=== PATIENT | male | born 1935 | race Caucasian/White ===

== ENCOUNTER 2016-07-19 05:47 | Inpatient (IN) | payer MEDICARE, OTHER ==
[~2016-07-19] VITALS: Ht 167.6 cm; Wt 95.8 kg
[2016-07-19] VITALS (18 sets, daily range): BP systolic 78–126; BP diastolic 50–85; PULSE 59–133; RESP 17–22; O2SAT 93–98
[~2016-07-19 05:47] MED LIST: ALBU8.5H2 INHALATION; ALBUTEROL; AMLO10TA3 PO; ASPI-973 PO; ATOR20TA PO; CITA20TA11 PO; FLAX100010 PO; FURO40TA4 PO; GLIM4TAB2 PO; HYDR-4003 PO; INSU100V7 SUBQ; MULT1CAP33 PO; NITR4.9S5 SL; OMEP20CA11 PO; SPIR25TA3 PO
--- NOTE | 2016-07-19 06:07 | ED.REPORT ---
HPI-Chest Pain 40 and Over Date of Service Jul 19, 2016 ED Provider: Kam Escobar MD An 81 year old male with h/o KY, HTN, COPD, asthma, and CABG presents to the ED via EMS c/o continuous non-radiating chest pain onset 0130 which woke him from sleep, but he did not get out of bed until 0400. Pain is described as pressure on patient's chest, and is not exacerbated or relieved by anything. Pain was rated 8/10 at onset, is now 6/10 with pressure sensation decreased, but he still feels like there is something sitting on his chest. He took 1 Nitro and 3 puffs from his inhaler at home with some relief, was given additional Nitro by medics in route along with Aspirin but took no other meds today. Associated SOB described as patient not being able to get enough air, cough, wheezing, and chills . His O2 sat was 88. He reports that chest pain is distinct from asthma attacks. He felt fine yesterday, and has not had any cough, chest pressure, or cold in the last few days , only baseline asthma exacerbation and pollen reaction. He has baseline edema in legs that have been slightly worse in the past few days.He denies and diaphoresis, nausea, vomiting, or extremity swelling. He had a past episode of similar symptoms during CABG. Last episode of chest discomfort was a few months ago difference being that he experienced heat and diaphoresis. He denies any recent bleeding problems. Nursing Notes Stated Complaint: CHEST PAIN, SHORT OF BREATH Chief Complaint: Chest Pain Nursing Notes Reviewed: Yes ([employer], meds not reconciled) Allergies: Coded Allergies: No Known Allergies (Unverified , 07/19/16) Scheduled Albiglutide (Tanzeum) 50 Mg/0.5 Ml Pen.injctr 50 MG SQ WEEKLY Amlodipine (Amlodipine) 10 Mg Tablet 10 MG PO DAILY Aspirin (Aspirin) 81 Mg Tablet 81 MG PO DAILY Atorvastatin (Lipitor) 20 Mg Tablet 40 MG PO DAILY Citalopram (Citalopram) 20 Mg Tablet 20 MG PO DAILY Furosemide (Furosemide) 40 Mg Tablet 80 MG PO MORNING Furosemide (Furosemide) 40 Mg Tablet 40 MG PO HS Glimepiride (Glimepiride) 4 Mg Tablet 4 MG PO DAILYAC Multivitamin (Multivitamins) 1 Each Capsule 1 EACH PO DAILY Omeprazole (Omeprazole) 20 Mg Capsule.dr 20 MG PO DAILY Spironolactone (Spironolactone) 25 Mg Tablet 25 MG PO DAILY Ubidecarenone (Co Q-10) 300 Mg Capsule 300 MG PO DAILY Scheduled PRN Albuterol HFA (Proair HFA) 8.5 Gm Hfa.aer.ad 2 PUFFS INHALATION q4-6h PRN PRN For Wheezing Hydrocodone-Acetaminophen 5-325 mg (Hydrocodone-Acetaminophen 5-325 mg) 1 Each Tablet 1 TABLET PO Q6H PRN PRN For Pain Insulin Glargine (Lantus U100 Insulin Vial) 100 Unit/Ml Vial 20 UNIT SUBQ DIRECTED PRN PRN Hyperglycemia Nitroglycerin SL (Nitroglycerin SL) 0.4 Mg Tab.subl 0.4 MG SL PRN chest pain General Time Seen by MD: 06:02 Chief Complaint Chest pain Hx Obtained From: Patient, Spouse, EMS Arrived By: Ambulance Sudden in Onset?: Yes Onset Occurred: 5 - 8 hours ago (0130) Symptom Duration: Since onset Radiation: : Does not radiate Severity: Current: Pain level 6 out of 10 Severity: Maximum: Pain level 8 out of 10 Recent Healthcare: Recent doctor visit Similar Sx Previous: No Past Medical History Past Medical History Notes: Echocardiogram 06/20/2016, mild LVH, EF 55-60%, mild right ventricular dilation, mild mitral regurgitation, bioprosthetic aortic valve, mild to moderate tricuspid regurg Visited Dr. Fishman 07/06 for similar symptoms Past Medical History History of pulmonary hypertension COPD Asthma Stage III chronic kidney disease Diabetes Primary osteoarthritis the right hip History of congestive heart failure Hyperlipidemia GERD History of major depression History of chronic low back pain History of aortic valve replacement with a porcine valve (on ASA) Reports: Coronary artery disease Past Surgical History CABG Bioprosthetic aortic valve Cardiac catheterization February 2015 Hip surgery Smoking History Former Smoker Social History Drug Use: Denies drug use Review of Systems Constitutional: Reports: Chills Respiratory: Reports: Non-productive cough, Shortness of breath, Wheezing Cardiovascular: Reports: Chest pain GI: Denies: Nausea, Vomiting Musculoskeletal: Denies: Extremity swelling Skin: Denies Diaphoresis Complete sys rev & neg: except as marked. Physical Exam Initial Vital Signs Vital Signs (First) Date Time Temp Pulse Resp B/P Pulse Ox O2 Delivery O2 Flow Rate FiO2 07/19/16 05:59 36.6 133 20 126/67 98 Nasal Cannula 2 Initial VS: Reviewed, Vital signs abnormal General/Constitutional: Awake, Alert Appearance / Presentation: Positive: Obese Respiratory / Chest: Atraumatic bronchospastic Heart Sounds / Murmur: Positive: Heart sounds diminished (Can't hear enough heart tones to identify murmur that I am sure is there. ) 1-2+ edema in both legs. Abdomen: Atraumatic, No guarding, No rebound Skin: Warm, Dry Neurologic: Oriented X3, Speech NL Head / Eyes: Atraumatic, Normocephalic, PERRL, EOMI ENT: Atraumatic, Mucous membranes moist Interpretation & Diagnostics Lab Results Interpretation Result Diagram: 07/19/16 0558 07/19/16 0558 Test 07/19/16 05:58 White Blood Count 11.6th/mm3 (3.8-10.1) Red Blood Count 4.73mil/mm3 (4.40-5.80) Hemoglobin 14.4g/dL (13.8-17.2) Hematocrit 43.0% (41.0-50.0) Mean Corpuscular Volume 90.9fL (81-100) Mean Corpuscular Hemoglobin 30.4pg (27.0-35.0) Mean Corpuscular Hemoglobin Concent 33.5% (32.0-37.0) Red Cell Distribution Width 14.6% (12.3-15.4) Platelet Count 231bil/L (150-400) Neutrophils (%) (Auto) 75.6% (40-74) Lymphocytes (%) (Auto) 12.3% (14-46) Monocytes (%) (Auto) 11.0% (4-12) Eosinophils (%) (Auto) 0.5% (0-5) Basophils (%) (Auto) 0.3% (0-3) Sodium Level 138mEq/L (134-144) Potassium Level 3.8mEq/L (3.5-5.2) Chloride Level 97mEq/L (97-108) Carbon Dioxide Level 25mmol/L (18-29) Blood Urea Nitrogen 27mg/dL (8-27) Creatinine 1.61mg/dL (0.76-1.27) Estimat Glomerular Filtration Rate 44mL/min (>59) Glucose Level 223mg/dL (60-99) Calcium Level 9.1mg/dL (8.5-10.1) Magnesium Level 2.1mg/dL (1.6-2.6) Total Bilirubin 0.7mg/dL (0.0-1.2) Aspartate Amino Transf (AST/SGOT) 21U/L (0-50) Alanine Aminotransferase (ALT/SGPT) 13U/L (0-44) Alkaline Phosphatase 79U/L (25-160) Troponin T 0.089ug/L (0.0-0.011) Total Protein 7.3g/dL (6.4-8.4) Albumin 3.8g/dL (3.4-5.0) Lab Results Interpretation: CBC mild leukocytosis CMP mild chronic renal insufficiency unchanged, mild hyperglycemia Troponin #1 elevated-previous troponin 0.013 with similar renal insufficiency are agreeing that this represents a clinically meaningful troponin elevation ECG Interpretation ECG Interpretation: Initial EKG was read by the computer as demonstrating an acute KY-however I do not appreciate clear ischemic changes, I contacted the on-call carton repairer Dr. Baker is a reviewed the EKG and agrees that he does not appreciate findings on acute ischemia on the initial EKG. The computer over read reads his rhythm is atrial flutter, but this is not definitively apparent on my interpretation. It is possible, as is tachycardic in the 120s, up across represent sinus tachycardia. There is a chronic right bundle branch block that is unchanged. T waves inferiorly which are suggestive and old inferior KY, but again unchanged compared with previous. Time: 07:00 Interpreted by: ED physician, [employer] Normal ECG Interpretation: No acute ischemic changes ECG Interpretation: Heart rate is improved and is down to 103, again the computer over read indicates atrial flutter but this is not definitive on my interpretation, the right bundle branch block, old inferior unchanged-but again I do not appreciate acute ischemic changes on the second EKG Time: 06:16 Interpreted by: ED physician ECG Interpretation: This third EKG again the computer or read claims atrial flutter, again this remains debatable, however the rate has now improved to 92, and no ischemic changes are evident, no interval changes are present, and the patient is now pain free is 0 out of 10 discomfort Time: 07:46 Interpreted by: ED physician X-Ray Chest Interpretation Chest Xray Interpretation: IMPRESSION: Mild cardiomegaly and interstitial prominence. Mild early developing pulmonary edema cannot be excluded. Correlate clinically. Dictated by: Pawan Peña RRA Interpreted: Martha Yousif MD on 07/19/2016 at 8:39 Transcribed by: ROSEANN on 07/19/2016 at 8:40 Approved by: Martha Yousif MD, PhD on 07/19/2016 at 8:47 Interpretation / Wet Read by: Interpret - Radiologist Re-Eval/Medical Decision Med Decision/Clinical Course Is is an 81-year-old male complex history including coronary disease, status post CABG, status post bioprosthetic aortic valve and history of pulmonary hypertension presents with onset of chest pressure and discomfort that is reminiscent of the discomfort that he had prior to his CABG, but less severe- but it kept him awake and persisted. He has had some shortness of breath and wheezing as well. The symptoms started around 1 AM, but he did not notify his told around for him, as he arrives complaining of 8 out of 10 discomfort. He has had aspirin and nitroglycerin prior to arrival, but is still having 6-7 out of 10 chest discomfort. She does not appear toxic, he is mildly bronchospastic, he has no JVD but does have some lower extremity edema which he says is baseline. A EKG was read by the computer as demonstrating an acute KY, but I do not appreciate this-but given that interpretation and his presentation, the EKG was reviewed with the carton repairer on-call who agrees it does not appear to represent interval change or clear ischemia. Patient continued to have discomfort in the department, and received additional nitrates, a Dilaudid and lorazepam, for the CT does have COPD does have a component of some audible bronchospasm he received a dose of albuterol, and he last received a dose metoprolol. With these medicines his symptoms resolved. On reevaluation he is symptom-free. He has had a multitude of serial EKGs with no interval change. Hours labs do demonstrate a troponin elevation which seems real given that he had similar renal function when his last troponin was obtained and was 0.013. The patient started on a heparin drip. The case is discussed with the on-call carton repairer Dr. Ritter these being consulted, and the patient is being admitted to the hospitalist service. Source of Hx: Old records, EMS Time of Eval: 07:03 Patient Status: Condition improved Re-Evaluation/Progress Note: Rechecked patient. Pain is now at 5/10. Explained plan for admission. Patient understands and agrees with the plan. All questions addressed. Time of Eval: 07:34 Patient Status: Condition improved Re-Evaluation/Progress Note: Rechecked patient who is pain free. Consultation #1: Referral / Consult Name: Conrado Baker MD Consulted With: Cardiology Call Returned at: 06:21 Stream Control Officer: Agrees with eval Note: Discussed patient EKG results with Dr. Baker. Consultation #2: Referral / Consult Name: Angel Ritter MD Stream Control Officer: Agrees with plan Note: Discussed patient case with Dr. Ritter who agrees to consult. Consultation #3: Referral / Consult Name: Reynaldo Aguilar MD Consulted With: Hospitalist Call Returned at: 08:19 Stream Control Officer: Accepts admit Differential Diagnosis: Positive: Acute coronary syndrome, Acute myocardial infarct, Asthma exacerbation (COPD), Chest pain, acute, Myocardial infarction, Unstable angina, Negative: Esophageal rupture, Esophagitis, Gun shot wound chest, Peptic ulcer disease, Pneumomediastinum, Pneumonia, Pneumothorax, Pulmonary edema, Pulmonary embolism Counseled Regarding: Diagnosis, Lab results, Need for follow-up, Need for admission Discharge & Departure Primary Impression: NSTEMI (non-ST elevated myocardial infarction) Disposition: ADMITTED TO HOSPITAL Discharge Condition All VS Reviewed: Yes Condition: Improved Referrals: Milan Fishman MD (PCP) Crit Care Except Billable Proc Time Spent: 30-74 minutes Services Performed: Patient management by me, Time spent at bedside, Reviewing test results, Reviewing imaging, Discussing patient care, Documentation in record, Time with fam/surrogate, Other Scribe Attestation Portions of this note were transcribed by Quang Bedoya. I, Dr. Escobar personally performed the history, physical exam and medical decision-making; I reviewed and confirmed the accuracy of the information in the transcribed note. Signed by: Kang Schafer, 07/19/2016, 0823. copies to: Milan Fishman MD, Matthew F MD Jul 19, 2016 06:07 Quang Bedoya Jul 19, 2016 06:17
[2016-07-19 06:08] LABS: BASOPHILS % (AUTO) 0.3 % (0-3); EOSINOPHILS % (AUTO) 0.5 % (0-5); Mean Corpuscular Hemoglobin 30.4 pg (27.0-35.0); Mean Corpuscular Volume 90.9 fL (81-100); NEUTROPHILS % (AUTO) 75.6 % (40-74); Platelet Count 231 bil/L (150-400)
[2016-07-19] MEDS ORDERED: Albuterol-Ipratropium 3 mL Inhalation Solution NEB ONE (06:15)
[2016-07-19] MEDS ORDERED: Nitroglycerin 2% 1 Gm Ointment TOPICAL SCH (06:15)
[2016-07-19] MEDS ORDERED: HYDROmorphone 0.5 mg/0.5 mL iSecure Syringe IVPUSH ONE (06:15)
[2016-07-19] MEDS ORDERED: MethylprednisoLONE Sodium Succinate 62.5 mg/mL 2 mL Inj IVPUSH ONE (06:15)
[2016-07-19 06:51] LABS: Magnesium 2.1 mg/dL (1.6-2.6)
[2016-07-19 06:54] LABS: TROPONIN T 0.089 ug/L (0.0-0.011)
[2016-07-19] MEDS ORDERED: Heparin 25K Unit/500mL 0.45 NS 25,000 UNIT in IV Premix 1 EACH IV ONE (07:05)
[2016-07-19] MEDS ORDERED: Heparin 5,000 Unit/mL Inj IVPUSH ONE (07:05)
[2016-07-19] MEDS ORDERED: MeTOProlol 1 mg/mL 5 mL Inj IVPUSH ONE (07:05)
--- NOTE | 2016-07-19 08:40 | DRSVH ---
PROCEDURE: X-RAY CHEST ONE VIEW, PORTABLE ([id number]) INDICATIONS: CHEST PAIN, sob, chf TECHNIQUE: One view of the chest was acquired. COMPARISON: [facility], CR, XR CHEST 2VW, 05/30/2016, 12:14. [facility], CR , CHEST 1VW (PORTABLE), 04/07/2013, 22:08. FINDINGS: Surgical changes and devices: Post median sternotomy. Lungs and pleura: No pleural effusions or pneumothorax. Lungs are clear and interstitium is promine nt. Mediastinum: Mediastinal contours appear normal. Heart size is enlarged. Bones and chest wall: No suspicious bony lesions. Overlying soft tissues appear unremarkable. IMPRESSION: Mild cardiomegaly and interstitial prominence. Mild early developing pulmonary edema can not be excluded. Correlate clinically. Dictated by: Pawan Peña RRA Interpreted: Martha Yousif MD on 07/19/2016 at 8:39 Transcribed by: ROSEANN on 07/19/2016 at 8:40 Approved by: Martha Yousif MD, PhD on 07/19/2016 at 8:47
[2016-07-19] MEDS ORDERED: FURO40TA4 PO (08:41)
[2016-07-19] MEDS ORDERED: NITR0.4T6 SL (08:41)
[2016-07-19] MEDS ORDERED: UBID300C PO (08:41)
[2016-07-19] MEDS ORDERED: ALBI50PE SQ (08:42)
[2016-07-19] MEDS ORDERED: Ondansetron 2 mg/mL 2 mL Inj IVPUSH PRN ×2 (09:15)
[2016-07-19] MEDS ORDERED: Polyethylene Glycol (PEG) 17 Gm Powder PO PRN (09:15)
[2016-07-19] MEDS ORDERED: Alum-Mag Hydrox-Simeth 30 mL Suspension PO PRN ×2 (09:15)
[2016-07-19] MEDS: Sodium Chloride LOK Flush 10 mL Syringe IVFLUSH SCH ×3 (09:15→23:35)
--- NOTE | 2016-07-19 10:44 | NUR ---
Admission Pt arrived to [facility] approx 1000, accompanied by . A&Ox3, pale, mildly diaphoretic, and dyspneic. Heparin gtt infusing, on 2L O2 NC (baseline at home). Reports no CP/pressure/discomfort at this time.
--- NOTE | 2016-07-19 11:40 | NUR ---
Evaluation completed. Please go to "Notes" then click on "Assessments and Notes" (bottom left corner of screen). Then select appropriate discipline tab on top of screen.
--- NOTE | 2016-07-19 14:25 | CONS ---
[address] [id number] CONSULTATION REPORT PATIENT: KEVIN BOONE : 1935 MR#: [id number] ADMIT: 07/19/2016 JOB ID: [id number] DATE OF SERVICE: 07/19/2016 CARDIOLOGY CONSULTATION: I was asked by the hospitalist to see the patient in consultation after he presented early this morning with symptoms of precordial chest discomfort that awoke him from sleep and persisted. He called 911 and presented to the emergency department for evaluation with abnormal initial troponin. He has a known history of ischemic heart disease. Consultation was requested for assistance with his evaluation and management. The patient states that he awoke at around 1 or 1:30 this morning with a sense of moderately severe precordial chest discomfort associated with diaphoresis and dyspnea and moist hacking cough. He was feeling poor enough that he contacted 911 who found that he was hypoxic with an O2 sat of 88% and tachycardic with heart rates in the 130 range. Initial EKG showed a regular tachycardia at a rate of 130 or so with a pre-existing somewhat atypical right bundle and left axis deviation, but without acute ST-segment abnormalities. He was treated in the emergency department with aspirin, intravenous heparin, nitrates and morphine and gradually his discomfort resolved and he was admitted to the hospitalist team on the third floor. As I am seeing him this morning, he is comfortable with no significant residual discomfort or dyspnea. He does not give a history of recent exertional anginal symptoms. He is limited by exertional fatigue and dyspnea but also by fairly severe arthralgias in his right hip so his activity level is markedly restricted, pretty much room to room in his home or perhaps to go out and get the mail periodically. He has chronic lower extremity edema on diuretic therapy and denies any symptoms of nocturnal pulmonary congestion. This gentleman's past cardiac history dates back to his presentation with unstable angina back in December 2009. He was hospitalized and his evaluation showed evidence of critical aortic stenosis in addition to moderate disease involving his LAD and dominant left circumflex. He was transferred to [place] and underwent bioprosthetic aortic valve replacement along with bypass grafting with an internal mammary bypass graft to the LAD distally and a vein bypass graft to the distal left circumflex and the PDA vessel. Surgery was complicated because of significant severe pulmonary hypertension and he did poorly when his sternum was closed. Therefore, his sternum was left open for several days as he improved hemodynamically and ultimately closed and plastic surgery was involved in that so it was a prolonged complex procedure. What is notable to me is the fact that he had moderately severe pulmonary hypertension at that time in addition to his severe aortic stenosis and also on my review of his echocardiogram from that year showed evidence of severe left ventricular hypertrophy. This gentleman underwent repeat evaluation in 2014 with repeat coronary angiography and right heart catheterization demonstrating moderate pulmonary hypertension and a large patent vein bypass graft to the distal circumflex PDA and a relatively small internal mammary graft which was patent and anastomosed to the distal LAD. The proximal coronary disease of the LAD and circumflex was moderate as well and probably not significantly changed compared with the previous angiogram in 2009. A repeat echocardiogram was performed just recently as part of an evaluation prior to considering right hip replacement surgery and this demonstrated normal left ventricular systolic function. Again I had an opportunity to review the echocardiogram and what is notable is the fact that the left ventricular myocardium is markedly thickened throughout so there is severe left ventricular hypertrophy. The patient was in normal sinus rhythm when this was done three weeks ago. It demonstrates mild right ventricular enlargement and mild-to- moderate right ventricular dysfunction and elevated central venous pressures. DATE OF SERVICE: PAST MEDICAL HISTORY: Is notable for: 1. Diabetes. 2. Chronic moderate renal insufficiency. 3. Chronic obstructive pulmonary disease. 4. Previous right bundle branch block. 5. Previous gastroesophageal reflux with esophagitis previously. 6. History of depression. 7. History of hypertension. 8. He also has a history of obstructive sleep apnea in the past. A sleep study in April 2011 demonstrated severe obstructive sleep apnea with nocturnal hypoxemia. The patient was not able to tolerate CPAP therapy. 9. He also has significant chronic obstructive pulmonary disease with pulmonary function studies most recently in March of last year demonstrating moderately severe obstructive disease with a significant reduction in diffusion capacity of around 33%-34%. REVIEW OF SYSTEMS: Again predominantly notable for limiting right hip arthralgias. He has a history of easy bruising but does not have any prior bleeding issues. He has no history of stroke or stroke-like symptoms. He denies exertional angina. He has chronic lower extremity edema. MEDICATIONS: According to our office records, his cardiac medications include: 1. Amlodipine 5 mg a day. 2. Baby aspirin daily. 3. Atorvastatin 40 mg daily. 4. Furosemide 80 mg in the morning, 40 mg in the evening. 5. Spironolactone 25 mg daily. ALLERGIES: No known drug allergies noted. PHYSICAL EXAMINATION: Shows a pleasant, moderately obese gentleman who is in no obvious distress. He is 5 feet 6 inches tall and weighs 207 pounds with a body mass index of 33.3. Heart rates are improved this morning into the 80-100 range and blood pressures have generally been in the 100-120 range. HEENT examination is unremarkable. Neck shows somewhat prominent jugular venous distention with the internal jugular venous pulse visible at the angle of the jaw with the patient at 60 degrees. Lung turpin demonstrate diminished breath sounds bilaterally without obvious wheezing. There may be some faint rales at the right lung base. Heart tones are distant. The rhythm is moderately rapid and regularly irregular. I do not hear an obvious cardiac murmur. Abdomen is obese without tenderness and normal bowel tones. Distal extremities are warm and well perfused. There is 2+ bilateral lower extremity edema below the knees. Pedal pulses are not readily palpable. The patient has no clear-cut musculoskeletal or neurologic abnormalities. LABORATORY DATA: Again notable for renal insufficiency with a creatinine of 1.6, blood sugar 223, troponin level elevated at 0.089 and BNP elevated at 5165. His white count is mildly elevated at 11.6 thousand. Chest x-ray shows normal heart size, previous sternotomy incision. There is mild pulmonary congestion seen. IMPRESSION: 1. Symptomatic atrial flutter: This patient's presenting symptoms likely represent the onset of atrial flutter early this morning with associated subendocardial ischemia related to the patient's severe ventricular hypertrophy. It is unlikely that this represents an acute coronary syndrome such as graft occlusion or worsening coronary stenosis. Given this patient's renal insufficiency, I think it is prudent to control his flutter rate with beta-delma therapy and proceed with elective cardioversion tomorrow. This patient had eaten breakfast this morning and, therefore, given the fact that he was asymptomatic, cardioversion can be postponed until tomorrow unless he develops recurrent symptoms. 2. Severe left ventricular hypertrophy: Likely related to his history of hypertension and severe aortic stenosis. 3. Moderately severe pulmonary hypertension: This patient has documented severe obstructive sleep apnea and nocturnal hypoxemia. He uses oxygen periodically at night but that will do him no good if he has persistent significant obstructive sleep apnea. The states that he has lost a lot a weight and he no longer snores as bad as he used to and a repeat sleep study evaluation should be done and the patient, if the sleep study is abnormal, should be strongly counseled to consider CPAP therapy. 4. History of two-vessel coronary bypass graft surgery and bioprosthetic aortic valve replacement: It would be reasonable to do a repeat nuclear cardiac stress study once the patient is back into a normal rhythm, particularly given the fact that he anticipates hip replacement surgery. 5. Moderately severe chronic obstructive pulmonary disease with significant abnormal diffusion capacity. 6. Insulin-dependent diabetes. 7. Obstructive sleep apnea: See discussion above. RECOMMENDATIONS: I have put in orders for this gentleman to get started up on metoprolol tartrate 25 mg q.8. Will want to make sure that we do not slow his rate too much and that it does not aggravate any significant bronchospasm. We will also initiate anticoagulant therapy with Xarelto and will get that started today so that he is anticoagulated for the cardioversion tomorrow and he should remain on anticoagulant therapy for at least the next month but perhaps longer depending upon his clinical course. I have gone ahead and put these orders in and stopped his aspirin and heparin therapy and will make arrangements for his cardioversion tomorrow. TAMEKA
[2016-07-19] MEDS ORDERED: Insulin GLARgine 100 Unit/mL Syringe SUBQ PRN (16:45)
[2016-07-19] MEDS ORDERED: HYDROcodone-APAP 5-325 mg Tablet PO PRN (16:55)
--- NOTE | 2016-07-19 18:36 | NUR ---
BP Up to BR, reported to SERVICES PROGRAM MANAGER feeling dizzy and sweaty. SBP 82. Pt assisted back to bed, feet elevated, O2 titrated. paged. SBP 119, per Dr Aguilar, pt is to be BR until cardioversion tomorrow. Hold PM lasix until BP increases. Will continue POC
[2016-07-19] MEDS: Insulin Human REGular 300 Unit/3 mL Inj SUBQ SCH ×2 (18:47→21:56)
[2016-07-19] MEDS: Albuterol 2.5 mg/3 mL Inhalation Solution NEB PRN (20:02)
--- NOTE | 2016-07-19 20:07 | NUR ---
BP Patient insisted on going to restroom to have bowel movement at about 1930. Assisted by JOHN. Patient reported that he was feeling okay, denied dizziness, dyspnea while in restroom. Upon returning to bed, patient reported being dizzy. BP 78/56 once back in bed, vitals stable otherwise. Reminded patient of bedrest status, and that we will use bed fox or urinal overnight-agreeable. Bed alarm on, call light within reach. Addendum: 07/19/16 at 2045 by LIVAN ROMERO RN Nitro-paste on left chest removed at 2039- was placed early this morning in ED.
--- NOTE | 2016-07-19 21:06 | PCM.HPMED ---
Subjective Date of Service Jul 19, 2016 Primary Provider: Admitting Physician: Reynaldo Aguilar MD Primary Care Physician: Milan Fishman MD Attending Physician: Reynaldo Aguilar MD Chief Complaint: "Chest pain and cough with pain all over" History of Present Illness: Patient is a very pleasant 81-year-old white male with history of myocardial infarction, hypertension, COPD, asthma and coronary artery bypass graft surgery and aortic valve replacement who presented to [facility] emergency department via EMS services complaining of continuous nonradiating chest pain that woke him up from sleep at 1:30 AM. Patient did not get out of bed until 4 AM. The pain was described as a pressure on his chest and was not exacerbated or relieved by anything in particular. The pain was rated as an 8 out of 10 at onset, prior to evaluation by the ED provider it was 6/10. But he still felt like there was something sitting on his chest. He took one nitroglycerin and 3 pus from his inhaler at home with some relief. He was given additional nitroglycerin by medics and Route along with aspirin but to no other medications today. Patient had associated shortness of breath described as patient was not "able to get enough air" she complained of cough wheezing and chills. His O2 sat in the emergency room was only 88%. He reported that his chest pain was distinct from his asthma attacks. He felt fine yesterday had not had any cough, or chest pressure or cold the last few days. Patient only had baseline asthma exacerbation and pollen reaction. He has baseline edema in legs that have been slightly worse in the past few week days. He denied any diaphoresis, nausea or vomiting. Patient stated that he had a past episode of similar symptoms during a time or he had a coronary artery bypass graft surgery. He states his last episode of chest discomfort was a few months ago with the onset was different being that then he experience heat and diaphoresis. Patient was evaluated in the emergency room by Dr. Kam Escobar and Dr. Kam Escobar first contacted oil expeller Dr. Baker about the patient's EKG. And then Dr. Kam Escobar consulted Dr. Ritter who is a oil expeller fashion photographer for today. Dr. Ritter stated that he would see the patient in consultation. The patient was then admitted to the hospitalist service for further evaluation and treatment. Review of Systems: General: The patient is in no apparent distress at the time of my visit. However after receiving metoprolol he developed diaphoresis and hypotension with a blood pressure of 80/50 which improved after laying him back in bed with his legs elevated. HEENT: Patient has a headache in the left temporal area. The patient wears reading glasses and has no diplopia, patient has no changes in vision. Patient has no problems with his nose or throat. He has deafness in the left ear. Patient has no known dental problems. Patient has no pharyngitis or history of thrush. Neck: Patient has no stiffness in the neck. Patient has no lymphadenopathy. Patient has no other problems with his neck. Pulmonary: Patient has some shortness of breath, with a cough however, he has no expectoration of sputum. Patient has no pleurisy. Patient has no chest pain at present time. However, he complained of chest pain prior to admission which felt like "someone was sitting on my chest". Patient has no history of asthma or COPD. Cardiovascular: Patient had chest pain described as if someone was sitting on his chest. He no longer has any chest pain. Patient has no history of heart murmur. Patient has no palpitations. Patient has a history of myocardial infarction. Patient has history of coronary artery disease with coronary artery bypass graft surgery 3 vessel approximately 8 years ago at the time of his aortic valve replacement. Patient states that he had a bovine aortic valve replacement approximately 8 years ago. Gastrointestinal: Patient has no history of hepatitis A, B or C. Patient has no history of peptic ulcer disease. Patient has no history of gastroesophageal reflux disease. Patient has no history of nausea, vomiting, or diarrhea. Patient has no history of hematemesis, hematochezia, or melena. Patient has no history of colitis. Renal: Patient has a history of chronic kidney disease stage III Genitourinary: Patient has no history of dysuria, frequency, or incontinence. Patient has no previous history of genitourinary problems. Musculoskeletal: Patient has a history of osteoarthritis and underwent left total hip arthroplasty in the past. Neurologic: Patient has a history of a CVA with left hand weakness which has resolved so he thinks it may have been a TIA. Psychiatric: Patient has no history of psychiatric problems. The remainder of the entire review of systems was reviewed with patient and is as mentioned above otherwise negative. Allergies Coded Allergies: No Known Allergies (Unverified , 07/19/16) Home Medications Scheduled Albiglutide (Tanzeum) 50 Mg/0.5 Ml Pen.injctr 50 MG SQ WEEKLY Amlodipine (Amlodipine) 10 Mg Tablet 10 MG PO DAILY Aspirin (Aspirin) 81 Mg Tablet 81 MG PO DAILY Atorvastatin (Lipitor) 20 Mg Tablet 40 MG PO DAILY Citalopram (Citalopram) 20 Mg Tablet 20 MG PO DAILY Furosemide (Furosemide) 40 Mg Tablet 80 MG PO MORNING Furosemide (Furosemide) 40 Mg Tablet 40 MG PO HS Glimepiride (Glimepiride) 4 Mg Tablet 4 MG PO DAILYAC Multivitamin (Multivitamins) 1 Each Capsule 1 EACH PO DAILY Omeprazole (Omeprazole) 20 Mg Capsule.dr 20 MG PO DAILY Spironolactone (Spironolactone) 25 Mg Tablet 25 MG PO DAILY Ubidecarenone (Co Q-10) 300 Mg Capsule 300 MG PO DAILY Scheduled PRN Albuterol HFA (Proair HFA) 8.5 Gm Hfa.aer.ad 2 PUFFS INHALATION q4-6h PRN PRN For Wheezing Hydrocodone-Acetaminophen 5-325 mg (Hydrocodone-Acetaminophen 5-325 mg) 1 Each Tablet 1 TABLET PO Q6H PRN PRN For Pain Insulin Glargine (Lantus U100 Insulin Vial) 100 Unit/Ml Vial 20 UNIT SUBQ DIRECTED PRN PRN Hyperglycemia Nitroglycerin SL (Nitroglycerin SL) 0.4 Mg Tab.subl 0.4 MG SL PRN chest pain PMH History of pulmonary hypertension COPD patient quit smoking 20 years ago Asthma Stage III chronic kidney disease Diabetes was diagnosed [address] Urena Primary osteoarthritis the right hip History of congestive heart failure Hyperlipidemia GERD improved on a proton pump inhibitor History of major depression History of chronic low back pain History of aortic valve replacement with a porcine valve (on ASA) patient told me he believes this is a bovine valve: Coronary artery disease status post coronary bypass graft surgery 3 vessel at the time of his aortic valve replacement. Surgical History Tonsillectomy which was then redone as he did not get everything. Patient had all 4 wisdom teeth removed CABG 3 vessels 8 years ago Bioprosthetic aortic valve (patient claims this is a bovine valve that was replaced 8 years ago closing) Cardiac catheterization February 2015 Hip surgery, status post left total hip arthroplasty Family History Patient's son of enlarged heart gout and alcoholism The patient's family history is otherwise unremarkable. Social History Hx Alcohol Use: Yes (rarely) Hx Substance Use: No Hx Tobacco Use: Yes (The patient quit 20 years ago.) Smoking Status: Former Smoker Living Arrangement: with Family (patient lives with his on a [place] Additional Information Patient was born in [place]. 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 He went and [employer] which many of the kids from the orphanage went to. He played high school football, basketball. Patient then went to [employer]. He never obtained a degree. 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 States the job very stressful. Patient is to his first for 17 years and they have 3 children. Patient was to his second and current patient used to drink beer maybe 4-5 beers a day but does not drink much at all anymore. He lives in [place]. Patient has been to his current for 20 years. Patient had 3 children 2 boys and one girl. Exam Vital Signs Vital Sign - Last Date Time Temp Pulse Resp B/P Pulse Ox O2 Delivery O2 Flow Rate FiO2 07/19/16 20:45 76 20 98/66 97 Nasal Cannula 2.00 07/19/16 19:54 36.0 Exam General: Patient is in no apparent distress laying supine in bed with his head elevated approximately 30. HEENT: Head is atraumatic and normocephalic with normal male pattern baldness. Eyes: Pupils are equally round and reactive to light and accommodation. Extraocular muscles are intact. Sclera are white, anicteric. Subconjunctival mucosa is pink. Ears and nose are unremarkable. Oropharynx: There are no mucosal lesions, there is no thrush, there is no pharyngitis. Neck: Is supple, there are no nodes, or masses or tenderness. Chest: Is insignificant for a few basilar rales and decreased breath sounds. Heart: Rate, rhythm is regular. There is no murmur, rub or gallop. Abdomen: Good bowel sounds are present. Abdomen is slightly obese, soft, nontender, no organomegaly or masses were appreciated. Extremities: Are symmetrical and well perfused. There is minimal edema, there is no cellulitis, no rash. Neurologic: There are no focal neurological deficits. Cranial nerves II through XII are intact. There are no sensory or motor deficits. Psychiatric: Patients mood is calm and shows no sign of agitation. Genital: Deferred Rectal: Deferred Lab and Diagnostics Result Diagram: 07/19/16 0558 07/19/16 0558 X-Rays, CTs and MRIs PROCEDURE: X-RAY CHEST ONE VIEW, PORTABLE ([id number]) INDICATIONS: CHEST PAIN, sob, chf TECHNIQUE: One view of the chest was acquired. COMPARISON: [facility], CR, XR CHEST 2VW, 05/30/2016, 12:14. [facility], CR, CHEST 1VW (PORTABLE), 04/07/2013, 22:08. FINDINGS: Surgical changes and devices: Post median sternotomy. Lungs and pleura: No pleural effusions or pneumothorax. Lungs are clear and interstitium is prominent. Mediastinum: Mediastinal contours appear normal. Heart size is enlarged. Bones and chest wall: No suspicious bony lesions. Overlying soft tissues appear unremarkable. IMPRESSION: Mild cardiomegaly and interstitial prominence. Mild early developing pulmonary edema cannot be excluded. Correlate clinically. Dictated by: Pawan Peña RRA Interpreted: Martha Yousif MD on 07/19/2016 at 8:39 Transcribed by: ROSEANN on 07/19/2016 at 8:40 Approved by: Martha Yousif MD, PhD on 07/19/2016 at 8:47 Cardiac Echo Impressions Echocardiogram Report Name: KEVIN BOONE Study Date: 06/20/2016 Height: 66 in Hospital Exam Location: [facility] Weight: 206 lb Gender: Male BSA: 2.0 m2 : 1935 Age: 81 yrs BP: 98/70 mmHg Reason For Study: CAD Performed By: Justine Lopez Referring Physician: CHANDA DESAI Interpretation Summary Left ventricular wall thickness is moderately increased. The ejection fraction is estimated to be 55-60%. The right ventricle is mildly dilated. There is mild mitral regurgitation. There is a bioprosthetic aortic valve. The prosthetic aortic valve function is normal. There is mild to moderate tricuspid regurgitation. Right ventricular systolic pressure is estimated to be 47 mmHg plus the clinically estimated CVP which cannot be estimated on this exam. Compared to the prior echo exam, there has been a decrease in the severity of pulmonary hypertension. Assessment & Plan Patient is a very pleasant 81-year-old white male with history of myocardial infarction, hypertension, COPD, asthma and coronary artery bypass graft surgery and aortic valve replacement who presented to [facility] emergency department via EMS services complaining of continuous nonradiating chest pain that woke him up from sleep at 1:30 AM. Patient did not get out of bed until 4 AM. The pain was described as a pressure on his chest and was not exacerbated or relieved by anything in particular. The pain was rated as an 8 out of 10 at onset, prior to evaluation by the ED provider it was 6/10. But he still felt like there was something sitting on his chest. He took one nitroglycerin and 3 pus from his inhaler at home with some relief. He was given additional nitroglycerin by medics and Route along with aspirin but to no other medications today. Patient had associated shortness of breath described as patient was not "able to get enough air" she complained of cough wheezing and chills. His O2 sat in the emergency room was only 88%. He reported that his chest pain was distinct from his asthma attacks. He felt fine yesterday had not had any cough, or chest pressure or cold the last few days. Patient only had baseline asthma exacerbation and pollen reaction. He has baseline edema in legs that have been slightly worse in the past few week days. He denied any diaphoresis, nausea or vomiting. Patient stated that he had a past episode of similar symptoms during a time or he had a coronary artery bypass graft surgery. He states his last episode of chest discomfort was a few months ago with the onset was different being that then he experience heat and diaphoresis. Patient was evaluated in the emergency room by Dr. Kam Escobar and Dr. Kam Escobar first contacted oil expeller Dr. Baker about the patient's EKG. And then Dr. Kam Escobar consulted Dr. Ritter who is a oil expeller fashion photographer for today. Dr. Ritter stated that he would see the patient in consultation. The patient was then admitted to the hospitalist service for further evaluation and treatment. # Atrial flutter with acute diastolic congestive heart failure present at the time of admission and ongoing - Patient does have left ventricular hypertrophy and echocardiogram but has no elevated obstruction - Patient likely does have some endomyocardial ischemia with troponin leak secondary to above - Dr. Angel Ritter was kind enough to consult on the patient and appreciate his input and will follow his recommendations. - Plan is for patient to be cardioverted out of atrial flutter to normal sinus rhythm in a.m. - Patient placed on Xarelto per Dr. Ritter - Metoprolol so ordered for rate control. # Pulmonary hypertension, present as attend the admission and ongoing - Treatment plan as per Dr. Ritter # COPD, present at the time of admission and ongoing - Patient quit smoking 20 years ago - SVN treatments will be ordered # Chronic kidney disease stage III, present at the time of admission and ongoing. - Patient not an ideal candidate for coronary artery catheterization due to risk of acute renal failure on chronic kidney disease -Avoid nephrotoxic agents # Type II diabetes mellitus diagnosed 10 years ago, present at the time of admission and ongoing - Patient's glucose is uncontrolled - Check hemoglobin A1c- order sliding scale insulin coverage - Diabetic diet - Continue meds as at home. # Hyperlipidemia - Continue statin from home # Gastro-esophageal reflux disease, present at the time of admission and ongoing - Continue proton pump inhibitor as at home # History of major depression - Continue meds from home. Disposition: Patient is likely to be here more than 2 midnights for evaluation and treatment of the above problems. Patient was therefore admitted to inpatient status. Pain Evaluation: Adequate Pain Control GI Prophylaxis: Proton Pump Inhibitor VTE Prophylaxis: Other (Xarelto started by Dr. Ritter) Resuscitation Status: CPR: Attempt Resuscitation Reynaldo Aguilar MD Jul 19, 2016 21:06
--- NOTE | 2016-07-19 23:49 | NUR ---
Glucose levels Patient's glucose level at 1800 was 432- day RN administered 12 units regular insulin. At 2145, glucose level was 457, 12 units regular insulin given. Rechecked at 2330, it was 453. Patient did not eat dinner, had tea with Splenda. paged, new order for non-DKA insulin infusion to be started. Will update patient on intervention. Addendum: 07/20/16 at 0123 by LIVAN ROMERO RN Insulin infusion started at 0115. Beginning glucose level 336, started infusion at 4.5 units/hr per algorithm 1.
[2016-07-19] MEDS ORDERED: Dextrose 5% 0.45% NaCl 1,000 ML IV PRN (23:52)
[2016-07-19] MEDS ORDERED: Insulin Human REGular Inj 100 UNIT in 0.9% Sodium Chloride-Pha MIX 100 ML IV SCH (23:52)
[2016-07-20] VITALS (19 sets, daily range): BP systolic 108–144; BP diastolic 64–90; PULSE 58–101; RESP 15–28; O2SAT 94–100
--- NOTE | 2016-07-20 04:17 | NUR ---
Insulin infusion Patient's insulin infusion started at 0115 with glucose level of 336. Following algorithms and protocol, glucose level has been decreasing- currently 156 at 0400. Close monitoring in place, see paper charting. Patient is NPO.
--- NOTE | 2016-07-20 04:19 | NUR ---
Scheduled Metoprolol held Patient's 2029 dose and 0430 dose of 25mg PO Metoprolol were held. Heart rate has been steadily high 50's to low 60's, A-fib. Blood pressure has been slowly climbing, from 98/66 at HS to 120/78 at 0400. HS Lasix was given, 40mg PO dose. Patient is now NPO for planned cardioversion.
--- NOTE | 2016-07-20 05:17 | NUR ---
Wire Galvanizer tech reported that when reviewing alarms, patient had a 5.45 second pause at 1804, last evening. Patient has not had any pauses overnight, tech reports A-fib 60's with IVCD. MD jefferson-paged with information.
[2016-07-20] MEDS ORDERED: 0.9% Sodium Chloride 1,000 ML IV SCH (06:00)
[2016-07-20 06:06] LABS: BASOPHILS % (AUTO) 0.1 % (0-3); EOSINOPHILS % (AUTO) 0 % (0-5); MONOCYTES % (AUTO) 13.6 % (4-12); Mean Corpuscular Hemoglobin 30.6 pg (27.0-35.0); Mean Corpuscular Volume 90.3 fL (81-100); NEUTROPHILS % (AUTO) 80.9 % (40-74); Platelet Count 201 bil/L (150-400)
[2016-07-20] MEDS: Pantoprazole 40 mg ER24 Tablet PO SCH (06:16)
[2016-07-20 06:38] LABS: Magnesium 2.1 mg/dL (1.6-2.6); Phosphorus 3.8 mg/dL (2.5-4.9)
[2016-07-20] MEDS: Sodium Chloride LOK Flush 10 mL Syringe IVFLUSH SCH ×2 (09:21→17:49)
[2016-07-20] MEDS: Albuterol 2.5 mg/3 mL Inhalation Solution NEB PRN (09:32)
[2016-07-20] MEDS ORDERED: Furosemide 10 mg/mL 4 mL Inj IVPUSH ONE (09:45)
[2016-07-20] MEDS ORDERED: 0.9% Sodium Chloride 100 ML ONE (10:02)
--- NOTE | 2016-07-20 10:08 | PROG NOTE ---
[address] [address] PROGRESS NOTE PATIENT: KEVIN BOOEN : 1935 MR#: [id number] ADMIT: 07/19/2016 JOB ID: [id number] DATE: 07/20/2016 SUBJECTIVE: The patient had several episodes of orthostatic hypotension last night and, therefore, has been at bed rest. He is also noted to be quite wheezy throughout the night though he is not complaining of shortness of breath and has had no recurrent angina-like chest discomfort. He last received metoprolol yesterday evening and his heart rates have been in the 60 range and he appears to have a regular rate of 60 with an underlying slow somewhat atypical atrial flutter at a rate of 240 with low-amplitude flutter waves on his 12 lead ECG. His examination is otherwise unchanged other than a bit more prominent wheezing today. His laboratory is notable for an increase in creatinine to 1.98. Blood sugars have been high throughout the night and his BNP has increased significantly up to 10,000 with a continued slow taper of his troponin levels. This gentleman's condition is a bit disconcerting. The etiology for his increased creatinine is not entirely clear. It is hard to say that he would be dehydrated particularly with a BNP substantially increasing and I think his increased wheezing today his sales representative cash registers of increased pulmonary congestion due to his severe diastolic dysfunction. His cardiac output may be well dependent upon preload and in the absence of atrial contractility with atrial flutter his cardiac output might be significantly reduced accounting in some part for his low blood pressure and perhaps also to his rise in creatinine, though that seems a little bit odd to me. In any event, we will see if re-establishing normal sinus rhythm is going to be helpful. Given his BNP and wheezing, I am going to give him his Lasix this morning intravenously. Will also make sure he gets a breathing treatment. Anesthesiology will assist with his sedation given his history of significant sleep apnea. I will followup on his clinical course following his cardioversion this afternoon.
--- NOTE | 2016-07-20 12:15 | NUR ---
Morning BP medications/Lasix help morning BP medications per Dr Ritter. Pt had been having hypotensive episodes yesterday and during oracle distribution consultant per report. Administered 80mg IVP lasix one time instead of PO lasix per Dr Ritter's order prior to cardioversion.
--- NOTE | 2016-07-20 13:08 | PCM.HPANE ---
Patient Data Surgeon Admitting Provider:Reynaldo Aguilar MD Attending Provider:Reynaldo Aguilar MD Primary Care Physician:Milan Fishman MD Other Provider: Reason for Visit Nstemi Ht/WT & BMI Height (Feet): 5 Height (Inches): 6.00 Weight (Kilograms): 94.000 Body Mass Index 33.30 Allergies Coded Allergies: No Known Allergies (Unverified , 07/19/16) Past Anesthesia History Anesthesia History: Denies:: Anesthesia Reactions Diabetes History Hx Diabetes?: Yes Current Bedside Blood Glucose: 109 MRSA MRSA: No Medications Reported Medications Albiglutide (Tanzeum)50 Mg/0.5 Ml Pen.whrwua83 Mg SQ WEEKLY 07/19/16 Nitroglycerin SL 0.4 Mg Tab.subl0.4 Mg SL PRN chest pain 07/19/16 Furosemide 40 Mg Bavopm37 Mg PO HS 07/19/16 Ubidecarenone (Co Q-10)300 Mg [id number] Mg PO DAILY 07/19/16 Spironolactone 25 Mg Afikpk81 Mg PO DAILY #30 TABLET Ref 0 02/24/15 Omeprazole 20 Mg Capsule.dr20 Mg PO DAILY Ref 0 02/24/15 Multivitamin (Multivitamins)1 Each Capsule1 Each PO DAILY 02/24/15 Insulin Glargine (Lantus U100 Insulin Vial)100 Unit/Ml Vial20 Unit SUBQ DIRECTED PRN Hyperglycemia #1 VIAL Ref 0 02/24/15 Hydrocodone-Acetaminophen 5-325 mg 1 Each Tablet1 Tablet PO Q6H PRN For Pain Ref 0 02/24/15 Glimepiride 4 Mg Tablet4 Mg PO DAILYAC #30 TABLET Ref 0 02/24/15 Furosemide 40 Mg Htmswg05 Mg PO MORNING 02/24/15 Citalopram 20 Mg Dgebxo74 Mg PO DAILY Ref 0 02/24/15 Atorvastatin (Lipitor)20 Mg Zamjpe27 Mg PO DAILY Ref 0 02/24/15 Aspirin 81 Mg Xtftux22 Mg PO DAILY Ref 0 02/24/15 Amlodipine 10 Mg Uhaway04 Mg PO DAILY Ref 0 02/24/15 Albuterol HFA (Proair HFA)8.5 Gm Hfa.aer.ad2 Puffs INHALATION q4-6h PRN For Wheezing #1 INHALER 02/24/15 Discontinued Reported Medications Nitroglycerin [place] 4.9 Gm Spray1 [place] SL Q5MIN #1 BOTTLE 02/24/15 Flaxseed (Flaxseed Oil)1,000 Mg Capsule1,000 Mg PO DAILY 02/24/15 [albuterol nebu] 0.63mg/3ml No Conflict Check0.63 Mg SOLUTION FOR NEBULIZATION. USE DIRECTED. 04/07/13 History History of ENT Problems?: Yes HEENT History: Positive for:: Cataracts (WATCHING) Denies:: Dysphagia Sinus Problem Denture Type: None Teeth Condition: Within Normal Limits Hx of Heart Problems?: Yes Cardiovascular History: Positive for:: Cardiac Surgery (12/2009 3 CABG) Chest Pain (angina with prior cardiac catheterization) Congestive Heart Failure (Elevated BNP 02/2010 CHF book given) Edema Heart Murmur Hypertension Denies:: Irregular Heartbeat Pacemaker Thrombophlebitis Other Cardiac History: AVR replacement in 2009 Hx of Respiratory Problem?: Yes Respiratory History: Positive for:: Asthma COPD Dyspnea Pneumonia Denies:: Chest Surgery Emphysema Hemoptysis Tuberculosis Hx Neurologic Problems?: Yes Neurological History: Positive for:: Dizziness Headaches Denies:: Alzheimer's Disease CVA Dementia Parkinson's Disease Seizures Hx of GI Problems?: Yes Hx of Problems?: Yes Genitourinary History: Denies:: HX of Hemodialysis Kidney Stones Urinary Tract Infection HX of Peritoneal Dialysis: No Male Hx: Denies:: Prostate Problems Scrotal Mass Testicular Surgery Hx Musculoskeletal Problems?: Yes Musculoskeletal History: Positive for:: Joint Replacement (L hip replacement) Denies:: Back Injury Musculoskeletal Trauma Hx of Psycho/Social Problems?: Yes Psycho Social History: Positive for:: Anxiety (mild after hospitalization in 12/31) Hx Depression Suicide Attempt (seven years ago) Denies:: Bipolar Disorder Hx Surgeries?: Yes (tonsillectom; L hip replacement, 3 CABG) Hx Any Other Health Problems?: Yes Other History: Positive for:: Hospitalization (12/2009) Denies:: Cancer Endocrine Disease Thyroid Disease History Blood Transfusions: Positive for:: Accept Blood Products? Denies:: Blood Transfuse Reaction Blood Transfusions Hx Diabetes: YesBedside Blood Glucose: 109 Hx Alcohol Use: Yes (rarely)Hx Substance Use: No Smoking Status: Former Smoker Have You Smoked inLast 12 mo: No Stop/Bang Treated for Sleep Apnea?: No S-Snoring: Do You Snore Loudly: No T-Tired: feel tired, fatigued: No O-Obsered: Observed not breath: No P-Blood Pressure: treated: No B- Body Mass Index > 35 kg/m2: Yes A- Age over 50: Yes N- Neck Large Circumference: No G- Gender Male: Yes VANDANA Total Score: 3 VANDANA Category 2: Yes Risk Assessment Category Category 1A: Patient has history of documented sleep apnea, and HAS NOT received any narcotic, sedative or anesthesia administration during this stay. Category 1B: Patient has history of documented sleep apnea, and HAS received any narcotic , sedative or anesthesia administration during this stay Category 2: Patient has SUSPECTED Obstructive Sleep Apnea, and HAS received any narcotic , sedative or anesthesia administration during this stay. Category 3: Patient has SUSPECTED Obstructive Sleep Apnea and HAS NOT received narcotic, sedative or anesthesia administration during this stay. Category 4: Outpatient in Procedural Areas with known sleep apnea or who screen positive for High Risk via the STOP/BANG questionnaire. Exam Exam Vital Signs Vital Signs Date Time Temp Pulse Resp B/P Pulse Ox O2 Delivery O2 Flow Rate FiO2 07/20/16 09:57 36.4 62 18 124/81 98 Nasal Cannula 2.00 07/20/16 09:32 101 20 98 Nasal Cannula 2.00 07/20/16 08:09 62 07/20/16 05:49 58 07/20/16 04:07 35.8 60 18 120/78 98 Nasal Cannula 2.00 07/20/16 02:39 60 General Appearance: Alert, Oriented X3, Cooperative, No Acute Distress HEENT/AIRWAY: MP 3 Lungs: Diminished, Coarse Heart: Other (irreg irreg) Meds/Labs/Diagnostics Admission Meds Current Medications Metoprolol Tartrate (Lopressor) 25 mg Q8H PO Last administered on 07/19/16 15: 38; Start 07/19/16 at 12:35; Stop 07/20/16 at 09:36; Status DC Rivaroxaban (Xarelto) 20 mg DAILY@17 PO Last administered on 07/19/16 17:34; Start 07/19/16 at 12:35 Aspirin (Ecotrin) 81 mg DAILY PO Last administered on 07/20/16 09:20; Start at 08:30 Citalopram Hydrobromide (CeleXA) 20 mg DAILY PO Last administered on 07/20/16 09:21; Start 07/20/16 at 08:30 Furosemide (Lasix) 40 mg HS PO Last administered on 07/19/16 21:55; Start at 21:00 Spironolactone (Aldactone) 25 mg DAILY PO Last administered on 07/20/16 09:21 ; Start 07/20/16 at 08:30 Glimepiride (Amaryl) 4 mg DAILYAC PO Last administered on 07/20/16 09:20; Start 07/20/16 at 07:30 Multivitamins/ Minerals Therapeutic (Thera Vitamins w/Mineral) 1 tablet DAILY PO Last administered on 07/20/16 09:20; Start 07/20/16 at 08:30 Insulin Human Regular * High Dose Insu... ACHS SUBQ Last administered on 21:56; Start 07/19/16 at 18:00; Stop 07/19/16 at 23:54; Status DC Insulin Human Regular/Sodium Chloride (HUMulin-R Insulin Inj/ Normal Saline PHARMACY TO MIX) 101 ml @ 0 mls/hr Q0M IV Last administered on 07/20/16 01:11 ; Start 07/19/16 at 23:52 Furosemide 80 mg 80 mg OT ONCE IVPUSH Last administered on 07/20/16 10:12; Start 07/20/16 at 09:45; Stop 07/20/16 at 09:46; Status DC Sodium Chloride (Normal Saline) 100 ml @ STK-MED ONCE .ROUTE Last administered on 07/20/16 10:11; Start 07/20/16 at 10:02; Stop 07/20/16 at 10:05 ; Status DC Bedside Blood Glucose: 109 Labs Test 07/19/16 05:58 07/20/16 02:40 07/20/16 05:39 Hemoglobin A1c 7.5% (4.8-5.6) Troponin T 0.059ug/L (0.0-0.011) White Blood Count 12.9th/mm3 (3.8-10.1) Red Blood Count 4.44mil/mm3 (4.40-5.80) Hemoglobin 13.6g/dL (13.8-17.2) Hematocrit 40.1% (41.0-50.0) Mean Corpuscular Volume 90.3fL (81-100) Mean Corpuscular Hemoglobin 30.6pg (27.0-35.0) Mean Corpuscular Hemoglobin Concent 33.9% (32.0-37.0) Red Cell Distribution Width 14.6% (12.3-15.4) Platelet Count 201bil/L (150-400) Neutrophils (%) (Auto) 80.9% (40-74) Lymphocytes (%) (Auto) 5.1% (14-46) Monocytes (%) (Auto) 13.6% (4-12) Eosinophils (%) (Auto) 0% (0-5) Basophils (%) (Auto) 0.1% (0-3) Sodium Level 135mEq/L (134-144) Potassium Level 4.7mEq/L (3.5-5.2) Chloride Level 96mEq/L (97-108) Carbon Dioxide Level 22mmol/L (18-29) Blood Urea Nitrogen 50mg/dL (8-27) Creatinine 1.98mg/dL (0.76-1.27) Estimat Glomerular Filtration Rate 35mL/min (>59) Glucose Level 115mg/dL (60-99) Calcium Level 9.0mg/dL (8.5-10.1) Phosphorus Level 3.8mg/dL (2.5-4.9) Magnesium Level 2.1mg/dL (1.6-2.6) Total Bilirubin 0.6mg/dL (0.0-1.2) Aspartate Amino Transf (AST/SGOT) 24U/L (0-50) Alanine Aminotransferase (ALT/SGPT) 19U/L (0-44) Alkaline Phosphatase 74U/L (25-160) Pro-B-Type Natriuretic Peptide 89171mm/mL (0-486) Total Protein 6.4g/dL (6.4-8.4) Albumin 3.7g/dL (3.4-5.0) Triglycerides Level 78mg/dL (0-149) Cholesterol Level 93mg/dL (100-199) LDL Cholesterol, Calculated 28.400mg/dL (0-99) VLDL Cholesterol 15.600mg/dL HDL Cholesterol 49mg/dL (>39) Cholesterol/HDL Ratio 1.90 (0.0-4.4) Plan Impression Patient chart reviewed, patient interviewed and anesthestic plan with risks, benefits, and alternatives discussed, and informed consent obtained. NPO per Anesth. Guidelines: Yes ASA Physical Status: ASA3 Severe Disease Anesthetic Plan: GA, MAC Bene/Risks/Altern/Consents: Yes HP Complete Prior to Induction: Yes Jasbir Degroot MD Jul 20, 2016 10:15
--- NOTE | 2016-07-20 13:08 | PCM.ANEP1 ---
Post Anesthesia Phase 1 PACU Phase 1 Assessment Vital Signs Vital Signs Date Time Temp Pulse Resp B/P Pulse Ox O2 Delivery O2 Flow Rate FiO2 07/20/16 11:43 74 17 129/76 99 Nasal Cannula 2.50 07/20/16 11:34 83 25 125/74 100 Non-Rebreather 15.00 07/20/16 11:30 73 16 141/90 100 Non-Rebreather 15.00 07/20/16 11:26 76 16 144/80 99 Non-Rebreather 15.00 07/20/16 11:21 82 18 138/79 100 Non-Rebreather 15.00 07/20/16 11:15 86 20 07/20/16 11:14 68 15 127/65 100 Non-Rebreather 15.00 07/20/16 10:58 65 28 112/64 97 Nasal Cannula 2.50 07/20/16 09:57 36.4 62 18 124/81 98 Nasal Cannula 2.00 07/20/16 09:32 101 20 98 Nasal Cannula 2.00 07/20/16 08:09 62 07/20/16 08:00 Supplement Oxygen 07/20/16 05:49 58 Anesthetic Administered: GA Level of Alertness: Awake, talking KABA's with Equal Strength: Yes Pain: No Pain Scale Score: 7 Nausea or Vomiting: No Cardiovascular Function and Hy: No Oxygen Delivery: Simple Mask Lungs: Diminished, Coarse Dermatome Level: Full Sensation Complications: No Follow up Care: No Jasbir Degroot MD Jul 20, 2016 13:08
[2016-07-20] MEDS ORDERED: Insulin Human REGular 300 Unit/3 mL Inj SUBQ SCH (14:30)
--- NOTE | 2016-07-20 15:21 | PROCED ---
[address] [address] PROCEDURE NOTE PATIENT: KEVIN BOONE : 1935 MR#: [id number] ADMIT: 07/19/2016 JOB ID: [id number] DATE OF SERVICE: 07/20/2016 POSTOPERATIVE DIAGNOSIS(ES): PREOPERATIVE DIAGNOSIS(ES): SURGEON: Angel Ritter M.D. PROCEDURE: Elective cardioversion. DESCRIPTION OF PROCEDURE: This patient was n.p.o. this morning and signed a consent for cardioversion. Anesthesiology provided deep sedation for the procedure. When adequate sedation was achieved, the patient was cardioverted back to sinus rhythm through anterior and posterior patches using a synchronized 200 joule biphasic shock. Post cardioversion, his rhythm was sinus rhythm with occasional to frequent PACs but without recurrent flutter.
--- NOTE | 2016-07-20 15:56 | NUR ---
oxygenation Decreased patient from 2L NC w/Sp02 98% to 1L NC. Pt maintained Sp02 of 95-96%. Placed pt on RA Sp02 stayed within 90-94%. Continue to monitor. Pt continues to have inspiratory and expiratory wheezing bilaterally. Neb tx mildly decreases of wheezing.
--- NOTE | 2016-07-20 16:59 | NUR ---
Discontinued insulin drip Per hospitalist Dc'd insulin drip. Pts BG was 93 on algo 3 at 1.5un/hr. Restarting lantus and high sliding scale.
[2016-07-20] MEDS: Insulin Human REGular 300 Unit/3 mL Inj SUBQ SCH ×2 (17:00→22:00)
--- NOTE | 2016-07-20 18:18 | PCM.PNMED ---
Subjective Date of Service Jul 20, 2016 Subjective The patient was seen after cardioversion this morning and is feeling much better. He has no chest pain, no diaphoresis, no fever and is feeling much better. He has no new complaints. Exam Vital Signs Vital Sign - Last Date Time Temp Pulse Resp B/P Pulse Ox O2 Delivery O2 Flow Rate FiO2 07/20/16 13:08 Simple Mask 07/20/16 13:00 76 07/20/16 11:43 17 129/76 99 2.50 07/20/16 09:57 36.4 Intake and Output 07/19/16 07/19/16 07/20/16 Cumulative From/Thru 15:00 23:00 07:00 07/19/16 05:59 - 07/20/16 05:59 Intake Total 436 ml 191 ml 627 ml Output Total 325 ml 126 ml 451 ml Balance 111 ml 65 ml 176 ml Intake Oral 436 ml 0 ml 436 ml IV Total 191 ml 191 ml Output Urine Total 225 ml 125 ml 350 ml Urine/Stool Mix 1 ml 1 ml Emesis 100 ml 100 ml # Voids 2 2 # Bowel Movements 1 1 Exam General: Patient is in no apparent distress laying supine in bed with his head only slightly elevated. He appears quite comfortable.. HEENT: Head is atraumatic and normocephalic with normal male pattern baldness. Eyes: Pupils are equally round and reactive to light and accommodation. Extraocular muscles are intact. Sclera are white, anicteric. Subconjunctival mucosa is pink. Ears and nose are unremarkable. Oropharynx: There are no mucosal lesions, there is no thrush, there is no pharyngitis. Neck: Is supple, there are no nodes, or masses or tenderness. Chest: Is insignificant for basilar rales and decreased breath sounds. Heart: Rate, rhythm is regular. There is no new murmur, rub or gallop. Abdomen: Good bowel sounds are present. Abdomen is slightly obese, soft, nontender, no organomegaly or masses were appreciated. Extremities: Are symmetrical and well perfused. There is minimal edema, there is no cellulitis, no rash. Neurologic: There are no focal neurological deficits. Cranial nerves II through XII are intact. There are no sensory or motor deficits. Psychiatric: Patients mood is calm and he shows no sign of agitation. Genital: Deferred Rectal: Deferred Lab and Diagnostics Result Diagram: 07/20/16 0539 07/20/16 0539 X-Rays, CTs and MRIs PROCEDURE: X-RAY CHEST ONE VIEW, PORTABLE ([id number]) INDICATIONS: CHEST PAIN, sob, chf TECHNIQUE: One view of the chest was acquired. COMPARISON: [facility], CR, XR CHEST 2VW, 05/30/2016, 12:14. [facility], CR, CHEST 1VW (PORTABLE), 04/07/2013, 22:08. FINDINGS: Surgical changes and devices: Post median sternotomy. Lungs and pleura: No pleural effusions or pneumothorax. Lungs are clear and interstitium is prominent. Mediastinum: Mediastinal contours appear normal. Heart size is enlarged. Bones and chest wall: No suspicious bony lesions. Overlying soft tissues appear unremarkable. IMPRESSION: Mild cardiomegaly and interstitial prominence. Mild early developing pulmonary edema cannot be excluded. Correlate clinically. Dictated by: Pawan Peña RRA Interpreted: Martha Yousif MD on 07/19/2016 at 8:39 Transcribed by: ROSEANN on 07/19/2016 at 8:40 Approved by: Martha Yousif MD, PhD on 07/19/2016 at 8:47 Cardiac Echo Impressions Echocardiogram Report Name: KEVIN BOONE Study Date: 06/20/2016 Height: 66 in Hospital Exam Location: [facility] Weight: 206 lb Gender: Male BSA: 2.0 m2 : 1935 Age: 81 yrs BP: 98/70 mmHg Reason For Study: CAD Performed By: Justine Lopez Referring Physician: CHANDA DESAI Interpretation Summary Left ventricular wall thickness is moderately increased. The ejection fraction is estimated to be 55-60%. The right ventricle is mildly dilated. There is mild mitral regurgitation. There is a bioprosthetic aortic valve. The prosthetic aortic valve function is normal. There is mild to moderate tricuspid regurgitation. Right ventricular systolic pressure is estimated to be 47 mmHg plus the clinically estimated CVP which cannot be estimated on this exam. Compared to the prior echo exam, there has been a decrease in the severity of pulmonary hypertension. Assessment & Plan Patient is a very pleasant 81-year-old white male with history of myocardial infarction, hypertension, COPD, asthma and coronary artery bypass graft surgery and aortic valve replacement who presented to [facility] emergency department via EMS services complaining of continuous nonradiating chest pain that woke him up from sleep at 1:30 AM. Patient did not get out of bed until 4 AM. The pain was described as a pressure on his chest and was not exacerbated or relieved by anything in particular. The pain was rated as an 8 out of 10 at onset, prior to evaluation by the ED provider it was 6/10. But he still felt like there was something sitting on his chest. He took one nitroglycerin and 3 pus from his inhaler at home with some relief. He was given additional nitroglycerin by medics and Route along with aspirin but to no other medications today. Patient had associated shortness of breath described as patient was not "able to get enough air" she complained of cough wheezing and chills. His O2 sat in the emergency room was only 88%. He reported that his chest pain was distinct from his asthma attacks. He felt fine yesterday had not had any cough, or chest pressure or cold the last few days. Patient only had baseline asthma exacerbation and pollen reaction. He has baseline edema in legs that have been slightly worse in the past few week days. He denied any diaphoresis, nausea or vomiting. Patient stated that he had a past episode of similar symptoms during a time or he had a coronary artery bypass graft surgery. He states his last episode of chest discomfort was a few months ago with the onset was different being that then he experience heat and diaphoresis. Patient was evaluated in the emergency room by Dr. Kam Escobar and Dr. Kam Escobar first contacted package liner Dr. Baker about the patient's EKG. And then Dr. Kam Escobar consulted Dr. Ritter who is a package liner geriatric personal care aide for today. Dr. Ritter stated that he would see the patient in consultation. The patient was then admitted to the hospitalist service for further evaluation and treatment. # Atrial flutter with acute diastolic congestive heart failure present at the time of admission and ongoing - Patient does have left ventricular hypertrophy and echocardiogram but has no outlet obstruction - Patient likely does have some endomyocardial ischemia with troponin leak secondary to above - Dr. Angel Ritter was kind enough to consult on the patient and appreciate his input and will follow his recommendations. - Patient had cardioversion from atrial flutter to normal sinus rhythm this morning. Cardioversion was successful. - Patient placed on Xarelto per Dr. Ritter - Metoprolol also ordered for rate control. - Consider stress testing before discharge. # Pulmonary hypertension, present as attend the admission and ongoing - Treatment plan as per Dr. Ritter # COPD, present at the time of admission and ongoing - Patient quit smoking 20 years ago - SVN treatments will be ordered # Chronic kidney disease stage III, present at the time of admission and ongoing. - Patient not an ideal candidate for coronary artery catheterization due to risk of acute renal failure on chronic kidney disease - We will consider stress testing before discharge. - Avoid nephrotoxic agents # Type II diabetes mellitus diagnosed 10 years ago, present at the time of admission and ongoing - Patient's glucose is uncontrolled - Patient placed on an insulin drip while nothing by mouth for procedure. Will discontinue the insulin drip at 1700 hrs. today prior to dinner. Check blood sugars before meals and at bedtime after that and will give Lantus 20 units subcutaneous every at bedtime. We will also order sliding scale insulin coverage for correction purposes as needed - The patient's hemoglobin A1c was 7.5 - Diabetic diet - Continue meds as at home. # Hyperlipidemia - Continue statin from home # Gastro-esophageal reflux disease, present at the time of admission and ongoing - Continue proton pump inhibitor as at home # History of major depression - Continue meds from home. Disposition: Patient is likely to be here for another 4872 hours for treatment of his congestive heart failure which worsened while waiting for his cardioversion. He likely did not tolerate the atrial flutter well due to the presence of left ventricular hypertrophy and poor end-diastolic filling of the left ventricle. Pain Evaluation: Adequate Pain Control GI Prophylaxis: Proton Pump Inhibitor VTE Prophylaxis: Other (Xarelto started by Dr. Ritter) Resuscitation Status: CPR: Attempt Resuscitation Reynaldo Aguilar MD Jul 20, 2016 18:18
[2016-07-20] MEDS: Insulin GLARgine 100 Unit/mL Syringe SUBQ SCH (21:21)
[2016-07-21] VITALS (11 sets, daily range): BP systolic 103–132; BP diastolic 66–83; PULSE 76–103; RESP 18–22; O2SAT 91–99
[2016-07-21] MEDS: Sodium Chloride LOK Flush 10 mL Syringe IVFLUSH SCH ×4 (00:30→22:27)
[2016-07-21] MEDS: Pantoprazole 40 mg ER24 Tablet PO SCH (06:30)
[2016-07-21 07:10] LABS: BASOPHILS % (AUTO) 0.2 % (0-3); EOSINOPHILS % (AUTO) 0.6 % (0-5); MONOCYTES % (AUTO) 8.7 % (4-12); Mean Corpuscular Hemoglobin 30.9 pg (27.0-35.0); Mean Corpuscular Volume 88.7 fL (81-100); NEUTROPHILS % (AUTO) 81.6 % (40-74); Platelet Count 209 bil/L (150-400)
[2016-07-21] MEDS: Insulin Human REGular 300 Unit/3 mL Inj SUBQ SCH ×4 (07:30→22:00)
[2016-07-21 07:40] LABS: Magnesium 2.2 mg/dL (1.6-2.6)
--- NOTE | 2016-07-21 15:05 | NUR ---
Social Work: initial Assessment Late Entry Data & Assessment: See Initial assessment. EMR reviewed. SW met with patient at bedside to complete initial assessment, SW role reviewed, and discharge planning discussed. Patient's was alert and oriented. Patient reported that he does have a ADV/DPOA. SW requested a copy. Patient confirmed that his NOK is his , Analia Wilson [phone]. Patient's Primary care physician is Dr. Milan Fishman and his insurance is Medicare and [employer] for life. Patient does not have any LTC benefits and patient is not sure of his VA benefits. Patient has a re-admit score of four high risk. Patient reports that he lives in a mobile home with four steps and ramp access with his . Patient reports that he is independent at baseline. Patient has been to [facility] in the past and has never had HH. Patient has a walker and a can. SW will continue to follow patient to determine discharge needs. Plan: SW will continue to follow and assist patient throughout stay to assist with discharge planning needs. Redd Sharp. VIJAY PARK Addendum: 07/22/16 at 1517 by REDD LARIOS Amended: Links added.
[2016-07-21] MEDS: Albuterol 2.5 mg/3 mL Inhalation Solution NEB PRN (16:54)
[2016-07-21] MEDS: Insulin GLARgine 100 Unit/mL Syringe SUBQ SCH (22:23)
[2016-07-22] VITALS (11 sets, daily range): BP systolic 104–127; BP diastolic 68–77; PULSE 78–108; RESP 20–24; O2SAT 94–98
[2016-07-22] MEDS: Albuterol 2.5 mg/3 mL Inhalation Solution NEB PRN ×2 (00:38→16:37)
--- NOTE | 2016-07-22 02:12 | PCM.PNMED ---
Subjective Date of Service July 21, 2016 Subjective Patient has no new complaints. He is beginning to breathe a little bit better. Overall he is feeling better after the cardioversion. Exam Vital Signs Vital Sign - Last Date Time Temp Pulse Resp B/P Pulse Ox O2 Delivery O2 Flow Rate FiO2 07/22/16 01:14 36.6 86 22 110/69 98 Nasal Cannula 2.00 Intake and Output 07/21/16 07/21/16 07/22/16 Cumulative From/Thru 15:00 23:00 07:00 07/19/16 05:59 - 07/22/16 00:43 Intake Total 236 ml 1468 ml Output Total 350 ml 34325 ml Balance -114 ml -8608 ml Intake Oral 236 ml 872 ml IV Total 596 ml Output Urine Total 350 ml 9975 ml Urine/Stool Mix 1 ml Emesis 100 ml # Voids 2 # Bowel Movements 1 3 Exam General: Patient is in no apparent distress laying supine in bed with his head only slightly elevated. He appears quite comfortable.. HEENT: Head is atraumatic and normocephalic with normal male pattern baldness. Eyes: Pupils are equally round and reactive to light and accommodation. Extraocular muscles are intact. Sclera are white, anicteric. Subconjunctival mucosa is pink. Ears and nose are unremarkable. Oropharynx: There are no mucosal lesions, there is no thrush, there is no pharyngitis. Neck: Is supple, there are no nodes, or masses or tenderness. Chest: Is significant for basilar rales and decreased breath sounds. However, breath sounds are slightly improved today Heart: Rate, rhythm is regular. There is no new murmur, rub or gallop. Abdomen: Good bowel sounds are present. Abdomen is slightly obese, soft, nontender, no organomegaly or masses were appreciated. Extremities: Are symmetrical and well perfused. There is minimal edema, there is no cellulitis, no rash. Neurologic: There are no focal neurological deficits. Cranial nerves II through XII are intact. There are no sensory or motor deficits. Psychiatric: Patients mood is calm and he shows no sign of agitation. Genital: Deferred Rectal: Deferred Lab and Diagnostics Result Diagram: 07/21/16 0645 07/21/16 0645 X-Rays, CTs and MRIs PROCEDURE: X-RAY CHEST ONE VIEW, PORTABLE ([id number]) INDICATIONS: CHEST PAIN, sob, chf TECHNIQUE: One view of the chest was acquired. COMPARISON: [facility], CR, XR CHEST 2VW, 05/30/2016, 12:14. [facility], CR, CHEST 1VW (PORTABLE), 04/07/2013, 22:08. FINDINGS: Surgical changes and devices: Post median sternotomy. Lungs and pleura: No pleural effusions or pneumothorax. Lungs are clear and interstitium is prominent. Mediastinum: Mediastinal contours appear normal. Heart size is enlarged. Bones and chest wall: No suspicious bony lesions. Overlying soft tissues appear unremarkable. IMPRESSION: Mild cardiomegaly and interstitial prominence. Mild early developing pulmonary edema cannot be excluded. Correlate clinically. Dictated by: Pawan BAPTISTEA Interpreted: Martha Yousif MD on 07/19/2016 at 8:39 Transcribed by: ROSEANN on 07/19/2016 at 8:40 Approved by: Martha Yousif MD, PhD on 07/19/2016 at 8:47 Cardiac Echo Impressions Echocardiogram Report Name: KEVIN BOONE Study Date: 06/20/2016 Height: 66 in Hospital Exam Location: [facility] Weight: 206 lb Gender: Male BSA: 2.0 m2 : 1935 Age: 81 yrs BP: 98/70 mmHg Reason For Study: CAD Performed By: Justine Lopez Referring Physician: CHANDA DESAI Interpretation Summary Left ventricular wall thickness is moderately increased. The ejection fraction is estimated to be 55-60%. The right ventricle is mildly dilated. There is mild mitral regurgitation. There is a bioprosthetic aortic valve. The prosthetic aortic valve function is normal. There is mild to moderate tricuspid regurgitation. Right ventricular systolic pressure is estimated to be 47 mmHg plus the clinically estimated CVP which cannot be estimated on this exam. Compared to the prior echo exam, there has been a decrease in the severity of pulmonary hypertension. Assessment & Plan Patient is a very pleasant 81-year-old white male with history of myocardial infarction, hypertension, COPD, asthma and coronary artery bypass graft surgery and aortic valve replacement who presented to [facility] emergency department via EMS services complaining of continuous nonradiating chest pain that woke him up from sleep at 1:30 AM. Patient did not get out of bed until 4 AM. The pain was described as a pressure on his chest and was not exacerbated or relieved by anything in particular. The pain was rated as an 8 out of 10 at onset, prior to evaluation by the ED provider it was 6/10. But he still felt like there was something sitting on his chest. He took one nitroglycerin and 3 pus from his inhaler at home with some relief. He was given additional nitroglycerin by medics and Route along with aspirin but to no other medications today. Patient had associated shortness of breath described as patient was not "able to get enough air" she complained of cough wheezing and chills. His O2 sat in the emergency room was only 88%. He reported that his chest pain was distinct from his asthma attacks. He felt fine yesterday had not had any cough, or chest pressure or cold the last few days. Patient only had baseline asthma exacerbation and pollen reaction. He has baseline edema in legs that have been slightly worse in the past few week days. He denied any diaphoresis, nausea or vomiting. Patient stated that he had a past episode of similar symptoms during a time or he had a coronary artery bypass graft surgery. He states his last episode of chest discomfort was a few months ago with the onset was different being that then he experience heat and diaphoresis. Patient was evaluated in the emergency room by Dr. Kam Escobar and Dr. Kam Escobar first contacted glycerin operator Dr. Baker about the patient's EKG. And then Dr. Kam Escobar consulted Dr. Ritter who is a glycerin operator gas station cashier for today. Dr. Ritter stated that he would see the patient in consultation. The patient was then admitted to the hospitalist service for further evaluation and treatment. # Atrial flutter with acute diastolic congestive heart failure present at the time of admission and ongoing - Patient does have left ventricular hypertrophy and echocardiogram but has no outlet obstruction - Patient likely does have some endomyocardial ischemia with troponin leak secondary to above - Dr. Angel Ritter was kind enough to consult on the patient and appreciate his input and will follow his recommendations. - Patient had cardioversion from atrial flutter to normal sinus rhythm this morning. Cardioversion was successful. - Patient placed on Xarelto per Dr. Ritter - Metoprolol also ordered for rate control. - We will check nuclear medicine stress test prior to discharge as suggested by Dr. Ritter # Pulmonary hypertension, present as attend the admission and ongoing - Treatment plan as per Dr. Ritter # COPD, present at the time of admission and ongoing - Patient quit smoking 20 years ago - SVN treatments will be ordered # Chronic kidney disease stage III, present at the time of admission and ongoing. - Patient not an ideal candidate for coronary artery catheterization due to risk of acute renal failure on chronic kidney disease - We will consider stress testing before discharge. - Avoid nephrotoxic agents # Type II diabetes mellitus diagnosed 10 years ago, present at the time of admission and ongoing - Patient's glucose is uncontrolled - Patient placed on an insulin drip while nothing by mouth for procedure. Will discontinue the insulin drip at 1700 hrs. today prior to dinner. Check blood sugars before meals and at bedtime after that and will give Lantus 20 units subcutaneous every at bedtime. We will also order sliding scale insulin coverage for correction purposes as needed - The patient's hemoglobin A1c was 7.5 - Diabetic diet - Continue meds as at home. # Hyperlipidemia - Continue statin from home # Gastro-esophageal reflux disease, present at the time of admission and ongoing - Continue proton pump inhibitor as at home # History of major depression - Continue meds from home. Disposition: Patient is likely to be here for another 24-48 hours for treatment of his congestive heart failure which worsened while waiting for his cardioversion. He likely did not tolerate the atrial flutter well due to the presence of left ventricular hypertrophy and poor end-diastolic filling of the left ventricle. Pain Evaluation: Adequate Pain Control GI Prophylaxis: Proton Pump Inhibitor VTE Prophylaxis: Other (Xarelto started by Dr. Ritter) Resuscitation Status: CPR: Attempt Resuscitation JeffReynaldo MD July 22, 2016 02:12
--- NOTE | 2016-07-22 04:07 | NUR ---
Respiratory: Pt on 2L NC at night with CPOX in place. Pt states using 2L at night at home. Very short of breath after sitting up and using urinal, audible wheezes. RT called and pt received PRN neb. Pt stated starting to feel better after back to bed and having RN in room. The next time pt needed the urinal, he was assisted in bed. Pt aware he is NPO for stress test ordered for today.
--- NOTE | 2016-07-22 04:18 | NUR ---
A fib: Per shift report, pt was a fib yesterday and he continues to be a fib through the night, rate in the 80s.
[2016-07-22] MEDS: Pantoprazole 40 mg ER24 Tablet PO SCH (05:23)
[2016-07-22 05:39] LABS: BASOPHILS % (AUTO) 0.1 % (0-3); EOSINOPHILS % (AUTO) 0.1 % (0-5); MONOCYTES % (AUTO) 12.6 % (4-12); Mean Corpuscular Hemoglobin 30.3 pg (27.0-35.0); Mean Corpuscular Volume 90.3 fL (81-100); NEUTROPHILS % (AUTO) 80.9 % (40-74); Platelet Count 179 bil/L (150-400)
[2016-07-22 06:28] LABS: Magnesium 2.2 mg/dL (1.6-2.6)
--- NOTE | 2016-07-22 06:56 | NUR ---
Stress test: Per nuc med, pt may eat breakfast this morning with no caffeine. NPO after 0900. Pt aware. Anticipated test time 1315.
[2016-07-22] MEDS: Sodium Chloride LOK Flush 10 mL Syringe IVFLUSH SCH ×3 (09:09→22:07)
[2016-07-22] MEDS: Insulin Human REGular 300 Unit/3 mL Inj SUBQ SCH ×4 (09:10→22:07)
--- NOTE | 2016-07-22 10:38 | NUR ---
GWEN Signed at 1027AM
[2016-07-22] MEDS ORDERED: Albuterol 2.5 mg/3 mL Inhalation Solution NEB ONE (10:45)
--- NOTE | 2016-07-22 11:48 | PROG NOTE ---
[address] [address] PROGRESS NOTE PATIENT: KEVIN BOONE : 1935 MR#: [id number] ADMIT: 07/19/2016 JOB ID: [id number] DATE: 07/22/2016 SUBJECTIVE: The patient, unfortunately, converted back into atrial fibrillation with a reasonably controlled rate between 80-100 beats per minute. The timing of his recurrence is not clear on review of the telemetry. He continues to have significant problems with wheezing, but responded to diuretics well and, according to the records, was able to diurese over 8 L yesterday. His BNP has been markedly elevated, consistent with severe diastolic dysfunction. The patient is scheduled for a nuclear cardiac stress study today. After reviewing this gentleman's records, he should remain on Xarelto because of his atrial fibrillation. I am going to add low-dose, long-acting verapamil at 120 mg a day to see if we can improve his rate control. He should tolerate this well with his ventricular hypertrophy and somewhat hyperdynamic contractility. To avoid problems with drug interactions, I am reducing his atorvastatin to 10 mg daily. The interaction between Xarelto and verapamil is likely minor. I do not think we need to worry about that. There is no reason for him to remain on topical nitrates, and I have discontinued his aspirin since he is now on Xarelto. I think it is reasonable for this gentleman to continue to be treated for his symptomatic pulmonary congestion and fairly significant bronchospastic pulmonary disease, with aggressive bronchodilator therapy and continued diuresis. When he is stable from the standpoint of his respiratory status and his rate is well controlled, I think he could be discharged home on anticoagulation and rate control with his atrial fibrillation, and followup with Dr. Hamilton in the clinic, who can consider the possibility of antiarrhythmic drug therapy. Given this gentleman's severe ventricular hypertrophy, I think the only option is amiodarone, and I am a bit reluctant to recommend starting that right away given the fact that this gentleman's diffusion capacity is in the mid 30s, so he would be at fairly high risk for potential pulmonary toxicity with amiodarone. If he does not tolerate atrial fibrillation, then he could be a candidate to consider for atrial fibrillation ablation procedure. I will let Dr. Rg know that this gentleman will likely be in the hospital for another day or two, and ask him to follow up on the results of his stress test this afternoon and the initiation of verapamil today.
[2016-07-22] MEDS: Verapamil SR 120 mg ER12 Tablet PO SCH (12:17)
--- NOTE | 2016-07-22 12:17 | PCM.PNMED ---
Subjective Date of Service July 22, 2016 Subjective Patient denied any complaints overnight Reported that rhythms converted to A. fib from sinus again. Pt denied chest pain, palpitation, SOB tentatively planned for stress test 1:15pm today Exam Vital Signs Vital Sign - Last Date Time Temp Pulse Resp B/P Pulse Ox O2 Delivery O2 Flow Rate FiO2 07/22/16 11:53 82 20 97 Nasal Cannula 2.00 07/22/16 08:24 36.5 124/74 Intake and Output 07/21/16 07/21/16 07/22/16 Cumulative From/Thru 15:00 23:00 07:00 07/19/16 05:59 - 07/22/16 00:43 Intake Total 236 ml 1468 ml Output Total 350 ml 71029 ml Balance -114 ml -8608 ml Intake Oral 236 ml 872 ml IV Total 596 ml Output Urine Total 350 ml 9975 ml Urine/Stool Mix 1 ml Emesis 100 ml # Voids 2 # Bowel Movements 1 3 Exam NAD, comfortably laying down on the bed, barely finished short sentences. no JVD, MMM, no LAD regular tachy nl s1, s2 no mrg mild exp wheezing, no crackles, no accessory muscle use S,ND,NT,normoactive BS+ warm, 1+pitting edema, pulses 2/2 IVs and Medications Medications Reviewed: Medications were reviewed in detail Lab and Diagnostics Result Diagram: 07/22/1652907/22/16 0530 X-Rays, CTs and MRIs PROCEDURE: X-RAY CHEST ONE VIEW, PORTABLE ([id number]) INDICATIONS: CHEST PAIN, sob, chf TECHNIQUE: One view of the chest was acquired. COMPARISON: [facility], CR, XR CHEST 2VW, 05/30/2016, 12:14. [facility], CR, CHEST 1VW (PORTABLE), 04/07/2013, 22:08. FINDINGS: Surgical changes and devices: Post median sternotomy. Lungs and pleura: No pleural effusions or pneumothorax. Lungs are clear and interstitium is prominent. Mediastinum: Mediastinal contours appear normal. Heart size is enlarged. Bones and chest wall: No suspicious bony lesions. Overlying soft tissues appear unremarkable. IMPRESSION: Mild cardiomegaly and interstitial prominence. Mild early developing pulmonary edema cannot be excluded. Correlate clinically. Dictated by: Pawan Choffel RRA Interpreted: Martha Yousif MD on 07/19/2016 at 8:39 Transcribed by: ROSEANN on 07/19/2016 at 8:40 Approved by: Martha Yousif MD, PhD on 07/19/2016 at 8:47 Cardiac Echo Impressions Echocardiogram Report Name: KEVIN BOONE Study Date: 06/20/2016 Height: 66 in Hospital Exam Location: [facility] Weight: 206 lb Gender: Male BSA: 2.0 m2 : 1935 Age: 81 yrs BP: 98/70 mmHg Reason For Study: CAD Performed By: Justine Lopez Referring Physician: CHANDA DESAI Interpretation Summary Left ventricular wall thickness is moderately increased. The ejection fraction is estimated to be 55-60%. The right ventricle is mildly dilated. There is mild mitral regurgitation. There is a bioprosthetic aortic valve. The prosthetic aortic valve function is normal. There is mild to moderate tricuspid regurgitation. Right ventricular systolic pressure is estimated to be 47 mmHg plus the clinically estimated CVP which cannot be estimated on this exam. Compared to the prior echo exam, there has been a decrease in the severity of pulmonary hypertension. Assessment & Plan Patient is a very pleasant 81-year-old white male with history of myocardial infarction, hypertension, COPD, asthma and coronary artery bypass graft surgery and aortic valve replacement who presented to [facility] emergency department via EMS services complaining of continuous nonradiating chest pain that woke him up from sleep at 1:30 AM. Patient did not get out of bed until 4 AM. The pain was described as a pressure on his chest and was not exacerbated or relieved by anything in particular. The pain was rated as an 8 out of 10 at onset, prior to evaluation by the ED provider it was 6/10. But he still felt like there was something sitting on his chest. He took one nitroglycerin and 3 pus from his inhaler at home with some relief. He was given additional nitroglycerin by medics and Route along with aspirin but to no other medications today. Patient had associated shortness of breath described as patient was not "able to get enough air" she complained of cough wheezing and chills. His O2 sat in the emergency room was only 88%. He reported that his chest pain was distinct from his asthma attacks. He felt fine yesterday had not had any cough, or chest pressure or cold the last few days. Patient only had baseline asthma exacerbation and pollen reaction. He has baseline edema in legs that have been slightly worse in the past few week days. He denied any diaphoresis, nausea or vomiting. Patient stated that he had a past episode of similar symptoms during a time or he had a coronary artery bypass graft surgery. He states his last episode of chest discomfort was a few months ago with the onset was different being that then he experience heat and diaphoresis. Patient was evaluated in the emergency room by Dr. Kam Escobar and Dr. Kam Escobar first contacted fountain clerk Dr. Baker about the patient's EKG. And then Dr. Kam Escobar consulted Dr. Ritter who is a fountain clerk controller mechanic for today. Dr. Ritter stated that he would see the patient in consultation. The patient was then admitted to the hospitalist service for further evaluation and treatment. # Atrial flutter with acute diastolic congestive heart failure present at the time of admission and ongoing. Patient does have left ventricular hypertrophy and echocardiogram but has no outlet obstruction.Patient likely does have some endomyocardial ischemia with troponin leak secondary to above. Dr. Angel Ritter was consulted, s/p DCCV 07/20, converted sinus then back to flutter 07/22. -clinically stable, but rate uncontrolled with flutter today, appreciate cardiology input - continue Xarelto per Dr. Ritter - Verapamil SR 120mg per Cardiology, - stress test today, will follow up the result, -conitnue lasix 80po qam, 40po q evening. # Pulmonary hypertension, present as attend the admission and ongoing - Treatment plan as per Dr. Ritter # COPD, present at the time of admission and ongoing - Patient quit smoking 20 years ago - SVN treatments will be ordered # Chronic kidney disease stage III, present at the time of admission and ongoing. - Patient not an ideal candidate for coronary artery catheterization due to risk of acute renal failure on chronic kidney disease - We will consider stress testing before discharge. - Avoid nephrotoxic agents # Type II diabetes mellitus diagnosed 10 years ago, present at the time of admission and ongoing - Patient's glucose is uncontrolled - Patient placed on an insulin drip while nothing by mouth for procedure. Will discontinue the insulin drip at 1700 hrs. today prior to dinner. Check blood sugars before meals and at bedtime after that and will give Lantus 20 units subcutaneous every at bedtime. We will also order sliding scale insulin coverage for correction purposes as needed - The patient's hemoglobin A1c was 7.5 - Diabetic diet - Continue meds as at home. # Hyperlipidemia - Continue statin from home # Gastro-esophageal reflux disease, present at the time of admission and ongoing - Continue proton pump inhibitor as at home # History of major depression - Continue meds from home. Disposition: likely 1-2more days based on cardiac w/u, home GI Prophylaxis: Proton Pump Inhibitor VTE Prophylaxis: Other (Xarelto started by Dr. Ritter) Resuscitation Status: CPR: Attempt Resuscitation Time spent 35min Karla Perez MD July 22, 2016 12:17
[2016-07-22] MEDS ORDERED: MethylprednisoLONE Sodium Succinate 62.5 mg/mL 2 mL Inj IVPUSH ONE (14:50)
--- NOTE | 2016-07-22 19:24 | NUR ---
Activity Pt. becomes very SOB with any activity. tolerates RA-2L NC while resting in bed. On continuous pulse ox to monitor. Was able to ambulate to the bathroom today once, with assistance. Pt. states breathing feels better than last night. Neb treatments are also effective.
[2016-07-22] MEDS: Insulin GLARgine 100 Unit/mL Syringe SUBQ SCH (22:07)
[2016-07-23] VITALS (14 sets, daily range): BP systolic 110–139; BP diastolic 70–86; PULSE 70–103; RESP 16–22; O2SAT 90–99
--- NOTE | 2016-07-23 00:48 | NUR ---
Tele: business technology teacher called and reported pt had a 2.44 second pause with heart rate increased to the low 100s; gradually decreasing to 80s again. A fib continues. Pt was moving around to use the urinal at that time.
[2016-07-23] MEDS: Fluticasone 100 mCg Inhaler INHALATION SCH ×3 (00:58→19:57)
--- NOTE | 2016-07-23 05:27 | NUR ---
Respiratory, Blood sugar: Pt ambulated to the bathroom x1, was able to have a conversation while ambulating; this is improved from the night before. Does continue to appear short of breath with activity, pt stated "breathing is fine for me". Blood sugar at HS 356. Did receive a one time dose of Solu Medrol yesterday afternoon. Full insulin does administered. At ~0330 sugar was still up to 355. Night doctor paged, aware, no new orders. Has been NPO since midnight for stress test today.
[2016-07-23 06:26] LABS: BASOPHILS % (AUTO) 0 % (0-3); EOSINOPHILS % (AUTO) 0 % (0-5); MONOCYTES % (AUTO) 3.2 % (4-12); Mean Corpuscular Hemoglobin 30.5 pg (27.0-35.0); Mean Corpuscular Volume 91.7 fL (81-100); NEUTROPHILS % (AUTO) 92.6 % (40-74); Platelet Count 178 bil/L (150-400)
[2016-07-23 06:47] LABS: Magnesium 2.4 mg/dL (1.6-2.6)
[2016-07-23] MEDS: Albuterol 2.5 mg/3 mL Inhalation Solution NEB PRN ×4 (08:57→20:01)
[2016-07-23] MEDS: Pantoprazole 40 mg ER24 Tablet PO SCH (09:03)
[2016-07-23] MEDS: Sodium Chloride LOK Flush 10 mL Syringe IVFLUSH SCH ×3 (09:05→22:59)
[2016-07-23] MEDS: predniSONE 20 mg Tablet PO SCH (09:06)
[2016-07-23] MEDS: Insulin LISPRO 300 Unit/3 mL Inj SUBQ SCH ×5 (09:24→22:58)
--- NOTE | 2016-07-23 10:55 | PCM.PNMED ---
Subjective Date of Service July 23, 2016 Subjective stress test aborted due to afib RVR, asthma flared up. reported 2.44 pause overnight, asymptomatic pt is breathing much comfortably, denied SOB, chest pain received solu-medrol yesterday, followed by [id number] po today pt denied cough, sputum. verapamil started, rate remained well controlled 70-80s tentative plan for Lexiscan 10am today still -1liter balance from yesterday Exam Vital Signs Vital Sign - Last Date Time Temp Pulse Resp B/P Pulse Ox O2 Delivery O2 Flow Rate FiO2 07/23/16 09:35 120/71 07/23/16 09:31 70 07/23/16 08:57 20 96 Nasal Cannula 07/23/16 08:43 36.0 2.00 Intake and Output 07/22/16 07/22/16 07/23/16 Cumulative From/Thru 15:00 23:00 07:00 07/19/16 05:59 - 07/23/16 04:01 Intake Total 200 ml 550 ml 2218 ml Output Total 800 ml 875 ml 96225 ml Balance -600 ml -325 ml -9533 ml Intake Oral 200 ml 520 ml 1592 ml IV Total 30 ml 626 ml Output Urine Total 800 ml 875 ml 77429 ml Urine/Stool Mix 1 ml Emesis 100 ml # Voids 1 1 4 # Bowel Movements 1 4 Exam NAD, comfortably laying down on the bed, speaks in full sentences no JVD, MMM, no LAD regular tachy nl s1, s2 no mrg no wheezing, no crackles, no accessory muscle use S,ND,NT,normoactive BS+ warm, 1+pitting edema, pulses 2/2 IVs and Medications Medications Reviewed: Medications were reviewed in detail Lab and Diagnostics Result Diagram: 07/23/1654407/23/1645 X-Rays, CTs and MRIs PROCEDURE: X-RAY CHEST ONE VIEW, PORTABLE ([id number]) INDICATIONS: CHEST PAIN, sob, chf TECHNIQUE: One view of the chest was acquired. COMPARISON: [facility], CR, XR CHEST 2VW, 05/30/2016, 12:14. [facility], CR, CHEST 1VW (PORTABLE), 04/07/2013, 22:08. FINDINGS: Surgical changes and devices: Post median sternotomy. Lungs and pleura: No pleural effusions or pneumothorax. Lungs are clear and interstitium is prominent. Mediastinum: Mediastinal contours appear normal. Heart size is enlarged. Bones and chest wall: No suspicious bony lesions. Overlying soft tissues appear unremarkable. IMPRESSION: Mild cardiomegaly and interstitial prominence. Mild early developing pulmonary edema cannot be excluded. Correlate clinically. Dictated by: Pawan Peña RRA Interpreted: Martha Yousif MD on 07/19/2016 at 8:39 Transcribed by: ROSEANN on 07/19/2016 at 8:40 Approved by: Martha Yousif MD, PhD on 07/19/2016 at 8:47 Cardiac Echo Impressions Echocardiogram Report Name: KEVIN BOONE Study Date: 06/20/2016 Height: 66 in Hospital Exam Location: [facility] Weight: 206 lb Gender: Male BSA: 2.0 m2 : 1935 Age: 81 yrs BP: 98/70 mmHg Reason For Study: CAD Performed By: Justine Lopez Referring Physician: CHANDA DESAI Interpretation Summary Left ventricular wall thickness is moderately increased. The ejection fraction is estimated to be 55-60%. The right ventricle is mildly dilated. There is mild mitral regurgitation. There is a bioprosthetic aortic valve. The prosthetic aortic valve function is normal. There is mild to moderate tricuspid regurgitation. Right ventricular systolic pressure is estimated to be 47 mmHg plus the clinically estimated CVP which cannot be estimated on this exam. Compared to the prior echo exam, there has been a decrease in the severity of pulmonary hypertension. Assessment & Plan Patient is a very pleasant 81-year-old white male with history of myocardial infarction, hypertension, COPD, asthma and coronary artery bypass graft surgery and aortic valve replacement who presented to [facility] emergency department via EMS services complaining of continuous nonradiating chest pain that woke him up from sleep at 1:30 AM. Patient did not get out of bed until 4 AM. The pain was described as a pressure on his chest and was not exacerbated or relieved by anything in particular. The pain was rated as an 8 out of 10 at onset, prior to evaluation by the ED provider it was 6/10. But he still felt like there was something sitting on his chest. He took one nitroglycerin and 3 pus from his inhaler at home with some relief. He was given additional nitroglycerin by medics and Route along with aspirin but to no other medications today. Patient had associated shortness of breath described as patient was not "able to get enough air" she complained of cough wheezing and chills. His O2 sat in the emergency room was only 88%. He reported that his chest pain was distinct from his asthma attacks. He felt fine yesterday had not had any cough, or chest pressure or cold the last few days. Patient only had baseline asthma exacerbation and pollen reaction. He has baseline edema in legs that have been slightly worse in the past few week days. He denied any diaphoresis, nausea or vomiting. Patient stated that he had a past episode of similar symptoms during a time or he had a coronary artery bypass graft surgery. He states his last episode of chest discomfort was a few months ago with the onset was different being that then he experience heat and diaphoresis. Patient was evaluated in the emergency room by Dr. Kam Escobar and Dr. Kam Escobar first contacted power plant operator Dr. Baker about the patient's EKG. And then Dr. Kam Escobar consulted Dr. Ritter who is a power plant operator quality control microbiologist for today. Dr. Ritter stated that he would see the patient in consultation. The patient was then admitted to the hospitalist service for further evaluation and treatment. acute, active # Atrial flutter with acute diastolic congestive heart failure present at the time of admission and ongoing. Patient does have left ventricular hypertrophy and echocardiogram but has no outlet obstruction.Patient likely does have some endomyocardial ischemia with troponin leak secondary to above. Dr. Angel Ritter was consulted, s/p DCCV 07/20, converted sinus then back to flutter 07/22. -clinically stable, rate better controlled with CCB. - continue Xarelto per Dr. Ritter - started Verapamil SR 120mg per Cardiology, - finish stress test today, will follow up the result, -conitnue lasix 80po qam, 40po q evening. -continue telemetry, close ob given episode of pause with newly started CCB # Pulmonary hypertension, present as attend the admission and ongoing - Treatment plan as per Dr. Ritter # COPD, present at the time of admission and ongoing, former smoker, - given acute flare of wheezing, unlikely fluid overload with diuretics, started tx for obstructive lung dz 07/22 -continu [id number] to finish 5days -started Qvar 2puff bid -albuterol q4h prn. # Type II diabetes mellitus diagnosed 10 years ago, POA, uncontrolled glc>300s with steroid. A1c was 7.5 -s/p insulin drip on admission, -increase lantus 20 to 25 qhs, lisproSS changed to high correctional - Diabetic diet chronic, stable # Chronic kidney disease stage III, present at the time of admission and ongoing. - Patient not an ideal candidate for coronary artery catheterization due to risk of acute renal failure on chronic kidney disease - Avoid nephrotoxic agents # Hyperlipidemia, Continue statin from home # Gastro-esophageal reflux disease, present at the time of admission and ongoing. Continue proton pump inhibitor as at home # History of major depression, Continue meds from home. Disposition: likely 1-2more days based on cardiac w/u, further diuresis, home GI Prophylaxis: Proton Pump Inhibitor VTE Prophylaxis: Other (Xarelto started by Dr. Ritter) Resuscitation Status: CPR: Attempt Resuscitation Time spent 35min Karla Perez MD July 23, 2016 10:55
--- NOTE | 2016-07-23 11:23 | NUR ---
Off to CVL Pt off unit for chem-stress test at 1000. Off tele, on Oxygen, denies pain. Some AM meds given, others will be administered upon return. Addendum: 07/23/16 at 1229 by MONCHO CELIS RN Pt now back from CVL. Denies pain. Back on tele.
[2016-07-23] MEDS: Verapamil SR 120 mg ER12 Tablet PO SCH (12:40)
--- NOTE | 2016-07-23 17:20 | DRSVH ---
PROCEDURE: PHARMACOLOGIC VASODILATOR STRESS AND REST MYOCARDIAL PERFUSION IMAGING STUDY WITH GATING TO ASSESS EJECTION FRACTION AND REGIONAL WALL MOTION. RADIOPHARMACEUTICAL: Stress: 30.5 mCi technetium-99 tetrofosmin. Rest: 11.19 mCi technetium-99 te trofosmin. INDICATIONS: THE PATIENT IS AN 81-YEAR-OLD MALE WITH A HISTORY OF MYOCARDIAL INFARCTION AND CABG ADM ITTED WITH CHEST DISCOMFORT AND ATRIAL FLUTTER. COMPARISON: [facility], [place] [facility] [facility] [facility], 01/16/2015. VASODILATOR STRESS: Per protocol, 0.4 mg of Lexiscan was infused with a somewhat hypotensive blood p ressure response with a resting blood pressure of 106/60 falling down to 90/70 although he remained a symptomatic. O2 saturations remained greater than 94%. He had no chest discomfort. His resting ECG shows a right bundle branch block with a left anterior fascicular block but without any significant ST segment abnormalities. Baseline rhythm appears to be atrial fibrillation. With stress, there are no appreciable ST segment shifts and no other arrhythmias. The patient was given 100 mg of Aminophy lline with immediate improvement in his blood pressure. FINDINGS: Raw data: There is fair myocardial tracer uptake. Quantitative gated SPECT: Post stress ejection fraction is calculated at 67% without any obvious fo nelida wall motion abnormalities although there may be slight hypokinesis at the very base of the inferi or wall. In addition, right ventricular free wall uptake appears to be more prominent than usual, co ncerning for a possible right ventricular stress condition. While the rest ejection fraction is calc ulated at 46%, this appears to be artifactual as visually the ejection fraction appears to be identic al to the post stress images with an identical contraction pattern. The end-diastolic volume is norm al at 80 mL. Myocardial perfusion imaging: Post stress supine images show a fairly normal myocardial perfusion st udy although with a mild defect in the proximal and mid inferior wall in a pattern that would be cons istent with diaphragmatic attenuation. On the prone images, this defect improves, particularly in th e mid portion of the inferior wall although a slight defect remains present in the very base of the i nferior wall. No other perfusion defects are identified. The resting images show an identical perfu janice pattern without any areas of improvement. IMPRESSION: 1. Probable normal myocardial perfusion study. 2. Mild fixed proximal to mid inferior perfusion defect that nearly resolves on prone imaging, most c onsistent with attenuation artifact although a previous nontransmural infarction cannot be entirely e xcluded. There is no compelling evidence for significant myocardial ischemia. 3. Normal left ventricular systolic function with a question of mild hypokinesis at the base of the i nferior wall. In addition, there is increased right ventricular tracer uptake which can be a sign of a right ventricular stress condition but clinical correlation is recommended. 4. No angina or ECG evidence of myocardial ischemia with vasodilator stress. He presents with atrial fibrillation and there are no other arrhythmias identified. 5. Compared to the previous study from 01/16/2015, the previous ejection fraction was 52% without any segmental wall motion abnormalities. A moderate fixed inferolateral perfusion defect was identified but no comment was made in regards to any resolution on prone imaging. The defect appears to be ess entially unchanged on today's study. Increased right ventricular uptake was noted on the previous ex am as well. Dictated by: Conrado Baker M.D. on 07/23/2016 at 14:27 Transcribed by: URSULA on 07/23/2016 at 20:20 Approved by: Conrado Baker M.D. on 07/25/2016 at 6:38
[2016-07-23] MEDS ORDERED: Insulin Human REGular Inj 100 UNIT in 0.9% Sodium Chloride-Pha MIX 100 ML IV SCH ×2 (17:31→17:34)
--- NOTE | 2016-07-23 18:33 | NUR ---
O2/Insulin-Algorithm pt with high AC/BG readings today, note sent to MD. Insulin drip initiated. Lawanda Darnell RN verified drip rate. Pt informed with upcoming medication, was willing and hoped it wouldn't slow d/c plan for tomorrow. BG to be checked Q1hr. Humidified O2 on via NC, pt sating at 92-94% on 1L
--- NOTE | 2016-07-23 19:14 | PROG NOTE ---
[address] [address] CARDIOLOGY INPATIENT PROGRESS NOTE PATIENT: KEVIN BOONE : 1935 MR#: [id number] ADMIT: 07/19/2016 JOB ID: [id number] DATE: 07/23/2016 SUBJECTIVE: The patient states today that he is doing well. He is comfortably lying in the bed. He tells me that he is feeling better. Denies having any chest discomfort, he tells me that he was walking around and did not have pronounced shortness of breath. He has a good appetite and he voids properly. EXAMINATION: Vital signs: Temperature 36.6 Celsius, pulse is 80 beats per minute, respiratory rate 20 per minute, blood pressure 121/75, saturation on 1 L of oxygen is 94%. In general: No acute distress, comfortably lying in the bed, overweight.EENT: Mucous membranes moist, sclerae anicteric. Neck supple, no thyromegaly. Pulmonary: Decreased breathing sounds bilaterally, scattered expiratory Wheezing bilaterally, no crackles. Cardiac: Irregularly irregular rhythm. Heart sounds distant, no murmur appreciated, JVP is very slightly elevated. Abdomen: Nontender with palpation coma. Extremities: Lower extremity edema 1+. Skin: No rash. Neuro: Alert and oriented x3, no gross abnormalities. LABS: White blood cells 5.9, red blood cells 4.23, hemoglobin 12.9, hematocrit 38.8, platelets 178. Sodium 133, potassium 5.4, chloride 94, carbon dioxide 25, BUN 15, creatinine 1.74, glucose 267, calcium 8.8, magnesium 2.4, total bilirubin 0.9, AST 31, ALT 43, alkaline phosphatase 85, total protein 6.2, albumin 3.4. On telemetry, the patient is in atrial fibrillation with heart rate between 80s and 90s and sometimes going up to 120 beats per minute, periodic PVCs. ASSESSMENT AND PLAN: This is a pleasant 81-year-old gentleman with a history of coronary artery disease, CABG x3 and bioprosthetic valve replacement done in 2009, preserved cardiac function with LV EF 55-60%, preexisting RBB and left axis deviation, pulmonary HTN, chronic LE edema, with known chronic obstructive pulmonary disease/asthma who on July 19, 2016 was admitted with chest discomfort associated with diaphoresis, dyspnea, and found to be in atrial fibrillation with rapid ventricular response. He was cardioverted on July 20, 2016, but he went back in atrial fibrillation. Currently, is in atrial fibrillation with a rate somewhat controlled. 1. Atrial fibrillation with rapid ventricular response. The patient currently has his heart rate in 80s, 90s and sometimes going into 120s. He is on verapamil 125 mg daily. It should be noted that on July 19, 2016 at 18:04 he had a long pause of 5.45 seconds per telemetry data. Interestingly, when I looked on his vital signs, around that time, he was hypotensive with blood pressure 82/50 mmHg. He did not have any other documented pauses like this except on June 23, 2016 at midnight he had a pulse of 2.44 seconds. At this point, I would continue his current medication verapamil. I would avoid increasing the dose of it to not provoke new pauses. He is not think that he is a good candidate for amiodarone because he had a PFT done on March 30, 2015 and it showed a DLCO about 33% of predicted. He is not good candidate for other antiarrhythmic because per ECHO from 06/20/2016 he has severe LV hypertrophy, and he also has RBBB with left axis deviation. Currently, he is anticoagulated on Xarelto. He would be a good candidate for atrial fibrillation ablation. 2. Troponin leak. He had slightly elevated troponins likely secondary from demand ischemia from atrial fibrillation with rapid ventricular response. Also, he has a chronic kidney disease. He had Lexiscan stress test today and it was reported that he had Probable normal myocardial perfusion study 3. Chronic kidney disease, basically stable. 4. Hypertension, controlled. Otherwise would recommend to continue current medications without change. I discussed the case and coordinated management with lapel stitcher Dr.Lo Dr. Holt is going to discuss this case with our lapel stitcher- lamination spinner , Dr. Eugene tomorrow for potential consultation for possible atrial fibrillation ablation. TAMEKA
[2016-07-23] MEDS: Insulin GLARgine 100 Unit/mL Syringe SUBQ SCH ×2 (20:00→22:57)
[2016-07-24] VITALS (7 sets, daily range): BP systolic 106–136; BP diastolic 64–79; PULSE 87–104; RESP 20; O2SAT 90–98
--- NOTE | 2016-07-24 05:39 | NUR ---
D/C'd insulin gtt: Blood sugar per report was 470 yesterday on day shift upon initiating the insulin drip. After 2 hours, sugar decreased to 282. MD called about the drop in sugar, order was to d/c the drip. Lantus and sliding scale administered at bedtime. Last blood sugar was 215 at ~ 0300.
[2016-07-24 06:21] LABS: BASOPHILS % (AUTO) 0 % (0-3); EOSINOPHILS % (AUTO) 0.1 % (0-5); MONOCYTES % (AUTO) 5.9 % (4-12); Mean Corpuscular Hemoglobin 30.5 pg (27.0-35.0); Mean Corpuscular Volume 91.3 fL (81-100); NEUTROPHILS % (AUTO) 90.4 % (40-74); Platelet Count 213 bil/L (150-400)
[2016-07-24 06:40] LABS: Magnesium 2.3 mg/dL (1.6-2.6)
[2016-07-24] MEDS: Pantoprazole 40 mg ER24 Tablet PO SCH (07:44)
[2016-07-24] MEDS: predniSONE 20 mg Tablet PO SCH (07:44)
[2016-07-24] MEDS: Sodium Chloride LOK Flush 10 mL Syringe IVFLUSH SCH (07:45)
[2016-07-24] MEDS: Fluticasone 100 mCg Inhaler INHALATION SCH (07:47)
[2016-07-24] MEDS: Albuterol 2.5 mg/3 mL Inhalation Solution NEB PRN ×2 (07:50→11:50)
[2016-07-24] MEDS: Insulin LISPRO 300 Unit/3 mL Inj SUBQ SCH ×2 (07:51→12:00)
[2016-07-24] MEDS: Verapamil SR 120 mg ER12 Tablet PO SCH (08:51)
[2016-07-24] MEDS ORDERED: FLUT100D2 INHALATION (10:53)
[2016-07-24] MEDS ORDERED: ATOR10TA66 PO (10:53)
[2016-07-24] MEDS ORDERED: RIVA10TA PO (10:53)
[2016-07-24] MEDS ORDERED: [UNRECOGNIZED DRUG - CODE] PO (10:53)
[2016-07-24] MEDS ORDERED: PRED-508 PO (10:54)
--- NOTE | 2016-07-24 11:05 | PCM.DIMED ---
Discharge Instructions Date of Service July 24, 2016 Dates of Hospitalization Jul 19, 2016 at 08:52 Discharge Diagnosis Discharge Diagnosis Atrial fibrillation/atrial flutter with rapid ventricular response Acute on chronic congestive heart failure Asthma/COPD exacerbation chest pain, unlikely Acute coronary syndrome Medication Instructions For your asthma Please continue to use Flovent inhaler 2puffs twice a day Please finish taking Prednisone 40mg for 2more days, you can take 5days course if you start having difficulty of breathing in the future. you can use albuterol inhalers as needed every 2-4hours for difficulty of breathing For you heart Xarelto 20mg daily, blood thinner, please monitor your stools closely stop taking if you notice any signs of bleeding, black stools, red stools Verapamil [id number] daily, this is to control your heart rate, Atorvastatin was decreased to 10mg from 40mg based on you cholesterol profile. Diet Low fat, Low Sodium, Heart Healthy Activity No restrictions Call your provider Shortness of breath, Chest pain Patient Instructions You were hospitalized with multiple medical conditions associated with your heart and lungs. You were medically optimized with new regimen. Please follow detailed instruction of your medicine as above. Please follow up with your acquisition professional, registered nurse surgical services, and primary doctor Follow-up Provider: Ana María Wolfe MD Follow-up with PCP in: 2 weeks Karla Perez MD July 24, 2016 10:58
[2016-07-24] MEDS ORDERED: VERA180C2 PO (12:34)
[2016-07-24] MEDS ORDERED: Verapamil SR 120 mg ER12 Tablet PO ONE (12:40)
--- NOTE | 2016-07-24 12:47 | PCM.DC.MED ---
Discharge Summary Date of Service July 24, 2016 Dates of Hospitalization Date of Hospital Admission Jul 19, 2016 at 08:52 Date of Discharge: July 24, 2016 Providers: Admitting Physician: Reynaldo Aguilar MD Primary Care Physician: Milan Fishman MD Attending Physician: Reynaldo Aguilar MD Diagnosis at Time of Discharge Diagnosis at Time of Discharge acute problems Atrial fibrillation/atrial flutter with rapid ventricular response Acute on chronic congestive heart failure Asthma/COPD exacerbation chest pain, unlikely Acute coronary syndrome Type II diabetes mellitus, uncontrolled chronic problems # Chronic kidney disease stage III # Hyperlipidemia, # Gastro-esophageal reflux disease, # History of major depression, Consultations Cardiology Procedures XRay, CTs & MRIs PROCEDURE: X-RAY CHEST ONE VIEW, PORTABLE ([id number]) INDICATIONS: CHEST PAIN, sob, chf TECHNIQUE: One view of the chest was acquired. COMPARISON: [facility], CR, XR CHEST 2VW, 05/30/2016, 12:14. [facility], CR, CHEST 1VW (PORTABLE), 04/07/2013, 22:08. FINDINGS: Surgical changes and devices: Post median sternotomy. Lungs and pleura: No pleural effusions or pneumothorax. Lungs are clear and interstitium is prominent. Mediastinum: Mediastinal contours appear normal. Heart size is enlarged. Bones and chest wall: No suspicious bony lesions. Overlying soft tissues appear unremarkable. IMPRESSION: Mild cardiomegaly and interstitial prominence. Mild early developing pulmonary edema cannot be excluded. Correlate clinically. Dictated by: Pawan Peña RRA Interpreted: Martha Yousif MD on 07/19/2016 at 8:39 Transcribed by: ROSEANN on 07/19/2016 at 8:40 Approved by: Martha Yousif MD, PhD on 07/19/2016 at 8:47 Cardiac Echo Impression Echocardiogram Report Name: KEVIN BOONE Study Date: 06/20/2016 Height: 66 in Hospital Exam Location: [facility] Weight: 206 lb Gender: Male BSA: 2.0 m2 : 1935 Age: 81 yrs BP: 98/70 mmHg Reason For Study: CAD Performed By: Justnie Lopez Referring Physician: CHANDA DESAI Interpretation Summary Left ventricular wall thickness is moderately increased. The ejection fraction is estimated to be 55-60%. The right ventricle is mildly dilated. There is mild mitral regurgitation. There is a bioprosthetic aortic valve. The prosthetic aortic valve function is normal. There is mild to moderate tricuspid regurgitation. Right ventricular systolic pressure is estimated to be 47 mmHg plus the clinically estimated CVP which cannot be estimated on this exam. Compared to the prior echo exam, there has been a decrease in the severity of pulmonary hypertension. Brief History HPI obtained by on 07/19 Patient is a very pleasant 81-year-old white male with history of myocardial infarction, hypertension, COPD, asthma and coronary artery bypass graft surgery and aortic valve replacement who presented to [facility] emergency department via EMS services complaining of continuous nonradiating chest pain that woke him up from sleep at 1:30 AM. Patient did not get out of bed until 4 AM. The pain was described as a pressure on his chest and was not exacerbated or relieved by anything in particular. The pain was rated as an 8 out of 10 at onset, prior to evaluation by the ED provider it was 6/10. But he still felt like there was something sitting on his chest. He took one nitroglycerin and 3 pus from his inhaler at home with some relief. He was given additional nitroglycerin by medics and Route along with aspirin but to no other medications today. Patient had associated shortness of breath described as patient was not "able to get enough air" she complained of cough wheezing and chills. His O2 sat in the emergency room was only 88%. He reported that his chest pain was distinct from his asthma attacks. He felt fine yesterday had not had any cough, or chest pressure or cold the last few days. Patient only had baseline asthma exacerbation and pollen reaction. He has baseline edema in legs that have been slightly worse in the past few week days. He denied any diaphoresis, nausea or vomiting. Patient stated that he had a past episode of similar symptoms during a time or he had a coronary artery bypass graft surgery. He states his last episode of chest discomfort was a few months ago with the onset was different being that then he experience heat and diaphoresis. Patient was evaluated in the emergency room by Dr. Kam Escobar and Dr. Kam Escobar first contacted forms analysis manager Dr. Baker about the patient's EKG. And then Dr. Kam Escobar consulted Dr. Ritter who is a forms analysis manager fuel conversion technician for today. Dr. Ritter stated that he would see the patient in consultation. The patient was then admitted to the hospitalist service for further evaluation and treatment. Hospital Course Patient is a very pleasant 81-year-old white male with history of myocardial infarction, hypertension, COPD, asthma and coronary artery bypass graft surgery and aortic valve replacement who presented to [facility] emergency department via EMS services complaining of continuous nonradiating chest pain that woke him up from sleep at 1:30 AM. Patient did not get out of bed until 4 AM. The pain was described as a pressure on his chest and was not exacerbated or relieved by anything in particular. The pain was rated as an 8 out of 10 at onset, prior to evaluation by the ED provider it was 6/10. But he still felt like there was something sitting on his chest. He took one nitroglycerin and 3 pus from his inhaler at home with some relief. He was given additional nitroglycerin by medics and Route along with aspirin but to no other medications today. Patient had associated shortness of breath described as patient was not "able to get enough air" she complained of cough wheezing and chills. His O2 sat in the emergency room was only 88%. He reported that his chest pain was distinct from his asthma attacks. He felt fine yesterday had not had any cough, or chest pressure or cold the last few days. Patient only had baseline asthma exacerbation and pollen reaction. He has baseline edema in legs that have been slightly worse in the past few week days. He denied any diaphoresis, nausea or vomiting. Patient stated that he had a past episode of similar symptoms during a time or he had a coronary artery bypass graft surgery. He states his last episode of chest discomfort was a few months ago with the onset was different being that then he experience heat and diaphoresis. Patient was evaluated in the emergency room by Dr. Kam Escobar and Dr. Kam Escobar first contacted forms analysis manager Dr. Baker about the patient's EKG. And then Dr. Kam Escobar consulted Dr. Ritter who is a forms analysis manager fuel conversion technician for today. Dr. Ritter stated that he would see the patient in consultation. The patient was then admitted to the hospitalist service for further evaluation and treatment. acute problems # Atrial fib/flutter with Dr. Angel Ritter was consulted, underwent DCCV 07/20, converted sinus then back to flutter 07/22. rhythms were in/out of fib/flutter, rate was better controlled with Verapamil SR 120mg, increased to 180mg SR upon d/c as rate remained low 100s. patient was started on Xarelto 20mg, tolerated well w/o signs of bleeding. Given low DLCO from previous PFT, amidarone was not recommended. There was a discussion about ablation, however, pt was briefly reviewed by , recommended outpt follow up with him. also agreed on plan. Acute diastolic congestive heart failure, TTE 06/20 showed bioprosthetic AV, LV thickening, normal EF, worsened pHTN. TTE was not repeated on this admission. - conitnue lasix 80po qam, 40po q evening. History of two-vessel coronary bypass graft surgery and bioprosthetic aortic valve replacement: Since pt has troponemia,previous CAD, initially suspected NSTEMI, stress test was performed, which didn't show any perfusion defect. asthma/COPD exacerbation, former smoker, pt was noticed acute wheezing even with diuresis, started tx for obstructive lung dz with [id number], followed b prednisone, Qvar, albuterol prn. symptoms were greatly improved upon d/c. plan to continue prednisone 5days course and continue Qvar until pt sees in the clinic. Type II diabetes mellitus diagnosed 10 years ago, POA, uncontrolled glc>300s with steroid. A1c was 7.5. pt required insulin drip intermittently. lantus/ lispro SS were continued. chronic problems # Chronic kidney disease stage III, stable # Hyperlipidemia, Continued statin, LDL noted only 10s, lipitor decreased to 10mg. # Gastro-esophageal reflux disease, present at the time of admission and ongoing. Continued proton pump inhibitor as at home # History of major depression, Continued meds from home. Exam Vital Signs (Last) Date Time Temp Pulse Resp B/P Pulse Ox O2 Delivery O2 Flow Rate FiO2 07/24/16 11:51 94 Nasal Cannula 1.00 07/24/16 10:55 102 07/24/16 10:07 37.0 20 106/67 Exam NAD, comfortably laying down on the bed, speaks in full sentences no JVD, MMM, no LAD regular tachy nl s1, s2 no mrg no wheezing, no crackles, no accessory muscle use S,ND,NT,normoactive BS+ warm, trace pitting edema, pulses 2/2 Test 07/19/16 05:58 07/20/16 02:40 07/20/16 05:39 07/24/16 05:35 Hemoglobin A1c 7.5% (4.8-5.6) Troponin T 0.059ug/L (0.0-0.011) Phosphorus Level 3.8mg/dL (2.5-4.9) Pro-B-Type Natriuretic Peptide 94565ul/mL (0-486) Triglycerides Level 78mg/dL (0-149) Cholesterol Level 93mg/dL (100-199) LDL Cholesterol, Calculated 28.400mg/dL (0-99) VLDL Cholesterol 15.600mg/dL HDL Cholesterol 49mg/dL (>39) Cholesterol/HDL Ratio 1.90 (0.0-4.4) White Blood Count 12.9th/mm3 (3.8-10.1) Red Blood Count 4.03mil/mm3 (4.40-5.80) Hemoglobin 12.3g/dL (13.8-17.2) Hematocrit 36.8% (41.0-50.0) Mean Corpuscular Volume 91.3fL (81-100) Mean Corpuscular Hemoglobin 30.5pg (27.0-35.0) Mean Corpuscular Hemoglobin Concent 33.4% (32.0-37.0) Red Cell Distribution Width 14.4% (12.3-15.4) Platelet Count 213bil/L (150-400) Neutrophils (%) (Auto) 90.4% (40-74) Lymphocytes (%) (Auto) 3.3% (14-46) Monocytes (%) (Auto) 5.9% (4-12) Eosinophils (%) (Auto) 0.1% (0-5) Basophils (%) (Auto) 0% (0-3) Sodium Level 136mEq/L (134-144) Potassium Level 4.3mEq/L (3.5-5.2) Chloride Level 92mEq/L (97-108) Carbon Dioxide Level 24mmol/L (18-29) Blood Urea Nitrogen 57mg/dL (8-27) Creatinine 1.95mg/dL (0.76-1.27) Estimat Glomerular Filtration Rate 35mL/min (>59) Glucose Level 198mg/dL (60-99) Calcium Level 9.0mg/dL (8.5-10.1) Magnesium Level 2.3mg/dL (1.6-2.6) Total Bilirubin 0.7mg/dL (0.0-1.2) Aspartate Amino Transf (AST/SGOT) 24U/L (0-50) Alanine Aminotransferase (ALT/SGPT) 39U/L (0-44) Alkaline Phosphatase 79U/L (25-160) Total Protein 6.3g/dL (6.4-8.4) Albumin 3.5g/dL (3.4-5.0) Discharge Medications Discharge Medications Albiglutide (Tanzeum) 50 Mg/0.5 Ml Pen.injctr 50 MG SQ WEEKLY (Reported) Amlodipine (Amlodipine) 10 Mg Tablet 10 MG PO DAILY (Reported) Aspirin (Aspirin) 81 Mg Tablet 81 MG PO DAILY (Reported) Atorvastatin Calcium (Atorvastatin Calcium) 10 Mg Tablet 10 MG PO HS Prescribed by: KARLA JORDAN MD Citalopram (Citalopram) 20 Mg Tablet 20 MG PO DAILY (Reported) Fluticasone Propionate (Flovent Diskus) 100 Mcg Disk.w.dev 1 PUFF INHALATION BID Prescribed by: KARLA JORDAN MD Furosemide (Furosemide) 40 Mg Tablet 80 MG PO MORNING (Reported) Furosemide (Furosemide) 40 Mg Tablet 40 MG PO HS (Reported) Glimepiride (Glimepiride) 4 Mg Tablet 4 MG PO DAILYAC (Reported) Multivitamin (Multivitamins) 1 Each Capsule 1 EACH PO DAILY (Reported) Omeprazole (Omeprazole) 20 Mg Capsule.dr 20 MG PO DAILY (Reported) Prednisone (Deltasone) 20 Mg Tablet 40 MG PO DAILY Prescribed by: KARLA JORDAN MD Rivaroxaban (Xarelto) 10 Mg Tablet 20 MG PO DAILY@17 Prescribed by: KARLA JORDAN MD Spironolactone (Spironolactone) 25 Mg Tablet 25 MG PO DAILY (Reported) Ubidecarenone (Co Q-10) 300 Mg Capsule 300 MG PO DAILY (Reported) Verapamil ER (Verapamil ER) 180 Mg Cap24h.pel 180 MG PO DAILY Prescribed by: KARLA JORDAN MD As needed Albuterol HFA (Proair HFA) 8.5 Gm Hfa.aer.ad 2 PUFFS INHALATION q4-6h PRN PRN For Wheezing (Reported) Hydrocodone-Acetaminophen 5-325 mg (Hydrocodone-Acetaminophen 5-325 mg) 1 Each Tablet 1 TABLET PO Q6H PRN PRN For Pain (Reported) Insulin Glargine (Lantus U100 Insulin Vial) 100 Unit/Ml Vial 20 UNIT SUBQ DIRECTED PRN PRN Hyperglycemia (Reported) Nitroglycerin SL (Nitroglycerin SL) 0.4 Mg Tab.subl 0.4 MG SL PRN chest pain ( Reported) Additional med instructions For your asthma Please continue to use Flovent inhaler 2puffs twice a day Please finish taking Prednisone 40mg for 2more days, you can take 5days course if you start having difficulty of breathing in the future. you can use albuterol inhalers as needed every 2-4hours for difficulty of breathing For you heart Xarelto 20mg daily, blood thinner, please monitor your stools closely stop taking if you notice any signs of bleeding, black stools, red stools Verapamil [id number] daily, this is to control your heart rate, Atorvastatin was decreased to 10mg from 40mg based on you cholesterol profile. Followup Plan Disposition: home Discharge Diet: Low fat, Low Sodium, Heart Healthy Discharge Activity: No restrictions Patient Instructions You were hospitalized with multiple medical conditions associated with your heart and lungs. You were medically optimized with new regimen. Please follow detailed instruction of your medicine as above. Please follow up with your forms analysis manager, car audio installer, and primary doctor Follow-up Provider: Ana María Wolfe MD Follow-up with PCP in: 2 weeks Time spent 65min Karla Jordan MD July 24, 2016 12:47 65min Karla Jordan MD July 24, 2016 12:47
--- NOTE | 2016-07-24 13:57 | NUR ---
SW - Discharge Data: Pt is on day 5 of hospitalization for NSTEMI per H&P. EMR reviewed. Pt is medically ready to discharge and is up and independent in room. Pt to discharge home via family with no needs assessed. Assessment: Pt who is independent at baseline Plan: Pt to discharge home via POV with no needs. PRABHAKAR Mosley
--- NOTE | 2016-07-24 14:13 | NUR ---
Discharge pt d/c home with at 1405 via wc by aide. Pt denied having pain. IV d/c prior to leaving. Pt denied the need for oxygen at discharge, states to only need it while sleeping. Discharge info discussed with pt and , all questions answered. All personal belongings left with pt, VSS.
--- NOTE | 2016-07-24 15:33 | NUR ---
spiritual care: routine (late entry) pt agreeable for eucharistic mixer lever operator and expressed desire to ask questions about local [facility] churches.
[2016-09-09] MEDS ORDERED: METO25TA6 PO (12:58)
== END 2016-07-24 14:00 | disposition home or self-care (01) | DRG 308 ==
LOC: EDUNIT# 05:47 → SED 05:47 → EDBD 05:47 → MPC 08:52
PROVIDERS: ADMIT Internal Medicine Infectious Disease; ATTEND Internal Medicine Infectious Disease
PROC: 5A2204Z Restoration of Cardiac Rhythm, Single (ICD-10-PCS; principal; 2016-07-20)
DX: I48.91 Unspecified atrial fibrillation (principal); I50.33 Acute on chronic diastolic (congestive) heart failure; J44.1 Chronic obstructive pulmonary disease with (acute) exacerbation; E11.65 Type 2 diabetes mellitus with hyperglycemia; N18.3 Chronic kidney disease, stage 3 (moderate); E78.5 Hyperlipidemia, unspecified; K21.9 Gastro-esophageal reflux disease without esophagitis; I12.9 Hypertensive chronic kidney disease with stage 1 through stage 4 chronic kidney disease, or unspecified chronic kidney disease; Z87.891 Personal history of nicotine dependence; I25.10 Atherosclerotic heart disease of native coronary artery without angina pectoris; F32.9 Major depressive disorder, single episode, unspecified; Z79.4 Long term (current) use of insulin

== ENCOUNTER 2016-08-05 21:29 | Inpatient (IN) | payer MEDICARE, OTHER ==
[~2016-08-05] VITALS: Ht 167.6 cm; Wt 107.1 kg
[~2016-08-05 21:29] MED LIST changes: +ALBI50PE SQ; -ALBUTEROL; +ATOR10TA66 PO; -ATOR20TA PO; -FLAX100010 PO; +FLUT100D2 INHALATION; +NITR0.4T6 SL; -NITR4.9S5 SL; +PRED-508 PO; +RIVA10TA PO; +UBID300C PO; +VERA180C2 PO
[2016-08-05 21:50] VITALS: BP 95/59; PULSE 88; RESP 18; O2SAT 93
--- NOTE | 2016-08-05 22:09 | ED.REPORT ---
HPI-Trauma Multiple Date of Service August 05, 2016 ED Provider: Cesar Barnhart MD Pt is an 81 y/o male anticoagulated on Xarelto w/ a hx of COPD, asthma, CKD III , diabetes, CAD s/p CABG x3, hyperlipidemia, TAVR, A-fib, presenting to the ED with family due to multiple falls which have occurred over the past 3 days. The patient has seemed to be generally weak and somewhat confused over the past 3 days and has experienced multiple ground level falls over the past few days. He ambulates with a walker but still continues to fall. He fell forward off his toilet and hit his head. His believes he likely lost consciousness during that episode. He c/o associated headache over the site of injury. The family believes they are unable to care for him at home. They deny vomiting, change in behavior, fever, chills. Nursing Notes Stated Complaint: FELL, CUT EYE,HIT HEAD Chief Complaint: Multiple Trauma/Fall Nursing Notes Reviewed: Yes Allergies: Coded Allergies: No Known Allergies (Unverified , 08/05/16) Scheduled Albiglutide (Tanzeum) 30 Mg/0.5 Ml Pen.injctr 30 MG SQ every Friday Amlodipine (Amlodipine) 5 Mg Tablet 5 MG PO DAILY Aspirin (Aspirin) 81 Mg Tablet 81 MG PO DAILY Atorvastatin Calcium (Atorvastatin Calcium) 10 Mg Tablet 10 MG PO HS Citalopram (Citalopram) 20 Mg Tablet 20 MG PO DAILY Fluticasone Propionate (Flovent Diskus) 100 Mcg Disk.w.dev 1 PUFF INHALATION BID Furosemide (Furosemide) 40 Mg Tablet 80 MG PO MORNING Furosemide (Furosemide) 40 Mg Tablet 40 MG PO HS Glimepiride (Glimepiride) 4 Mg Tablet 4 MG PO DAILYAC Insulin Glargine (Lantus U100 Insulin Vial) 100 Unit/Ml Vial 20 UNIT SUBQ QPM Metolazone (Metolazone) 10 Mg Tablet 10 MG PO QAM Multivitamin (Multivitamins) 1 Each Capsule 1 EACH PO DAILY Nortriptyline (Nortriptyline) 10 Mg Capsule 10 MG PO HS Omeprazole (Omeprazole) 20 Mg Capsule.dr 20 MG PO DAILY Prednisone (PredniSONE) 20 Mg Tablet 20 MG PO DAILY Rivaroxaban (Xarelto) 10 Mg Tablet 10 MG PO DAILY Spironolactone (Spironolactone) 25 Mg Tablet 25 MG PO DAILY Tamsulosin (Flomax) 0.4 Mg Capsule 0.4 MG PO DAILY Torsemide (Torsemide) 20 Mg Tablet 40 MG PO DAILY Ubidecarenone (Co Q-10) 300 Mg Capsule 300 MG PO QPM Verapamil ER (Verapamil ER) 180 Mg Cap24h.pel 180 MG PO DAILY Scheduled PRN Albuterol HFA (Proair HFA) 8.5 Gm Hfa.aer.ad 2 PUFFS INHALATION q4-6h PRN PRN For Wheezing Cyclobenzaprine (Cyclobenzaprine) 5 Mg Tablet 5 MG PO TID PRN PRN Spasm Hydrocodone-Acetaminophen 5-325 mg (Hydrocodone-Acetaminophen 5-325 mg) 1 Each Tablet 1 TABLET PO Q6H PRN PRN For Pain Lidocaine Cream (Lidocaine Cream) 5 Gm Cream..g. 1 APPLIC TOPICAL DAILY PRN PRN For Pain Nitroglycerin SL (Nitroglycerin SL) 0.4 Mg Tab.subl 0.4 MG SL PRN chest pain General Time Seen by Provider: 21:55 Chief Complaint Head pain/injury Hx Obtained From: Patient Arrived By: Walk-in Onset Occurred: 3 days ago Symptom Duration: Since onset Progression Since Onset: Unchanged Location: : Head Quality: Painful Severity: Current: Mild Severity: Maximum: Mild Similar Sx Previous: No Past Medical History Past Medical History Notes: Echocardiogram 06/20/2016, mild LVH, EF 55-60%, mild right ventricular dilation, mild mitral regurgitation, bioprosthetic aortic valve, mild to moderate tricuspid regurg Visited Dr. Fishman 07/06 for similar symptoms Past Medical History History of pulmonary hypertension COPD Asthma Stage III chronic kidney disease Diabetes Primary osteoarthritis the right hip History of congestive heart failure Hyperlipidemia GERD History of major depression History of chronic low back pain History of aortic valve replacement with a porcine valve (on ASA) Reports: Coronary artery disease Past Surgical History CABG Bioprosthetic aortic valve Cardiac catheterization February 2015 Hip surgery Smoking History Former Smoker Social History Drug Use: Denies drug use Review of Systems Constitutional: Reports: Fatigue, Weakness - generalized, Denies: Chills, Fever Respiratory: Denies: Shortness of breath Cardiovascular: Denies: Chest pain Neurologic: Reports: Change LOC, Confusion, Headache, Syncope Complete sys rev & neg: except as marked. Physical Exam Initial Vital Signs Vital Signs (First) Date Time Temp Pulse Resp B/P Pulse Ox O2 Delivery O2 Flow Rate FiO2 08/05/16 21:50 36.0 88 18 95/59 93 Room Air Initial VS: Reviewed, Vital signs abnormal Skin: Warm, Dry, No cyanosis Psychiatric: Mood/affect normal, Behavior normal, Normal thought content General/Constitutional: Awake, Alert, No acute distress, Cooperative, Not toxic appearing Head / Eyes: Normocephalic, PERRL, EOMI Abrasion to left temporal region with some underlying hematoma and dried blood present. Left periorbital ecchymosis Neck: Atraumatic, Supple, No meningismus, Full range of motion, Non-tender, No midline vertebral tend Respiratory / Chest: Atraumatic, Breath sounds NL, Breath sounds = bilat, No respiratory distress, No rales, No rhonchi, No wheezing, No retractions, No stridor, No chest tenderness, No chest wall deformity, No crepitus Well healed thoracic surgical scar Cardiovascular: Heart rate NL, Regular rhythm, Heart sounds NL, No gallop, No murmurs, No rubs, Cap refill not delayed, Peripheral circulation NL Lower Ext Edema: Positive: Bilateral 2+ (2/3 way up to knee), Pitting Abdomen: Atraumatic, Soft, Non-tender, No guarding, No rebound Back: Atraumatic, Inspection NL, Full range of motion, Painless range of motion , Non-tender, No midline vertebral tend Neurologic: Oriented X3, Speech NL, No motor deficits, No sensory deficits ENT: Atraumatic, Airway patent, Mucous membranes moist, Gums/dentition NL Upper Extremity / MS: No deformity, Neurologic intact, Vascular intact LUE superficial skin tear about left upper forearm with dressing present, Ecchymosis present left forearm. RUE nl Interpretation & Diagnostics Lab Results Interpretation Result Diagram: 08/07/16 0220 08/08/16 0240 Test 08/05/16 22:05 Prothrombin Time 12.9sec (8.1-12.5) Prothromb Time International Ratio 1.20ratio Hemoglobin A1c 8.6% (4.8-5.6) Pro-B-Type Natriuretic Peptide 41008vj/mL (0-486) Hold Tierney Top Tube Received (Received) ECG Interpretation ECG Interpretation: Sinus rhythm rate 94 RBBB Occasional PVCs Compared to prior dated 07/24/16 patient is now tachycardic, otherwise unchanged Time: 22:41 Interpreted by: ED physician Normal ECG Interpretation: No acute ischemic changes X-Ray Chest Interpretation Chest Xray Interpretation: Possible retrocardiac pneumonia View: AP & lat Interpretation / Wet Read by: Wet read ED physician CT Head Interpretation Conclusion: No acute intracranial hemorrhage or calvarial fracture. Soft tissue injury. Senescent changes. Paranasal sinus disease as detailed above. Transmitted to the ED by Teddy Lewis MD. Study: Head CT no contrast Interpretation / Wet Read by: Interpret - Radiologist Re-Eval/Medical Decision Med Decision/Clinical Course Pt is an 81 y/o male anticoagulated on Xarelto w/ a hx of COPD, asthma, CKD III , diabetes, CAD s/p CABG x3, hyperlipidemia, TAVR, A-fib, presenting to the ED with family due to multiple falls which have occurred over the past 3 days. The patient has seemed to be generally weak and somewhat confused over the past 3 days and has experienced multiple ground level falls over the past few days. He ambulates with a walker but still continues to fall. He fell forward off his toilet and hit his head. His believes he likely lost consciousness during that episode. He c/o associated headache over the site of injury. The family believes they are unable to care for him at home. They deny vomiting, change in behavior, fever, chills. Labs notable as below: CBC: Leukocytosis of 25.9, HCT 43 increased from prior, platelets 246 CMP: Na of 127 lowered from baseline, BUN of 71 and creatinine of 2.25 both markedly increased from baseline, glucose of 356 Troponin of 0.13 increased from prior BNP: 10,600 CT head: 1. No acute intracranial abnormality. 2. Sinus disease. 3. Concordant with preliminary interpretation. Chest x-ray demonstrated likely retrocardiac pneumonia per my interpretation. EKG was obtained and interpreted by myself as documented above. At this time, patient is not safe for discharge home. Elevated troponin in the setting of acute kidney injury is difficult to interpret and requires serial troponins. Suspicion for acute coronary syndrome remains however I feel that trending troponins this time is appropriate as opposed to immediate heparinization. No evidence of acute intracranial hemorrhage. Patient will be started on antibiotics for presumed HAP. Patient discussed with admitting hospitalist accepted for further workup and management. Re-Evaluation/Progress : Time of Eval: 23:00 Re-Evaluation/Progress Note: Pt rechecked. Informed pt of need for admission. Pt understands and agrees with plan for admission. All questions addressed. Consultation : Referral / Consult Name: Kelsey Coombs DO Consulted With: Hospitalist Call Returned at: 23:30 Traffic Or System Dispatcher: Will see patient, Agrees with eval, Agrees with plan, Accepts admit Counseled Regarding: Diagnosis, Lab results, Need for admission Discharge & Departure Impression: Primary Impression: Hospital-acquired pneumonia Additional Impressions: NSTEMI (non-ST elevated myocardial infarction) Fall from ground level Hyponatremia Acute kidney injury Disposition: ADMITTED TO HOSPITAL Discharge Condition All VS Reviewed: Yes Condition: Stable Referrals: Milan Fishman MD (PCP) Crit Care Except Billable Proc Time Spent: 105-134 minutes Services Performed: Patient management by me, Time spent at bedside, Reviewing test results, Reviewing imaging, Discussing patient care, Documentation in record, Time with fam/surrogate Scribe Attestation Portions of this note were transcribed by Yovani Álvarez. I, Dr. Barnhart personally performed the history, physical exam and medical decision-making; I reviewed and confirmed the accuracy of the information in the transcribed note. Signed by Kang Lang, 08/05/162229 copies to: Milan Fishman MD, Beck O MD August 05, 2016 22:09 YOVANI ÁLVAREZ August 05, 2016 22:11 Hold Tierney Top Tube Received (Received) ECG Interpretation ECG Interpretation: Sinus rhythm rate 94 RBBB Occasional PVCs Compared to prior dated 07/24/16 patient is now tachycardic, otherwise unchanged Time: 22:41 Interpreted by: ED physician Normal ECG Interpretation: No acute ischemic changes X-Ray Chest Interpretation Chest Xray Interpretation: Possible retrocardiac pneumonia View: AP & lat Interpretation / Wet Read by: Wet read ED physician CT Head Interpretation Conclusion: No acute intracranial hemorrhage or calvarial fracture. Soft tissue injury. Senescent changes. Paranasal sinus disease as detailed above. Transmitted to the ED by Teddy Lewis MD. Study: Head CT no contrast Interpretation / Wet Read by: Interpret - Radiologist Re-Eval/Medical Decision Med Decision/Clinical Course Labs notable as below: CBC: Leukocytosis of 25.9, HCT 43 increased from prior, platelets 246 CMP: Na of 127 lowered from baseline, BUN of 71 and creatinine of 2.25 both markedly increased from baseline, glucose of 356 Troponin of 0.13 increased from prior BNP: 10,600 Re-Evaluation/Progress : Time of Eval: 23:00 Re-Evaluation/Progress Note: Pt rechecked. Informed pt of need for admission. Pt understands and agrees with plan for admission. All questions addressed. Consultation : Referral / Consult Name: Kelsey Coombs DO Consulted With: Hospitalist Call Returned at: 23:30 Traffic Or System Dispatcher: Will see patient, Agrees with eval, Agrees with plan, Accepts admit Counseled Regarding: Diagnosis, Lab results, Need for admission Discharge & Departure Impression: Primary Impression: Hospital-acquired pneumonia Disposition: ADMITTED TO HOSPITAL Discharge Condition All VS Reviewed: Yes Condition: Stable Referrals: Milan Fishman MD (PCP) Scribe Attestation Portions of this note were transcribed by Yovani Álvarez. I, Dr. Barnhart personally performed the history, physical exam and medical decision-making; I reviewed and confirmed the accuracy of the information in the transcribed note. Signed by Kang Lang, 08/05/16 - [id number] copies to: Milan Fishman MD, Beck O MD August 05, 2016 22:09 YOVANI ÁLVAREZ August 05, 2016 22:11
[2016-08-05] MEDS ORDERED: Ondansetron 2 mg/mL 2 mL Inj IVPUSH PRN (22:10)
[2016-08-05] MEDS ORDERED: Alum-Mag Hydrox-Simeth 30 mL Suspension PO PRN (22:10)
[2016-08-05 22:24] LABS: BASOPHILS % (AUTO) 0.1 % (0-3); EOSINOPHILS % (AUTO) 0 % (0-5); MONOCYTES % (AUTO) 4.6 % (4-12); Mean Corpuscular Volume 85.2 fL (81-100); NEUTROPHILS % (AUTO) 93.2 % (40-74); Platelet Count 246 bil/L (150-400)
[2016-08-05 22:45] LABS: INR 1.2 ratio
[2016-08-05 22:59] VITALS: BP 95/63; PULSE 91; RESP 18; O2SAT 92
[2016-08-05] MEDS ORDERED: 0.9% Sodium Chloride 1,000 ML IV ONE (23:05)
[2016-08-05 23:11] LABS: Magnesium 2.2 mg/dL (1.6-2.6)
[2016-08-05 23:12] LABS: TROPONIN T 0.13 ug/L (0.0-0.011)
[2016-08-05] MEDS ORDERED: RIVA10TA PO (23:21)
[2016-08-05] MEDS ORDERED: ALBI30PE SQ (23:21)
[2016-08-05] MEDS ORDERED: LIDO5CRE17 TOPICAL (23:21)
[2016-08-05] MEDS ORDERED: METO10TA7 PO (23:21)
[2016-08-05] MEDS ORDERED: NORT10CA PO (23:21)
[2016-08-05] MEDS ORDERED: CYCL5TAB PO (23:21)
[2016-08-05] MEDS ORDERED: PRE20 PO (23:21)
[2016-08-05] MEDS ORDERED: AMLO5TAB2 PO (23:21)
[2016-08-05] MEDS ORDERED: TAMS0.4C98 PO (23:21)
[2016-08-05] MEDS ORDERED: Vancomycin Dose per Pharmacist XX ONE (23:40)
[2016-08-05] MEDS ORDERED: Piperacillin-Tazo 3.375 Gm Inj 3.375 GM in Dextrose 5% Minibag Plus 50 ML IV ONE (23:40)
[2016-08-06] VITALS (13 sets, daily range): BP systolic 97–112; BP diastolic 56–73; PULSE 71–103; RESP 16–22; O2SAT 91–97
[2016-08-06] MEDS ORDERED: Polyethylene Glycol (PEG) 17 Gm Powder PO PRN (00:35)
[2016-08-06] MEDS ORDERED: Alum-Mag Hydrox-Simeth 30 mL Suspension PO PRN (00:35)
[2016-08-06] MEDS ORDERED: Glucose 40% Oral Gel 15 Gm Tube PO PRN (01:25)
--- NOTE | 2016-08-06 02:14 | PCM.HPMED ---
Subjective Date of Service August 06, 2016 Primary Provider: Admitting Physician: Kelsey Coombs DO Primary Care Physician: Milan Fishman MD Attending Physician: Kelsey Coombs DO Admit Status: From the Emergency Department, Remote Telemetry Chief Complaint: Multiple GLF with weakness/dizziness History of Present Illness: Pt is an 81 y/o male anticoagulated on Xarelto with hx of COPD, asthma, CKD III , diabetes, CAD s/p CABG x3, hyperlipidemia, TAVR, A-fib, presenting to the ED with family due to multiple falls which have occurred over the past 3 days. Patient reports of feeling weak having no energy for the past 4 days, with no appetite. patient states he had been constipated and had strained when he had the syncopal episode after having a large BM 3 days ago on the commode. He lost consciousness and fell forward hitting his head against the shower stall. Per family report in ED, the patient has seemed to be generally weak and somewhat confused over the past 3 days and has experienced multiple ground level falls over the past few days. He ambulates with a walker but still continues to fall. He c/o associated headache over the site of injury. The family believes they are unable to care for him at home. He has had his usual chronic cough, which improves with inhaler. He denies vomiting, change in behavior, fever, chills. Patient states Dr. 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 PCP Dr. iFshman. In the ED, vitals T36.0, P88, R18, BP95/59, 93% on RA. Labs- CBC: WBC of 25.9, HCT 43 increased from prior, platelets 246 CMP: Na of 127 lowered from baseline, BUN of 71 and creatinine of 2.25 both markedly increased from baseline, glucose of 356 Troponin of 0.13 increased from prior BNP: 10,600 CXR showed "Possibe retrocardiac pneumonia", CT head negative for any acute process. Patient admitted to hospital for further workup and management. Review of Systems: Constitutional: Reports: Fatigue, Weakness - generalized, Denies: Chills, Fever Respiratory: Denies: Shortness of breath Cardiovascular: Denies: Chest pain Neurologic: Reports: Change LOC, Confusion, Headache, Syncope Complete sys rev & neg: except as marked. A comprehensive review of systems has been conducted with the patient and found to be negative except what is mentioned in the HPI. Allergies Coded Allergies: No Known Allergies (Unverified , 08/05/16) Home Medications Albiglutide (Tanzeum) 30 Mg/0.5 Ml Pen.injctr 30 MG SQ every Friday Amlodipine (Amlodipine) 5 Mg Tablet 5 MG PO DAILY Aspirin (Aspirin) 81 Mg Tablet 81 MG PO DAILY Atorvastatin Calcium (Atorvastatin Calcium) 10 Mg Tablet 10 MG PO HS Citalopram (Citalopram) 20 Mg Tablet 20 MG PO DAILY Fluticasone Propionate (Flovent Diskus) 100 Mcg Disk.w.dev 1 PUFF INHALATION BID Furosemide (Furosemide) 40 Mg Tablet 80 MG PO MORNING Furosemide (Furosemide) 40 Mg Tablet 40 MG PO HS Glimepiride (Glimepiride) 4 Mg Tablet 4 MG PO DAILYAC Insulin Glargine (Lantus U100 Insulin Vial) 100 Unit/Ml Vial 20 UNIT SUBQ QPM Metolazone (Metolazone) 10 Mg Tablet 10 MG PO QAM Multivitamin (Multivitamins) 1 Each Capsule 1 EACH PO DAILY Nortriptyline (Nortriptyline) 10 Mg Capsule 10 MG PO HS Omeprazole (Omeprazole) 20 Mg Capsule.dr 20 MG PO DAILY Prednisone (PredniSONE) 20 Mg Tablet 20 MG PO DAILY Rivaroxaban (Xarelto) 10 Mg Tablet 10 MG PO DAILY Spironolactone (Spironolactone) 25 Mg Tablet 25 MG PO DAILY Tamsulosin (Flomax) 0.4 Mg Capsule 0.4 MG PO DAILY Ubidecarenone (Co Q-10) 300 Mg Capsule 300 MG PO QPM Verapamil ER (Verapamil ER) 180 Mg Cap24h.pel 180 MG PO DAILY Scheduled PRN Albuterol HFA (Proair HFA) 8.5 Gm Hfa.aer.ad 2 PUFFS INHALATION q4-6h PRN PRN For Wheezing Cyclobenzaprine (Cyclobenzaprine) 5 Mg Tablet 5 MG PO TID PRN PRN Spasm Hydrocodone-Acetaminophen 5-325 mg (Hydrocodone-Acetaminophen 5-325 mg) 1 Each Tablet 1 TABLET PO Q6H PRN PRN For Pain Lidocaine Cream (Lidocaine Cream) 5 Gm Cream..g. 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 (on ASA) Coronary artery disease Echocardiogram 06/20/2016, mild LVH, EF 55-60%, mild right ventricular dilation, mild mitral regurgitation, bioprosthetic aortic valve, mild to moderate tricuspid regurge Surgical History CABG Bioprosthetic aortic valve Cardiac catheterization February 2015 Hip surgery Family History Orphaned at 11yo Social History Hx Alcohol Use: Yes (rarely) Hx Substance Use: No Hx Tobacco Use: Yes (The patient quit 20 years ago.) Smoking Status: Former Smoker Living Arrangement: with Family (local resident, lives with ) Exam Vital Signs Vital Sign - Last Date Time Temp Pulse Resp B/P Pulse Ox O2 Delivery O2 Flow Rate FiO2 08/06/16 00:23 92 18 110/71 92 Room Air 08/05/16 21:50 36.0 Intake and Output 08/05/16 08/05/16 08/06/16 Cumulative From/Thru 15:00 23:00 07:00 08/05/16 21:50 - 08/05/16 23:10 Intake Total 1000 ml 1000 ml Balance 1000 ml 1000 ml Intake IV Total 1000 ml 1000 ml Exam General: Awake and alert, in no acute distress, mildly wheezing as he breathes HEENT: Fluctuant edema on left temporal of 4cm in diameter with abrasion, tender to palpation, ecchymosis on lateral lower eye, PERRL, EOMI, no sclera icterus, moist mucous membranes Neck: Supple, Non-tender, Full range of motion LUNGS: Moderate rhonchi and wheezes throughout CV: Regular with normal S1,S2, Heart sounds normal, Intact radial pulses, difficult to appreciate dorsal pedal pulses ABD: Protuberant, soft, non-tender, no guarding or rebound. normoactive bowel tones Extremities: 2+ pitting edema to mid gloria bilaterally Skin: Ecchymosis on left forearm. Warm, Dry, No cyanosis. Past surgical scar on mediastinum. Neuro: Alert, Oriented, Nonfocal, Decreased hearing Psychiatric: Mood/affect normal, Behavior normal, Normal thought content Lab and Diagnostics Result Diagram: 08/05/16220408/05/162204 X-Rays, CTs and MRIs Possibe retrocardiac pneumonia View: AP & lat Interpretation / Wet Read by: Wet read ED physician CT Head Interpretation Conclusion: No acute intracranial hemorrhage or calvarial fracture. Soft tissue injury. Senescent changes. Paranasal sinus disease as detailed above. Transmitted to the ED by Teddy Lewis MD. Study: Head CT no contrast Interpretation / Wet Read by: Interpret - Radiologist 12-lead ECG Sinus rhythm rate 94 RBBB Occasional PVCs Compared to prior dated 07/24/16 patient is now tachycardic, otherwise unchanged Time: 22:41 Interpreted by: ED physician Normal ECG Interpretation: No acute ischemic changes Assessment & Plan Pt is an 81 yo male anticoagulated on Xarelto with hx of COPD, asthma, CKD III, diabetes, CAD s/p CABG x3, hyperlipidemia, TAVR, A-fib, presenting to the ED with family due to multiple falls which have occurred over the past 3 days. Patient reports of feeling weak having no energy for the past 4 days, with no appetite. Per family report in ED, the patient has seemed to be generally weak and somewhat confused over the past 3 days and has experienced multiple ground level falls over the past few days. Acute on chronic kidney injury, present on admission. - Patient with creatinine baseline of 1.8, currently at 2.25 with BUN 71 - gentle fluids - avoid all nephrotoxic medications - repeat BMP - consider nephrology consult if patient continues to be oliguric Leukocytosis (25.9) neutrophil predominant, present on admission. Acute. - broad coverage with Vancomycin and Zosyn, will narrow down based on further findings - BCx UA pending - trend lactic acid HCAP, present on admission. Acute. Patient with recent hospitalization for NSTEMI, - CXR showed possible retrocardiac pneumonia - abx as above - BCx, MRSA screen, sputum pending - treatment as above Elevated troponin, present on admission. - increased from baseline level of 0.8, ECG with no acute findings, may be caused by worsening kidney function - will continue to trend - consider cardiology consult if troponin continues to trend up Hyponatremia, present on admission. Acute. - most likely due to poor oral intake, possible SIADH secondary to current pneumonia - gentle IV fluids - BMP in am Multiple GLF, present on admission. Acute. - recent syncopal episode most likely due to vasovagal etiology - CT head negative for any acute process - orthostatic BP pending - PT ordered Atrial fibrillation - on telemetry - continue home dose Xarelto Diastolic CHF with last ECHO 06/20/2016 with EF 55-60%, mild right ventricular dilation, mild mitral regurgitation, bioprosthetic aortic valve, mild to moderate tricuspid regurge - not on BB due to asthma, consider ACEi - BNP [id number] - continue home meds: apironolactone, furosemide - strict I/O with standing daily weights Diabetes mellitus type 2, uncontrolled - on medium scale correction dosing - A1c pending CAD - continue aspirin and verapamil Hypertension - continue home dose amlodipine and metolazone COPD - continue home med: Flovent and prednisone Asthma - albuterol inhaler as needed Hyperlipidemia - continue home dose atorvastatin GERD - continue home dose PPI Depression - continue home dose citalopram Insomnia - continue nortriptyline BPH - continue Flomax Patient status: Patient was admitted under inpatient status with expected length of stay greater than to midnights due to severity of presenting symptoms , risk of adverse event, and complexity of treatment plan. Albiglutide (Tanzeum) 30 Mg/0.5 Ml Pen.injctr 30 MG SQ every Friday Pain Evaluation: Adequate Pain Control GI Prophylaxis: Not indicated VTE Prophylaxis: Other (on Xarelto) Resuscitation Status: CPR: Attempt Resuscitation Attending Statement The patient was seen and examined together with house staff on 08/06/2016 and I agree with the history, exam and plan as outlined in the note above. copies to: Milan Fishman MD, Fumiko O DO August 06, 2016 00:39 Kelsey Coombs DO August 06, 2016 05:14
[2016-08-06] MEDS: 0.9% Sodium Chloride 1,000 ML IV SCH ×2 (02:20→18:09)
[2016-08-06 02:35] LABS: BASOPHILS % (AUTO) 0 % (0-3); EOSINOPHILS % (AUTO) 0 % (0-5); MONOCYTES % (AUTO) 5.6 % (4-12); Mean Corpuscular Hemoglobin 30.2 pg (27.0-35.0); Mean Corpuscular Volume 85.5 fL (81-100); NEUTROPHILS % (AUTO) 91.7 % (40-74); Platelet Count 202 bil/L (150-400)
[2016-08-06 04:19] LABS: APPEARANCE,URINE CLEAR (CLEAR,HAZY); COLOR,URINE YELLOW (YELLOW); OCCULT BLOOD,URINE NEGATIVE (NEGATIVE); UROBILINOGEN,URINE NORMAL (NORMAL)
--- NOTE | 2016-08-06 04:19 | PCM.CONPHA ---
Subjective Date of Service: August 06, 2016 Requesting Provider: Eladio Lau DO Multiple GLF with weakness/dizziness Reason for Pharmacy Consult: Vancomycin Dosing Objective Vital Signs Date Time Temp Pulse Resp B/P Pulse Ox O2 Delivery O2 Flow Rate FiO2 08/06/16 03:57 36.4 100 20 108/69 95 Nasal Cannula 1.50 08/06/16 02:11 Supplement Oxygen 08/06/16 01:30 95 08/06/16 01:15 36.7 90 20 112/66 95 Nasal Cannula 1.50 08/06/16 01:02 85 18 111/56 91 Room Air 08/06/16 00:23 92 18 110/71 92 Room Air 08/05/16 22:59 91 18 95/63 92 Room Air 08/05/16 21:50 36.0 88 18 95/59 93 Room Air Intake and Output 08/04/16 08/05/16 08/06/16 00:00 00:00 00:00 Intake Total 1000 ml Balance 1000 ml Weight (Kilograms): 88.100 Height (Feet): 5 Height (Inches): 6.00 Test 08/05/16 22:05 08/06/16 02:30 08/06/16 03:00 08/06/16 03:50 Prothrombin Time 12.9sec (8.1-12.5) Prothromb Time International Ratio 1.20ratio Magnesium Level 2.2mg/dL (1.6-2.6) Total Bilirubin 1.3mg/dL (0.0-1.2) Aspartate Amino Transf (AST/SGOT) 20U/L (0-50) Alanine Aminotransferase (ALT/SGPT) 25U/L (0-44) Alkaline Phosphatase 89U/L (25-160) Pro-B-Type Natriuretic Peptide 48389oi/mL (0-486) Total Protein 7.8g/dL (6.4-8.4) Albumin 3.6g/dL (3.4-5.0) Procalcitonin 0.21ng/mL (0.00-0.08) Hold Tierney Top Tube Received (Received) White Blood Count 22.6th/mm3 (3.8-10.1) Red Blood Count 4.41mil/mm3 (4.40-5.80) Hemoglobin 13.3g/dL (13.8-17.2) Hematocrit 37.7% (41.0-50.0) Mean Corpuscular Volume 85.5fL (81-100) Mean Corpuscular Hemoglobin 30.2pg (27.0-35.0) Mean Corpuscular Hemoglobin Concent 35.3% (32.0-37.0) Red Cell Distribution Width 13.6% (12.3-15.4) Platelet Count 202bil/L (150-400) Neutrophils (%) (Auto) 91.7% (40-74) Lymphocytes (%) (Auto) 2.2% (14-46) Monocytes (%) (Auto) 5.6% (4-12) Eosinophils (%) (Auto) 0% (0-5) Basophils (%) (Auto) 0% (0-3) Sodium Level 127mEq/L (134-144) Potassium Level 3.6mEq/L (3.5-5.2) Chloride Level 82mEq/L (97-108) Carbon Dioxide Level 29mmol/L (18-29) Blood Urea Nitrogen 68mg/dL (8-27) Creatinine 2.07mg/dL (0.76-1.27) Estimat Glomerular Filtration Rate 33mL/min (>59) Glucose Level 355mg/dL (60-99) Lactic Acid Level 2.4mmol/L (0.4-2.0) Calcium Level 8.6mg/dL (8.5-10.1) Troponin T 0.120ug/L (0.0-0.011) Assessment/Plan Assessment/Plan A: * Vancomycin dosing management by pharmacy for 81 y/o man for healthcare associated pneumonia * The patient received a vancomycin loading dose of 2000 mg IV in the ED * He is also being started on Zosyn * This patient has DION on CKD with most recent SCr of 2.07 mg/dL (Baseline ~1.8) * Vancomycin Vd is 62 liters (initial concentration ~32.4 mcg/mL) P: * Drawing a vancomycin level about 24 hours after the loading dose to determine the patient's clearance of vancomycin * Pharmacy to determine further dosing based on the level * Target a vancomycin trough range of 15 - 20 mcg/mL Thank you. Pharmacy will continue to follow this patient. Rachel Ledesma, PharmD Rachel Ledesma August 06, 2016 04:19
--- NOTE | 2016-08-06 05:30 | NUR ---
Admit Pt arrived to PCC room 2003 at approx. 0115 from ED via bed; all belongings transferred with pt; report received from Marcelina Milton RN. Pt placed on 1.5L NC as per home use due to SpO2 of high 80s on RA; with oxygen, SpO2 increased to 94-96%. Admit documentation completed, med rec completed in ED by pharmacist. Note made for family to bring in advance directive. Pt requested 4 siderails up, expressed verbal consent. UA and MRSA swab sent to lab. VSS. Tele SR 80s with IVCD, PVCs, and PACs. Pt denies pain.
--- NOTE | 2016-08-06 08:26 | DRSVH ---
PROCEDURE: CT BRAIN WITHOUT CONTRAST ([id number]) INDICATIONS: trauma TECHNIQUE: Noncontrast 4.5 mm thick angled axial sections acquired from the foramen magnum to the vertex, with c oronal reformats. COMPARISON: [facility], CT, BRAIN W/O CONTRAST, 04/07/2013, 22:02. [facility], CT, BRAIN W/O CONTRAST, 03/04/2010, 12:54. FINDINGS: Image quality: Excellent. CSF spaces: Basal cisterns are patent. No extra-axial fluid collections. The ventricles are symmet rama in size and shape. Brain: No intracranial bleeds or masses. There is cerebral volume loss for age, with resultant vent ricular and sulcal prominence. There are periventricular and deep white matter chronic small vessel ischemic changes. There is intracranial internal carotid artery atherosclerosis. Skull and face: Calvarium and visualized facial bones appear intact, without suspicious lesions. Sinuses: Mastoids are clear. There is a right anterior ethmoid air cell retention cysts. Mild left et hmoid sinus mucosal thickening. Air-fluid levels within the left sphenoid and left maxillary sinuses. Sinuses clear. IMPRESSION: 1. No acute intracranial abnormality. 2. Sinus disease. 3. Concordant with preliminary interpretation. Dictated by: Marshall Alfaro M.D. on 08/06/2016 at 8:23 Approved by: Marshall Alfaro M.D. on 08/06/2016 at 8:24
[2016-08-06] MEDS ORDERED: Heparin 5,000 Unit/mL Inj SUBQ SCH (08:30)
[2016-08-06] MEDS ORDERED: Vancomycin Dose per Pharmacist XX SCH (08:30)
--- NOTE | 2016-08-06 08:46 | DRSVH ---
PROCEDURE: X-RAY CHEST, TWO VIEWS ([id number]) INDICATIONS: SHORT OF BREATH TECHNIQUE: 2 views of the chest were acquired. COMPARISON: [facility], CR, XR CHEST 2VW, 05/30/2016, 12:14. FINDINGS: Surgical changes and devices: Post median sternotomy and valvular replacement. Lungs and pleura: No pleural effusions or pneumothorax. Lungs are clear. Mediastinum: Mediastinal contours are normal. Heart size is normal. Bones and chest wall: No suspicious bony abnormalities. Soft tissues appear unremarkable. IMPRESSION: No acute cardiopulmonary disease. Dictated by: Pawan Peña [facility] Interpreted: Martha Yousif MD on 08/06/2016 at 8:45 Transcribed by: ROSEANN on 08/06/2016 at 8:45 Approved by: Martha Yousif MD, PhD on 08/06/2016 at 9:20
[2016-08-06] MEDS: Fluticasone 100 mCg Inhaler INHALATION SCH ×2 (09:59→21:16)
[2016-08-06] MEDS: Verapamil SR 180 mg ER12 Tablet PO SCH (10:00)
[2016-08-06] MEDS: Pantoprazole 20 mg ER24 Tablet PO SCH (10:01)
[2016-08-06] MEDS: Insulin LISPRO 300 Unit/3 mL Inj SUBQ SCH ×4 (10:03→21:17)
[2016-08-06] MEDS: Piperacillin-Tazo 3.375 Gm Inj 3.375 GM in Dextrose 5% Minibag Plus 50 ML IV SCH ×2 (11:30→23:50)
--- NOTE | 2016-08-06 11:47 | PCM.PNMED ---
Subjective Date of Service August 06, 2016 Subjective Mr. Wilson is an 81-year-old gentleman with a history of coronary artery disease s/p CABG, TAVR, diastolic heart failure, atrial fibrillation anticoagulated on Xarelto, chronic kidney disease stage III, diabetes, pulmonary hypertension and COPD who presented to the emergency department following a recent syncopal episode, multiple ground level falls and increasing confusion and weakness for 3-4 days. Admitted for possible healthcare associated pneumonia, acute on chronic kidney injury, and hyponatremia. Patient was admitted overnight to the [facility] with telemetry. Per nursing, patient' s oxygen sats on arrival remained in the high 80s on room air and increased to 94-96% on home O2 of 1.5L nasal cannula. Today, patient states that he is feeling better and would like to go home. However, he states that he needs additional help at home because his is unable to get him up when he falls. He reports increased weakness and thinks he might benefit from a wheelchair. He denies chest pain, fever, chills, cough, headache, nausea, vomiting or urinary symptoms. Exam Vital Signs Vital Sign - Last Date Time Temp Pulse Resp B/P Pulse Ox O2 Delivery O2 Flow Rate FiO2 08/06/16 03:57 36.4 100 20 108/69 95 Nasal Cannula 1.50 Intake and Output 08/05/16 08/05/16 08/06/16 Cumulative From/Thru 15:00 23:00 07:00 08/05/16 21:50 - 08/06/16 05:46 Intake Total 1565 ml 1565 ml Output Total 750 ml 750 ml Balance 815 ml 815 ml Intake Oral 0 ml 0 ml IV Total 1565 ml 1565 ml Output Urine Total 750 ml 750 ml # Voids 2 2 Exam General: Elderly male, sitting up in bed, in no acute distress. Communicating appropriately HEENT: Normocephalic, atraumatic, pupils equal round and reactive light; ecchymosis and mild edema just below eye on the left.no sclera icterus. Mucous membranes moist/pink. Neck: Supple, non-tender, no lymphadenopathy or thyromegaly appreciated. Cardiovascular: Regular rate, irregular rhythm, no murmurs, rubs or gallops. Chest/lungs: Symmetric chest rise, lung sounds somewhat diminished, diffuse mild expiratory wheezing and faint bibasilar crackles. Abdomen: Soft, obese, nontender, nondistended, bowel tones present. Extremities: Warm, well perfused, +2 pitting edema of lower ext bilaterally to just below the knee. Skin: Ecchymosis on left forearm. Warm, Dry, No cyanosis. Past surgical scar on mediastinum. Neurologic: Cranial nerves grossly intact, no focal deficits, alert and oriented to person, place and time. Psychiatric: Mood/affect normal, Behavior normal, Normal thought content IVs and Medications Medications Reviewed: Medications were reviewed in detail Lab and Diagnostics Laboratory Tests Test 08/05/16 22:05 08/06/16 02:30 08/06/16 03:00 08/06/16 03:50 White Blood Count 25.9th/mm3 (3.8-10.1) 22.6th/mm3 (3.8-10.1) Red Blood Count 5.06mil/mm3 (4.40-5.80) 4.41mil/mm3 (4.40-5.80) Hemoglobin 15.2g/dL (13.8-17.2) 13.3g/dL (13.8-17.2) Hematocrit 43.1% (41.0-50.0) 37.7% (41.0-50.0) Mean Corpuscular Volume 85.2fL (81-100) 85.5fL (81-100) Mean Corpuscular Hemoglobin 30.0pg (27.0-35.0) 30.2pg (27.0-35.0) Mean Corpuscular Hemoglobin Concent 35.3% (32.0-37.0) 35.3% (32.0-37.0) Red Cell Distribution Width 13.9% (12.3-15.4) 13.6% (12.3-15.4) Platelet Count 246bil/L (150-400) 202bil/L (150-400) Neutrophils (%) (Auto) 93.2% (40-74) 91.7% (40-74) Lymphocytes (%) (Auto) 1.6% (14-46) 2.2% (14-46) Monocytes (%) (Auto) 4.6% (4-12) 5.6% (4-12) Eosinophils (%) (Auto) 0% (0-5) 0% (0-5) Basophils (%) (Auto) 0.1% (0-3) 0% (0-3) Prothrombin Time 12.9sec (8.1-12.5) Prothromb Time International Ratio 1.20ratio Sodium Level 127mEq/L (134-144) 127mEq/L (134-144) Potassium Level 4.0mEq/L (3.5-5.2) 3.6mEq/L (3.5-5.2) Chloride Level 80mEq/L (97-108) 82mEq/L (97-108) Carbon Dioxide Level 27mmol/L (18-29) 29mmol/L (18-29) Blood Urea Nitrogen 71mg/dL (8-27) 68mg/dL (8-27) Creatinine 2.25mg/dL (0.76-1.27) 2.07mg/dL (0.76-1.27) Estimat Glomerular Filtration Rate 30mL/min (>59) 33mL/min (>59) Glucose Level 356mg/dL (60-99) 355mg/dL (60-99) Lactic Acid Level 3.3mmol/L (0.4-2.0) 2.4mmol/L (0.4-2.0) Calcium Level 9.5mg/dL (8.5-10.1) 8.6mg/dL (8.5-10.1) Magnesium Level 2.2mg/dL (1.6-2.6) Total Bilirubin 1.3mg/dL (0.0-1.2) Aspartate Amino Transf (AST/SGOT) 20U/L (0-50) Alanine Aminotransferase (ALT/SGPT) 25U/L (0-44) Alkaline Phosphatase 89U/L (25-160) Troponin T 0.130ug/L (0.0-0.011) 0.120ug/L (0.0-0.011) Pro-B-Type Natriuretic Peptide 94339tm/mL (0-486) Total Protein 7.8g/dL (6.4-8.4) Albumin 3.6g/dL (3.4-5.0) Procalcitonin 0.21ng/mL (0.00-0.08) Hold Tierney Top Tube Received (Received) Urine Color Yellow (YELLOW) Urine Appearance Clear (CLEAR,HAZY) Urine pH 6.0 (5.0-8.0) Urine Specific [place] 1.012 (1.003-1.035) Urine Protein Negativemg/dL (NEG,TRACE) Urine Glucose (UA) 100mg/dL (NEGATIVE) Urine Ketones Negativemg/dL (NEGATIVE) Urine Occult Blood Negative (NEGATIVE) Urine Nitrite Negative (NEGATIVE) Urine Bilirubin Negative (NEGATIVE) Urine Urobilinogen Normalmg/dL (NORMAL) Urine Leukocyte Esterase Negative (NEGATIVE) Urine RBC 0-2/hpf (0-2) Urine WBC 0-5/hpf (0-5) Urine Epithelial Cells Occasional/hpf (NONE-MOD) Urine Crystals None seen (NONE SEEN) Urine Bacteria None/hpf (NONE-FEW) Urine Hyaline Casts None/lpf (NONE) Urine Granular Casts None seen (NONE SEEN) Urine Waxy Casts None seen (NONE SEEN) Urine Red Blood Cell Casts None seen (NONE SEEN) Urine White Blood Cell Casts None seen (NONE SEEN) Urine Mucus Present (None Seen) Urine Trichomonas None seen (NONE SEEN) Urine Yeast None (NONE SEEN) Urine Culture Reflexed Not indicated Result Diagram: 08/06/16 0230 08/06/16 0230 Microbiology 08/06/16 Blood Culture- pending 08/06/16 MRSA (PCR)- pending X-Rays, CTs and MRIs (08/05/16) X-RAY CHEST- Possibe retrocardiac pneumonia Interpretation / Wet Read by: Wet read ED physician (08/05/16) X-RAY CHEST, TWO VIEWS IMPRESSION: No acute cardiopulmonary disease. Dictated and approved by: Pawan DEL RIO Interpreted: Martha Yousif MD on 08/06/2016 at 8:45 (08/05/16) CT BRAIN WITHOUT CONTRAST IMPRESSION: 1. No acute intracranial abnormality. 2. Sinus disease. 3. Concordant with preliminary interpretation. Dictated and approved by: Marshall Alfaro M.D. on 08/06/2016 at 8:23 12-lead ECG Sinus rhythm rate 94, RBBB with occasional PVCs. Similar to previous ECG. No acute ischemic changes. . Assessment & Plan Mr. Wilson is an 81-year-old gentleman with a history of coronary artery disease s/p CABG, TAVR, diastolic heart failure, atrial fibrillation anticoagulated on Xarelto, chronic kidney disease stage III, diabetes, pulmonary hypertension and COPD who presented to the emergency department following a recent syncopal episode, multiple ground level falls and increasing confusion and weakness for 3-4 days. Admitted for possible healthcare associated pneumonia, acute on chronic kidney injury, and hyponatremia. Possible healthcare associated pneumonia, acute. Present on admission. Active. -Patient admitted on 07/19 with atrial fibrillation with rapid ventricular response, acute on chronic heart failure and COPD exacerbation. Discharged on 07/24. -Chest xray showed possible retrocardiac pneumonia and patient started on empiric antibiotics: Vancomycin and piperacillin-tazobactam. -Blood and sputum cultures pending. MRSA screen is negative. -Procalcitonin 0.21, lactic acid 3.3 down to 2.4, WBC 25.9 down to 22.6. -Repeat procalcitonin, lactic acid are pending -Will discontinue vancomycin as MRSA screen is negative -Continue piperacillin-tazobactam, add azithromycin Acute on chronic renal insufficiency. Present on admission. Active. - Likely prerenal secondary to hypovolemia due to poor oral intake and diuretics. - Patient with creatinine baseline of 1.8, currently at 2.25 with BUN 71 - Continue IV fluids cautiously due to heart failure, normal saline at 60mls /hr. - Hold diuretics - Follow BMP - Will consider Nephrology consult if patient continues to be oliguric Leukocytosis, acute. Present on admission. Active. -Uncertain etiology. Possibly due to pneumonia, stress response or recent steroids (patient on oral prednisone since discharge 07/24) -WBC 25.9 with left shift, down to 22.6 -Patient was started on empiric antibiotics, vancomycin and zosyn. MRSA is negative. -Blood/sputum cultures, pending -Procalcitonin, lactic acid as above. -Antibiotics as above. -Follow CBC and lactic acid Elevated troponin, unknown chronicity. Present on admission. Improving. -Likely chronic and secondary to chronic renal insufficiency. Patient with known coronary artery disease. Cardiac workup at that time including stress test and Echo with no evidence of acute pathology. -EKG is without acute ischemic changes and similar to prior. -Per chart review baseline troponin is approx. 0.8 -Patient presented on 07/19 with complaint of chest pain. Cardiac workup at that time including stress test and echocardiogram with no evidence of acute coronary syndrome. -Per chart review baseline tropo -Will continue to trend -Consider cardiology consult if troponin trends up. Hyponatremia, present on admission. Acute. -Likely due to poor oral intake, possible SIADH secondary to possible pneumonia. -Sodium on 07/24 was 138. Sodium on admission 127. -Continue IV fluids, as above -Follow BMP Syncope, acute. Present on admission. Active. -Likely multifactorial, etiologies considering include: vasovagal syncope, orthostatic hypotension, hypovolemia secondary to dehydration, arrhythmia, TIA, and general deconditioning. -Patient reported syncopal episode approx 5 days ago that occurred upon standing after a bowel movement. He also reports multiple ground level falls that he attributes to increasing weakness. -Orthostatic BP, sitting and lying. Inconsistent with orthostatic hypotension. -CT head negative for any acute process -Physical therapy following Paroxysmal atrial fibrillation, chronic. Present on admission. Presumed stable. -Patient in sinus rhythm at presentation. Irregular rhythm noted on exam this morning with rate well controlled. -Continue home dose Xarelto Diastolic heart failure, chronic. Present on admission. Presumed stable. -Clinically does not appear in acute exacerbation. -Chest xray negative for pulmonary edema. proBNP 10,6000 -Last ECHO on 06/20/2016 with EF 55-60% and decrease in severity of pulmonary hypertension. -Patient not on beta delma due to asthma, consider ACEi -Monitor daily weights and I/Os -Home spironolactone and furosemide continued on admission. Will hold for now due to hypovolemia and hyponatremia. Diabetes mellitus type 2, chronic. Present on admission. Uncontrolled. -HbA1c 7.5 on 07/19/16. -Continue to hold home glimepiride, lantus -Medium dose correctional insulin lispro -Will add basal insulin Coronary artery disease, chronic. Present on admission. Presumed stable. -Cardiac workup during previous admission (07/19-07/24/16) unremarkable for acute process. -Continue aspirin and statin Hypertension, chronic. Present on admission. Presumed stable. -Continue home dose amlodipine, verapamil -Holding diuretics, as above. COPD, chronic. Present on admission. Presumed stable. -Clinically not in acute exacerbation. -Continue home Flovent -Stop prednisone, patient started on this at discharge (07/24). Asthma, chronic. Present on admission. Presumed stable. -Continue albuterol inhaler as needed Hyperlipidemia, chronic. Present on admission. Presumed stable. -Continue home dose atorvastatin GERD, chronic. Present on admission. Presumed stable. -Continue home dose PPI Depression, chronic. Present on admission. Presumed stable. -Continue home dose citalopram Insomnia, chronic. Present on admission. Presumed stable. -Continue nortriptyline BPH, chronic. Present on admission. Presumed stable. -Continue Flomax Acetaminophen-fever/headache/mild/moderate pain Antiemetics, as needed Bowel regimen, as needed. Disposition: Patient will likely discharge home in 1-2 more days, pending physical therapy evaluation and treatment of hyponatremia. Pain Evaluation: Adequate Pain Control GI Prophylaxis: Not indicated VTE Prophylaxis: Other (on Xarelto) VTE Mechanical Devices: Intermittant Pneumatic CD Resuscitation Status: CPR: Attempt Resuscitation Attending Statement The patient was seen and examined together with Dr. Argueta on 08/06/2016 and I agree with the history, exam and plan as outlined in the note above. . Keya Argueta DO August 06, 2016 07:01 Conrado Brandon MD August 06, 2016 16:09
--- NOTE | 2016-08-06 13:11 | NUR ---
Social Work Note - Initial Assessment: D/A: See Initial Assessment. The Pt is an 81 y/o male that admitted for syncope head trauma. The Pt's PCP is MD Milan Fishman and his primary insurance is Medicare with a for Life supplement, no LTC benefits reported. EMR reviewed. SW met with the Pt to explain role and discuss discharge planning, SW telephone number written on white board. The Pt was recently admitted from 07/19/16-07/24/16 for Nstemi.The Pt reports that he lives independently in a mobile home in [place] with his . The home has four steps leading into it with a ramp. The Pt reports that he has an Advanced Directive at home, paperwork requested. The Pt uses a [facility], has had [facility] in the past, and has had a stay at [facility]. The Pt reports that he would like help at home and is interested in services, HH list provided. Pt would be interested in a referral to [facility] due to his positive past experience. Senior Resource Guide also given and explored with Pt, to include private pay caregiving and home help services. Pt is also interested in obtaining a wheelchair. H&P reflects that the Pt sees Power Systems Engineer MD Luna who would like him on 24hr O2 but that he has only been using 1.5L at night. PT eval pending, Pt is interested in restarting [facility] services. SW to follow after PT eval. Pt also receiving IV Abx. SW will continue to follow. P: The Pt is not medically stable for discharge, will likely be hospitalized for another 2-3 days as per morning rounds. PT eval pending, Pt interesting in restarting [facility] services. Pt also interesting in obtaining a wheelchair. SW to follow regarding O2 and IV Abx needs. SW will continue to follow. PRABHAKAR Peterson Instructional Support Assistant PARBHAKAR Matute Addendum: 08/06/16 at 1331 by MARTHA SPEARS Amended: Links added. Addendum: 08/06/16 at 1411 by MARTHA SPEARS SS Pt is open with O2 services with Matt.
[2016-08-06] MEDS ORDERED: Albuterol-Ipratropium 3 mL Inhalation Solution NEB PRN (18:10)
--- NOTE | 2016-08-06 19:45 | NUR ---
Wheezes Cardiac: Pt denies CP, tele SR 90s Resp: Pt denies dyspnea, SpO2 95% on .5L NC, reports home use of 1.5L NC at baseline. Wheezes audible at bedside. PRN nebs ordered. 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 up to chair for meals, pt is impatient to go home.
[2016-08-07 02:47] LABS: BASOPHILS % (AUTO) 0.1 % (0-3); EOSINOPHILS % (AUTO) 1.4 % (0-5); MONOCYTES % (AUTO) 9.5 % (4-12); Mean Corpuscular Hemoglobin 30.6 pg (27.0-35.0); Mean Corpuscular Volume 85.1 fL (81-100); NEUTROPHILS % (AUTO) 83.7 % (40-74); Platelet Count 229 bil/L (150-400)
[2016-08-07 03:42] LABS: Magnesium 2.1 mg/dL (1.6-2.6)
[2016-08-07 03:46] LABS: TROPONIN T 0.163 ug/L (0.0-0.011)
[2016-08-07 04:58] VITALS: BP 113/66; PULSE 106; RESP 18; O2SAT 96
[2016-08-07] MEDS ORDERED: Vancomycin Serum Level XX ONE (05:00)
--- NOTE | 2016-08-07 05:43 | NUR ---
LUE Skin Tear Nonadherent pad and Tegaderm dressing to LUE soaked with sanguineous drainage at beginning of shift; dressing changed to folded nonadherent pad with circumferential loose gauze and tape. Pt denies any discomfort throughout shift. 1.5L NC, tele SR 80s, VSS. AM potassium 3.3 - paged, K/Mg protocol ordered and initiated. Troponin elevated to 0.163 this AM, aware.
[2016-08-07] MEDS ORDERED: Potassium Chloride Oral 20 mEq SR Tab(K 3 - 3.7 & Creat < 2) PO ONE (05:45)
[2016-08-07] MEDS: Insulin LISPRO 300 Unit/3 mL Inj SUBQ SCH ×4 (08:00→21:03)
[2016-08-07] MEDS ORDERED: Potassium Chloride 20 mEq SR Tablet PO ONE (09:20)
[2016-08-07] MEDS: Fluticasone 100 mCg Inhaler INHALATION SCH ×2 (10:22→21:03)
[2016-08-07] MEDS: Pantoprazole 20 mg ER24 Tablet PO SCH (10:22)
[2016-08-07] MEDS: Verapamil SR 180 mg ER12 Tablet PO SCH (10:22)
[2016-08-07 10:28] VITALS: PULSE 88
[2016-08-07] MEDS ORDERED: Albuterol 2.5 mg/3 mL Inhalation Solution NEB PRN (10:30)
[2016-08-07] MEDS: 0.9% Sodium Chloride 1,000 ML IV SCH (10:43)
[2016-08-07 12:12] VITALS: BP 109/69; PULSE 104; RESP 16; O2SAT 97
--- NOTE | 2016-08-07 13:12 | PCM.PNMED ---
Subjective Date of Service August 07, 2016 Subjective Mr. Wilson is an 81-year-old gentleman with a history of coronary artery disease s/p CABG, TAVR, diastolic heart failure, atrial fibrillation anticoagulated on Xarelto, chronic kidney disease stage III, diabetes, pulmonary hypertension and COPD who presented to the emergency department following a recent syncopal episode, multiple ground level falls and increasing confusion and weakness for 3-4 days. Admitted for possible healthcare associated pneumonia, acute on chronic kidney injury, and hyponatremia. This morning patient asymptomatic without chest pain, shortness of breath, nausea, vomiting, fever or chills. He does state that he had to strain a bit to have a bowel movement but denies dizziness or near syncope. Per nursing, patient with abrasion/skin tear on left upper extremity that was present on admission and required dressing change overnight. Additionally, potassium and magnesium replaced overnight and troponin continues to increase, 0.163 this morning (up from 0.14). Exam Vital Signs Vital Sign - Last Date Time Temp Pulse Resp B/P Pulse Ox O2 Delivery O2 Flow Rate FiO2 08/07/16 04:58 36.3 106 18 113/66 96 Nasal Cannula 1.50 Intake and Output 08/06/16 08/06/16 08/07/16 Cumulative From/Thru 15:00 23:00 07:00 08/05/16 21:50 - 08/07/16 06:18 Intake Total 1639 ml 898 ml 4102 ml Output Total 1350 ml 2000 ml 4100 ml Balance 289 ml -1102 ml 2 ml Intake Oral 800 ml 200 ml 1000 ml IV Total 839 ml 698 ml 3102 ml Output Urine Total 1350 ml 2000 ml 4100 ml # Voids 2 # Bowel Movements 0 0 0 Exam General: Elderly male, sleeping but wakes easily, in no acute distress. Communicating appropriately HEENT: Normocephalic, atraumatic, pupils equal round and reactive light; ecchymosis and mild edema just below eye on the left.no sclera icterus. Mucous membranes moist/pink. Neck: Supple, non-tender, no lymphadenopathy or thyromegaly appreciated. Cardiovascular: Regular rate, irregular rhythm, no murmurs, rubs or gallops. Chest/lungs: Symmetric chest rise, lung sounds somewhat diminished, diffuse mild expiratory wheezing and faint bibasilar crackles. Abdomen: Soft, obese, nontender, nondistended, bowel tones present. Extremities: Warm, well perfused, +2 pitting edema of lower ext bilaterally to just below the knee. Skin: Scattered ecchymosis of bilateral upper extremities. Dressing on left upper extremity clean,dry and intact. Warm, Dry, No cyanosis. Past surgical scar on mediastinum. Neurologic: Cranial nerves grossly intact, no focal deficits, alert and oriented to person, place and time. Psychiatric: Depressed mood, affect normal, minimally interactive. IVs and Medications Medications Reviewed: Medications were reviewed in detail Lab and Diagnostics Laboratory Tests Test 08/06/16 09:35 08/06/16 18:37 08/07/16 02:20 Lactic Acid Level 2.0mmol/L (0.4-2.0) Troponin T 0.140ug/L (0.0-0.011) 0.163ug/L (0.0-0.011) Procalcitonin 0.20ng/mL (0.00-0.08) 0.20ng/mL (0.00-0.08) Sodium Level 126mEq/L (134-144) 131mEq/L (134-144) Potassium Level 4.1mEq/L (3.5-5.2) 3.3mEq/L (3.5-5.2) Chloride Level 82mEq/L (97-108) 85mEq/L (97-108) Carbon Dioxide Level 25mmol/L (18-29) 29mmol/L (18-29) Blood Urea Nitrogen 63mg/dL (8-27) 64mg/dL (8-27) Creatinine 1.87mg/dL (0.76-1.27) 1.77mg/dL (0.76-1.27) Estimat Glomerular Filtration Rate 37mL/min (>59) 39mL/min (>59) Glucose Level 198mg/dL (60-99) 105mg/dL (60-99) Calcium Level 8.9mg/dL (8.5-10.1) 8.8mg/dL (8.5-10.1) White Blood Count 15.4th/mm3 (3.8-10.1) Red Blood Count 4.51mil/mm3 (4.40-5.80) Hemoglobin 13.8g/dL (13.8-17.2) Hematocrit 38.4% (41.0-50.0) Mean Corpuscular Volume 85.1fL (81-100) Mean Corpuscular Hemoglobin 30.6pg (27.0-35.0) Mean Corpuscular Hemoglobin Concent 35.9% (32.0-37.0) Red Cell Distribution Width 13.8% (12.3-15.4) Platelet Count 229bil/L (150-400) Neutrophils (%) (Auto) 83.7% (40-74) Lymphocytes (%) (Auto) 4.6% (14-46) Monocytes (%) (Auto) 9.5% (4-12) Eosinophils (%) (Auto) 1.4% (0-5) Basophils (%) (Auto) 0.1% (0-3) Magnesium Level 2.1mg/dL (1.6-2.6) Total Bilirubin 1.0mg/dL (0.0-1.2) Aspartate Amino Transf (AST/SGOT) 22U/L (0-50) Alanine Aminotransferase (ALT/SGPT) 20U/L (0-44) Alkaline Phosphatase 72U/L (25-160) Total Protein 6.4g/dL (6.4-8.4) Albumin 3.1g/dL (3.4-5.0) Result Diagram: 08/07/16 0220 08/07/16 0220 Microbiology 08/06/16 Blood Culture- No growth to date 08/06/16 MRSA (PCR)- Negative 08/06/16 Sputum gram stain- Few mixed normal zoe, no polys X-Rays, CTs and MRIs (08/05/16) X-RAY CHEST- Possibe retrocardiac pneumonia Interpretation / Wet Read by: Wet read ED physician (08/05/16) X-RAY CHEST, TWO VIEWS IMPRESSION: No acute cardiopulmonary disease. Dictated and approved by: Pawan DEL RIO Interpreted: Martha Yousif MD on 08/06/2016 at 8:45 (08/05/16) CT BRAIN WITHOUT CONTRAST IMPRESSION: 1. No acute intracranial abnormality. 2. Sinus disease. 3. Concordant with preliminary interpretation. Dictated and approved by: Marshall Alfaro M.D. on 08/06/2016 at 8:23 12-lead ECG (08/05/16) Sinus rhythm rate 94, RBBB with occasional PVCs. Similar to previous ECG. No acute ischemic changes. . Assessment & Plan Mr. Wilson is an 81-year-old gentleman with a history of coronary artery disease s/p CABG, TAVR, diastolic heart failure, atrial fibrillation anticoagulated on Xarelto, chronic kidney disease stage III, diabetes, pulmonary hypertension and COPD who presented to the emergency department following a recent syncopal episode, multiple ground level falls and increasing confusion and weakness for 3-4 days. Admitted for possible healthcare associated pneumonia, acute on chronic kidney injury, and hyponatremia. Pneumonia, viral and possible healthcare associated, acute. Present on admission. Active. -Respiratory viral PCR positive for metapneumonovirus and concern for superimposed bacterial process due to recent hospitalization. Patient admitted on 07/19 with atrial fibrillation with rapid ventricular response, acute on chronic heart failure and COPD exacerbation. Discharged on 07/24. -Preliminary read of chest xray significant for a possible retrocardiac pneumonia with final read showing no acute process. showed possible retrocardiac pneumonia and patient started on empiric antibiotics: Vancomycin and piperacillin-tazobactam. -Blood cultures with no grow to date. -Sputum cultures grew normal zoe. -Procalcitonin 0.21, lactic acid normalized, leukocytosis continues to improve with most recent WBC 15.4 -Procalcitonin unchanged at 0.20. -Vancomycin discontinued due to negative MRSA screen. -Will continue piperacillin-tazobactam and azithromycin due to recent admission. Acute on chronic renal insufficiency. Present on admission. Improved. - Likely prerenal secondary to hypovolemia due to poor oral intake and diuretics. - Patient with creatinine baseline of 1.8, currently at 1.77 with BUN 64 - Continue IV fluids cautiously due to heart failure, normal saline at 60mls /hr. - Continue to hold diuretics, clinically patient does not appear fluid overloaded. - Follow BMP Leukocytosis, acute. Present on admission. Improved. -Likely multifactorial and due to pneumonia, stress response and recent steroids. -WBC 25.9 with left shift, down to 15.4 -Blood/sputum cultures negative. -Procalcitonin, lactic acid as above. -Follow CBC -Antibiotics, as above. Elevated troponin, unknown chronicity. Present on admission. Presumed stable. -Likely chronic and secondary to chronic renal insufficiency. Patient with known coronary artery disease and recent admission with cardiac workup at that time including stress test and Echo with no evidence of acute pathology. -EKG showed no acute ischemic changes and similar to prior. Patient without chest pain. -Per chart review baseline troponin is approx. 0.08. Slowly trending up, now 0.164. Will repeat. -Consider cardiology consult if troponin trends up. Hyponatremia, present on admission. Acute. Improving. -Likely due to poor oral intake combined with over diuresis and possible SIADH secondary to pneumonia. -Sodium on 07/24 was 138. Sodium on admission 127. Now 131. -Continue IV fluids, as above -Follow BMP Syncope, acute. Present on admission. Active. -Likely multifactorial, etiologies considering include: vasovagal syncope, orthostatic hypotension, hypovolemia secondary to dehydration, arrhythmia, TIA, and general deconditioning. -Patient reported syncopal episode approx 5 days ago that occurred upon standing after a bowel movement. He also reports multiple ground level falls that he attributes to increasing weakness. -Orthostatic BP, sitting and lying. Inconsistent with orthostatic hypotension. -CT head negative for any acute process -Physical therapy following, currently one person assist and ambulating in room with walker. Paroxysmal atrial fibrillation, chronic. Present on admission. Presumed stable. -Patient in sinus rhythm at presentation. Irregular rhythm noted on exam this morning with rate well controlled. -Continue home dose Xarelto Diastolic heart failure, chronic. Present on admission. Presumed stable. -Clinically does not appear in acute exacerbation. -Chest xray negative for pulmonary edema. proBNP 10,6000 -Last ECHO on 06/20/2016 with EF 55-60% and decrease in severity of pulmonary hypertension. -Patient not on beta delma due to asthma, consider ACEi -Monitor daily weights and I/Os -Hold spironolactone and furosemide due to hypovolemia and hyponatremia. Diabetes mellitus type 2, chronic. Present on admission. Uncontrolled. -HbA1c 7.5 on 07/19/16. -Continue to hold home glimepiride, lantus -Medium dose correctional insulin lispro -Will add basal insulin when patient oral intake improves. Coronary artery disease, chronic. Present on admission. Presumed stable. -Cardiac workup during previous admission (07/19-07/24/16) unremarkable for acute process. -Continue aspirin and statin Hypertension, chronic. Present on admission. Presumed stable. -Continue home dose amlodipine, verapamil -Holding diuretics, as above. COPD, chronic. Present on admission. Presumed stable. -Clinically not in acute exacerbation. -Continue home Flovent -Stop prednisone, patient started on this at discharge (07/24). Asthma, chronic. Present on admission. Presumed stable. -Continue albuterol inhaler as needed Hyperlipidemia, chronic. Present on admission. Presumed stable. -Continue home dose atorvastatin GERD, chronic. Present on admission. Presumed stable. -Continue home dose PPI Depression, chronic. Present on admission. Presumed stable. -Continue home dose citalopram Insomnia, chronic. Present on admission. Presumed stable. -Continue nortriptyline BPH, chronic. Present on admission. Presumed stable. -Continue Flomax Acetaminophen-fever/headache/mild/moderate pain Antiemetics, as needed Bowel regimen, as needed. Disposition: Patient will likely discharge home in 1-2 more days, pending physical therapy evaluation and treatment of hyponatremia. Pain Evaluation: Adequate Pain Control GI Prophylaxis: Not indicated VTE Prophylaxis: Other (on Xarelto) VTE Mechanical Devices: Intermittant Pneumatic CD Resuscitation Status: CPR: Attempt Resuscitation Attending Statement The patient was seen and examined together with Dr. Argueta on 08/07/2016 and I agree with the history, exam and plan as outlined in the note above. . Keya Argueta DO August 07, 2016 08:08 Conrado Brandon MD August 08, 2016 08:39
[2016-08-07] MEDS: Piperacillin-Tazo 3.375 Gm Inj 3.375 GM in Dextrose 5% Minibag Plus 50 ML IV SCH ×2 (13:28→23:55)
--- NOTE | 2016-08-07 15:24 | NUR ---
Evaluation completed. Please go to "Notes" then click on "Assessments and Notes" (bottom left corner of screen). Then select appropriate discipline tab on top of screen.
--- NOTE | 2016-08-07 16:00 | NUR ---
SW - Continued Discharge Planning SW met with pt at bedside to follow up re: HH services. Pt stated he would be interested in HH services for RN and confirmed that the pt is homebound. SW provided choice list and pt stated he prefers [facility] / [facility]. SW followed up re: pt's request for wheelchair and provided list of local DME providers. SW sent referral to [facility] , gave access. Face to face is in folder to be signed. PRABHAKAR Mosley
[2016-08-07 16:09] VITALS: BP 99/66; PULSE 88; RESP 15; O2SAT 98
--- NOTE | 2016-08-07 19:40 | NUR ---
Ambulation Cardiac: Pt denies CP, tele SR 80s-90s. Resp: Pt denies SOB at rest, SpO2 97% on 1.5L NC. Cough somewhat increased through the shift. Crackles in bases, L>R. Discussed continuing resp assessments for fluid overload with NOC nurse. 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 Pt up walking in [place] with PT, tolerated very well, OK to ambulate with Staff. Had an extensive discussion with pt and family regarding HX of falls. The nature of pt's falls seem to have more to do with fainting/lightheadedness than with a mechanical deficit. Proper techniques for avoiding orthostatic hypotension when changing position were discussed with family and pt.
[2016-08-07 20:51] VITALS: BP 105/62; PULSE 88; RESP 18; O2SAT 98
[2016-08-07 23:22] VITALS: BP 113/72; PULSE 94; RESP 14; O2SAT 97
[2016-08-08] VITALS (9 sets, daily range): BP systolic 82–105; BP diastolic 48–66; PULSE 91–110; RESP 14–18; O2SAT 91–99
[2016-08-08] MEDS: 0.9% Sodium Chloride 1,000 ML IV SCH (00:14)
[2016-08-08 03:38] LABS: TROPONIN T 0.01 ug/L (0.0-0.011)
--- NOTE | 2016-08-08 06:11 | NUR ---
Blood Sugar Pt BG at HS was 128; no insulin given per protocol. Pt denies pain, dyspnea, or discomfort. Able to rest throughout shift. VSS. Tele SR 90s with PVCs.
[2016-08-08] MEDS: Pantoprazole 20 mg ER24 Tablet PO SCH (10:50)
[2016-08-08] MEDS: Fluticasone 100 mCg Inhaler INHALATION SCH ×2 (10:50→21:40)
[2016-08-08] MEDS: Insulin LISPRO 300 Unit/3 mL Inj SUBQ SCH ×4 (10:50→21:41)
[2016-08-08] MEDS: Verapamil SR 180 mg ER12 Tablet PO SCH (10:51)
--- NOTE | 2016-08-08 11:41 | NUR ---
Social Work: Discharge D: Pt discussed in am rounds with MD. Pt is medically stable for discharge home with supportive services from Home Health. F2[facility] orders signed. Per EMR review, pt has given preferences for both [facility] and [facility] to different social workers during admission. BLOOD TESTER FOWL met with pt at bedside to confirm discharge plan and preference. Pt states he really doesn't care which company he uses as long as he can leave today. As [facility] has already been referred pt states that he wishes to use this company so that it does not delay his discharge. BLOOD TESTER FOWL assured pt that switching to [facility] would not impede his discharge however pt wishes to remain with [facility]. Pt state his will transport him home. t/c to Enrike Kruger with [facility]; BLOOD TESTER FOWL faxed F2F and place original on pt's chart. A: Pt who will require HH for Med management and Respiratory and Nutrition teaching and assessment P: Pt to discharge home with [facility] for Nursing. PRABHAKAR Chisholm
--- NOTE | 2016-08-08 12:03 | PCM.PNMED ---
Subjective Date of Service August 08, 2016 Subjective Mr. Wilson is an 81-year-old gentleman with a history of coronary artery disease s/p CABG, TAVR, diastolic heart failure, atrial fibrillation anticoagulated on Xarelto, chronic kidney disease stage III, diabetes, pulmonary hypertension and COPD who presented to the emergency department following a recent syncopal episode, multiple ground level falls and increasing confusion and weakness for 3-4 days. Admitted for possible healthcare associated pneumonia, acute on chronic kidney injury, and hyponatremia. Patient is sitting up in a chair and states that he is ready to go home. He reports hoarseness in his voice and nasal irritation from the nasal cannula otherwise he states he is feeling better and without complaint. He denies fever , chills, chest pain, shortness of breath, GI or symptoms. Per nursing, patient stable overnight with continued coughing but no chest pain. Patient tolerated physical therapy well and falls seem to have more to do with fainting/lightheadedness than with a mechanical deficit. Per physical therapy, patient's falls do not appear related to mobility concerns and signed off. Exam Vital Signs Vital Sign - Last Date Time Temp Pulse Resp B/P Pulse Ox O2 Delivery O2 Flow Rate FiO2 08/08/16 05:19 93 08/08/16 03:56 36.5 16 97/62 91 Room Air 08/07/16 23:22 1.50 Intake and Output 08/07/16 08/07/16 08/08/16 Cumulative From/Thru 15:00 23:00 07:00 08/05/16 21:50 - 08/08/16 06:24 Intake Total 1290 ml 150 ml 5542 ml Output Total 1150 ml 5250 ml Balance 140 ml 150 ml 292 ml Intake Oral 840 ml 1840 ml IV Total 450 ml 150 ml 3702 ml Output Urine Total 1150 ml 5250 ml # Voids 1 3 # Bowel Movements 0 Exam General: Elderly male, alert and sitting up in a chair, in no acute distress. Communicating appropriately HEENT: Normocephalic, atraumatic, pupils equal round and reactive light; ecchymosis and mild edema just below eye on the left.no sclera icterus. Mucous membranes moist/pink. Neck: Supple, non-tender, no lymphadenopathy or thyromegaly appreciated. Cardiovascular: Regular rate, irregular rhythm, no murmurs, rubs or gallops. Chest/lungs: Symmetric chest rise, lung sounds somewhat diminished but grossly clear to auscultation bilaterally with faint bibasilar crackles. Abdomen: Soft, obese, nontender, nondistended, bowel tones present. Extremities: Warm, well perfused, +1 pitting edema of lower ext bilaterally to mid tibia, ecchymosis of right groin/thigh noted. Skin: Scattered ecchymosis of bilateral upper extremities. Dressing on left upper extremity clean,dry and intact. Warm, Dry, No cyanosis. Past surgical scar on mediastinum. Neurologic: Cranial nerves grossly intact, no focal deficits. Psychiatric: Normal mood, affect. Alert and oriented to person, place and time. IVs and Medications Medications Reviewed: Medications were reviewed in detail Lab and Diagnostics Laboratory Tests Test 08/08/16 02:40 Sodium Level 135mEq/L (134-144) Potassium Level 4.0mEq/L (3.5-5.2) Chloride Level 100mEq/L (97-108) Carbon Dioxide Level 21mmol/L (18-29) Blood Urea Nitrogen 14mg/dL (8-27) Creatinine 0.80mg/dL (0.76-1.27) Estimat Glomerular Filtration Rate 99mL/min (>59) Glucose Level 198mg/dL (60-99) Calcium Level 7.3mg/dL (8.5-10.1) Total Bilirubin 0.6mg/dL (0.0-1.2) Aspartate Amino Transf (AST/SGOT) 57U/L (0-50) Alanine Aminotransferase (ALT/SGPT) 55U/L (0-44) Alkaline Phosphatase 34U/L (25-160) Troponin T 0.010ug/L (0.0-0.011) Total Protein 6.0g/dL (6.4-8.4) Albumin 3.3g/dL (3.4-5.0) Result Diagram: 08/07/16 0220 08/08/16 0240 Microbiology 08/06/16 Blood Culture- No growth to date 08/06/16 MRSA (PCR)- Negative 08/06/16 Sputum gram stain- Few mixed normal zoe, no polys X-Rays, CTs and MRIs (08/05/16) X-RAY CHEST- Possibe retrocardiac pneumonia Interpretation / Wet Read by: Wet read ED physician (08/05/16) X-RAY CHEST, TWO VIEWS IMPRESSION: No acute cardiopulmonary disease. Dictated and approved by: Pawan DEL RIO Interpreted: Martha Yousif MD on 08/06/2016 at 8:45 (08/05/16) CT BRAIN WITHOUT CONTRAST IMPRESSION: 1. No acute intracranial abnormality. 2. Sinus disease. 3. Concordant with preliminary interpretation. Dictated and approved by: Marshall Alfaro M.D. on 08/06/2016 at 8:23 12-lead ECG (08/05/16) Sinus rhythm rate 94, RBBB with occasional PVCs. Similar to previous ECG. No acute ischemic changes. . Assessment & Plan Mr. Wilson is an 81-year-old gentleman with a history of coronary artery disease s/p CABG, TAVR, diastolic heart failure, atrial fibrillation anticoagulated on Xarelto, chronic kidney disease stage III, diabetes, pulmonary hypertension and COPD who presented to the emergency department following a recent syncopal episode, multiple ground level falls and increasing confusion and weakness for 3-4 days. Admitted for possible healthcare associated pneumonia, acute on chronic kidney injury, and hyponatremia. Pneumonia, viral and possible healthcare associated, acute. Present on admission. Improving -Respiratory viral PCR positive for metapneumonovirus and concern for superimposed bacterial process due to recent hospitalization. Patient admitted on 07/19 with atrial fibrillation with rapid ventricular response, acute on chronic heart failure and COPD exacerbation. Discharged on 07/24. -Preliminary read of chest xray significant for a possible retrocardiac pneumonia with final read showing no acute process. showed possible retrocardiac pneumonia and patient started on empiric antibiotics: Vancomycin and piperacillin-tazobactam. -Blood cultures with no grow to date. -Sputum cultures grew normal zoe. -lactic acid normalized, leukocytosis continues to improve with most recent WBC 15.4 -Procalcitonin unchanged at 0.20. -Vancomycin discontinued (08/06) due to negative MRSA screen. -Continue piperacillin-tazobactam and azithromycin due to recent admission. Transition to oral antibiotics at prior to discharge. Acute on chronic renal insufficiency. Present on admission. Resolved. - Likely prerenal secondary to hypovolemia due to poor oral intake and diuretics. - Patient with creatinine baseline of 1.8, currently at 0.80 with BUN 14 - Stop IV fluids - Start torsemide 40mg by mouth once daily and start home spironolactone 25mg daily. - Continue to hold furosemide and metolazone. - Follow BMP Leukocytosis, acute. Present on admission. Improved. -Likely multifactorial and due to pneumonia, stress response and recent steroids. -WBC 25.9 with left shift, down to 15.4 -Blood/sputum cultures negative. -Procalcitonin, lactic acid as above. -Follow CBC -Antibiotics, as above. Syncope, acute. Present on admission. Active. -Likely multifactorial, etiologies considering include: vasovagal syncope, hypovolemia secondary to dehydration, arrhythmia, and general deconditioning. -Patient reported syncopal episode approx 5 days ago that occurred upon standing after a bowel movement. He also reports multiple ground level falls that he attributes to increasing weakness. -Orthostatic BP, sitting and lying. Inconsistent with orthostatic hypotension. -CT head negative for any acute process -Physical therapy has signed off, no mobility concerns at this time. Elevated troponin, unknown chronicity. Present on admission. Presumed stable. -Likely chronic and secondary to chronic renal insufficiency. Patient with known coronary artery disease and recent admission with cardiac workup at that time including stress test and Echo with no evidence of acute pathology. -EKG showed no acute ischemic changes and similar to prior. Patient without chest pain. -Per chart review baseline troponin is approx. 0.08. Slowly trending up, now 0.164. Will repeat. -Consider cardiology consult if troponin trends up. Paroxysmal atrial fibrillation, chronic. Present on admission. Presumed stable. -Patient in sinus rhythm at presentation. Irregular rhythm noted on exam this morning with rate well controlled. -Continue home dose Xarelto Diastolic heart failure, chronic. Present on admission. Presumed stable. -Clinically does not appear in acute exacerbation. -Chest xray negative for pulmonary edema. proBNP 10,6000 -Last ECHO on 06/20/2016 with EF 55-60% and decrease in severity of pulmonary hypertension. -Patient not on beta delma due to asthma, consider ACEi -Monitor daily weights and I/Os -Diuretics as above Diabetes mellitus type 2, chronic. Present on admission. Uncontrolled. -HbA1c 7.5 on 07/19/16. -Continue to hold home glimepiride, lantus -Medium dose correctional insulin lispro Coronary artery disease, chronic. Present on admission. Presumed stable. -Cardiac workup during previous admission (07/19-07/24/16) unremarkable for acute process. -Continue aspirin and statin Hypertension, chronic. Present on admission. Presumed stable. -Continue home dose amlodipine, verapamil - Diuretics, as above. COPD, chronic. Present on admission. Presumed stable. -Clinically not in acute exacerbation. -Continue home Flovent -Stop prednisone, patient started on this at discharge (07/24). Asthma, chronic. Present on admission. Presumed stable. -Continue albuterol inhaler as needed Hyperlipidemia, chronic. Present on admission. Presumed stable. -Continue home dose atorvastatin GERD, chronic. Present on admission. Presumed stable. -Continue home dose PPI Depression, chronic. Present on admission. Presumed stable. -Continue home dose citalopram Insomnia, chronic. Present on admission. Presumed stable. -Continue nortriptyline BPH, chronic. Present on admission. Presumed stable. -Continue Flomax Hyponatremia, present on admission. Acute. Resolved. -Likely due to poor oral intake combined with over diuresis and possible SIADH secondary to pneumonia. -Sodium on 07/24 was 138. Sodium on admission 127. Now 135. -Follow BMP Acetaminophen-fever/headache/mild/moderate pain Antiemetics, as needed Bowel regimen, as needed. Disposition: Patient will likely discharge home in 1-2 more days, pending improvement in respiratory status. Physical therapy without mobility concerns at this time. Pain Evaluation: Adequate Pain Control GI Prophylaxis: Not indicated VTE Prophylaxis: Other (on Xarelto) VTE Mechanical Devices: Intermittant Pneumatic CD Resuscitation Status: CPR: Attempt Resuscitation Attending Statement The patient was seen and examined together with Dr. Argueta on 08/08/2016 and I agree with the history, exam and plan as outlined in the note above. . Keya Argueta DO August 08, 2016 07:56 Conrado Brandon MD August 09, 2016 07:41
[2016-08-08] MEDS: Piperacillin-Tazo 3.375 Gm Inj 3.375 GM in Dextrose 5% Minibag Plus 50 ML IV SCH ×2 (12:35→23:52)
[2016-08-08] MEDS ORDERED: TORS20TA3 PO (15:39)
--- NOTE | 2016-08-08 15:51 | PCM.DIMED ---
Discharge Instructions Date of Service August 08, 2016 Dates of Hospitalization August 05, 2016 at 23:18 Discharge Diagnosis Discharge Diagnosis -Viral pneumonia -Chronic kidney disease with acute injury and electrolyte abnormalities -Atrial fibrillation -Diabetes mellitus type 2 -Coronary artery disease -Hypertension -COPD and asthma Medication Instructions Some changes were made to your medications during this hospital stay and are listed below. Please review these changes with Dr. Fishman at your appointment. STOP taking the following medications: -Furosemide -Metolazone START taking the following medication (this will take place of the Furosemide and Metolazone). -Torsemide 40mg. Take one tablet in the morning. Diet Heart Healthy, Diabetic Activity No restrictions Call your provider Fever or Chills, Shortness of breath, Bleeding, Chest pain, Vomitting, Excessive diarrhea, Weakness (unilateral), Other (If you develop any other new or concerning symptoms contact your primary care provider. ) Patient Instructions Followup with your primary care provider, Dr. Nguyễn as planned to review this hospital stay and medication changes. Dr. Nguyễn may want to check some blood work and make adjustments to your diuretics. . Follow-up plan Milan Fishman MD [address] [id number] . Follow-up Provider: Milan Fishman MD Follow-up with PCP in: Other (Tuesday August 09, 2016 as previously arranged. ) Keya Argueta DO August 08, 2016 15:11
--- NOTE | 2016-08-08 16:21 | PCM.DC.MED ---
Discharge Summary Date of Service August 08, 2016 Dates of Hospitalization Date of Hospital Admission August 05, 2016 at 23:18 Date of Discharge: August 09, 2016 Providers: Admitting Physician: Kelsey Coombs DO Primary Care Physician: Milan Fishman MD Attending Physician: Kelsey Coombs DO Diagnosis at Time of Discharge Diagnosis at Time of Discharge Pneumonia, viral and possible healthcare associated Acute on chronic renal insufficiency. Hyponatremia Leukocytosis Syncopal episode Elevated troponin Paroxysmal atrial fibrillation Diastolic heart failure Diabetes mellitus type 2 Coronary artery disease Hypertension COPD Asthma Hyperlipidemia GERD Depression Insomnia BPH Consultations Physical therapy Procedures XRay, CTs & MRIs (08/05/16) X-RAY CHEST- Possibe retrocardiac pneumonia Interpretation / Wet Read by: Wet read ED physician (08/05/16) X-RAY CHEST, TWO VIEWS IMPRESSION: No acute cardiopulmonary disease. Dictated and approved by: Pawan DEL RIO Interpreted: Martha Yousif MD on 08/06/2016 at 8:45 (08/05/16) CT BRAIN WITHOUT CONTRAST IMPRESSION: 1. No acute intracranial abnormality. 2. Sinus disease. 3. Concordant with preliminary interpretation. Dictated and approved by: Marshall Alfaro M.D. on 08/06/2016 at 8:23 ECG 12 Lead (08/05/16) Sinus rhythm rate 94, RBBB with occasional PVCs. Similar to previous ECG. No acute ischemic changes. . Brief History Per admission history and physical on August 06, 2016. JudiEladio DO Los Wilson is an 81 y/o male anticoagulated on Xarelto with hx of COPD, asthma, CKD III, diabetes, CAD s/p CABG x3, hyperlipidemia, TAVR, A-fib, presenting to the ED with family due to multiple falls which have occurred over the past 3 days. Patient reports of feeling weak having no energy for the past 4 days, with no appetite. patient states he had been constipated and had strained when he had the syncopal episode after having a large BM 3 days ago on the commode. He lost consciousness and fell forward hitting his head against the shower stall. Per family report in ED, the patient has seemed to be generally weak and somewhat confused over the past 3 days and has experienced multiple ground level falls over the past few days. He ambulates with a walker but still continues to fall. He c/o associated headache over the site of injury. The family believes they are unable to care for him at home. He has had his usual chronic cough, which improves with inhaler. He denies vomiting, change in behavior, fever, chills. Patient states Dr. Luna his overcoiler wanted him on 24hr oxygen, but patient has been using it only at night at 1.5L. PCP Dr. Fishman. In the ED, vitals T36.0, P88, R18, BP95/59, 93% on RA. Labs- CBC: WBC of 25.9, HCT 43 increased from prior, platelets 246 CMP: Na of 127 lowered from baseline, BUN of 71 and creatinine of 2.25 both markedly increased from baseline, glucose of 356 Troponin of 0.13 increased from prior BNP: 10,600 CXR showed "Possibe retrocardiac pneumonia", CT head negative for any acute process. Patient admitted to hospital for further workup and management. Hospital Course Mr. Wilson is an 81-year-old gentleman with a history of coronary artery disease s/p CABG, TAVR, diastolic heart failure, atrial fibrillation anticoagulated on Xarelto, chronic kidney disease stage III, diabetes, pulmonary hypertension and COPD who presented to the emergency department following a recent syncopal episode, multiple ground level falls and increasing confusion and weakness for 3-4 days. Admitted for possible healthcare associated pneumonia, acute on chronic kidney injury, and hyponatremia. Pneumonia, viral and possible healthcare associated, acute. Present on admission. Treated. -Respiratory viral PCR was positive for metapneumonovirus. However, due to recent hospital admission there was concern healthcare associated pneumonia. -Patient presented with a leukocytosis and elevated lactate both of which normalized. -Blood cultures were negative and sputum culture grew normal zoe. -Preliminary read of chest xray was significant for a possible retrocardiac pneumonia and patient was started on empiric antibiotics: Vancomycin and piperacillin-tazobactam. -Procalcitonin was minimally elevated at 0.20 and remained unchanged. -Vancomycin was discontinued on 08/06 following a negative MRSA screen. -Patient received 5 days of piperacillin-tazobactam and azithromycin Acute on chronic renal insufficiency. Present on admission. Resolved. - Likely prerenal secondary to hypovolemia due to poor oral intake and diuretics. - Patient with creatinine apparent baseline of 1.8, currently at 1.97 with BUN 72 - Patient's diuretics were held and he received IV fluids. BMP was followed daily. - Prior to discharge patient received 40mg PO torsemide and a dose of spironolactone 25mg PO on 08/08 after which, sodium and potassium decreased. - Furosemide and metolazone were held. - Diuretics held at discharge and patient is to review his medications with his primary care provider. Hyponatremia, present on admission. Acute. Improved. -Likely due to poor oral intake combined with over diuresis and possible SIADH secondary to pneumonia. -Sodium on 07/24 was 138. Sodium on admission 127 -Followed BMP -Diuretics, as above. -Called patient's primary care provider's office at time of discharge. Leukocytosis, acute. Present on admission. Resolved. -Likely multifactorial and due to pneumonia, stress response and recent steroids. -WBC 25.9 with left shift, down to 15.4 -Blood/sputum cultures negative. -Procalcitonin, lactic acid as above. -Followed CBC -Patient received antibiotics, as above. Syncope episode, acute. Present on admission. Improved. -Likely multifactorial and secondary to hypovolemia secondary to dehydration and over diuresis, vasovagal syncope, and general deconditioning. -Patient reported a syncopal episode approximately five days prior to admission that occurred upon standing after a bowel movement. He also reported multiple ground level falls that he attributed to increasing weakness. -Orthostatic BP, sitting and lying was checked and not consistent with orthostatic hypotension. -CT head was negative for any acute process -Physical therapy evaluated the patient and identified no mobility concerns at this time. Elevated troponin, unknown chronicity. Present on admission. Presumed stable. -Likely chronic and secondary to chronic renal insufficiency. Patient with known coronary artery disease and cardiac workup during previous admission (07/19 -07/24/16) unremarkable for acute process. -EKG showed no acute ischemic changes and was similar to prior. Patient remained asymptomatic without chest pain. -Per chart review patient's baseline troponin appeared to be approximately 0.08. Trended up initially from 0.13 to 0.16 and was negative on 08/08. Paroxysmal atrial fibrillation, chronic. Present on admission. Presumed stable. -Patient presented in sinus rhythm with an irregular rhythm intermittently noted on exam, rate well controlled. -Patient was continued on home dose Xarelto Diastolic heart failure, chronic. Present on admission. Presumed stable. -Clinically patient did not appear in acute exacerbation. -Chest xray was negative for pulmonary edema. proBNP 10,6000 -Last ECHO on 06/20/2016 with EF 55-60% and decrease in severity of pulmonary hypertension. -Patient is not on beta delma due to asthma and consideration was given to ACEi. -Monitored daily weights and I/Os -Diuretics as above Diabetes mellitus type 2, chronic. Present on admission. Uncontrolled. -HbA1c 7.5 on 07/19/16. -Patient's home glimepiride and lantus were held. -Received medium dose correctional insulin lispro Coronary artery disease, chronic. Present on admission. Presumed stable. -Cardiac workup during previous admission (07/19-07/24/16) unremarkable for acute process. -Patient was continued on home aspirin and statin Hypertension, chronic. Present on admission. Presumed stable. -Patient was continued on home dose amlodipine, verapamil -Diuretics, as above. COPD, chronic. Present on admission. Presumed stable. -Clinically not in acute exacerbation. -Patient was continued on home Flovent -Prednisone was stopped. Asthma, chronic. Present on admission. Presumed stable. -Patient was continued on albuterol inhaler as needed Hyperlipidemia, chronic. Present on admission. Presumed stable. -Patient was continued on home dose atorvastatin GERD, chronic. Present on admission. Presumed stable. -Patient was continued on home dose PPI Depression, chronic. Present on admission. Presumed stable. -Patient was continued on citalopram Insomnia, chronic. Present on admission. Presumed stable. -Patient was continued on nortriptyline BPH, chronic. Present on admission. Presumed stable. -Patient was continued on Flomax Exam Vital Signs (Last) Date Time Temp Pulse Resp B/P Pulse Ox O2 Delivery O2 Flow Rate FiO2 08/08/16 15:11 Supplement Oxygen 08/08/16 12:07 102 92/48 92 08/08/16 12:04 36.6 16 08/07/16 23:22 1.50 Exam General: Elderly male, alert and sitting up in a chair, in no acute distress. Communicating appropriately HEENT: Normocephalic, atraumatic, pupils equal round and reactive light; ecchymosis and mild edema just below eye on the left.no sclera icterus. Mucous membranes moist/pink. Neck: Supple, non-tender, no lymphadenopathy or thyromegaly appreciated. Cardiovascular: Regular rate, irregular rhythm, no murmurs, rubs or gallops. Chest/lungs: Symmetric chest rise, lung sounds somewhat diminished but grossly clear to auscultation bilaterally with faint bibasilar crackles. Abdomen: Soft, obese, nontender, nondistended, bowel tones present. Extremities: Warm, well perfused, +1 pitting edema of lower ext bilaterally to mid tibia, ecchymosis of right groin/thigh noted. Skin: Scattered ecchymosis of bilateral upper extremities. Dressing on left upper extremity clean,dry and intact. Warm, Dry, No cyanosis. Past surgical scar on mediastinum. Neurologic: Cranial nerves grossly intact, no focal deficits. Psychiatric: Normal mood, affect. Alert and oriented to person, place and time. . Test 08/05/16 22:05 08/06/16 03:50 08/06/16 09:35 08/07/16 02:20 Prothrombin Time 12.9sec (8.1-12.5) Prothromb Time International Ratio 1.20ratio Hemoglobin A1c 8.6% (4.8-5.6) Pro-B-Type Natriuretic Peptide 65581vl/mL (0-486) Hold Tierney Top Tube Received (Received) Urine Color Yellow (YELLOW) Urine Appearance Clear (CLEAR,HAZY) Urine pH 6.0 (5.0-8.0) Urine Specific [place] 1.012 (1.003-1.035) Urine Protein Negativemg/dL (NEG,TRACE) Urine Glucose (UA) 100mg/dL (NEGATIVE) Urine Ketones Negativemg/dL (NEGATIVE) Urine Occult Blood Negative (NEGATIVE) Urine Nitrite Negative (NEGATIVE) Urine Bilirubin Negative (NEGATIVE) Urine Urobilinogen Normalmg/dL (NORMAL) Urine Leukocyte Esterase Negative (NEGATIVE) Urine RBC 0-2/hpf (0-2) Urine WBC 0-5/hpf (0-5) Urine Epithelial Cells Occasional/hpf (NONE-MOD) Urine Crystals None seen (NONE SEEN) Urine Bacteria None/hpf (NONE-FEW) Urine Hyaline Casts None/lpf (NONE) Urine Granular Casts None seen (NONE SEEN) Urine Waxy Casts None seen (NONE SEEN) Urine Red Blood Cell Casts None seen (NONE SEEN) Urine White Blood Cell Casts None seen (NONE SEEN) Urine Mucus Present (None Seen) Urine Trichomonas None seen (NONE SEEN) Urine Yeast None (NONE SEEN) Urine Culture Reflexed Not indicated Lactic Acid Level 2.0mmol/L (0.4-2.0) White Blood Count 15.4th/mm3 (3.8-10.1) Red Blood Count 4.51mil/mm3 (4.40-5.80) Hemoglobin 13.8g/dL (13.8-17.2) Hematocrit 38.4% (41.0-50.0) Mean Corpuscular Volume 85.1fL (81-100) Mean Corpuscular Hemoglobin 30.6pg (27.0-35.0) Mean Corpuscular Hemoglobin Concent 35.9% (32.0-37.0) Red Cell Distribution Width 13.8% (12.3-15.4) Platelet Count 229bil/L (150-400) Neutrophils (%) (Auto) 83.7% (40-74) Lymphocytes (%) (Auto) 4.6% (14-46) Monocytes (%) (Auto) 9.5% (4-12) Eosinophils (%) (Auto) 1.4% (0-5) Basophils (%) (Auto) 0.1% (0-3) Magnesium Level 2.1mg/dL (1.6-2.6) Procalcitonin 0.20ng/mL (0.00-0.08) Test 08/08/16 02:40 Sodium Level 135mEq/L (134-144) Potassium Level 4.0mEq/L (3.5-5.2) Chloride Level 100mEq/L (97-108) Carbon Dioxide Level 21mmol/L (18-29) Blood Urea Nitrogen 14mg/dL (8-27) Creatinine 0.80mg/dL (0.76-1.27) Estimat Glomerular Filtration Rate 99mL/min (>59) Glucose Level 198mg/dL (60-99) Calcium Level 7.3mg/dL (8.5-10.1) Total Bilirubin 0.6mg/dL (0.0-1.2) Aspartate Amino Transf (AST/SGOT) 57U/L (0-50) Alanine Aminotransferase (ALT/SGPT) 55U/L (0-44) Alkaline Phosphatase 34U/L (25-160) Troponin T 0.010ug/L (0.0-0.011) Total Protein 6.0g/dL (6.4-8.4) Albumin 3.3g/dL (3.4-5.0) Microbiology Results 08/06/16 Blood Culture- No growth to date 08/06/16 MRSA (PCR)- Negative 08/06/16 Sputum gram stain- Few mixed normal zoe, no polys Discharge Medications Discharge Medications Albiglutide (Tanzeum) 30 Mg/0.5 Ml Pen.injctr 30 MG SQ every Friday (Reported ) Amlodipine (Amlodipine) 5 Mg Tablet 5 MG PO DAILY (Reported) Aspirin (Aspirin) 81 Mg Tablet 81 MG PO DAILY (Reported) Atorvastatin Calcium (Atorvastatin Calcium) 10 Mg Tablet 10 MG PO HS Prescribed by: SCOT JORDAN MD Citalopram (Citalopram) 20 Mg Tablet 20 MG PO DAILY (Reported) Fluticasone Propionate (Flovent Diskus) 100 Mcg Disk.w.dev 1 PUFF INHALATION BID Prescribed by: SCOT JORDAN MD Glimepiride (Glimepiride) 4 Mg Tablet 4 MG PO DAILYAC (Reported) Insulin Glargine (Lantus U100 Insulin Vial) 100 Unit/Ml Vial 20 UNIT SUBQ QPM ( Reported) Multivitamin (Multivitamins) 1 Each Capsule 1 EACH PO DAILY (Reported) Nortriptyline (Nortriptyline) 10 Mg Capsule 10 MG PO HS (Reported) Omeprazole (Omeprazole) 20 Mg Capsule.dr 20 MG PO DAILY (Reported) Prednisone (PredniSONE) 20 Mg Tablet 20 MG PO DAILY (Reported) Rivaroxaban (Xarelto) 10 Mg Tablet 10 MG PO DAILY (Reported) Tamsulosin (Flomax) 0.4 Mg Capsule 0.4 MG PO DAILY (Reported) Ubidecarenone (Co Q-10) 300 Mg Capsule 300 MG PO QPM (Reported) Verapamil ER (Verapamil ER) 180 Mg Cap24h.pel 180 MG PO DAILY Prescribed by: SCOT JORDAN MD As needed Albuterol HFA (Proair HFA) 8.5 Gm Hfa.aer.ad 2 PUFFS INHALATION q4-6h PRN PRN For Wheezing (Reported) Cyclobenzaprine (Cyclobenzaprine) 5 Mg Tablet 5 MG PO TID PRN PRN Spasm ( Reported) Hydrocodone-Acetaminophen 5-325 mg (Hydrocodone-Acetaminophen 5-325 mg) 1 Each Tablet 1 TABLET PO Q6H PRN PRN For Pain (Reported) Lidocaine Cream (Lidocaine Cream) 5 Gm Cream..g. 1 APPLIC TOPICAL DAILY PRN PRN For Pain (Reported) Nitroglycerin SL (Nitroglycerin SL) 0.4 Mg Tab.subl 0.4 MG SL PRN chest pain ( Reported) Additional med instructions Some changes were made to your medications during this hospital stay and are listed below. Please review these changes with Dr. Fishman at your appointment. STOP taking the following medications: -Furosemide -Metolazone -Spironolactone . Followup Plan Follow-up plan Milan Fishman MD [address] [id number] . Discharge Diet: Heart Healthy, Diabetic Discharge Activity: No restrictions Patient Instructions Followup with your primary care provider, Dr. Nguyễn as planned to review this hospital stay and medication changes. Dr. Nguyễn may want to check some blood work and make adjustments to your diuretics. . Follow-up Provider: Milan Fishman MD Follow-up with PCP in: Other (Tuesday August 09, 2016 as previously arranged. ) Time spent Greater than 30 minutes was spent in preparation of discharge with greater than 50% of that time dedicated to patient counseling and coordination of care. . Attending Statement The patient was seen and examined together with Dr. Argueta on 08/09/2016 and I agree with the history, exam and plan as outlined in the note above. . copies to: Milan Fishman MD, Courtney M DO August 08, 2016 15:51 Conrado Brandon MD August 10, 2016 15:00
--- NOTE | 2016-08-08 20:02 | NUR ---
Ambulation Cardiac: Pt denies CP, tele SR 90s-100s. one run of PSVT this afternoon, asymptomatic, physician notified. Resp: Pt denies SOB, SPO2 low to mid 90s on RA. 1.5L NC when sleeping. Pt gets frequent nose bleeds even with hydrated NC. 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 walking in hallway with staff, up in chair for meals.
[2016-08-09 00:11] VITALS: BP 96/61; PULSE 113; RESP 16; O2SAT 94
[2016-08-09 02:50] LABS: BASOPHILS % (AUTO) 0.3 % (0-3); EOSINOPHILS % (AUTO) 1.9 % (0-5); MONOCYTES % (AUTO) 12.1 % (4-12); Mean Corpuscular Hemoglobin 30.1 pg (27.0-35.0); Mean Corpuscular Volume 84.8 fL (81-100); NEUTROPHILS % (AUTO) 75.4 % (40-74); Platelet Count 193 bil/L (150-400)
[2016-08-09 03:39] VITALS: BP 100/59; PULSE 97; RESP 16; O2SAT 96
[2016-08-09] MEDS ORDERED: Potassium Chloride Oral 20 mEq SR Tab(K 3 - 3.7 & Creat < 2) PO ONE (04:55)
--- NOTE | 2016-08-09 05:05 | NUR ---
NOC PT has been sleeping most of the shift. Pt declined to walk last dilma as he reported he felt very tired. V/S WNL. HR SR in the 90's. PT has been on RA all night with sats in upper 90's. PT has upper airway wheezes heard while in room, but is able to clear with cough. Pt also has some faint exp wheezes at bases. Voiding per urinal. Lynda colored urine. Labs slightly worse this am. K+ was 3.4 and replaced with 40meq po. Will recheck at 0830. BLE edema present on assessment. Abdomen rounded and impinges breathing a little. PT hoping to d/c today. Still receiving IV abx at this time. WIll CTM.
[2016-08-09 06:04] VITALS: PULSE 96
[2016-08-09 08:00] VITALS: PULSE 92
[2016-08-09 08:45] VITALS: BP_SYST 93; BP_SYST 96; BP_DIAS 55; BP_DIAS 58; PULSE 62; RESP 18; O2SAT 97
[2016-08-09] MEDS: Insulin LISPRO 300 Unit/3 mL Inj SUBQ SCH (09:11)
[2016-08-09] MEDS: Pantoprazole 20 mg ER24 Tablet PO SCH (09:12)
[2016-08-09] MEDS: Fluticasone 100 mCg Inhaler INHALATION SCH (09:17)
--- NOTE | 2016-08-09 09:17 | PCM.DIMED ---
Keya Argueta DO 08/09/16 0917: Discharge Instructions Date of Service August 09, 2016 Dates of Hospitalization August 05, 2016 at 23:18 Discharge Diagnosis Discharge Diagnosis Viral Pneumonia Kidney injury with electrolyte abnormalities Chronic kidney disease Syncope Atrial fibillartion Diabetes Hypertension High cholesterol COPD Asthma Coronary artery disease Gastroesophageal reflux . Medication Instructions Some changes were made to your medications during this hospital stay and are listed below. Please review these changes with Dr. Fishman at your appointment. STOP taking the following medications: -Furosemide -Metolazone -Spironolactone Diet Heart Healthy, Diabetic Activity No restrictions Call your provider Fever or Chills, Shortness of breath, Bleeding, Chest pain, Vomitting, Excessive diarrhea, Weakness (unilateral), Other (If you develop any other new or concerning symptoms contact your primary care provider. ) Patient Instructions Followup with your primary care provider, Dr. Nguyễn as planned to review this hospital stay and medication changes. Dr. Nguyễn may want to check some blood work and make adjustments to your diuretics. . Follow-[place] [address] . Follow-up Provider: Milan Fishman MD Follow-up with PCP in: Other (Tuesday August 09, 2016 as previously arranged. ) Conrado Brandon MD 08/10/16 1458: Discharge Instructions Attending's Statement The patient was seen and examined together with Dr. Argueta on 08/09/2016 and I agree with the history, exam and plan as outlined in the note above. . Keya Argueta DO August 09, 2016 09:17 Conrado Brandon MD August 10, 2016 14:58
--- NOTE | 2016-08-09 12:01 | NUR ---
Social Work: Discharge D: Pt discussed in am rounds. Pt's discharge yesterday was canceled as pt was not medically stable; Pt is not stable for discharge home with . JAVA PROGRAMMER ANALYST met with pt and at bedside to confirm discharge plan. They are agreeable to going home with [facility] and have no concerns about discharge home. EMR reviewed; no sw needs at this time. t/c to Enrike Kruger with [facility] to notify of pt's discharge. A: Pt who is I at baseline. P: Pt to discharge home with [facility] for RN, PT. Sagrario Newman, JAVA PROGRAMMER ANALYST
--- NOTE | 2016-08-09 12:40 | NUR ---
Discharge Pt discharged at approximately 1215 to PCP appointment with . Pt given educational material for Syncope and HH diet. IVs DC'd with catheter intact. Tele DC'd hospital monitor notified. Next dose to be taken clearly written and dated. Pt acknowledged and understood all information. Pt left with all personal belongings. Escorted by NUTRITION AIDES TEACHER in wheelchair to door.
[2016-09-09] MEDS ORDERED: METO25TA6 PO (12:58)
== END 2016-08-09 12:25 | disposition home health service (06) | DRG 194 ==
LOC: SED 21:29 → MPC 23:18 → PCC 08-06 01:09
PROVIDERS: ADMIT Internal Medicine; ATTEND Internal Medicine
DX: J12.3 Human metapneumovirus pneumonia (principal); E87.1 Hypo-osmolality and hyponatremia; I50.32 Chronic diastolic (congestive) heart failure; N17.8 Other acute kidney failure; J18.9 Pneumonia, unspecified organism; N18.3 Chronic kidney disease, stage 3 (moderate); Z95.1 Presence of aortocoronary bypass graft; Z95.2 Presence of prosthetic heart valve; Z79.82 Long term (current) use of aspirin; Z79.4 Long term (current) use of insulin; Z79.52 Long term (current) use of systemic steroids; Z87.891 Personal history of nicotine dependence; R29.6 Repeated falls; I25.10 Atherosclerotic heart disease of native coronary artery without angina pectoris; I12.9 Hypertensive chronic kidney disease with stage 1 through stage 4 chronic kidney disease, or unspecified chronic kidney disease; J44.9 Chronic obstructive pulmonary disease, unspecified; J45.909 Unspecified asthma, uncomplicated; E78.5 Hyperlipidemia, unspecified; K21.9 Gastro-esophageal reflux disease without esophagitis; F32.9 Major depressive disorder, single episode, unspecified; G47.00 Insomnia, unspecified; N40.0 Benign prostatic hyperplasia without lower urinary tract symptoms; D72.829 Elevated white blood cell count, unspecified; I48.0 Paroxysmal atrial fibrillation; E11.65 Type 2 diabetes mellitus with hyperglycemia; E86.1 Hypovolemia; R55 Syncope and collapse

== ENCOUNTER 2016-08-31 23:25 | Inpatient (IN) | payer MEDICARE, OTHER ==
[~2016-08-31] VITALS: Ht 170.2 cm; Wt 89.6 kg
[~2016-08-31 23:25] MED LIST changes: +ALBI30PE SQ; -ALBI50PE SQ; -AMLO10TA3 PO; +AMLO5TAB2 PO; +CYCL5TAB PO; -FURO40TA4 PO; +LIDO5CRE17 TOPICAL; +NORT10CA PO; +PRE20 PO; -PRED-508 PO; -SPIR25TA3 PO; +TAMS0.4C98 PO
[2016-08-31 23:29] VITALS: BP 115/56; PULSE 103; RESP 21; O2SAT 100
[2016-08-31 23:49] LABS: BASOPHILS % (AUTO) 0.1 % (0-3); EOSINOPHILS % (AUTO) 0 % (0-5); MONOCYTES % (AUTO) 5.2 % (4-12); Mean Corpuscular Volume 88.3 fL (81-100); NEUTROPHILS % (AUTO) 90.1 % (40-74); Platelet Count 219 bil/L (150-400)
--- NOTE | 2016-08-31 23:59 | ED.REPORT ---
HPI-General Illness Date of Service Aug 31, 2016 ED Provider: Dr. Travis Pt is a 81 year old male with a history of A-fib, COPD, DM, HTN, aortic valve replacement, and 3 CABG who presents to the ED complaining of syncopal episodes onset 1 week. The pt had 1 syncopal episode prior to arrival. He c/o fever ( Tmax = 102), confusion, feeling "woozy." He denies chest pain, SOB, cough with phlegm, decreased urination, and dysuria. The pt reports that if he moves too fast his blood pressure drops, and that it has been occurring throughout the week. Pt reports that he has been drinking fluids. Nursing Notes Stated Complaint: GENERAL WEAKNESS FEVER Chief Complaint: FLU/Cold Symptoms Nursing Notes Reviewed: Yes Allergies: Coded Allergies: No Known Allergies (Unverified , 08/31/16) Scheduled Albiglutide (Tanzeum) 30 Mg/0.5 Ml Pen.injctr 30 MG SQ every Friday Amlodipine (Amlodipine) 5 Mg Tablet 5 MG PO DAILY Aspirin (Aspirin) 81 Mg Tablet 81 MG PO DAILY Atorvastatin Calcium (Atorvastatin Calcium) 10 Mg Tablet 10 MG PO HS Citalopram (Citalopram) 20 Mg Tablet 40 MG PO DAILY Cyclobenzaprine (Cyclobenzaprine) 5 Mg Tablet 5 MG PO TID Fluticasone Propionate (Flovent Diskus) 100 Mcg Disk.w.dev 1 PUFF INHALATION BID Furosemide (Furosemide) 20 Mg Tab 40 MG PO DAILY Glimepiride (Glimepiride) 4 Mg Tablet 4 MG PO DAILYAC Insulin Glargine (Lantus U100 Insulin Vial) 100 Unit/Ml Vial 20 UNIT SUBQ QPM Multivitamin (Multivitamins) 1 Each Capsule 1 EACH PO DAILY Nortriptyline (Nortriptyline) 10 Mg Capsule 10 MG PO HS Omeprazole (Omeprazole) 20 Mg Capsule.dr 20 MG PO DAILY Potassium Chloride ER (Klor-Con 10) 10 Meq Tablet 10 MEQ PO DAILY Prednisone (PredniSONE) 20 Mg Tablet 20 MG PO DAILY Rivaroxaban (Xarelto) 10 Mg Tablet 10 MG PO DAILY Tamsulosin (Flomax) 0.4 Mg Capsule 0.4 MG PO DAILY Ubidecarenone (Co Q-10) 300 Mg Capsule 300 MG PO QPM Verapamil ER (Verapamil ER) 180 Mg Cap24h.pel 180 MG PO DAILY Scheduled PRN Albuterol HFA (Proair HFA) 8.5 Gm Hfa.aer.ad 2 PUFFS INHALATION q4-6h PRN PRN For Wheezing Hydrocodone-Acetaminophen 5-325 mg (Hydrocodone-Acetaminophen 5-325 mg) 1 Each Tablet 1 TABLET PO Q6H PRN PRN For Pain Lidocaine Cream (Lidocaine Cream) 5 Gm Cream..g. 1 APPLIC TOPICAL DAILY PRN PRN For Pain Nitroglycerin SL (Nitroglycerin SL) 0.4 Mg Tab.subl 0.4 MG SL PRN chest pain General Time Seen by MD: 23:59 Chief Complaint Other (Syncopal episodes) Hx Obtained From: Patient Sudden in Onset?: No Onset Occurred: 1 week ago Symptom Duration: Since onset Severity: Current: No pain currently Severity: Maximum: No pain Recent Healthcare: Recent doctor visit Similar Sx Previous: No Past Medical History Past Medical History Notes: Echocardiogram 06/20/2016, mild LVH, EF 55-60%, mild right ventricular dilation, mild mitral regurgitation, bioprosthetic aortic valve, mild to moderate tricuspid regurg Visited Dr. Fishman 07/06 for similar symptoms Past Medical History History of pulmonary hypertension COPD Asthma Stage III chronic kidney disease Diabetes Primary osteoarthritis the right hip History of congestive heart failure Hyperlipidemia GERD History of major depression History of chronic low back pain History of aortic valve replacement with a porcine valve (on ASA) Reports: Coronary artery disease Past Surgical History CABG Bioprosthetic aortic valve Cardiac catheterization February 2015 Hip surgery Smoking History Former Smoker Social History Alcohol Use: "Social" Drug Use: Denies drug use Ambulatory Status Independent Review of Systems Full Review of Systems Constitutional: Reports: Fever Respiratory: Denies: Prod cough, clear, Shortness of breath Cardiovascular: Denies: Chest pain Male: Denies Urinary frequency, Denies Urination decreased Neurologic: Reports: Confusion, Lightheaded, Syncope Complete sys rev & neg: except as marked. Physical Exam Vital Signs Vital Signs Date Time Temp Pulse Resp B/P Pulse Ox O2 Delivery O2 Flow Rate FiO2 09/01/16 03:18 37.2 09/01/16 02:52 97 15 129/46 97 Room Air 09/01/16 00:54 103 19 99 Nasal Cannula 2 08/31/16 23:29 37.6 103 21 115/56 100 Nasal Cannula 2 Initial VS: Reviewed Head / Eyes: Atraumatic, Normocephalic, PERRL ENT: Mucous membranes moist, Conjunctiva normal, No scleral icterus Neck: Supple, Full range of motion Respiratory: Breath sounds normal, Clear to auscultation, No respiratory distress Abdomen / GI: Soft, Non-tender Extremities: Vascular intact, Neuro intact Skin: Warm, Dry, No cyanosis Neurologic: Alert, Oriented, Nonfocal Psychiatric: Mood/affect normal, Behavior normal General/Constitutional: Awake, Alert, No acute distress, Cooperative, Not toxic appearing Cardiovascular: Heart rate NL, Heart sounds NL Unremarkably irregular heart Abdomen: Atraumatic, Soft, Non-tender Abdomen is distended Upper Extremities Upper Extremity / MS: Neurologic intact, Vascular intact Lower Extremity / Pelvis / MS: Atraumatic, Full range of motion, Neurologic intact, Vascular intact 2+ edema bilaterally Interpretation & Diagnostics Lab Results Interpretation Result Diagram: 08/31/16 2336 08/31/16 2336 Test 08/31/16 23:36 09/01/16 00:45 White Blood Count 22.2th/mm3 (3.8-10.1) Red Blood Count 4.63mil/mm3 (4.40-5.80) Hemoglobin 13.9g/dL (13.8-17.2) Hematocrit 40.9% (41.0-50.0) Mean Corpuscular Volume 88.3fL (81-100) Mean Corpuscular Hemoglobin 30.0pg (27.0-35.0) Mean Corpuscular Hemoglobin Concent 34.0% (32.0-37.0) Red Cell Distribution Width 15.0% (12.3-15.4) Platelet Count 219bil/L (150-400) Neutrophils (%) (Auto) 90.1% (40-74) Lymphocytes (%) (Auto) 3.9% (14-46) Monocytes (%) (Auto) 5.2% (4-12) Eosinophils (%) (Auto) 0% (0-5) Basophils (%) (Auto) 0.1% (0-3) Hold Purple Top Tube Received (Received) Prothrombin Time 11.3sec (8.1-12.5) Prothromb Time International Ratio 1.05ratio Hold Blue Top Tube Received (Received) Sodium Level 127mEq/L (134-144) Potassium Level 4.1mEq/L (3.5-5.2) Chloride Level 78mEq/L (97-108) Carbon Dioxide Level 27mmol/L (18-29) Blood Urea Nitrogen 56mg/dL (8-27) Creatinine 2.21mg/dL (0.76-1.27) Estimat Glomerular Filtration Rate 31mL/min (>59) Glucose Level 259mg/dL (60-99) Calcium Level 9.5mg/dL (8.5-10.1) Phosphorus Level 2.6mg/dL (2.5-4.9) Magnesium Level 1.7mg/dL (1.6-2.6) Total Bilirubin 2.6mg/dL (0.0-1.2) Aspartate Amino Transf (AST/SGOT) 21U/L (0-50) Alanine Aminotransferase (ALT/SGPT) 24U/L (0-44) Alkaline Phosphatase 91U/L (25-160) Troponin T 0.170ug/L (0.0-0.011) Pro-B-Type Natriuretic Peptide 5561pg/mL (0-486) Total Protein 7.2g/dL (6.4-8.4) Albumin 4.1g/dL (3.4-5.0) Lipase 65U/L (13-60) Procalcitonin 0.64ng/mL (0.00-0.08) Hold Sunset Top Tube Received (Received) Urine Color Yellow (YELLOW) Urine Appearance Clear (CLEAR,HAZY) Urine pH 6.5 (5.0-8.0) Urine Specific [place] 1.014 (1.003-1.035) Urine Protein Negativemg/dL (NEG,TRACE) Urine Glucose (UA) 250mg/dL (NEGATIVE) Urine Ketones Negativemg/dL (NEGATIVE) Urine Occult Blood Small (NEGATIVE) Urine Nitrite Negative (NEGATIVE) Urine Bilirubin Negative (NEGATIVE) Urine Urobilinogen Normalmg/dL (NORMAL) Urine Leukocyte Esterase Negative (NEGATIVE) Urine RBC 11-50/hpf (0-2) Urine WBC 0-5/hpf (0-5) Urine Epithelial Cells Occasional/hpf (NONE-MOD) Urine Crystals None seen (NONE SEEN) Urine Bacteria None/hpf (NONE-FEW) Urine Hyaline Casts None/lpf (NONE) Urine Granular Casts None seen (NONE SEEN) Urine Waxy Casts None seen (NONE SEEN) Urine Red Blood Cell Casts None seen (NONE SEEN) Urine White Blood Cell Casts None seen (NONE SEEN) Urine Mucus None seen (None Seen) Urine Trichomonas None seen (NONE SEEN) Urine Yeast None (NONE SEEN) Urine Culture Reflexed Not indicated Lab Results Interpretation: Urine - negative X-Ray Abdominal Interpretation No pneumonia, septic Interpretation / Wet Read by: Wet read ED physician CT Abd / Pelvis Interpretation CONCLUSION: 1. No calcified gallstones or pericholecystic inflammation. Bile ducts are normal caliber. 2. Normal appendix. No free air, bowel obstruction, or mesenteric inflammation. Small hiatal hernia. Transmitted at 02:28 by Teddy Lewis M.D. Study type: Abdominal CT no contrast Interpretation / Wet Read by: Interpret - Radiologist Re-Eval/Medical Decision Med Decision/Clinical Course 81-year-old presents with fever cough tachycardia and relative hypotension. No obvious source of infection found. Chest x-ray is negative CT of the abdomen done because of an elevated bilirubin also includes half of the lung turpin and is again negative. No intra-abdominal source found. Urine is negative. Treating presumptively for intra-abdominal source with the elevated bilirubin. He has chronic kidney disease and would not be a candidate for vancomycin. Begun with Zosyn and metronidazole pending cultures. Lactate is elevated at 3.5 and repeat pending. Elevated troponin noted, and significantly elevated. Question strain ischemia versus an acute myocardial event. No acute findings on EKG. Completely rule out protocol and consider echocardiography to evaluate for wall motion abnormality. Source of Hx: Old records Time of Eval: 04:00 Re-Evaluation/Progress Note: Pt rechecked. Informed pt of plan for admission. Pt understands and agrees with plan for admission. All questions addressed. Consultation : Referral / Consult Name: Kelsey Coombs DO Consulted With: Hospitalist Call Returned at: 03:40 Reading Specialist: Will see patient, Agrees with eval, Agrees with plan, Accepts admit Counseled Regarding: Diagnosis, Lab results, Need for admission Discharge & Departure Primary Impression: Sepsis Sepsis type: sepsis due to unspecified organism Qualified Code: A41.9 - Sepsis, unspecified organism Additional Impressions: Acute kidney injury Elevated troponin Disposition: ADMITTED TO HOSPITAL Discharge Condition All VS Reviewed: Yes Condition: Stable Referrals: Milan Fishman MD (PCP) Crit Care Except Billable Proc Time Spent: 30-74 minutes Services Performed: Patient management by me, Time spent at bedside, Reviewing test results, Reviewing imaging, Discussing patient care, Documentation in record, Time with fam/surrogate Scribe Attestation Portions of this note were transcribed by Marisabel Hernadez. Dr. Thaddeus Victoria personally performed the history, physical exam and medical decision-making; I reviewed and confirmed the accuracy of the information in the transcribed note. Signed by: Kang Yuan, 09/01/16 and 01:50 copies to: Milan Fishman MD, Christopher W MD Aug 31, 2016 23:59 Marisabel Hansen Sep 01, 2016 00:05 Time of Eval: 04:00 Re-Evaluation/Progress Note: Pt rechecked. Informed pt of plan for admission. Pt understands and agrees with plan for admission. All questions addressed. Consultation : Referral / Consult Name: Kelsey Coombs DO Consulted With: Hospitalist Call Returned at: 03:40 Reading Specialist: Will see patient, Agrees with eval, Agrees with plan, Accepts admit Counseled Regarding: Diagnosis, Lab results, Need for admission Discharge & Departure Primary Impression: Sepsis Sepsis type: sepsis due to unspecified organism Qualified Code: A41.9 - Sepsis, unspecified organism Disposition: ADMITTED TO HOSPITAL Discharge Condition All VS Reviewed: Yes Condition: Stable Referrals: Milan Fishman MD (PCP) Scribe Attestation Portions of this note were transcribed by Marisabel Hernadez. Dr. Thaddeus Victoria personally performed the history, physical exam and medical decision-making; I reviewed and confirmed the accuracy of the information in the transcribed note. Signed by: Kang Yuan, 09/01/16 and 01:50 copies to: Milan Fishman MD, Christopher W MD Aug 31, 2016 23:59 Marisabel Hansen Sep 01, 2016 00:05
[2016-09-01] VITALS (16 sets, daily range): BP systolic 59–129; BP diastolic 33–71; PULSE 84–103; RESP 15–20; O2SAT 93–99
[2016-09-01] MEDS ORDERED: 0.9% Sodium Chloride 1,000 ML IV ONE (00:06)
[2016-09-01 00:13] LABS: INR 1.05 ratio
[2016-09-01 00:57] LABS: Magnesium 1.7 mg/dL (1.6-2.6); Phosphorus 2.6 mg/dL (2.5-4.9)
[2016-09-01 01:10] LABS: TROPONIN T 0.17 ug/L (0.0-0.011)
[2016-09-01 01:12] LABS: APPEARANCE,URINE CLEAR (CLEAR,HAZY); COLOR,URINE YELLOW (YELLOW); OCCULT BLOOD,URINE SMALL (NEGATIVE); PH,URINE 6.5 (5.0-8.0); UROBILINOGEN,URINE NORMAL (NORMAL)
[2016-09-01] MEDS ORDERED: metroNIDAZOLE Inj 500 MG in IV Premix 1 EACH IV ONE (02:35)
[2016-09-01] MEDS ORDERED: Piperacillin-Tazo 3.375 Gm Inj 3.375 GM in Dextrose 5% Minibag Plus 50 ML IV ONE (02:35)
[2016-09-01] MEDS ORDERED: Insulin GLARgine 100 Unit/mL Syringe SUBQ ONE (02:40)
[2016-09-01] MEDS ORDERED: Lactated Ringer's 1,000 ML IV SCH (04:20)
[2016-09-01] MEDS ORDERED: Ondansetron 2 mg/mL 2 mL Inj IVPUSH PRN ×2 (04:20→04:25)
[2016-09-01] MEDS ORDERED: Alum-Mag Hydrox-Simeth 30 mL Suspension PO PRN (04:25)
[2016-09-01] MEDS ORDERED: Polyethylene Glycol (PEG) 17 Gm Powder PO PRN (04:25)
[2016-09-01] MEDS ORDERED: Magnesium Sulf 2 Gm/50mL Water 2 GM in IV Premix 1 EACH IV ONE (05:15)
[2016-09-01] MEDS ORDERED: Glucose 40% Oral Gel 15 Gm Tube PO PRN (05:15)
[2016-09-01] MEDS ORDERED: Albuterol 2.5 mg/3 mL Inhalation Solution NEB PRN (05:15)
--- NOTE | 2016-09-01 05:53 | PCM.HPMED ---
Subjective Date of Service Sep 01, 2016 Primary Provider: Admitting Physician: Kelsey Coombs DO Primary Care Physician: Milan Fishman MD Attending Physician: Kelsey Coombs DO Admit Status: From the Emergency Department, [facility] Telemetry Chief Complaint: Ground-level fall secondary to near syncopal episode without head trauma or loss of consciousness History of Present Illness: Mr. Delvalle is an extremely pleasant 81-year-old gentleman with a complicated history including atrial fibrillation on Xarelto, insulin using diabetes mellitus type II, hypertension, bovine aortic valve replacement, myocardial infarction status post 3 vessel CABG, and recurrent syncopal episodes, that presented to [facility] 08/31/2016 with another episode of a ground-level fall with near syncope without evidence of head trauma or loss of consciousness, in association with dizziness, lightheadedness, and weakness, but without any chest pain, palpitations, acute vision changes, shortness of breath, or acute pain. Patient was admitted for evaluation for ongoing near syncopal episodes, in addition to potential underlying infection indicated by evidence of sepsis. - Hospital day one Mr. Delvalle states that this evening he was getting out of bed to use the restroom, and as he stood up he instantly fell to the ground. He denies any loss of consciousness, chest pain, palpitations, shortness of breath, or any acute pain events. Admits to associated chills. He states that he felt lightheaded and dizzy. He notes that he has experienced similar symptoms in the past, notably after experiencing a large, and difficult, bowel movement, and another time when he was walking his legs began to feel weak and he fell to the ground. During all of these episodes, he denies any loss of consciousness, blacking out, or lapses in memory. He states he is able to recall immediately before the event during the event and after the event. He does not see any flashing lights prior to the events, he states he simply feels white headed and dizzy. Last saw primary care provider 08/14/2016, with some changes in medication but he is uncertain what those changes were. He states he has received workup for these events in the past, without any definitive reason. Denies any other associated symptoms, including shortness of breath, sputum production, dysuria, hematuria, abdominal pain, fever, nausea, vomiting, dysphagia. Patient states that he has been able to eat and drink well prior to admission. Recent admission 08/06/2016 for similar presentation and symptoms. At that time , patient was diagnosed with pneumonia secondary to metapneumovirus, acute on chronic renal failure, hyponatremia, elevated troponin, leukocytosis, and syncopal episodes thought to be secondary to hypovolemia, vasovagal syncope, and general deconditioning. Furosemide, metolazone, spironolactone were stopped at that time. Most recent PCP visit dated 08/14/2016, no evidence of reinitiation of diuretic therapies. In the ED, initial temperature 37.6, pulse 103, blood pressure 115/56, 100% on 2 L nasal cannula; sodium 127, potassium 4.1, chloride 78, BUS 56, creatinine 2.21, glucose 259, lactic acid 3.5, phosphorus 2.6, magnesium 1.7. Total bili was elevated at 2.6, remainder of LFTs within range. Troponin T elevated 0.170 , with pro BNP 5561. Lipase noted to be 65, pro calcitonin 0.64. INR 1.05. UA revealed pH 6.5 negative for protein, negative for ketones, WBC 0-5, no bacteria, negative leukocyte esterase. Blood cultures obtained and pending. CT abdomen and pelvis without contrast did not reveal any calcified gallstones or pericholecystic inflammation, bile ducts were noted to be normal in caliber; no free air, bowel obstruction, or mesenteric inflammation were seen. Await final report in morning. Due to presentation of sepsis, patient received Zosyn and Flagyl. Patient was in stable condition at time of transfer to [facility]. Review of Systems: Complete review of systems obtained, pertinent positives and negatives as noted in history of present illness Allergies Coded Allergies: No Known Allergies (Unverified , 08/31/16) Home Medications Obtained from most recent PCP visit, dated 08/14/2016: [place] [id number] 1935 08/14/2016 02:20 PM 03/30 Start Date Medication Directions Stop Date 06/06/2016 amlodipine 5 mg tablet take 1 tablet by oral route every day 201704/25/2011 Aspir-81 81 mg Tab take 1 tablet (81MG) by oral route every day atorvastatin 10 mg tablet take 1 tablet by oral route every day 08/09/2016 citalopram 40 mg tablet take 1 tablet by oral route every day 2017 Co Q-10 300 mg capsule Take 1 capsule by mouth every evening cyclobenzaprine 5 mg tablet take 1 tablet by oral route 3 times every day Flovent Diskus 100 mcg/actuation powder for inhalation inhale 1 puff by inhalation route 2 times every day 06/13/2016 FreeStyle Lancets 28 gauge use bid 06/13/2016 FreeStyle Lite Strips test bid 06/12/2017 glimepiride 4 mg tablet take 1 tablet by oral route every day hydrocodone 5 mg-acetaminophen 325 mg tablet take 1 tablet by oral route every 6 hours as needed for pain Lantus Solostar 100 unit/mL (3 mL) subcutaneous insulin pen inject by subcutaneous route 20 units at bedtime lidocaine 5 % topical cream apply topically daily as needed for pain 04/25/2011 multivitamin Cap take 1 capsule by oral route every day 01/18/2016 nitroglycerin 0.[address] 1 tablet by sublingual route at 1st sign of attack; may repeat every 5 minutes up to 3 tabs; if norelief seek medical help 01/16/2017 nortriptyline 10 mg capsule take 1 capsule by oral route every evening 01/18/2016 omeprazole 20 mg tablet,delayed release 1 tab po qd before a meal 01/18/2016 pen needle, diabetic 31 gauge x 3/16" use qd 01/16/2017 01/18/2016 ProAir HFA 90 mcg/actuation aerosol inhaler inhale 2 puff by inhalation route every 4 - 6 hours as needed 01/16/2017 03/19/2016 tamsulosin 0.4 mg capsule take 1 capsule by oral route every day 1/ 2 hour following dinner 03/18/2017 01/22/2016 Tanzeum 30 mg/0.5 mL subcutaneous pen injector inject 0.5 milliliter by subcutaneous route every week (same week day) in the abdomen, thigh, or upper arm rotating injectionsites 01/20/2017 08/14/2016 verapamil ER (SR) 180 mg tablet,extended release take 1 tablet by oral route every day with food 08/13/2017 08/14/2016 Xarelto 10 mg tablet take 1 tablet by oral route every day 2017 PMH History of pulmonary hypertension COPD Asthma Stage III chronic kidney disease Diabetes Primary osteoarthritis the right hip History of congestive heart failure Hyperlipidemia GERD History of major depression History of chronic low back pain History of syncopal/near syncopal episodes Surgical History CABG Bioprosthetic aortic valve Cardiac catheterization February 2015 Hip surgery Family History Heart disease and hypertension Social History 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 Reported 2 packs a day for 18 years) Smoking Status: Former Smoker Living Arrangement: with Family () Exam Vital Signs Vital Sign - Last Date Time Temp Pulse Resp B/P Pulse Ox O2 Delivery O2 Flow Rate FiO2 09/01/16 03:18 37.2 09/01/16 02:52 97 15 129/46 97 Room Air 09/01/16 00:54 2 Intake and Output 08/31/16 08/31/16 09/01/16 Cumulative From/Thru 15:00 23:00 07:00 08/31/16 23:29 - 09/01/16 00:23 Intake Total 1000 ml 1000 ml Balance 1000 ml 1000 ml Intake IV Total 1000 ml 1000 ml Exam General: Elderly male, alert resting in bed in no acute distress HEENT: Normocephalic, atraumatic, sclera anicteric; mucous membranes moist Neck: Supple, non-tender, no lymphadenopathy or thyromegaly appreciated. Cardiovascular: Tachycardic rate, irregular rhythm, murmur indicative of bioprosthetic valve Chest/lungs: Symmetric chest rise, lung sounds somewhat diminished but grossly clear to auscultation; no wheezes appreciated; linear vertical scar noted over sternum, healed Abdomen: Soft, obese, nontender, nondistended, bowel tones present. Extremities: Warm, well perfused, mild edema noted bilateral lower extremities on dorsum of feet with extension to ankle Skin: Scattered ecchymosis of bilateral upper extremities MSK: 5/5 strength 4/4 extremities at shoulder, elbow, hip, knee, ankle Neurologic: Cranial nerves grossly intact, no focal deficits, facial expressions equal and symmetric, speech without slur Psychiatric: Appropriate mood, affect, and responses to questioning; good insight and judgment Lab and Diagnostics Result Diagram: 08/31/16 2421 08/31/16 3152 Assessment & Plan Mr. Delvalle is an extremely pleasant 81-year-old gentleman with a complicated history including atrial fibrillation on Xarelto, insulin using diabetes mellitus type II, hypertension, bovine aortic valve replacement, myocardial infarction status post 3 vessel CABG, and recurrent syncopal episodes, that presented to [facility] 08/31/2016 with another episode of a ground-level fall with near syncope without evidence of head trauma or loss of consciousness, in association with dizziness, lightheadedness, and weakness, but without any chest pain, palpitations, acute vision changes, shortness of breath, or acute pain. Patient was admitted for evaluation for ongoing near syncopal episodes, in addition to potential underlying infection indicated by evidence of sepsis. - Hospital day one Sepsis, acute, present on admission. Under evaluation - On admit: WBC 22.2, P103, R21, lactic acid 3.5 - Unlikely to be respiratory, as patient does not have any evidence of respiratory symptoms; no evidence of GI symptoms; UA no evidence infxn - PCT 0.65 - In ED: Received Zosyn and Flagyl; blood cultures obtained - CXR: No effusions noted, some bilateral opacities noted - CT A/P did not reveal any GI abnormalities, such as perforated viscus, inflammatory changes, or stones - Repeat PCT - Treat underlying causes - Continue Zosyn at this time Metabolic acidosis, likely acute, present on admission. Under evaluation - On admit: AG 22 - Likely secondary to lactic acidosis - Treat underlying causes Ground-level fall secondary to near syncopal episodes without head trauma, acute , present on admission. Under evaluation - Eval TSH, orthostatic BP, gait stability, recurrence AF, iatrogenic/Rx side effects - Tele - Chart review does not indicate any current use of diuretics; patient is uncertain what his bottles are at home - PT eval for stability Acute on chronic renal failure, present on admission. Under evaluation - On admit: Cr 2.21 with eGFR 31; baseline appears to be approximately 1.8-1.9 - Continue with hydration at this time - Monitor Elevated troponin of undetermined significance, acute, present on admission. Under evaluation - On admit: 0.170; previous discharge troponin 0.010, with increases noted earlier in same admission of 0.163 - Likely exacerbated by chronic kidney disease - Continue to monitor - EKG in a.m. Elevated total bilirubin, acute, present on admission. Under evaluation - On admit: total bili 2.6; 1.2 on previous discharge - Lipase obtained on admission: 65 - CT did not reveal any etiology for finding; patient denies any abdominal pain or other GI symptoms - Repeat labs Hypomagnesemia, acute, present on admission. Under therapy - On admit: Mg 1.7 - 2g Mg given - Repeat labs Hyponatremia, acute, present on admission. Under evaluation - On admit: Na 127 - Record review indicates patient has been hyponatremic with previous admissions - Continuing with IVF at this time secondary to sepsis; consider DC IVF when LA normalizes - H/o citalopram use, which may be contributing to decreased Na levels; not continued at this time Pulmonary hypertension, chronic. Presumed stable - Evidenced on echo 05/2016 - Resume home medications when reconciliation completed and when appropriate based on orthostatic evaluations/BP monitoring HFpEF, chronic. Presumed stable - Echo 05/2016: [id number], with left ventricular wall thickness moderately increased, mild to moderate tricuspid regurgitation and mild mitral regurgitation, right ventricular systolic function mildly reduced - Resume home medications when verified and appropriate Chronic hypoxemic respiratory failure secondary to COPD with asthma. Presumed stable - Has been on home oxygen therapy since 2015; continuous 1.5 L - Outpt pulmonary: Dr. Luna, last office visit July 2015 - Duonebs and accunebs prn - Continue continuous 1.5L Atrial fibrillation on Xarelto, chronic. Presumed stable - Patient reports h/o unsuccessful cardioversion - Tele - Continue NOAC Diabetes mellitus, insulin using type 2, chronic. Presumed stable - A1c July 2016: 8.6 - Low-dose correctional scale in place at this time - Resume home dose glargine when verified Hypertension, chronic. Presumed stable - Resume home medications when reconciliation completed; and when appropriate based on BP readings and orthostatics in the setting of syncope and sepsis GERD, chronic. Presumed stable - PPI continued Hyperlipidemia, chronic. Presumed stable - Resume home medications when reconciliation completed; statin Coronary artery disease, status post myocardial infarction, chronic. Presumed stable - Resume home medications when reconciliation completed History of aortic valve replacement with porcine valve. Presumed stable - Continue cardiac meds as noted Osteoarthritis, chronic. Presumed stable - Pain rx prn - PRN bowel/fever/nausea/pain - GI: PPI - DVT: Xarelto - Diet: Heart/CC - IVF: NS 100; consider DC when sepsis resolves - Code: FULL CODE Due to severity of presenting symptoms, risk of adverse events, and likely course of care, anticipated length of stay exceeds 2 nights; admitted as inpatient status Pain Evaluation: Adequate Pain Control GI Prophylaxis: Proton Pump Inhibitor VTE Prophylaxis: Sub-Q Heparin (Unfractionated) Resuscitation Status: CPR: Attempt Resuscitation Attending Statement The patient was seen and examined together with house staff on 09/01/2016 and I agree with the history, exam and plan as outlined in the note above. Mikala Reyes DO Sep 01, 2016 04:25 Kelsey Coombs DO Sep 01, 2016 06:27
[2016-09-01] MEDS: 0.9% Sodium Chloride 1,000 ML IV SCH ×2 (06:05→16:45)
--- NOTE | 2016-09-01 07:26 | NUR ---
Admit Note Pt admitted to room 2022 around 5. Pt denied any pain on admission, A&Ox3, KABA though weak, able to help turn self well for assessment. Pt oriented to room, IV fluids started per orders. Vitals stable, pt on 2L NC, denied SOB. Tele [id number] w/ IVCD per monitoring analyst.
[2016-09-01] MEDS ORDERED: POTA10TA7 PO (07:31)
[2016-09-01] MEDS ORDERED: FUR20 PO (07:33)
[2016-09-01] MEDS ORDERED: OMEP20CA11 PO (07:43)
[2016-09-01] MEDS ORDERED: Heparin 5,000 Unit/mL Inj SUBQ SCH (08:30)
--- NOTE | 2016-09-01 08:47 | DRSVH ---
PROCEDURE: CT ABDOMEN AND PELVIS WITHOUT CONTRAST ([id number]) INDICATIONS: fever, elevated bili TECHNIQUE: Noncontrast 5 mm thick sections acquired from the diaphragms to the symphysis. 5 mm coronal and sagi ttal reformats were then performed. For radiation dose reduction, the following was used: automated exposure control, adjustment of mA and/or kV according to patient size. COMPARISON: [facility], CT, CT CHEST WO CON, 06/14/2015, 10:55. FINDINGS: Image quality: There is metallic streak artifact from patient's left hip prosthesis.. ABDOMEN: Lung bases: There is a small 3 mm bony nodule in the left lingula on series 3 image 2 which appears unchanged from the prior study. Mild dependent atelectasis is demonstrated bilaterally. Heart size is normal. There is coronary arterial vascular calcification. A prosthetic aortic valve is noted. There is a small hiatal hernia. Solid organs: Liver and spleen are normal in size. Gallbladder demonstrates no calcified gallstones or wall thickening. No intra-or extrahepatic biliary ductal dilatation. Pancreas is normal in conto urs. No adrenal nodules. The kidneys demonstrate no hydronephrosis. There is mild nonspecific stefano nephric stranding noted bilaterally which maybe chronic. Peritoneum and bowel: Unenhanced bowel loops demonstrate normal wall thickness and caliber. The cheyanne endix is normal in appearance. No free fluid or air. Nodes and vessels: No retroperitoneal or mesenteric adenopathy by size criteria. Aorta and inferior vena cava are normal in caliber. Miscellaneous: No ventral hernias. PELVIS: Genitourinary: Bladder wall thickness is normal. Miscellaneous: No inguinal hernias or adenopathy. Bones: No suspicious bony lesions. No vertebral body compression fractures. IMPRESSION: 1. No calcified gallstones or biliary ductal dilatation. No CT evidence of cholecystitis. 2. No evidence of appendicitis. Dictated by: Lavell Burden M.D. on 09/01/2016 at 8:35 Approved by: Lavell Burden M.D. on 09/01/2016 at 8:39
[2016-09-01] MEDS: Insulin LISPRO 300 Unit/3 mL Inj SUBQ SCH ×4 (09:10→21:53)
[2016-09-01] MEDS: Pantoprazole 20 mg ER24 Tablet PO SCH (09:10)
[2016-09-01 09:19] LABS: BASOPHILS % (AUTO) 0.1 % (0-3); EOSINOPHILS % (AUTO) 0.1 % (0-5); MONOCYTES % (AUTO) 9.1 % (4-12); Mean Corpuscular Hemoglobin 29.7 pg (27.0-35.0); Mean Corpuscular Volume 88.7 fL (81-100); NEUTROPHILS % (AUTO) 87.2 % (40-74); Platelet Count 176 bil/L (150-400)
[2016-09-01 10:37] LABS: Magnesium 2.6 mg/dL (1.6-2.6); Phosphorus 4.2 mg/dL (2.5-4.9)
[2016-09-01 10:43] LABS: TROPONIN T 0.201 ug/L (0.0-0.011)
[2016-09-01] MEDS ORDERED: Piperacillin-Tazo 3.375 Gm Inj 3.375 GM in Dextrose 5% Minibag Plus 50 ML IV SCH (11:00)
--- NOTE | 2016-09-01 12:02 | DRSVH ---
PROCEDURE: X-RAY CHEST ONE VIEW, PORTABLE ([id number]) INDICATIONS: SOB TECHNIQUE: One view of the chest was acquired. COMPARISON: [facility], CR, XR CHEST 2VW, 08/05/2016, 22:26. [facility], CR, XR CHEST 1VW (PORTABLE), 07/19/2016, 5:49. FINDINGS: Surgical changes and devices: Post surgical changes are redemonstrated in the mediastinum. Lungs and pleura: No pleural effusions or pneumothorax. Lungs are clear. There is elevation of the right hemidiaphragm redemonstrated. Mediastinum: Mediastinal contours appear normal. Heart size is normal. Bones and chest wall: No suspicious bony lesions. Overlying soft tissues appear unremarkable. IMPRESSION: 1. No acute cardiopulmonary disease. Dictated by: Lavell Burden M.D. on 09/01/2016 at 11:54 Approved by: Lavell Burden M.D. on 09/01/2016 at 11:55
[2016-09-01] MEDS ORDERED: CITA40TA13 PO (14:42)
[2016-09-01] MEDS ORDERED: FURO40TA4 PO ×2 (14:43)
--- NOTE | 2016-09-01 14:44 | PCM.PNMED ---
Subjective Date of Service Sep 01, 2016 Subjective Patient seems to be improving. He denies chest pain, shortness breath, nausea, vomiting, or other signs and symptoms of infection. Patient does have rising troponin level which is being closely monitored but is asymptomatic. Patient was on Xarelto and this was switched to Eliquis due to better renal tolerance Exam Vital Signs Vital Sign - Last Date Time Temp Pulse Resp B/P Pulse Ox O2 Delivery O2 Flow Rate FiO2 09/01/16 12:34 36.6 90 17 105/67 96 Nasal Cannula 2.00 Intake and Output 08/31/16 08/31/16 09/01/16 Cumulative From/Thru 15:00 23:00 07:00 08/31/16 23:29 - 09/01/16 06:29 Intake Total 1000 ml 1000 ml Output Total 175 ml 175 ml Balance 825 ml 825 ml Intake Oral 0 ml 0 ml IV Total 1000 ml 1000 ml Output Urine Total 175 ml 175 ml Exam General: Elderly male, alert resting in bed in no acute distress HEENT: Normocephalic, atraumatic, sclera anicteric; mucous membranes moist Neck: Supple, non-tender, no lymphadenopathy or thyromegaly appreciated. Cardiovascular: Tachycardic rate, irregular rhythm, murmur indicative of bioprosthetic valve Chest/lungs: Symmetric chest rise, lung sounds somewhat diminished but grossly clear to auscultation; no wheezes appreciated; linear vertical scar noted over sternum, healed Abdomen: Soft, obese, nontender, nondistended, bowel tones present. Extremities: Warm, well perfused, mild edema noted bilateral lower extremities on dorsum of feet with extension to ankle Skin: Scattered ecchymosis of bilateral upper extremities MSK: 5/5 strength 4/4 extremities at shoulder, elbow, hip, knee, ankle Neurologic: Cranial nerves grossly intact, no focal deficits, facial expressions equal and symmetric, speech without slur Psychiatric: Appropriate mood, affect, and responses to questioning; good insight and judgment IVs and Medications Medications Reviewed: Medications were reviewed in detail Lab and Diagnostics Result Diagram: 09/01/1690409/01/16904 Assessment & Plan Mr. 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 Patient was admitted for evaluation for ongoing near syncopal episodes, in addition to potential underlying infection indicated by evidence of sepsis. - Hospital day one Severe Sepsis, acute, present on admission. Under evaluation - On admit: WBC 22.2, P103, R21, lactic acid 3.5 - Unlikely to be respiratory, as patient does not have any evidence of respiratory symptoms; no evidence of GI symptoms; UA no evidence infxn - In ED: Received Zosyn and Flagyl; blood cultures obtained - CXR: No effusions noted, some bilateral opacities noted - Continue Zosyn at this time - Check CBC and progesterone tomorrow - MRSA screen Elevated troponin of undetermined significance in setting of CAD and hx of [place], acute, present on admission. Under evaluation - On admit: 0.170; previous discharge troponin 0.010, with increases noted earlier in same admission of 0.163; concern for NSTEMI vs CHF - Continue to trend; awaiting third trop; 2nd trop increased - EKG in a.m. - Tele - NO CP reported Acute on chronic renal failure, present on admission. improving - On admit: Cr 2.21 with eGFR 31; baseline appears to be approximately 1.8-1.9; likely pre-renal - Continue with hydration at this time Atrial fibrillation on Xarelto, chronic. Presumed stable - Patient reports h/o unsuccessful cardioversion - Tele - Changed Xarelto to Eliquis due to poor renal function Metabolic acidosis, likely acute, present on admission. resolving - On admit: AG 22 with elevated lactate - Likely secondary to lactic acidosis and A/CKD - NS bolus and maintenance HFpEF, chronic. Presumed stable - Echo 05/2016: [id number], with left ventricular wall thickness moderately increased, mild to moderate tricuspid regurgitation and mild mitral regurgitation, right ventricular systolic function mildly reduced - Resume home medications when verified and appropriate - Still not verified this afternoon Ground-level fall secondary to near syncopal episodes without head trauma, acute , present on admission. stable - Eval TSH, orthostatic BP, gait stability, recurrence AF, iatrogenic/Rx side effects - Chart review does not indicate any current use of diuretics; patient is uncertain what his bottles are at home - PT eval for stability Elevated total bilirubin, acute, present on admission. resolved - On admit: total bili 2.6; 1.2 on previous discharge - Lipase obtained on admission: 65 - CT did not reveal any etiology for finding; patient denies any abdominal pain or other GI symptoms - Repeat labs Hypomagnesemia, acute, present on admission. resolved - On admit: Mg 1.7 - 2g Mg given - Repeat labs Hyponatremia, acute, present on admission. resolving - On admit: Na 127 - Record review indicates patient has been hyponatremic with previous admissions - Continuing with IVF at this time secondary to sepsis; consider DC IVF when LA normalizes - H/o citalopram use, which may be contributing to decreased Na levels; not continued at this time Pulmonary hypertension, chronic. 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 Presumed stable - Has been on home oxygen therapy since 2015; continuous 1.5 L - Outpt pulmonary: Dr. Luna, last office visit July 2015 - Duonebs and accunebs prn - Continue continuous 1.5L Diabetes mellitus, insulin using type 2, chronic. Presumed stable - A1c July 2016: 8.6 - Low-dose correctional scale in place at this time - Decrease home dose of lantus from 20units to 10units as patient's states that she has to wake the patient up at 0300 in the AM to give him an ensure because he will become hypoglycemic. - Morning BG was within desired limits of 140-180 Hypertension, chronic. Presumed stable - Resume home medications when reconciliation completed; and when appropriate based on BP readings and orthostatics in the setting of syncope and sepsis GERD, chronic. Presumed stable - PPI continued Hyperlipidemia, chronic. Presumed stable - Resume home medications when reconciliation completed; statin History of aortic valve replacement with porcine valve. Presumed stable - Continue cardiac meds as noted Osteoarthritis, chronic. Presumed stable - Pain rx prn Status: Likely two + days before discharge GI Prophylaxis: Proton Pump Inhibitor VTE Prophylaxis: Sub-Q Heparin (Unfractionated) VTE Mechanical Devices: Intermittant Pneumatic CD Resuscitation Status: CPR: Attempt Resuscitation Attending Statement The patient was seen and examined together with Dr. Alonso on 09/01/16 and I have added additional information to the note above. Jasbir Alonso DO Sep 01, 2016 14:44 Mariely Wilson DO Sep 01, 2016 17:14
--- NOTE | 2016-09-01 14:45 | NUR ---
Evaluation completed. Please go to "Notes" then click on "Assessments and Notes" (bottom left corner of screen). Then select appropriate discipline tab on top of screen.
[2016-09-01] MEDS ORDERED: METO10TA7 PO (14:46)
[2016-09-01] MEDS ORDERED: Albuterol HFA 60 Puff 8 Gm Inhaler INHALATION PRN (15:25)
[2016-09-01] MEDS ORDERED: _HYDROcodone/APAP 5-325 mg Tablet PO PRN (15:25)
[2016-09-01] MEDS ORDERED: HYDROcodone-APAP 5-325 mg Tablet PO PRN (15:55)
--- NOTE | 2016-09-01 18:16 | NUR ---
Bacteremia Addendum: 09/01/16 at 1820 by CHERI POTTER RN Positive blood culture 4 bottle of positive blood culture, cocci, resembling strep -- Dr. Wilson was notified. No change in current antibiotic IV. Med Rec was done by pharmacist. Dr. Wilson aware.
[2016-09-01] MEDS: Fluticasone 100 mCg Inhaler INHALATION SCH (21:48)
[2016-09-01] MEDS: Insulin GLARgine 100 Unit/mL Syringe SUBQ SCH (21:59)
[2016-09-01] MEDS: Piperacillin-Tazo 3.375 Gm Inj 3.375 GM in Dextrose 5% Minibag Plus 50 ML IV SCH (21:59)
[2016-09-02] VITALS (8 sets, daily range): BP systolic 102–140; BP diastolic 61–80; PULSE 87–99; RESP 18–22; O2SAT 94–100
[2016-09-02] MEDS: 0.9% Sodium Chloride 1,000 ML IV SCH ×2 (02:25→14:41)
[2016-09-02 03:22] LABS: BASOPHILS % (AUTO) 0.2 % (0-3); EOSINOPHILS % (AUTO) 0.4 % (0-5); MONOCYTES % (AUTO) 14.1 % (4-12); Mean Corpuscular Hemoglobin 29.7 pg (27.0-35.0); Mean Corpuscular Volume 90.9 fL (81-100); NEUTROPHILS % (AUTO) 78.9 % (40-74); Platelet Count 136 bil/L (150-400)
[2016-09-02 03:46] LABS: INR 1.07 ratio
[2016-09-02 05:27] LABS: Magnesium 2.1 mg/dL (1.6-2.6); Phosphorus 3.3 mg/dL (2.5-4.9)
[2016-09-02] MEDS: Pantoprazole 20 mg ER24 Tablet PO SCH (07:30)
[2016-09-02] MEDS: Insulin LISPRO 300 Unit/3 mL Inj SUBQ SCH ×4 (08:00→20:27)
[2016-09-02] MEDS: Piperacillin-Tazo 3.375 Gm Inj 3.375 GM in Dextrose 5% Minibag Plus 50 ML IV SCH (08:21)
[2016-09-02] MEDS: Fluticasone 100 mCg Inhaler INHALATION SCH ×2 (08:25→20:17)
[2016-09-02] MEDS ORDERED: DAPTOmycin Inj 750 MG in 0.9% Sodium Chloride 50 ML IV SCH (09:00)
--- NOTE | 2016-09-02 16:35 | NUR ---
P: Resp, Hemodynamics, Nutrition, Neuro I,E: Pt is a little dyspneic on exertion, but sats are low 90's on room air, and pt does not complain of shortness of breath. Pt's VS have been stable, and BP when sitting today was 97 sys, and on standing only dropped to 90 sys, without any symptoms. Pt then walked with PT down the hallway and back and BP increased to 140 sys. Pt also walked again with stand by assist this afternoon and he did well, without any symptoms. Pt has not eaten much today, and his admits he can be a "picky" eater. Ensure has been ordered with his meals to encourage nutrition. Pt is a little forgetful at times, and he is also hard of hearing which can be mistaken for confusion. He is A and O X 3, coop and pleasant. His has been up to see him today and was able to speak with MD lee plan of care.
--- NOTE | 2016-09-02 16:46 | DRSVH ---
[facility] [address] [place] [address] Echocardiogram Report Name: KEVIN BOONE Study Date: 09/02/2016 Height: 67 in Hospital Exam Location: [facility] Weight: 199 lb Gender: Male BSA: 2.0 m2 : 1935 Age: 81 yrs BP: 105/67 mmHg Reason For Study: CHF Ordering Physician: HOSPITALIST SVHPerformed By: Juan Castillo Referring Physician: GIL LANGSTON Interpretation Summary There is moderate concentric left ventricular hypertrophy. The ejection fraction is estimated to be 55-60%. There is mild to moderate mitral regurgitation. There is moderate mitral annular calcification. There is a bioprosthetic aortic valve. The prosthetic aortic valve is well-seated. The peak aortic velocity is 1.8 m/sec. There is moderate tricuspid regurgitation. The right ventricular systolic pressure is estimated at 41 mmHg assuming a right atrial pressure of 3 mm Hg. Iincreased echogenicity of the myocardium id noted, this may be from LVH, also consider infiltrative diseases. Procedure: A two-dimensional transthoracic echocardiogram with color flow and Doppler was performed. The study quality was technically excellent. Comparison is made with the echocardiogram of 06/20/16. The patient was in 73- 105 during the exam. Left Ventricle: The left ventricle is normal in size. There is moderate concentric left ventricular hypertrophy. Proximal septal thickening is noted. The ejection fraction is estimated to be 55-60%. Left ventricular wall motion is normal. Right Ventricle: The right ventricle is normal size. Right ventricular systolic function is mildly reduced. Atria: The left atrium is moderately dilated. The right atrium is normal in size. There is no Doppler evidence for an interatrial shunt. Mitral Valve: The mitral valve leaflets appear mildly thickened, but open well. There is moderate mitral annular calcification. There is no mitral valve stenosis. There is mild to moderate mitral regurgitation. Aortic Valve: There is a bioprosthetic aortic valve. The prosthetic aortic valve appears to open well. The prosthetic aortic valve is well-seated. The peak aortic velocity is 1.8 m/sec. The peak aortic velocity on the previous exam was 2.0 m/sec. No aortic regurgitation is present. Tricuspid Valve: The tricuspid valve leaflets are thickened and/or calcified, but open well. There is moderate tricuspid regurgitation. The right ventricular systolic pressure is estimated at 41 mmHg assuming a right atrial pressure of 3 mm Hg. Pulmonic Valve: There is borderline thickening of the pulmonic valve. Pulmonic valve opens well. There is mild pulmonic regurgitation. Pericardium/ Pleura There is no pericardial effusion. There is no pleural effusion. MMode/2D Measurements & Calculations LVIDd: 4.2 cm RA long axis LVOT diam LVIDs: 3.0 cm LA A2 area: 21.8 cm : 1.8 cm FS: 28.8 % LA A4 area: 27.4 cm RA area EPSS: 0.53 cm LA length (vol): 5.7 cm IVSd: 1.7 cm LA vol: 89.0 ml : 17.9 cm LVPWd: 1.3 cm RA vol: 55.8 ml LA vol index: 44.1 ml/m RA IVC diam: 1.8 cm : 27.7 mm2 LV hernandez. diameter/BSA LV sys. diameter/BSA RVD1 (basal) RVD2 (mid) (cm/m^2): 2.1 (cm/m^2): 1.5 : 3.0 cm TAPSE: 0.80 cm Doppler Measurements & Calculations Ao V2 max: 182.1 cm/secMV E max aaron MV E/A: 1.6 TR max aaron Ao max P.3 mmHg : 131.9 cm/sec Med Peak E' Aaron : 345.1 cm/sec Ao mean P.1 mmHg MV A max aaron TR max PG LVOT Max Aaron : 83.8 cm/sec E/E' med: 32.0 : 37.7 mmHg : 96.4 cm/sec MVA(VTI): 1.2 cm2 Lat Peak E' Aaron PA V2 max ADAM(I,D): 1.2 cm : 108.8 cm/sec sev ratio: 0.48 E/E' lat: 31.3 PA mean PG E/e' average PA Accel Time MV A dur : 0.09 sec : 0.10 sec MV V2 mean: 83.4 cm/secAo V2 mean LV V1 max PG PA V2 mean MV mean P.2 mmHg : 121.5 cm/sec : 65.9 cm/sec MV V2 VTI: 27.7 cm Ao V2 VTI: 27.4 cmLV V1 VTI MV dec time: 0.19 sec ADAM(V,D): 1.3 cm2 : 13.3 cm ADAM indexed to BSA (cm^2/m^2): 0.61 Electronically signed by: David Hamilton on Reading Physician:09/02/2016 04:45 PM
[2016-09-02] MEDS ORDERED: Furosemide 10 mg/mL 2 mL Inj IVPUSH SCH (16:50)
--- NOTE | 2016-09-02 16:53 | PCM.PNMED ---
Subjective Date of Service Sep 02, 2016 Subjective Patient is doing remarkably well today. 2 cultures indicating GPC and the blood however patient has denied fevers, chills, nausea, vomiting, or other systemic symptoms. He is up walking with a walker in the pelletier. No additional complaints. Exam Vital Signs Vital Sign - Last Date Time Temp Pulse Resp B/P Pulse Ox O2 Delivery O2 Flow Rate FiO2 09/02/16 16:32 Supplement Oxygen 09/02/16 16:11 36.7 87 22 102/61 97 09/02/16 11:53 1.00 Intake and Output 09/01/16 09/01/16 09/02/16 Cumulative From/Thru 15:00 23:00 07:00 08/31/16 23:29 - 09/02/16 06:56 Intake Total 1336 ml 1375 ml 3711 ml Output Total 725 ml 550 ml 1450 ml Balance 611 ml 825 ml 2261 ml Intake Oral 300 ml 100 ml 400 ml IV Total 1036 ml 1275 ml 3311 ml Output Urine Total 725 ml 550 ml 1450 ml # Bowel Movements 0 0 Exam General: Elderly male, alert resting in bed in no acute distress Cardiovascular: Regular rate and rhythm, murmur heard Chest/lungs: CTA bilaterally with mild wheezing Abdomen: Soft, obese, nontender, nondistended, bowel tones present. Extremities: Mild edema IVs and Medications Medications Reviewed: Medications were reviewed in detail Lab and Diagnostics Result Diagram: 09/02/1631409/02/16314 Assessment & Plan Mr. 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 Patient was admitted for evaluation for ongoing near syncopal episodes, in addition to potential underlying infection indicated by evidence of sepsis. - Hospital day one Severe Sepsis secondary to enterococcus bacteremia, acute, present on admission. Under evaluation - On admit: WBC 22.2, P103, R21, lactic acid 3.5 - Unlikely to be respiratory, as patient does not have any evidence of respiratory symptoms; no evidence of GI symptoms; UA no evidence infxn - In ED: Received Zosyn and Flagyl; blood cultures obtained - CXR: No effusions noted, some bilateral opacities noted - ID consulted and changing abx to Daptomycin - MRSA screen negative - Echo pending today; if negative SINDHU will be ordered Elevated troponin of undetermined significance in setting of CAD and hx of [place], acute, present on admission. Under evaluation - On admit: 0.170; previous discharge troponin 0.010, with increases noted earlier in same admission of 0.163; concern for NSTEMI vs CHF - Continue to trend; awaiting third trop; 2nd trop increased - Troponin decreasing - Tele - NO CP reported Acute on chronic renal failure, present on admission. improving - On admit: Cr 2.21 with eGFR 31; baseline appears to be approximately 1.8-1.9; likely pre-renal - Continue with hydration at this time Atrial fibrillation on Xarelto, chronic. Presumed stable - Patient reports h/o unsuccessful cardioversion - Tele - Changed Xarelto to Eliquis due to poor renal function Metabolic acidosis, likely acute, present on admission. resolved - On admit: AG 22 with elevated lactate - Likely secondary to lactic acidosis and A/CKD - Patient received bolus and maintenance fluids; not discontinued HFpEF, chronic. Presumed stable - Echo 05/2016: [id number], with left ventricular wall thickness moderately increased - Resume home medications when verified and appropriate - Restart lasix today Ground-level fall secondary to near syncopal episodes without head trauma, acute , present on admission. stable - Eval TSH, orthostatic BP, gait stability, recurrence AF, iatrogenic/Rx side effects - Chart review does not indicate any current use of diuretics; patient is uncertain what his bottles are at home - Pt walking around the halls with a walker. Doing great Elevated total bilirubin, acute, present on admission. resolved - On admit: total bili 2.6; 1.2 on previous discharge - Lipase obtained on admission: 65 - CT did not reveal any etiology for finding; patient denies any abdominal pain or other GI symptoms - Repeat labs Hypomagnesemia, acute, present on admission. resolved - On admit: Mg 1.7 - 2g Mg given - Repeat labs Hyponatremia, acute, present on admission. resolving - On admit: Na 127 - Record review indicates patient has been hyponatremic with previous admissions - Continuing with IVF at this time secondary to sepsis; consider DC IVF when LA normalizes - H/o citalopram use, which may be contributing to decreased Na levels; not continued at this time Pulmonary hypertension, chronic. 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 Presumed stable - Has been on home oxygen therapy since 2015; continuous 1.5 L - Outpt pulmonary: Dr. Luna, last office visit July 2015 - Duonebs and accunebs prn - Continue continuous 1.5L Diabetes mellitus, insulin using type 2, chronic. Presumed stable - A1c July 2016: 8.6 - Low-dose correctional scale in place at this time - Decrease home dose of lantus from 20units to 10units as patient's states that she has to wake the patient up at 0300 in the AM to give him an ensure because he will become hypoglycemic. - Morning BG was within desired limits of 140-180 Hypertension, chronic. Presumed stable - Resume home medications when reconciliation completed; and when appropriate based on BP readings and orthostatics in the setting of syncope and sepsis GERD, chronic. Presumed stable - PPI continued Hyperlipidemia, chronic. Presumed stable - Resume home medications when reconciliation completed; statin History of aortic valve replacement with porcine valve. Presumed stable - Continue cardiac meds as noted Osteoarthritis, chronic. Presumed stable - Pain rx prn Status: Patient will likely require 2-3 days due to severity and possible complications of his infection. Pain Evaluation: Adequate Pain Control GI Prophylaxis: Proton Pump Inhibitor VTE Prophylaxis: Sub-Q Heparin (Unfractionated) VTE Mechanical Devices: Intermittant Pneumatic CD Resuscitation Status: CPR: Attempt Resuscitation Attending Statement The patient was seen and examined together with Dr. Alonso on 09/02/2016 and I agree with the history, exam and plan as outlined in the note above. . Jasbir Alonso DO Sep 02, 2016 16:53 Conrado Brandon MD Sep 03, 2016 07:46
--- NOTE | 2016-09-02 19:35 | CONS ---
[address] [address] CONSULTATION REPORT PATIENT: KEVIN BOONE : 1935 MR#: [id number] ADMIT: 09/01/2016 JOB ID: [id number] DATE OF SERVICE: 09/02/[address] Stoddard for this consult. 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 He lives in [facility] and reports he was in his usual state of health until about three months ago when he started to have periods of recurrent syncope which led to two prior admissions. Most recently, he was admitted late on August 31 through the emergency department for continued and recurrent syncopal episodes. The patient states these syncopal episodes tend to occur when he has an abrupt change in position from lying to standing and he simply loses consciousness. He tells us that these are not associated with any seizure-like activity nor are they associated with chest pain, palpitations or any other obvious precipitance of change position. At no time does he report any fevers, chills, sweats, or other infectious symptomatology. During the course of this admission, which started in the ED late on August 31 and through his formal admission yesterday, September 01, he has been feeling relatively well and has continued to not have fevers, chills or sweats. He reports that seven years ago, he had an aortic valve replacement and a three-way bypass which was apparently uncomplicated. He has a bovine valve. Recently, he had followup with his overedge machine operator which included an echocardiogram and was said to be basically normal. ID was consulted because of blood cultures which are now positive for Enterococcus and a question of possible prosthetic valve endocarditis. PAST MEDICAL HISTORY: 1. Organic heart disease; a. Atrial fib. b. Coronary artery disease status post three-vessel bypass. c. Aortic stenosis status post bovine valve replacement seven years ago. 2. Diabetes mellitus. 3. Hypertension. 4. COPD. 5. Pulmonary hypertension. 6. Chronic renal insufficiency. 7. Diabetes. 8. Arthritis especially involving the right hip. 9. Hyperlipidemia. 10. History of depression. 11. Chronic back pain. SOCIAL HISTORY: The patient is an ex-smoker, having quit 20 years ago. He was a substantial alcohol drinker in the past as well but has quit. 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 He lives in [place], [place]. FAMILY HISTORY: Negative for tuberculosis and 1st or second-degree relatives. REVIEW OF SYSTEMS: Was done. The patient has no significant headache or visual change. No sore throat. No problems with his teeth in her new or acute. No stiff neck. No significant cough or shortness of breath. No substernal chest pain. He does have periods of syncope which have led to these three admissions in the last three or four months. No nausea, vomiting, diarrhea. No dysuria specifically and no change in his baseline nocturia. No particular swelling in the lower extremities. No new skin rash. Remainder of the review of systems is negative. PHYSICAL EXAMINATION: Reveals an afebrile avuncular gentleman sitting up in a chair, temperature is 37.5, pulse 96, respiratory rate 18, blood pressure 105/67. He is saturating very well on 1 L and looks completely comfortable. No evidence of head trauma. No temporal wasting. Eyes without conjunctivitis. No conjunctival hemorrhages are seen. No palatal petechia in the oral cavity. No evidence of pharyngitis. No stiff neck. No cervical adenopathy. Lungs are relatively clear posteriorly. Cardiac tones surprisingly benign also. He has an irregular rate and rhythm, but without any murmurs or rubs. Well-healed sternotomy scar is present. The abdomen is soft and nontender without organomegaly. No splenomegaly is appreciated. The hands are without any evidence of peripheral stigmata of endocarditis such as Osler's, Janeway lesions or splinter hemorrhages. The patient does not have a Brennan catheter. There is no suprapubic tenderness or fullness. His extremities are without edema though there are some so-called senile purpura or ecchymosis present on the extremities. Peripheral pulses are intact. The patient is neurologically intact and able to ambulate, and is now up sitting in a chair. Remainder of the physical unremarkable. LABORATORIES: Include white blood count was 22,000 on admission barely 36 hours ago. His white count is already down by half to 10,000. Diff did have a major left shift over 90% segs when he came in, still 79% segs. His creatinine is 1.77, down from 2.2 when he came in, so much improved. Liver function tests are normal. Troponins were elevated at about 0.2. Procalcitonin 0.6. Urinalysis had no white cells but 11-50 red cells, interestingly. Blood cultures 2/2 bottles turned positive in about 15 hours for Enterococcus, and we await the final ID on these organisms as well as their susceptibility. A MRSA screen is negative. IMAGING: Includes a chest radiograph which is clean, no infiltrates are seen. An abdominopelvic CT that was done showed no calcified gallstones and no evidence of cholecystitis. No evidence of appendicitis. The base of the lungs are notable for a small nodule in the left lingula which is similar to previous. There is also a little bit of atelectasis and a prosthetic or aortic valve is seen. IMPRESSION: This is a patient with very high-grade enterococcal bacteremia in the setting of a prosthetic valve. Whether or not he has prosthetic valve endocarditis is unclear, but I am concerned that this could be likely as he does not have evidence of urinary tract infection or any other obvious abdominal source for an intra-abdominal process based on that CT scan. RECOMMENDATIONS: 1. I would discontinue the Zosyn he is receiving. 2. I would start him on daptomycin at high dose at this point. Dapto is probably the single agent, along with perhaps linezolid, that will cover all enterococci though it is by no means a preferred agent. 3. Serial blood cultures have been ordered. 4. A regular echo has been ordered and if that is equivocal, he will need a transesophageal echo. 5. Serial EKGs may also be indicated to look for elongation of the NJ interval. Thank you very much for this very interesting consultation.
[2016-09-02] MEDS: Insulin GLARgine 100 Unit/mL Syringe SUBQ SCH (20:26)
[2016-09-03] VITALS (13 sets, daily range): BP systolic 98–149; BP diastolic 60–77; PULSE 84–114; RESP 18–22; O2SAT 91–96
[2016-09-03] MEDS: 0.9% Sodium Chloride 1,000 ML IV SCH (00:01)
[2016-09-03] MEDS: Albuterol-Ipratropium 3 mL Inhalation Solution NEB PRN ×4 (00:10→20:02)
[2016-09-03 03:56] LABS: BASOPHILS % (AUTO) 0.3 % (0-3); EOSINOPHILS % (AUTO) 0.4 % (0-5); MONOCYTES % (AUTO) 16.5 % (4-12); Mean Corpuscular Volume 91.2 fL (81-100); NEUTROPHILS % (AUTO) 72.8 % (40-74); Platelet Count 155 bil/L (150-400)
--- NOTE | 2016-09-03 06:39 | NUR ---
Respiratory / Tele / Afebrile Pt became SOB with audible wheezing around midnight. RT notified and Pt received Neb Treatment and SOB and wheezing resolved. RA sats 94-97% all night. No c/o chest pain, Tele SR-ST with IVCD and PACs, HR 90s to low 100s. VS stable and afebrile.
[2016-09-03] MEDS: Fluticasone 100 mCg Inhaler INHALATION SCH ×2 (09:08→20:22)
[2016-09-03] MEDS: Pantoprazole 20 mg ER24 Tablet PO SCH (09:08)
--- NOTE | 2016-09-03 09:15 | PROG NOTE ---
[address] [address] PROGRESS NOTE PATIENT: KEVIN BOONE : 1935 MR#: [id number] ADMIT: 09/01/2016 JOB ID: [id number] DATE: 09/03/2016 REASON FOR FOLLOWUP: Enterococcal bacteremia in a patient with prosthetic heart valve. INTERVAL HISTORY: Overnight, the patient reports he has felt quite well. He denies any fevers, chills, or sweats. He is having no chest pain though he does note a little bit of wheezing which he says he gets from time to time. No nausea, vomiting, diarrhea, or skin rash. PHYSICAL EXAMINATION: Reveals an afebrile gentleman, temp 37 degrees this morning. He has been afebrile since admission. Pulse 90-110, respiratory rate 20, blood pressure 101/60, saturating well on room air. The patient is awake, alert, conversational, and making jokes. Eyes without conjunctival hemorrhage. Oral cavity without palatal petechia. Lungs with some decreased breath sounds at the right base and a few rales. Cardiac tones without significant new murmur. Note that though he has a bioprosthetic aortic valve there is almost no murmur heard which is as it was yesterday. The abdomen is soft and nontender. There is no peripheral stigmata of endocarditis. LABORATORIES: Include a white count which has now reached normal 9600. His creatinine is 1.56, which is somewhat better. LFTs are normal. Procalcitonin 0.4. Urinalysis without pyuria. Micro studies include enterococcus faecalis in the blood cultures from the and the . Followup blood cultures just done this morning so of course we have no data. Enterococcus faecalis in the blood turns out to be sensitive to penicillin as well as vancomycin, gent, and linezolid. Echocardiogram was done that showed no notable abnormalities of the prosthetic valve. IMPRESSION: This is an elderly gentleman with multiple medical problems, who presents with high-grade enterococcal bacteremia in the setting of a prosthetic valve whether or not he has prosthetic valve endocarditis is still not resolved. His initial echo was negative, but of course this is not a sensitive study in terms of prosthetic valve endocarditis and we are still left with enterococcal bacteremia without obvious abdominal or genitourinary source, raising the stakes that this actually represents an enterococcal prosthetic valve endocarditis. RECOMMENDATIONS: 1. Will go ahead and discontinue the daptomycin. 2. Will start the patient on ampicillin 2 g IV q.6 and ceftriaxone 2 g IV q.12 for synergistic treatment of the Enterococcus faecalis bacteremia. 3. A SINDHU has been scheduled for tomorrow, September 04. 4. Whether or not the patient receives two, four, or six weeks of IV antibiotics will be contingent on the results of that SINDHU and our followup blood cultures.
[2016-09-03] MEDS: Insulin LISPRO 300 Unit/3 mL Inj SUBQ SCH ×4 (09:19→22:16)
[2016-09-03] MEDS: Ampicillin Inj 2,000 MG in 0.9% Sodium Chloride 100 ML IV SCH ×3 (09:31→20:11)
[2016-09-03] MEDS ORDERED: Glucose 40% Oral Gel 15 Gm Tube PO PRN (09:40)
--- NOTE | 2016-09-03 09:40 | PCM.PNMED ---
Subjective Date of Service Sep 03, 2016 Subjective This is a 81 year old male who presented with recurrent syncopal episodes and subsequently found to have high grade enterococcal bacteremia in setting of bovine aortic valve. Patient is doing well today. Afebrile overnight. He denies any fevers, chills , nausea, vomiting, or other systemic symptoms. He is up walking with a walker in the pelletier. No additional complaints. Exam Vital Signs Vital Sign - Last Date Time Temp Pulse Resp B/P Pulse Ox O2 Delivery O2 Flow Rate FiO2 09/03/16 03:34 37.0 102 20 101/60 94 Room Air 09/02/16 11:53 1.00 Intake and Output 09/02/16 09/02/16 09/03/16 Cumulative From/Thru 15:00 23:00 07:00 08/31/16 23:29 - 09/03/16 06:15 Intake Total 1662 ml 1120 ml 6493 ml Output Total 200 ml 450 ml 2100 ml Balance 1462 ml 670 ml 4393 ml Intake Oral 350 ml 636 ml 1386 ml IV Total 1312 ml 484 ml 5107 ml Output Urine Total 200 ml 450 ml 2100 ml # Voids 3 3 # Bowel Movements 2 2 Exam General: Elderly male, alert resting in bed in no acute distress Cardiovascular: Regular rate and rhythm, murmur heard Chest/lungs: CTA bilaterally. No wheezing. Abdomen: Soft, obese, nontender, nondistended, bowel tones present. Extremities: Mild edema IVs and Medications Medications Reviewed: Medications were reviewed in detail Lab and Diagnostics Result Diagram: 09/03/16 0350 09/03/16 0350 X-Rays, CTs and MRIs CT abdomen and pelvis Assessment & Plan Mr. Delvalle is an extremely pleasant 81-year-old gentleman with a complicated history including atrial fibrillation on Xarelto, insulin using diabetes mellitus type II, hypertension, bovine aortic valve replacement, myocardial infarction status post 3 vessel CABG, and recurrent syncopal episodes, that presented to [facility] 08/31/2016 with another episode of a ground-level fall with near syncope and subsequently found to have high grade enterococcal bacteremia. Severe Sepsis secondary to enterococcus bacteremia, acute, present on admission. Under evaluation - Sepsis criteria: WBC 22.2, P103, R21, lactic acid 3.5 which subsequently corrected. - Blood cultures showed high grade enterococcal bacteremia. - MRSA screen negative - SINDHU ordered and pending. Elevated troponin of undetermined significance in setting of CAD and hx of AK, acute, present on admission. Under evaluation - Concern for NSTEMI vs CHF. No chest pain, shortness of breath noted. - Troponin trending down. - Patient on telemetry. Acute on chronic renal failure, present on admission. improving - Creatinine continues to improve. - Continue NS at 50 ml/hr. Atrial fibrillation on Xarelto, chronic. Presumed stable - Patient reports h/o unsuccessful cardioversion - Changed Xarelto to Eliquis due to poor renal function -On telemetry. Metabolic acidosis, likely acute, present on admission. resolved - On admit: AG 22 with elevated lactate. Anion gap has corrected. - Likely secondary to lactic acidosis and A/CKD - Patient received bolus and maintenance fluids. HFpEF, chronic. Presumed stable - Echo 05/2016: [id number], with left ventricular wall thickness moderately increased - Resume home medications when verified and appropriate - Patient is + 4.5 liters. -Hold on Lasix unless worsening symptoms. Ground-level fall secondary to near syncopal episodes without head trauma, acute , present on admission. stable - Pt walking around the halls with a walker. Doing great -Likely secondary to hypovolemia. Elevated total bilirubin, acute, present on admission. resolved - Bilirubin has trended to normal. - CT did not reveal any etiology for finding; patient denies any abdominal pain or other GI symptoms - Repeat labs Hypomagnesemia, acute, present on admission. resolved - On admit: Mg 1.7 - Continue to monitor. Hyponatremia, acute, present on admission. resolving - Improving. - NS at 50ml/hr. - H/o citalopram use, which may be contributing to decreased Na levels; not continued at this time Pulmonary hypertension, chronic. 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 Presumed stable - Has been on home oxygen therapy since 2016; continuous 1.5 L - Outpt pulmonary: Dr. Luna, last office visit July 2015 - Duonebs and accunebs prn - Continue continuous 1.5L Diabetes mellitus, insulin using type 2, chronic. Presumed stable - A1c July 2016: 8.6 - Will low-dose to medium dose correctional scale. - Increase to Lantus 15 units. - Morning BG was within desired limits of 140-180 Hypertension, chronic. Presumed stable - Resume home medications when reconciliation completed; and when appropriate based on BP readings and orthostatics in the setting of syncope and sepsis GERD, chronic. Presumed stable - PPI continued Hyperlipidemia, chronic. Presumed stable - Resume home medications when reconciliation completed; statin History of aortic valve replacement with porcine valve. Presumed stable - Continue cardiac meds as noted Osteoarthritis, chronic. Presumed stable - Pain rx prn Status: Patient will likely require 2-3 days due to severity and possible complications of his infection. GI Prophylaxis: Proton Pump Inhibitor VTE Prophylaxis: Sub-Q Heparin (Unfractionated) VTE Mechanical Devices: Intermittant Pneumatic CD Resuscitation Status: CPR: Attempt Resuscitation Attending Statement The patient was seen and examined together with Dr. Guo on 09/03/2016 and I agree with the history, exam and plan as outlined in the note above. . Reynaldo Guo DO Sep 03, 2016 09:16 Conrado Brandon MD Sep 04, 2016 18:25
[2016-09-03] MEDS: cefTRIAXone Inj 2,000 MG in Dextrose 5% Minibag Plus 50 ML IV SCH ×2 (10:11→21:01)
[2016-09-03] MEDS ORDERED: Albuterol-Ipratropium 3 mL Inhalation Solution NEB PRN (11:25)
--- NOTE | 2016-09-03 13:08 | NUR ---
PT 2x/week As per nsg, pt has been up and walking in hallways independently. PT treatments decreased to 2x/week for progression of AD. Otherwise, all goals have been met.
--- NOTE | 2016-09-03 16:40 | NUR ---
Social Work: Brief Note D: EMR reviewed. Pt is a 81 y/o male admitted for sepsis. Pt's insurance is Medicare and [employer]. Pt's PCP is Milan Fishman MD. Pt's primary contact is his spouse, Kina Deleon ([phone]). Pt [facility]. Pt has hx at [facility]. Pt uses a FWW. As of 09/03, PT is recommending pt return home with FWW and HH PT 2x/week. Pt lives in a mobile home with his spouse in [place]. Per previous SW notes, patient does not have LTC insurance and patient is not sure of his VA benefits. A: Pt for whom HH 2x/week has been deemed medically necessary. P: SW to follow up with pt regarding PT recommendations for HH. PRABHAKAR Sepulveda
--- NOTE | 2016-09-03 17:19 | NUR ---
A/Ox3, makes needs known. Stand by assist OOB with FWW. Denies pain or discomfort this shift. Sinus tach 90-100 bpm. Occasional PVCs. IVCD. Removed from tele per MD order at 1130. Maintains 94-97% on room air. Occ SOB, resolved w PRN neb tx. Wheezes audible bilat. Continent of bowel and bladder using BR and urinal. Normoactive bowel tones, large bowel movement this shift. Continues on heart healthy/consistent carbohydrate diet. Generalized weakness. SL in R forearm patent, flushes with some resistance. No s/s phlebitis or infiltration noted. NPO at 2400 for SINDHU tomorrow.
[2016-09-03] MEDS: Insulin GLARgine 100 Unit/mL Syringe SUBQ SCH (22:17)
[2016-09-04] VITALS (8 sets, daily range): BP systolic 93–120; BP diastolic 57–78; PULSE 92–104; RESP 18–20; O2SAT 90–97
[2016-09-04] MEDS: Ampicillin Inj 2,000 MG in 0.9% Sodium Chloride 100 ML IV SCH ×4 (02:17→20:13)
[2016-09-04 03:12] LABS: BASOPHILS % (AUTO) 0.3 % (0-3); EOSINOPHILS % (AUTO) 0.6 % (0-5); MONOCYTES % (AUTO) 17.3 % (4-12); Mean Corpuscular Hemoglobin 29.7 pg (27.0-35.0); Mean Corpuscular Volume 90.8 fL (81-100); NEUTROPHILS % (AUTO) 69.7 % (40-74); Platelet Count 162 bil/L (150-400)
--- NOTE | 2016-09-04 04:38 | NUR ---
BLOOD CULTURE Another blood culture reported to grow probably strepMD made aware. No new orders. Patient receiving antibiotics. Vitals stable. BG 267 at HS. Patient denies any pain. Reports some anxiety about SINDHU planned for later this morning. Patient educated and reassured. Will continue to monitor.
[2016-09-04] MEDS: Insulin LISPRO 300 Unit/3 mL Inj SUBQ SCH ×4 (08:00→21:57)
[2016-09-04] MEDS: Albuterol-Ipratropium 3 mL Inhalation Solution NEB PRN (08:02)
[2016-09-04] MEDS: Fluticasone 100 mCg Inhaler INHALATION SCH ×2 (08:28→19:40)
[2016-09-04] MEDS: Pantoprazole 20 mg ER24 Tablet PO SCH (08:28)
[2016-09-04] MEDS: cefTRIAXone Inj 2,000 MG in Dextrose 5% Minibag Plus 50 ML IV SCH ×2 (09:16→19:40)
[2016-09-04] MEDS ORDERED: Furosemide 10 mg/mL 4 mL Inj IVPUSH ONE (10:15)
--- NOTE | 2016-09-04 11:25 | PROG NOTE ---
[address] [address] PROGRESS NOTE PATIENT: KEVIN BOONE : 1935 MR#: [id number] ADMIT: 09/01/2016 JOB ID: [id number] DATE: 09/04/2016 INFECTIOUS DISEASE FOLLOW UP NOTE: REASON FOR FOLLOWUP: High-grade and continuing enterococcal faecalis bacteremia in a patient with a prosthetic valve. INTERVAL HISTORY: Overnight, the patient has been relatively free of fevers, chills or sweats. He has no chest pain and no worsening shortness of breath though he has had some wheezing. PHYSICAL EXAMINATION: Reveals an afebrile gentleman, temperature 36.7, pulse 100, respiratory rate 18, blood pressure 109/64. He is saturating 90% on room air. He is in no acute distress. Eyes without conjunctival hemorrhages. Lungs with scattered wheezing bilaterally. Cardiac tones are irregular but without murmur. Abdomen: No change. No peripheral stigmata of endocarditis on the hands. LABORATORY STUDIES: Include white count 7900, which is normalized from 22,000 on admission. Creatinine is currently 1.61. His LFTs are normal. Micro studies include the multiple positive blood cultures on the that grew Enterococcus faecalis. It was ampicillin sensitive. One of the followup blood cultures done on the is now pop positive for enterococcal appearing organism and we await confirmation. IMPRESSION: We continue to be worried that this patient may have enterococcal prosthetic valve endocarditis. He has no symptoms of urinary tract infection or abdominal infection and a CT scan of the abdomen was in fact normal. His unexplained Enterococcus certainly could be coming from his prosthetic valve and we await the transesophageal echo. RECOMMENDATIONS: 1. Will continue with ampicillin and ceftriaxone for synergistic non nephrotoxic therapy of the bacteremia. 2. We await the SINDHU. 3. This patient will either get two weeks of antibiotics if his SINDHU is completely normal or six weeks of antibiotics for prosthetic valve or endocarditis if it is positive.
--- NOTE | 2016-09-04 12:52 | PCM.PNMED ---
Subjective Date of Service Sep 04, 2016 Subjective This is a 81 year old male who presented with recurrent syncopal episodes and subsequently found to have high grade enterococcal bacteremia in setting of bovine aortic valve. Patient is doing well today. Afebrile overnight. He states he did have a cough that was relieved with inhalers. He denies any fevers, chills, nausea, vomiting, or other systemic symptoms. He is up walking with a walker in the pellet[place]. No additional complaints. Exam Vital Signs Vital Sign - Last Date Time Temp Pulse Resp B/P Pulse Ox O2 Delivery O2 Flow Rate FiO2 09/04/16 12:08 36.4 100 18 109/62 97 Room Air 09/02/16 11:53 1.00 Intake and Output 09/03/16 09/03/16 09/04/16 Cumulative From/Thru 15:00 23:00 07:00 08/31/16 23:29 - 09/04/16 06:44 Intake Total 840 ml 728 ml 8061 ml Output Total 750 ml 475 ml 3325 ml Balance 90 ml 253 ml 4736 ml Intake Oral 840 ml 500 ml 2726 ml IV Total 228 ml 5335 ml Output Urine Total 750 ml 475 ml 3325 ml # Voids 3 # Bowel Movements 1 3 Exam General: Elderly male, alert resting in bed in no acute distress Cardiovascular: Regular rate and rhythm, murmur heard Chest/lungs: CTA bilaterally. No wheezing. Abdomen: Soft, obese, nontender, nondistended, bowel tones present. Extremities: Mild edema IVs and Medications Medications Reviewed: Medications were reviewed in detail Lab and Diagnostics Result Diagram: 09/04/16 0245 09/04/16 0245 X-Rays, CTs and MRIs CT abdomen and pelvis Assessment & Plan Mr. 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 Severe Sepsis secondary to enterococcus bacteremia, acute, present on admission. Under evaluation - Sepsis criteria: WBC 22.2, P103, R21, lactic acid 3.5 which subsequently corrected. - Blood cultures showed high grade enterococcal bacteremia. - MRSA screen negative - SINDHU ordered and pending. -On amp and ceftriaxone. Elevated troponin of undetermined significance in setting of CAD and hx of [place], acute, present on admission. Under evaluation - Concern for NSTEMI vs CHF. No chest pain, shortness of breath noted. - Troponin trending down. - Patient on telemetry. Acute on chronic renal failure, present on admission. improving - Creatinine continues to improve. - NS stopped on 09/03/2016. Atrial fibrillation on Xarelto, chronic. Presumed stable - Patient reports h/o unsuccessful cardioversion - Changed Xarelto to Eliquis due to poor renal function -On telemetry. Metabolic acidosis, likely acute, present on admission. resolved - On admit: AG 22 with elevated lactate. Anion gap has corrected. - Likely secondary to lactic acidosis and A/CKD - Patient received bolus and maintenance fluids. HFpEF, chronic. Presumed stable - Echo 05/2016: EF55-60, with left ventricular wall thickness moderately increased - Resume home medications when verified and appropriate - Patient is + 4.5 liters. -Lasix 40mg IV given. Ground-level fall secondary to near syncopal episodes without head trauma, acute , present on admission. stable - Pt walking around the halls with a walker. Doing great -Likely secondary to hypovolemia. Elevated total bilirubin, acute, present on admission. resolved - Bilirubin has trended to normal. - CT did not reveal any etiology for finding; patient denies any abdominal pain or other GI symptoms - Repeat labs Hypomagnesemia, acute, present on admission. resolved - On admit: Mg 1.7 - Continue to monitor. Hyponatremia, acute, present on admission. resolved: - H/o citalopram use, which may be contributing to decreased Na levels; not continued at this time -Continue to monitor. Pulmonary hypertension, chronic. 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 Presumed stable - Has been on home oxygen therapy since 2016; continuous 1.5 L - Outpt pulmonary: Dr. Luna, last office visit July 2015 - Duonebs and accunebs prn - Continue continuous 1.5L Diabetes mellitus, insulin using type 2, chronic. Presumed stable - A1c July 2016: 8.6 - Medium dose correctional scale. - Lantus 15 units. - Morning BG was within desired limits of 140-180 Hypertension, chronic. Presumed stable - Resume home medications when reconciliation completed; and when appropriate based on BP readings and orthostatics in the setting of syncope and sepsis GERD, chronic. Presumed stable - PPI continued Hyperlipidemia, chronic. Presumed stable - Resume home medications when reconciliation completed; statin History of aortic valve replacement with porcine valve. Presumed stable - Continue cardiac meds as noted Osteoarthritis, chronic. Presumed stable - Pain rx prn Status: Patient will likely require 2-3 days due to severity and possible complications of his infection. Pain Evaluation: Adequate Pain Control GI Prophylaxis: Proton Pump Inhibitor VTE Prophylaxis: Sub-Q Heparin (Unfractionated) VTE Mechanical Devices: Intermittant Pneumatic CD Resuscitation Status: CPR: Attempt Resuscitation Attending Statement The patient was seen and examined together with Dr. Guo on 09/04/2016 and I agree with the history, exam and plan as outlined in the note above. . Reynaldo Guo DO Sep 04, 2016 12:52 Conrado Brandon MD Sep 04, 2016 18:27
--- NOTE | 2016-09-04 13:39 | NUR ---
NUTRITION ASSESSMENT: ASSESS: Pt is an 81yo M admitted for recurrent syncopal episodes and found to have high grade enterococcal bacteremia in setting of bovine aortic valve. He is currently NPO for SINDHU today. Prior to NPO status he was on a heart healthy/consistent carb diet with fair PO intake of 25-50%. PMHX: HTN, COPD, stg 3 CKD, CHF, HLD, GERD LABS: Reviewed. Na 133, Cl 91, Bun 34, position clerk 1.61, Glu 142, Ca 8.3, Alb 3.0 MEDS: Reviewed. GI: BMx1 09/03 SKIN: Miguel 18, no major issues noted CURRENT WTS: 91.8kg, BMI 31.7kg/m2, admit wt 88.9kg, IBW 67.2kg (136%) DIET: NPO for SINDHU EST. NEEDS: BMI Kcals: 1835-2020kcal/day (20-22kcla/kg) Pro: 80-100g/day (1.2-1.5g/kg IBW) NUTRITION DIAGNOSIS: 1.) Inadequate oral intake related to decreased ability to consume sufficient energy as evidenced by current NPO status NUTRITION INTERVENTION: 1.) Recommend advance diet when medically appropriate 2.) Will monitor for PO intake/tolerance once diet advanced. If PO continues to average less than 50%, consider supplements/snacks MONITOR / EVAL: NPO, diet advance, PO tolerance, GI, labs, POC, nutrition status. Will continue to monitor per moderate nutrition risk guidelines
--- NOTE | 2016-09-04 14:01 | NUR ---
Social Work Note: Initial Assessment Data& Assessment: EMR reviewed. SW met with pt at bedside to discuss discharge planning, SW role explained. Los Castañeda is a 81 year old male admitted on 09/01/2016 for sepsis. Pt has Medicare and for Life Supplement. Pt sees Milan Fishman MD for primary care. Pt lives in [place] with his spouse and is independent at baseline with a FWW. Pt does not have LT insurance or VA benefits. Pt has been to Located within [facility] in the past and is currently open with [facility] RN and PT. Pt does not have LTC insurance or VA benefits. Pt has DPOA/AD paperwork completed. PT is currently recommending Home Health. SW received order for home health. Pt would like to resume his [facility] services SW spoke and confirmed plan with Mariely from [facility]. Access provided. Pt having a SINDHU completed today. Pt to transport pt home when medically ready. No other discharge needs identified at this time. Plan: Anticipated discharge home via POV when medically ready with resume [facility] and PT. No other discharge needs identified at this time. SW to continue to follow for further pt needs or MD orders. PRABHAKAR Matute Addendum: 09/04/16 at 1553 by AMADO LARIOS Amended: Links added.
--- NOTE | 2016-09-04 18:20 | NUR ---
No procedure today, pt eating HH/ADA diet this evening. NPO at midnight for SINDHU tomorrow. IV abx infused per MD order, urine output responsive to IV lasix x1. C/O 08/31 headache this AM r/t fall at home, resolved with PRN norco x1. Pleasant, compliant w care, makes needs known.
[2016-09-04] MEDS: Insulin GLARgine 100 Unit/mL Syringe SUBQ SCH (22:23)
[2016-09-05] MEDS: Ampicillin Inj 2,000 MG in 0.9% Sodium Chloride 100 ML IV SCH ×4 (02:35→22:23)
[2016-09-05 04:08] VITALS: BP 114/66; PULSE 107; RESP 20; O2SAT 96
--- NOTE | 2016-09-05 05:40 | NUR ---
Cardiac/Resp Patient up in chair at the beginning of this shift, pleasant and cooperative. Denied chest pain or discomfort this shift, rested in bed and no complaints or needs at this time, requested lab to draw AM labs later this morning so he could get uninterrupted sleep. Uneventful shift, vital signs stable, will continue to monitor. Addendum: 09/05/16 at 0544 by EVERTON SWENSON RN Amended: Links added.
[2016-09-05 07:39] LABS: BASOPHILS % (AUTO) 0.4 % (0-3); EOSINOPHILS % (AUTO) 1.9 % (0-5); Mean Corpuscular Hemoglobin 29.8 pg (27.0-35.0); Mean Corpuscular Volume 90.9 fL (81-100); NEUTROPHILS % (AUTO) 70.3 % (40-74); Platelet Count 229 bil/L (150-400)
[2016-09-05] MEDS: Insulin LISPRO 300 Unit/3 mL Inj SUBQ SCH ×4 (08:00→20:11)
[2016-09-05] MEDS: cefTRIAXone Inj 2,000 MG in Dextrose 5% Minibag Plus 50 ML IV SCH ×2 (08:50→19:48)
[2016-09-05] MEDS: Pantoprazole 20 mg ER24 Tablet PO SCH (08:50)
[2016-09-05] MEDS: Fluticasone 100 mCg Inhaler INHALATION SCH ×2 (08:50→20:12)
--- NOTE | 2016-09-05 08:54 | NUR ---
Respiratory Pt assessed, found supine in bed breathing RA. Sat 97%, HR 103, RR 18, BS clear, tight, diminished in the bases. Pt has intermittent, non-productive cough but finds relief and sputum production with use of accapella. Pt declined Tx at this time, Pt is aware Tx is available at anytime and will call if needed.
--- NOTE | 2016-09-05 10:00 | PROG NOTE ---
[address] [address] PROGRESS NOTE PATIENT: KEVIN BOONE : 1935 MR#: [id number] ADMIT: 09/01/2016 JOB ID: [id number] DATE: 09/05/2016 INFECTIOUS DISEASE FOLLOW UP NOTE: REASON FOR FOLLOWUP: Sustained enterococcal bacteremia in a patient with a bioprosthetic aortic valve. INTERVAL HISTORY: Overnight, the patient states that he feels fine. He has no fevers, no chills. No sweats. No significant headache. No significant shortness of breath. No nausea, no vomiting and no diarrhea. He wonders if he could be discharged in the near future, as does the team caring for him. PHYSICAL EXAMINATION: Reveals an afebrile gentleman, he has been afebrile since admission. Temperature 37.1, pulse 100, respiratory rate 20, blood pressure 114/66. He is saturating well on room air. His mental status is normal. Eyes without notable abnormalities. Lungs clear. Cardiac tones: Regular rate and rhythm without significant murmur. The abdomen is obese and without change. No peripheral stigmata of endocarditis. LABORATORIES: Include a white count which has dropped from 22,000 down to 8000. The differential is essentially normal with a mild monocytosis. Creatinine stable 1.56. LFTs normal. Albumin 3. Urinalysis had hematuria which is consistent with the diagnosis of endocarditis. His blood cultures grew Enterococcus faecalis from August 31. This was susceptible to standard agents including the penicillins. Follow up blood culture from the has turned positive and the micro lab confirms this is once again Enterococcus. IMPRESSION: This is an elderly gentleman who is admitted with a profound leukocytosis and found to have a high-grade enterococcal bacteremia. This bacteremia has persisted for at least two days and we now have positive follow up blood cultures which is very worrisome in terms of the possibility of prosthetic valve endocarditis. At this point, we need two things before we can safely release the patient. The first is to have some sustained negative blood cultures on the negative and the second would be a negative SINDHU of his prosthetic valve. RECOMMENDATIONS: 1. Continue ampicillin and ceftriaxone as was discussed in yesterday's note. 2. Transesophageal echo as soon as possible. 3. Serial blood cultures and two more have been done today. 4. I would not release this patient until we have negative blood cultures for three days or so which would mean Friday at the earliest.
[2016-09-05 10:02] VITALS: BP 109/66; PULSE 100; RESP 14; O2SAT 92
--- NOTE | 2016-09-05 11:28 | PCM.PNMED ---
Subjective Date of Service Sep 05, 2016 Subjective This is a 81 year old male who presented with recurrent syncopal episodes and subsequently found to have high grade enterococcal bacteremia in setting of bovine aortic valve. Patient is doing well today. Afebrile overnight. He denies any fevers, chills , nausea, vomiting, or other systemic symptoms. No additional complaints. Exam Vital Signs Vital Sign - Last Date Time Temp Pulse Resp B/P Pulse Ox O2 Delivery O2 Flow Rate FiO2 09/05/16 10:02 36.4 100 14 109/66 92 Room Air 09/02/16 11:53 1.00 Intake and Output 09/04/16 09/04/16 09/05/16 Cumulative From/Thru 15:00 23:00 07:00 08/31/16 23:29 - 09/05/16 05:32 Intake Total 760 ml 300 ml 9121 ml Output Total 500 ml 350 ml 4175 ml Balance 260 ml -50 ml 4946 ml Intake Oral 760 ml 300 ml 3786 ml IV Total 5335 ml Output Urine Total 500 ml 350 ml 4175 ml # Voids 3 # Bowel Movements 2 5 Exam General: Elderly male, alert resting in bed in no acute distress Cardiovascular: Regular rate and rhythm, murmur heard Chest/lungs: CTA bilaterally. No wheezing. Abdomen: Soft, obese, nontender, nondistended, bowel tones present. Extremities: Mild edema IVs and Medications Medications Reviewed: Medications were reviewed in detail Lab and Diagnostics Result Diagram: 09/05/16 0700 09/05/16 0700 X-Rays, CTs and MRIs CT abdomen and pelvis Assessment & Plan Mr. 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 Severe Sepsis secondary to enterococcus bacteremia, acute, present on admission. Under evaluation - Sepsis criteria: WBC 22.2, P103, R21, lactic acid 3.5 which subsequently corrected. - Blood cultures showed high grade enterococcal bacteremia. - MRSA screen negative - SINDHU ordered and pending. Will need to have SINDHU completed and negative blood cultures before discharge. -On amp and ceftriaxone per ID. Elevated troponin of undetermined significance in setting of CAD and hx of [place], acute, present on admission. Under evaluation - Concern for NSTEMI vs CHF. No chest pain, shortness of breath noted. - Troponin trending down. - Patient on telemetry. Acute on chronic renal failure, present on admission. improving - Creatinine continues to improve. - NS stopped on 09/03/2016. Atrial fibrillation on Xarelto, chronic. Presumed stable - Patient reports h/o unsuccessful cardioversion - Changed Xarelto to Eliquis due to poor renal function -On telemetry. Metabolic acidosis, likely acute, present on admission. resolved - On admit: AG 22 with elevated lactate. Anion gap has corrected. - Likely secondary to lactic acidosis and A/CKD - Patient received bolus and maintenance fluids. HFpEF, chronic. Presumed stable - Echo 05/2016: EF55-60, with left ventricular wall thickness moderately increased - Resume home medications when verified and appropriate - Patient is + 4.5 liters. Ground-level fall secondary to near syncopal episodes without head trauma, acute , present on admission. stable -Likely secondary to hypovolemia. Elevated total bilirubin, acute, present on admission. resolved - Bilirubin has trended to normal. - CT did not reveal any etiology for finding; patient denies any abdominal pain or other GI symptoms - Repeat labs Hypomagnesemia, acute, present on admission. resolved - On admit: Mg 1.7 - Continue to monitor. Hyponatremia, acute, present on admission. resolved: - H/o citalopram use, which may be contributing to decreased Na levels; not continued at this time -Continue to monitor. Pulmonary hypertension, chronic. 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 Presumed stable - Has been on home oxygen therapy since 2016; continuous 1.5 L - Outpt pulmonary: Dr. Luna, last office visit July 2015 - Duonebs and accunebs prn Diabetes mellitus, insulin using type 2, chronic. Presumed stable - A1c July 2016: 8.6 - Medium dose correctional scale. - Lantus 15 units. - Morning BG was within desired limits of 140-180 Hypertension, chronic. Presumed stable - Resume home medications when reconciliation completed; and when appropriate based on BP readings and orthostatics in the setting of syncope and sepsis GERD, chronic. Presumed stable - PPI continued Hyperlipidemia, chronic. Presumed stable - Resume home medications when reconciliation completed; statin History of aortic valve replacement with porcine valve. Presumed stable - Continue cardiac meds as noted Osteoarthritis, chronic. Presumed stable - Pain rx prn Status: Patient will likely require 2-3 days due to severity and possible complications of his infection. GI Prophylaxis: Proton Pump Inhibitor VTE Prophylaxis: Sub-Q Heparin (Unfractionated) VTE Mechanical Devices: Intermittant Pneumatic CD Resuscitation Status: CPR: Attempt Resuscitation Attending Statement The patient was seen and examined together with Dr. Guo on 09/05/2016 and I agree with the history, exam and plan as outlined in the note above. . Reynaldo Guo DO Sep 05, 2016 11:24 Conrado Brandon MD Sep 06, 2016 07:19
--- NOTE | 2016-09-05 14:47 | NUR ---
[facility] Signed @ [id number]
[2016-09-05 16:37] VITALS: BP 115/71; PULSE 96; RESP 18; O2SAT 95
--- NOTE | 2016-09-05 17:51 | NUR ---
Blood sugars WNL this shift. Poor PO intake. Pt was lethargic this shift and slept off and on. Dressing on R forearm reinforced. Verbalized some frustrations about SINDHU scheduling, offered emotional support. Spouse at bedside today.
[2016-09-05] MEDS ORDERED: Potassium Chloride Inj 20 MEQ in Dextrose 5% 250 ML IV ONE (18:20)
[2016-09-05 19:56] VITALS: BP 111/70; PULSE 91; RESP 16; O2SAT 94
[2016-09-05] MEDS: Insulin GLARgine 100 Unit/mL Syringe SUBQ SCH (20:12)
[2016-09-06] MEDS: Ampicillin Inj 2,000 MG in 0.9% Sodium Chloride 100 ML IV SCH ×4 (02:43→19:51)
[2016-09-06 03:13] VITALS: PULSE 91; RESP 18; O2SAT 94
[2016-09-06] MEDS: Albuterol-Ipratropium 3 mL Inhalation Solution NEB PRN (03:13)
[2016-09-06 03:38] LABS: APPEARANCE,URINE CLEAR (CLEAR,HAZY); COLOR,URINE YELLOW (YELLOW); OCCULT BLOOD,URINE NEGATIVE (NEGATIVE); UROBILINOGEN,URINE NORMAL (NORMAL); YEAST,URINE MODERATE (NONE SEEN)
[2016-09-06 03:59] VITALS: BP 100/67; PULSE 88; RESP 16; O2SAT 92
--- NOTE | 2016-09-06 04:34 | NUR ---
Respiratory Due to pitting edema in BLE at HS, pt requested Lasix as per home use of PRN for edema - paged 3 times, no response received. Elevated legs in bed to help alleviate edema. No respiratory s/s of distress at time. In AM, pt audibly wheezy to assessment, with expiratory wheezes heard throughout anterior and posterior lungs - RT paged, nebulizer treatment administered. Pt reports sleeping poorly throughout shift. VSS, no telemetry. Slightly unsteady on feet, SBA for safety. Pt reports dizziness/lightheadedness when OOB.
[2016-09-06] MEDS: Insulin LISPRO 300 Unit/3 mL Inj SUBQ SCH ×4 (08:00→22:00)
[2016-09-06 09:00] VITALS: BP 108/67; PULSE 87; RESP 16; O2SAT 97
[2016-09-06] MEDS: Pantoprazole 20 mg ER24 Tablet PO SCH (09:54)
[2016-09-06] MEDS: Fluticasone 100 mCg Inhaler INHALATION SCH ×2 (09:55→19:51)
[2016-09-06] MEDS: cefTRIAXone Inj 2,000 MG in Dextrose 5% Minibag Plus 50 ML IV SCH ×2 (09:55→19:52)
--- NOTE | 2016-09-06 11:36 | PROG NOTE ---
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 INTERVAL HISTORY: The patient continues to feel relatively well, although he is tired of being in the hospital. He denies fevers, chills, or sweats. He is not having shortness of breath beyond baseline; not having chest pain. No other acute problems are noted. He does note; however, that he has some increase in his lower extremity edema just overnight. PHYSICAL EXAMINATION: Reveals an afebrile gentleman, temperature 36.8, pulse 88, respiratory rate 16, blood pressure 100/67. He is saturating well on room air. He is in no acute distress. Eyes without conjunctival hemorrhages. Hands without evidence of endocarditis. Mental status is clear. Lungs are clear. Cardiac tones irregularly irregular. He does not have any murmur. His abdomen is obese, soft, nontender. He does have 2+ pitting edema in his legs, which is new. LABORATORY STUDIES: Include white count 8500, 14% monocytes. Otherwise, normal hematocrit. Creatinine 1.4. LFTs normal. Procalcitonin 0.18. Micro studies include the positive blood cultures from admission on September 01, with followup also positive on September 03 for an ampicillin-sensitive Enterococcus faecalis. Followup blood cultures on the and today are pending. We do not need any additional blood cultures as long as the ones we have now stay negative. DIAGNOSTIC DATA: Recall that this patient's standard echo showed an ejection fraction of 55%, and of course, did show the prosthetic valve, but without any obvious vegetations. IMPRESSION: This is either a case of an occult enterococcal bacteremia, perhaps arising from a gastrointestinal source, or potentially a case of bioprosthetic valve endocarditis. We have no way to tell the difference in this case until we have a SINDHU. The treatment will either be two weeks of the ampicillin plus ceftriaxone, or six weeks, depending on whether or not the SINDHU shows evidence of endocarditis. At this point, we need to have negative blood cultures for another day or two before we can safely place a PICC line for discharge, and though the patient wants to be discharged in the near future, I am not sure that will be feasible unless we get more data. RECOMMENDATIONS: 1. Will continue with high-dose ampicillin and ceftriaxone as synergistic treatment for the Enterococcus. 2. The duration of therapy will be either two or six weeks, depending on the SINDHU. I would prefer not to discharge the patient until we have the SINDHU to know what we are doing and how long we are doing it. 3. If blood cultures are negative tomorrow, and the patient is ready for discharge on the basis of whatever we find with the SINDHU, then he could reasonably have a PICC line and be discharged on Friday with home IV antibiotics. 4. More likely, I suspect this will be a Friday discharge, as we can pull this together and perhaps allow his blood cultures to mature another day or two before we place a PICC line, perhaps on Friday, and then prepare him for discharge Friday. 5. I can be reached by telephone this weekend if there is need to discuss this case in terms of PICC line placement and/or discharge.
--- NOTE | 2016-09-06 15:21 | NUR ---
Up in chair most of day. No pain, no nausea or shortness of breath. Vital signs stable, afebrile. Insulin coverage for elevated BGs. "Fatigue" is his chief complaint. A/O and in good spirits. Supportive family at bedside.
[2016-09-06 16:17] VITALS: BP 94/61; PULSE 95; RESP 20; O2SAT 97
--- NOTE | 2016-09-06 18:03 | PCM.PNMED ---
Subjective Date of Service Sep 06, 2016 Subjective Pt is doing well today. No complaints. Hopeful plans for SINDHU with cardiology on friday. This was discussed with Dr. Vargas last night. neg ROS Exam Vital Signs Vital Sign - Last Date Time Temp Pulse Resp B/P Pulse Ox O2 Delivery O2 Flow Rate FiO2 09/06/16 16:17 36.5 95 20 94/61 97 Room Air 09/02/16 11:53 1.00 Intake and Output 09/05/16 09/05/16 09/06/16 Cumulative From/Thru 15:00 23:00 07:00 08/31/16 23:29 - 09/06/16 06:53 Intake Total 400 ml 800 ml 41570 ml Output Total 450 ml 4625 ml Balance -50 ml 800 ml 5696 ml Intake Oral 400 ml 300 ml 4486 ml IV Total 500 ml 5835 ml Output Urine Total 450 ml 4625 ml # Voids 1 2 6 # Bowel Movements 1 6 Exam General: Elderly male, alert resting in bed in no acute distress Cardiovascular: Regular rate and rhythm, murmur heard Chest/lungs: CTA bilaterally. positive wheezing and mild rhonchi in the lower lung bases bilaterally Abdomen: Soft, obese, nontender, nondistended, bowel tones present. Extremities: Mild edema IVs and Medications Medications Reviewed: Medications were reviewed in detail Lab and Diagnostics Result Diagram: 09/05/16 0700 09/06/16 0403 X-Rays, CTs and MRIs CT abdomen and pelvis Assessment & Plan Mr. 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 Severe Sepsis secondary to enterococcus bacteremia, acute, present on admission. Under evaluation - Sepsis criteria: WBC 22.2, P103, R21, lactic acid 3.5 which subsequently corrected. - Blood cultures showed high grade enterococcal bacteremia. - MRSA screen negative - SINDHU ordered and pending. Hopeful tomorrow Elevated troponin of undetermined significance in setting of CAD and hx of [place], acute, present on admission. Under evaluation - Concern for NSTEMI vs CHF. No chest pain, shortness of breath noted. - Troponin trending down. - Patient on telemetry. Acute on chronic renal failure, present on admission. improving - Creatinine continues to improve. - NS stopped on 09/03/2016. Atrial fibrillation on Xarelto, chronic. Presumed stable - Patient reports h/o unsuccessful cardioversion - Changed Xarelto to Eliquis due to poor renal function -On telemetry. Metabolic acidosis, likely acute, present on admission. resolved - On admit: AG 22 with elevated lactate. Anion gap has corrected. - Likely secondary to lactic acidosis and A/CKD - Patient received bolus and maintenance fluids. HFpEF, chronic. Presumed stable - Echo 05/2016: EF55-60, with left ventricular wall thickness moderately increased - Resume home medications when verified and appropriate - Patient is + 4.5 liters. Ground-level fall secondary to near syncopal episodes without head trauma, acute , present on admission. stable -Likely secondary to hypovolemia. Elevated total bilirubin, acute, present on admission. resolved - Bilirubin has trended to normal. - CT did not reveal any etiology for finding; patient denies any abdominal pain or other GI symptoms - Repeat labs Hypomagnesemia, acute, present on admission. resolved - On admit: Mg 1.7 - Continue to monitor. Hyponatremia, acute, present on admission. resolved: - H/o citalopram use, which may be contributing to decreased Na levels; not continued at this time -Continue to monitor. Pulmonary hypertension, chronic. 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 Presumed stable - Has been on home oxygen therapy since 2016; continuous 1.5 L - Outpt pulmonary: Dr. Luna, last office visit July 2015 - Duonebs and accunebs prn Diabetes mellitus, insulin using type 2, chronic. Presumed stable - A1c July 2016: 8.6 - Medium dose correctional scale. - Lantus 15 units. - Morning BG was within desired limits of 140-180 Hypertension, chronic. Presumed stable - Resume home medications when reconciliation completed; and when appropriate based on BP readings and orthostatics in the setting of syncope and sepsis GERD, chronic. Presumed stable - PPI continued Hyperlipidemia, chronic. Presumed stable - Resume home medications when reconciliation completed; statin History of aortic valve replacement with porcine valve. Presumed stable - Continue cardiac meds as noted Osteoarthritis, chronic. Presumed stable - Pain rx prn Status: Likely d/c after SINDHU with plan for outpatient abx should SINDHU be positive GI Prophylaxis: Proton Pump Inhibitor VTE Prophylaxis: Sub-Q Heparin (Unfractionated) VTE Mechanical Devices: Intermittant Pneumatic CD Resuscitation Status: CPR: Attempt Resuscitation Attending Statement The patient was seen and examined together with Dr. Alonso on 09/06/16 and I have added additional information to the note above. Jasbir Alonso DO Sep 06, 2016 18:03 Mariely Wilson DO Sep 07, 2016 12:21
[2016-09-06 19:44] VITALS: BP 106/67; PULSE 98; RESP 16; O2SAT 99
[2016-09-06] MEDS: Insulin GLARgine 100 Unit/mL Syringe SUBQ SCH (22:10)
[2016-09-07] VITALS (7 sets, daily range): BP systolic 100–134; BP diastolic 56–78; PULSE 67–94; RESP 16–20; O2SAT 94–98
[2016-09-07 03:19] LABS: BASOPHILS % (AUTO) 0.3 % (0-3); EOSINOPHILS % (AUTO) 1.5 % (0-5); MONOCYTES % (AUTO) 6.7 % (4-12); Mean Corpuscular Hemoglobin 29.1 pg (27.0-35.0); Mean Corpuscular Volume 89.5 fL (81-100); NEUTROPHILS % (AUTO) 75.1 % (40-74); Platelet Count 238 bil/L (150-400)
[2016-09-07] MEDS: Ampicillin Inj 2,000 MG in 0.9% Sodium Chloride 100 ML IV SCH ×4 (03:27→20:18)
[2016-09-07 03:37] LABS: INR 1.11 ratio
--- NOTE | 2016-09-07 05:50 | NUR ---
NPO/Blood Glucose Patient's bedtime blood glucose 108; no insulin coverage needed. Patient NPO after midnight for possible SINDHU.
[2016-09-07] MEDS ORDERED: Benzoc-Butamben-Tetraca Spray 20 Gm Spray TOPICAL ONE (06:00)
[2016-09-07] MEDS: Insulin LISPRO 300 Unit/3 mL Inj SUBQ SCH ×3 (08:00→17:30)
[2016-09-07] MEDS: Pantoprazole 20 mg ER24 Tablet PO SCH (08:31)
[2016-09-07] MEDS: Fluticasone 100 mCg Inhaler INHALATION SCH ×2 (08:32→22:01)
[2016-09-07] MEDS ORDERED: Glucose 40% Oral Gel 15 Gm Tube PO PRN (11:00)
[2016-09-07] MEDS: cefTRIAXone Inj 2,000 MG in Dextrose 5% Minibag Plus 50 ML IV SCH ×2 (11:11→22:11)
--- NOTE | 2016-09-07 12:20 | PCM.PNMED ---
Subjective Date of Service Sep 07, 2016 Subjective This is an 81 year old male who presented with recurrent syncopal episodes and subsequently found to have high grade enterococcal bacteremia in the setting of bovine aortic valve. Patient has no complaints. Review of systems negative. Exam Vital Signs Vital Sign - Last Date Time Temp Pulse Resp B/P Pulse Ox O2 Delivery O2 Flow Rate FiO2 09/07/16 11:49 36.5 94 18 119/72 94 Room Air 09/02/16 11:53 1.00 Intake and Output 09/06/16 09/06/16 09/07/16 Cumulative From/Thru 15:00 23:00 07:00 08/31/16 23:29 - 09/07/16 06:36 Intake Total 1290 ml 900 ml 66592 ml Output Total 300 ml 4925 ml Balance 1290 ml 600 ml 7586 ml Intake Oral 1100 ml 650 ml 6236 ml IV Total 190 ml 250 ml 6275 ml Output Urine Total 300 ml 4925 ml # Voids 5 3 14 # Bowel Movements 1 7 Exam General: Elderly male, alert resting in bed in no acute distress Cardiovascular: Regular rate and rhythm, murmur heard Chest/lungs: CTA bilaterally. No wheezing. Abdomen: Soft, obese, nontender, nondistended, bowel tones present. Extremities: +2 pitting edema to the knees IVs and Medications Medications Reviewed: Medications were reviewed in detail Lab and Diagnostics Result Diagram: 09/07/16 0304 09/07/16 0304 X-Rays, CTs and MRIs CT abdomen and pelvis Assessment & Plan Mr. 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 Severe Sepsis secondary to enterococcus bacteremia, acute, present on admission. Under evaluation - Sepsis criteria: WBC 22.2, P103, R21, lactic acid 3.5 which subsequently corrected. - Blood cultures showed high grade enterococcal bacteremia. - MRSA screen negative - SINDHU pending for 09/08 at 11:00am with Dr. Brown (case was discussed with Dr. Brown today) Elevated troponin of undetermined significance in setting of CAD and hx of [place], acute, present on admission. Under evaluation - Concern for NSTEMI vs CHF. No chest pain, shortness of breath noted. - Troponin trending down. -Added Metoprolol tartrate -Will consider adding low dose lisinopril at later date. - Patient on telemetry. Acute on chronic renal failure, present on admission. improving - Creatinine continues to improve. - NS stopped on 09/03/2016. Atrial fibrillation on Xarelto, chronic. Presumed stable - Patient reports history of unsuccessful cardioversion - On Eliquis due to poor renal function -On telemetry. Metabolic acidosis, likely acute, present on admission. resolved - On admit: AG 22 with elevated lactate. Anion gap has corrected. - Likely secondary to lactic acidosis and A/CKD - Patient received bolus and maintenance fluids. HFpEF, chronic. Presumed stable - Echo 05/2016: EF55-60, with left ventricular wall thickness moderately increased - Discontinue home medication of Amlodipine (this could also be causing the patient's LE edema) - Start Beta delma 12.5mg BID - Patient is + 4.5 liters. Ground-level fall secondary to near syncopal episodes without head trauma, acute , present on admission. stable -Likely secondary to hypovolemia. Elevated total bilirubin, acute, present on admission. resolved - Bilirubin has trended to normal. - CT did not reveal any etiology for finding; patient denies any abdominal pain or other GI symptoms - Repeat labs Hypomagnesemia, acute, present on admission. resolved - On admit: Mg 1.7 - Continue to monitor. Hyponatremia, acute, present on admission. resolved: -Continue to monitor. Pulmonary hypertension, chronic. 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 Presumed stable - Has been on home oxygen therapy since 2016; continuous 1.5 L - Outpt pulmonary: Dr. Luna, last office visit July 2015 - Duonebs and accunebs prn Diabetes mellitus, insulin using type 2, chronic. Presumed stable - A1c July 2016: 8.6 - Prandial insulin 2 units. Have asked nursing to minimize blood glucose checks. - Lantus 15 units. Hypertension, chronic. Presumed stable - Home medications resumed. GERD, chronic. Presumed stable - PPI continued. Hyperlipidemia, chronic. Presumed stable - Resume home medications when reconciliation completed -Atorvastatin 10mg HS (home dose). Will need to consider increasing to high dose. History of aortic valve replacement with porcine valve. Presumed stable - Continue cardiac meds as noted Osteoarthritis, chronic. Presumed stable - Pain rx prn Status: Likely d/c after SINDHU with plan for outpatient abx should SINDHU be positive for endocarditis GI Prophylaxis: Proton Pump Inhibitor VTE Prophylaxis: Sub-Q Heparin (Unfractionated) VTE Mechanical Devices: Intermittant Pneumatic CD Resuscitation Status: CPR: Attempt Resuscitation Attending Statement The patient was seen and examined together with Dr. Guo on 09/07/16 and I have added additional information to the note above. Reynaldo Guo DO Sep 07, 2016 12:20 Mariely Wilson DO Sep 08, 2016 12:11
[2016-09-07] MEDS: 0.9% Sodium Chloride 1,000 ML IV SCH ×2 (12:46→22:46)
--- NOTE | 2016-09-07 15:05 | NUR ---
[facility] SIgned
--- NOTE | 2016-09-07 15:38 | NUR ---
Social Work: Readiness for Discharge D: Pt discussed in am rounds. Pt is awaiting a SINDHU procedure and is not yet medically stable for discharge. SENIOR GAMEMASTER met with the patient and at bedside to confirm discharge plan and assess for unmet needs. Pt continues to be I during admission. Their plan remains to discharge home with resumed care from [facility] for RN, PT. At this time, pt and decline any other needs. EMR reviewed; no additional sw needs identified at this time. A: Pt who is I at baseline and lives with his in [place] P: Anticipate pt to discharge home via POV with resumed [facility] for RN, PT. SENIOR GAMEMASTER to continue to follow. PRABHAAKR Chisholm
[2016-09-07] MEDS: Sodium Chloride LOK Flush 10 mL Syringe IVFLUSH SCH (17:48)
--- NOTE | 2016-09-07 19:37 | NUR ---
Edema/Activity: Patient voiced concerns about edema to lower extremities appearing to get "worse". Pt states "I don't know why they aren't giving me my water pill". MD notified. Lasix ordered for tomorrow morning. Pt was notified and agrees with order. Pt up in room and to bathroom independently with FWW, strong/steady gait noted. Pleasant and cooperative with care.
[2016-09-07] MEDS ORDERED: Insulin LISPRO 300 Unit/3 mL Inj SUBQ SCH (21:00)
[2016-09-07] MEDS: Insulin GLARgine 100 Unit/mL Syringe SUBQ SCH (22:10)
[2016-09-08] MEDS: Sodium Chloride LOK Flush 10 mL Syringe IVFLUSH SCH ×2 (00:46→10:27)
[2016-09-08] MEDS: Ampicillin Inj 2,000 MG in 0.9% Sodium Chloride 100 ML IV SCH ×3 (02:52→15:11)
[2016-09-08 06:30] VITALS: PULSE 86; RESP 20; O2SAT 94
--- NOTE | 2016-09-08 06:35 | NUR ---
NPO Pt has been NPO since 0000 for SINDHU today at 1100. No c/o of CP or pain noted. Pt continues with antibiotics. VSS and pt is no longer on Tele.
[2016-09-08] MEDS ORDERED: Furosemide 10 mg/mL 2 mL Inj IVPUSH SCH (08:30)
[2016-09-08] MEDS: 0.9% Sodium Chloride 1,000 ML IV SCH (08:46)
[2016-09-08] MEDS: Fluticasone 100 mCg Inhaler INHALATION SCH ×2 (10:16→10:27)
[2016-09-08] MEDS: cefTRIAXone Inj 2,000 MG in Dextrose 5% Minibag Plus 50 ML IV SCH (10:16)
[2016-09-08 10:28] VITALS: BP 107/68; PULSE 84; RESP 18; O2SAT 96
[2016-09-08 12:06] VITALS: BP 111/59; PULSE 86; RESP 21; O2SAT 99
[2016-09-08 12:09] VITALS: BP 107/60; PULSE 82; RESP 16; O2SAT 98
[2016-09-08 12:15] VITALS: BP 102/61; PULSE 83; RESP 20; O2SAT 97
--- NOTE | 2016-09-08 12:46 | PCM.HPANE ---
Patient Data Surgeon Admitting Provider:Kelsey Coombs DO Attending Provider:Kelsey Coombs DO Primary Care Physician:Milan Fishman MD Other Provider: Reason for Visit Sepsis Ht/WT & BMI Height (Feet): 5 Height (Inches): 7.00 Weight (Kilograms): 89.600 Body Mass Index 30.76 Allergies Coded Allergies: No Known Allergies (Unverified , 08/31/16) Past Anesthesia History Anesthesia History: Denies:: Anesthesia Reactions Diabetes History Hx Diabetes?: Yes Current Bedside Blood Glucose: 156 MRSA MRSA: No Medications Active Scripts Verapamil ER 180 Mg Cap24h.att520 Mg PO DAILY 30 Days Ref 0 Prov:Karla Perez MD 07/24/16 Fluticasone Propionate (Flovent Diskus)100 Mcg Disk.w.dev1 Puff INHALATION BID # 3 Prov:Karla Perez MD 07/24/16 Atorvastatin Calcium 10 Mg Rzvshj60 Mg PO HS 30 Days Prov:Karla Perez MD 07/24/16 Reported Medications Metolazone 10 Mg Vhcstz64 Mg PO QAM 09/01/16 Furosemide 40 Mg Udsupc60 Mg PO QPM PRN EDEMA 09/01/16 Furosemide 40 Mg Dgvfmk89 Mg PO QAM 09/01/16 Citalopram 40 Mg Vafsne00 Mg PO QAM 30 Days Ref 0 09/01/16 Omeprazole 20 Mg Capsule.dr20 Mg PO QAM Ref 0 09/01/16 Potassium Chloride ER (Klor-Con 10)10 Meq Xmoleb90 Meq PO QAM Ref 0 09/01/16 Rivaroxaban (Xarelto)10 Mg Izdlev96 Mg PO DAILYWD #60 TABLET 08/05/16 Lidocaine Cream 5 Gm Cream..g.1 Applic TOPICAL DAILY PRN For Pain 08/05/16 Tamsulosin (Flomax)0.4 Mg Capsule0.4 Mg PO DAILYWD Ref 0 08/05/16 Cyclobenzaprine 5 Mg Tablet5 Mg PO TID PRN For Spasm 08/05/16 Albiglutide (Tanzeum)30 Mg/0.5 Ml Pen.xmaurj05 Mg SQ every Friday08/05/16 Amlodipine 5 Mg Tablet5 Mg PO QAM Ref 0 08/05/16 Nitroglycerin SL 0.4 Mg Tab.subl0.4 Mg SL PRN chest pain 07/19/16 Multivitamin (Multivitamins)1 Each Capsule1 Each PO DAILY 02/24/15 Insulin Glargine (Lantus U100 Insulin Vial)100 Unit/Ml Vial20 Unit SUBQ QPM #1 VIAL Ref 0 02/24/15 Hydrocodone-Acetaminophen 5-325 mg 1 Each Tablet1 Tablet PO Q6H PRN For Pain Ref 0 02/24/15 Glimepiride 4 Mg Tablet4 Mg PO DAILYAC #30 TABLET Ref 0 02/24/15 Aspirin 81 Mg Vvgrhi74 Mg PO QAM Ref 0 02/24/15 Albuterol HFA (Proair HFA)8.5 Gm Hfa.aer.ad2 Puffs INHALATION q4-6h PRN For Wheezing #1 INHALER 02/24/15 Discontinued Reported Medications Furosemide 20 Mg Tab40 Mg PO DAILY 30 Days Ref 0 09/01/16 Prednisone (PredniSONE)20 Mg Naqhne00 Mg PO DAILY Ref 0 08/05/16 Nortriptyline 10 Mg Idvukys50 Mg PO HS 08/05/16 Ubidecarenone (Co Q-10)300 Mg Giihxpw201 Mg PO QPM 07/19/16 Omeprazole 20 Mg Capsule.dr20 Mg PO DAILY Ref 0 02/24/15 Citalopram 20 Mg Hpplai00 Mg PO DAILY Ref 0 02/24/15 History History of ENT Problems?: No HEENT History: Denies:: Cataracts Dysphagia Sinus Problem Denture Type: None Teeth Condition: Within Normal Limits Hx of Heart Problems?: Yes Cardiovascular History: Positive for:: Cardiac Surgery (12/2009 3 CABG) Chest Pain (angina with prior cardiac catheterization) Congestive Heart Failure Edema Heart Murmur Hypertension Irregular Heartbeat Denies:: Pacemaker Thrombophlebitis Other History/Comments SINDHU today to rule out endocarditis Hemodynamically stable. No CP or SOB Hx of Respiratory Problem?: Yes Respiratory History: Positive for:: Asthma COPD Dyspnea Pneumonia Denies:: Chest Surgery Emphysema Hemoptysis Tuberculosis Hx Neurologic Problems?: Yes Neurological History: Positive for:: CVA (7 years ago, no deficits) Dizziness Headaches Denies:: Alzheimer's Disease Dementia Parkinson's Disease Seizures Hx of GI Problems?: Yes Hx of Problems?: Yes Genitourinary History: Denies:: HX of Hemodialysis Kidney Stones Urinary Tract Infection HX of Peritoneal Dialysis: No Male Hx: Denies:: Prostate Problems Scrotal Mass Testicular Surgery (vasectomy) Hx Musculoskeletal Problems?: Yes Musculoskeletal History: Positive for:: Joint Replacement (L hip replacement) Denies:: Back Injury Musculoskeletal Trauma Hx of Psycho/Social Problems?: Yes Psycho Social History: Positive for:: Anxiety (mild after hospitalization in 12/31) Hx Depression Suicide Attempt (seven years ago) Denies:: Bipolar Disorder Hx Surgeries?: No (tonsillectomy; L hip replacement, 3 CABG, aortic valve) Hx Any Other Health Problems?: Yes Other History: Positive for:: Hospitalization (Chest pain, arrhythmia) Denies:: Cancer Endocrine Disease Thyroid Disease History Blood Transfusions: Positive for:: Accept Blood Products? 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 Hx Alcohol Use: Yes (rarely)Hx Substance Use: No Smoking Status: Former Smoker Have You Smoked inLast 12 mo: No Stop/Bang Treated for Sleep Apnea?: No Do You Have a CPAP Machine?: No S-Snoring: Do You Snore Loudly: No T-Tired: feel tired, fatigued: Yes O-Obsered: Observed not breath: Yes P-Blood Pressure: treated: Yes B- Body Mass Index > 35 kg/m2: No A- Age over 50: Yes N- Neck Large Circumference: No G- Gender Male: Yes VANDANA Total Score: 4 Risk Assessment Category Category 1A: Patient has history of documented sleep apnea, and HAS NOT received any narcotic, sedative or anesthesia administration during this stay. Category 1B: Patient has history of documented sleep apnea, and HAS received any narcotic , sedative or anesthesia administration during this stay Category 2: Patient has SUSPECTED Obstructive Sleep Apnea, and HAS received any narcotic , sedative or anesthesia administration during this stay. Category 3: Patient has SUSPECTED Obstructive Sleep Apnea and HAS NOT received narcotic, sedative or anesthesia administration during this stay. Category 4: Outpatient in Procedural Areas with known sleep apnea or who screen positive for High Risk via the STOP/BANG questionnaire. Exam Exam Vital Signs Vital Signs Date Time Temp Pulse Resp B/P Pulse Ox O2 Delivery O2 Flow Rate FiO2 09/08/16 12:15 83 20 102/61 97 Room Air 09/08/16 12:09 82 16 107/60 98 Room Air 09/08/16 12:06 86 21 111/59 99 Nasal Cannula 2.00 09/08/16 10:28 36.3 84 18 107/68 96 09/08/16 06:30 86 20 94 Room Air General Appearance: Alert, Oriented X3 HEENT/AIRWAY: MP 2, Neck Movement (FROM) Lungs: Clear to Auscultation, Clear to Percussion Heart: Exam Unremarkable, Regular Rate/Rhythm Meds/Labs/Diagnostics Admission Meds Current Medications Metoprolol Tartrate (Lopressor) 12.5 mg BID PO Last administered on 09/07/16 22:02; Start 09/07/16 at 20:30 Atorvastatin Calcium (Lipitor) 10 mg HS PO Last administered on 09/07/16 22:01 ; Start 09/07/16 at 21:00 Sodium Chloride (Saline Thor Flush) 10 ml THOR IVFLUSH Last administered on 10:27; Start 09/07/16 at 16:30 Furosemide (Lasix Inj) 20 mg DAILY IVPUSH Last administered on 09/08/16 10:27 ; Start 09/08/16 at 08:30 Bedside Blood Glucose: 156 Labs Test 08/31/16 23:36 09/01/16 09:05 09/01/16 14:23 09/02/16 03:15 Hold Purple Top Tube Received (Received) Hold Blue Top Tube Received (Received) Pro-B-Type Natriuretic Peptide 5561pg/mL (0-486) Lipase 65U/L (13-60) Hold White Top Tube Received (Received) Thyroid Stimulating Hormone (TSH) 1.260uIU/mL (0.450-4.500) Free Thyroxine 1.68ng/dL (0.82-1.77) Troponin T 0.196ug/L (0.0-0.011) Lactic Acid Level 1.5mmol/L (0.4-2.0) Phosphorus Level 3.3mg/dL (2.5-4.9) Magnesium Level 2.1mg/dL (1.6-2.6) Test 09/03/16 03:50 09/06/16 02:54 09/06/16 04:03 09/07/16 03:04 Hold Tierney Top Tube Received (Received) Urine Color Yellow (YELLOW) Urine Appearance Clear (CLEAR,HAZY) Urine pH 7.0 (5.0-8.0) Urine Specific [place] 1.019 (1.003-1.035) Urine Protein Tracemg/dL (NEG,TRACE) Urine Glucose (UA) Negativemg/dL (NEGATIVE) Urine Ketones Negativemg/dL (NEGATIVE) Urine Occult Blood Negative (NEGATIVE) Urine Nitrite Negative (NEGATIVE) Urine Bilirubin Negative (NEGATIVE) Urine Urobilinogen Normalmg/dL (NORMAL) Urine Leukocyte Esterase Negative (NEGATIVE) Urine RBC 0-2/hpf (0-2) Urine WBC 0-5/hpf (0-5) Urine Epithelial Cells Few/hpf (NONE-MOD) Urine Crystals None seen (NONE SEEN) Urine Bacteria None/hpf (NONE-FEW) Urine Hyaline Casts None/lpf (NONE) Urine Granular Casts None seen (NONE SEEN) Urine Waxy Casts None seen (NONE SEEN) Urine Red Blood Cell Casts None seen (NONE SEEN) Urine White Blood Cell Casts None seen (NONE SEEN) Urine Mucus None seen (None Seen) Urine Trichomonas None seen (NONE SEEN) Urine Yeast Moderate (NONE SEEN) Urine Culture Reflexed Not indicated Procalcitonin 0.18ng/mL (0.00-0.08) White Blood Count 8.8th/mm3 (3.8-10.1) Red Blood Count 3.61mil/mm3 (4.40-5.80) Hemoglobin 10.5g/dL (13.8-17.2) Hematocrit 32.3% (41.0-50.0) Mean Corpuscular Volume 89.5fL (81-100) Mean Corpuscular Hemoglobin 29.1pg (27.0-35.0) Mean Corpuscular Hemoglobin Concent 32.5% (32.0-37.0) Red Cell Distribution Width 14.8% (12.3-15.4) Platelet Count 238bil/L (150-400) Neutrophils (%) (Auto) 75.1% (40-74) Lymphocytes (%) (Auto) 15.5% (14-46) Monocytes (%) (Auto) 6.7% (4-12) Eosinophils (%) (Auto) 1.5% (0-5) Basophils (%) (Auto) 0.3% (0-3) Prothrombin Time 11.9sec (8.1-12.5) Prothromb Time International Ratio 1.11ratio Sodium Level 134mEq/L (134-144) Potassium Level 3.9mEq/L (3.5-5.2) Chloride Level 95mEq/L (97-108) Carbon Dioxide Level 28mmol/L (18-29) Blood Urea Nitrogen 18mg/dL (8-27) Creatinine 1.35mg/dL (0.76-1.27) Estimat Glomerular Filtration Rate 54mL/min (>59) Glucose Level 73mg/dL (60-99) Calcium Level 8.5mg/dL (8.5-10.1) Total Bilirubin 0.3mg/dL (0.0-1.2) Aspartate Amino Transf (AST/SGOT) 17U/L (0-50) Alanine Aminotransferase (ALT/SGPT) 15U/L (0-44) Alkaline Phosphatase 64U/L (25-160) Total Protein 5.7g/dL (6.4-8.4) Albumin 2.9g/dL (3.4-5.0) Plan Impression Patient chart reviewed, patient interviewed and anesthestic plan with risks, benefits, and alternatives discussed, and informed consent obtained. NPO per Anesth. Guidelines: Yes ASA Physical Status: ASA3 Severe Disease Anesthetic Plan: MAC Bene/Risks/Altern/Consents: Yes HP Complete Prior to Induction: Yes Malcolm Ramirez MD Sep 08, 2016 12:46
--- NOTE | 2016-09-08 12:47 | PCM.ANEP1 ---
Post Anesthesia PACU Phase 1 Assessment Vital Signs Vital Signs Date Time Temp Pulse Resp B/P Pulse Ox O2 Delivery O2 Flow Rate FiO2 09/08/16 12:15 83 20 102/61 97 Room Air 09/08/16 12:09 82 16 107/60 98 Room Air 09/08/16 12:06 86 21 111/59 99 Nasal Cannula 2.00 09/08/16 10:28 36.3 84 18 107/68 96 09/08/16 06:30 86 20 94 Room Air Anesthetic Administered: MAC Level of Alertness: Awake, talking KABA's with Equal Strength: Yes Pain: No Pain Scale Score: 6 Nausea or Vomiting: No CV Function & Hydration Stable: No Airway Device: Oxygen Delivery: Nasal Cannula Lungs: Clear to Auscultation, Clear to Percussion PACU Phase 2 Assessment Complications: No Follow up Care: No Patient Instructions Provided: N/A Comments See anesth record for PACU VS. PACU VSS Malcolm Ramirez MD Sep 08, 2016 12:47
[2016-09-08] MEDS ORDERED: 0.9% Sodium Chloride 1,000 ML IV ONE (12:57)
[2016-09-08] MEDS ORDERED: HYDROcodone-APAP 5-325 mg Tablet PO PRN (13:00)
[2016-09-08] MEDS ORDERED: Ondansetron 2 mg/mL 2 mL Inj IVPUSH PRN (13:00)
[2016-09-08] MEDS: Pantoprazole 20 mg ER24 Tablet PO SCH (13:28)
[2016-09-08] MEDS ORDERED: APIX5TAB PO (13:48)
[2016-09-08] MEDS ORDERED: DAPT500V2 IV (13:48)
--- NOTE | 2016-09-08 13:56 | PCM.DIMED ---
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 This will be done at the Medical Observation Care Unit (MOC) here at the hospital. You will be given directions for this prior to discharge. Diet Discharge Diet: Heart Healthy, Diabetic Activity Discharge Activity: No restrictions Call your provider Call your provider for: Fever or Chills, Shortness of breath, Chest pain Patient Instructions Patient Instructions You were admitted due to severe sepsis. This was due to bacteria in your blood. Due to your history of valve replacement it was recommended to have a special imaging test done to ensure that your valves did not have this infection. Your results were reassuring and your will be discharged. You will need to receive another 7 days of antibiotics through an IV. We are setting this up for you. You will also need to follow-up with your primary doctor within [address] Hamilton within 2 weeks. You will resume home health nursing as before you came to the hospital, as well as physical therapy with weekly visits determined by their assessment Follow-up Provider: Milan Fishman MD Follow-up with PCP in: 1 week Provider: David Hamilton MD Follow-up in: 1 week Mariely Wilson DO 09/08/16 1833: Discharge Instructions Attending's Statement The patient was seen and examined together with Dr. Alonso on 09/08/2016 and I agree with the history, exam and plan as outlined in the note above. Jasbir Alonso DO Sep 08, 2016 13:56 Mariely Wilson DO Sep 08, 2016 18:33
[2016-09-08] MEDS ORDERED: SODIUM CHLORIDE 0.9% IV ONE (15:00)
[2016-09-08] MEDS ORDERED: DAPTOMYCIN IV ONE (15:00)
[2016-09-08 15:15] VITALS: PULSE 85; RESP 18; O2SAT 96
--- NOTE | 2016-09-08 15:24 | NUR ---
Social Work: Discharge D: SEAM PRESSER spoke with MD; Pt has completed SINDHU procedure. Pt is being discharged home. Pt will require 7 days of IV ABX at [facility]; wrote orders. SEAM PRESSER faxed orders, d/c instructions and facesheets to [facility] [phone]. [facility] is not available for scheduling on Friday. Classroom Aide states that [facility] staff will call the patient first thing tomorrow morning to schedule the patient for his dose tomorrow. SEAM PRESSER met with the patient at bedside to confirm discharge plan. SEAM PRESSER provided pt with instructions on how to get to [facility], confirmed contact information on face sheet and informed patient that [facility] will contact him tomorrow to arrange ongoing IV ABX. Pt and state that they understand this. Pt confirms that he would also like to resume home health through [facility] for RN and PT. t/c to Lisa Hernandez with [facility] to notify of pt's discharge home. They have been following and will contact the patient tomorrow to resume care. A: Pt who lives with his at home. P: Pt to discharge home via POV with resumed [facility] for RN, PT and IV ABX for 7 days at [facility]. PRABHAKAR Chisholm
--- NOTE | 2016-09-08 15:24 | DRSVH ---
[facility] [address] [place] [address] Echocardiogram Report Name: KEVIN BOONE Study Date: 09/08/2016 Hospital Exam Location: [facility] Gender: Male : 1935 Age: 81 yrs Reason For Study: SEPSIS Ordering Physician: Amy Brown Performed By: Tootie Martin Interpretation Summary The left ventricular cavity is small. The ejection fraction is estimated to be 60-65%. There is no LV thrombus. Increased echogenicity of the myocardium id noted, this may be from LVH, also consider infiltrative diseases like cardiac Amyloid. Injection of contrast documented no interatrial shunt. The prosthetic aortic valve is well-seated. There is a bioprosthetic aortic valve. The peak aortic velocity is 1.8 m/sec. There is no hemodynamically significant valvular aortic stenosis. No aortic regurgitation is present. There is mild to moderate mitral regurgitation. Compared to the prior echo study, there has been no change in the severity of mitral regurgitation. There is moderate tricuspid regurgitation. Mild atherosclerotic plaque(s) in the aortic arch. Spontaneous contrast in [place]. No thrombus is detected in the left atrial appendage. No obvious valvular vegetation seen. Procedure: Informed consent for Transesophageal Echocardiogram, and use of a contrast agent as needed, was obtained prior to the procedure. Sedation was managed by anesthesiologist; see anesthesiology notes for details. A multifrequency, multiplane transesopheageal echocardiographic endoscope was inserted and manipulated in the standard fashion to achieve multiplane views. A 2D transesophageal echocardiogram with spectral and color flow Doppler was performed. The patient's vital signs, including blood pressure, heart rate, pulse oximetry and cardiac rhythm were monitored throughout the procedure and remained stable. The patient tolerated the procedure well without evidence of orophangeal or esophageal trauma. An intravenous line was placed. A topical anesthetic agent was used for oropharangeal anesthesia. A bite block was inserted. The transesophageal probe was passed without difficulty. The usual views were obtained; basal, mid-esophageal, transgastric and aortic views. Contrast injection with agitated saline was performed. The patient was in atrial fibrillation with controlled ventricular rate during the exam. There were no complications. Left Ventricle: The left ventricular cavity is small. Increased echogenicity of the myocardium id noted, this may be from LVH, also consider infiltrative diseases like cardiac Amyloid. There is no thrombus. The ejection fraction is estimated to be 60-65%. There are no focal wall motion abnormalities. Right Ventricle: The right ventricle is grossly normal size. Right ventricular systolic function is mildly reduced. Atria: Spontaneous contrast in LA. No thrombus is detected in the left atrial appendage. The interatrial septum is intact with no evidence for an atrial septal defect. There is no Doppler evidence for an interatrial shunt. Injection of contrast documented no interatrial shunt. Mitral Valve: There is moderate mitral annular calcification. The mitral valve leaflets appear moderately thickened, but open well. The mitral valve leaflets are mildly calcified. The mitral valve chordae are thickened and/or calcified. There is no vegetation seen on the mitral valve. There is mild to moderate mitral regurgitation. Compared to the prior echo study, there has been no change in the severity of mitral regurgitation. Aortic Valve: The prosthetic aortic valve is well-seated. There is a bioprosthetic aortic valve. There is no aortic valvular vegetation. The peak aortic velocity is 1.8 m/sec. The aortic valve mean gradient is 7.1 mmHg. There is no hemodynamically significant valvular aortic stenosis. No aortic regurgitation is present. Tricuspid Valve: Tricuspid leaflets are thickened. There is no tricuspid valve vegetation. There is moderate tricuspid regurgitation. Compared to the prior echo exam, there has been no change in TR severity. Pulmonic Valve: The pulmonic valve is not well visualized. Great Vessels: Mild atherosclerotic plaque(s) in the aortic arch. Reading Physician:RA
--- NOTE | 2016-09-08 15:58 | NUR ---
Discharge of patient Reviewed discharge instructions with patient and patient's . Patient verbalized understanding. Patient discharged via wheelchair with prescriptions and instructions. IV and Telemetry previously discontinued. Patient left hospital with to home self care.
--- NOTE | 2016-09-09 12:54 | PCM.DC.MED ---
Discharge Summary Date of Service Sep 09, 2016 Dates of Hospitalization Date of Hospital Admission Sep 01, 2016 at 03:22 Date of Discharge: Sep 08, 2016 Providers: Admitting Physician: Kelsey Coombs DO Primary Care Physician: Milan Fishman MD Attending Physician: Kelsey Coombs DO Diagnosis at Time of Discharge Diagnosis at Time of Discharge Severe Sepsis secondary to enterococcus bacteremia, acute Elevated troponin of undetermined significance in setting of CAD and hx of [place], acute Acute on chronic renal failure Atrial fibrillation on Apixaban Metabolic acidosis, likely acute HFpEF, chronic Ground-level fall secondary to near syncopal episodes without head trauma, acute Chronic hypoxemic respiratory 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 The ejection fraction is estimated to be 60-65%. There is no LV thrombus. Increased echogenicity of the myocardium id noted, this may be from LVH, also consider infiltrative diseases like cardiac Amyloid. Injection of contrast documented no interatrial shunt. The prosthetic aortic valve is well-seated. There is a bioprosthetic aortic valve. The peak aortic velocity is 1.8 m/sec. There is no hemodynamically significant valvular aortic stenosis. No aortic regurgitation is present. There is mild to moderate mitral regurgitation. Compared to the prior echo study, there has been no change in the severity of mitral regurgitation. There is moderate tricuspid regurgitation. Mild atherosclerotic plaque(s) in the aortic arch. Spontaneous contrast in LA. No thrombus is detected in the left atrial appendage. No obvious valvular vegetation seen. Brief History Mr. 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 Patient was admitted for evaluation for ongoing near syncopal episodes, in addition to underlying infection indicated by evidence of sepsis. Hospital Course Patient was admitted due to ongoing sepsis with leukocytosis, tachycardia and tachypnea, as well as elevated lactic acid. Patient was initially placed on Zosyn. Blood cultures grew enterococcus and he was switched to Ceftriaxone and Ampicillin by our Infectious Disease team. Due to the previous bovine aortic valve replacement it was extremely highly recommended that the patient undergo SINDHU to rule out endocarditis. Pt underwent this procedure in the SINDHU proved to be negative for endocarditis. He is being discharged home with scheduled follow- up for an additional 7 days of Daptomycin in the [facility]. 2-3 days following completion of his antibiotics (September 17) patient will need a set of blood cultures. 2 weeks after completion the patient should also have a transthoracic echo (TTE). Pt demonstrated atrial fibrillation while in the hospital and his Xarelto was changed to Eliquis while he was here due to acute on chronic kidney injury and recommendations that this medication change be made due to under lying CKD. He was discharged with a new script for Eliquis and Xarelto was discontinued. With the history of CABG and CHF, as well as his hypertension, the patient was started on Metoprolol 12.5 BID and requested to follow-up with his pcp and Dr. Hamilton. Patient was discharged in stable and improved condition with a clear understanding of his disease and when to follow-up, how to receive further antibiotics, and when to return to the ED. Exam Vital Signs (Last) Date Time Temp Pulse Resp B/P Pulse Ox O2 Delivery O2 Flow Rate FiO2 09/08/16 15:15 85 18 96 Room Air 09/08/16 12:15 102/61 09/08/16 12:06 2.00 09/08/16 10:28 36.3 Exam General: Elderly male, alert resting in bed in no acute distress Cardiovascular: distant heart sounds Chest/lungs: CTA bilaterally. No wheezing. Abdomen: Soft, obese, nontender, nondistended, bowel tones present. Extremities: +2 pitting edema to the knees Psych: appropriate mood and affect Neuro: sensation intact throughout Test 08/31/16 23:36 09/01/16 09:05 09/01/16 14:23 09/02/16 03:15 Hold Purple Top Tube Received (Received) Hold Blue Top Tube Received (Received) Pro-B-Type Natriuretic Peptide 5561pg/mL (0-486) Lipase 65U/L (13-60) Hold [place] Top Tube Received (Received) Thyroid Stimulating Hormone (TSH) 1.260uIU/mL (0.450-4.500) Free Thyroxine 1.68ng/dL (0.82-1.77) Troponin T 0.196ug/L (0.0-0.011) Lactic Acid Level 1.5mmol/L (0.4-2.0) Phosphorus Level 3.3mg/dL (2.5-4.9) Magnesium Level 2.1mg/dL (1.6-2.6) Test 09/03/16 03:50 09/06/16 02:54 09/06/16 04:03 09/07/16 03:04 Hold [place] Top Tube Received (Received) Urine Color Yellow (YELLOW) Urine Appearance Clear (CLEAR,HAZY) Urine pH 7.0 (5.0-8.0) Urine Specific [place] 1.019 (1.003-1.035) Urine Protein Tracemg/dL (NEG,TRACE) Urine Glucose (UA) Negativemg/dL (NEGATIVE) Urine Ketones Negativemg/dL (NEGATIVE) Urine Occult Blood Negative (NEGATIVE) Urine Nitrite Negative (NEGATIVE) Urine Bilirubin Negative (NEGATIVE) Urine Urobilinogen Normalmg/dL (NORMAL) Urine Leukocyte Esterase Negative (NEGATIVE) Urine RBC 0-2/hpf (0-2) Urine WBC 0-5/hpf (0-5) Urine Epithelial Cells Few/hpf (NONE-MOD) Urine Crystals None seen (NONE SEEN) Urine Bacteria None/hpf (NONE-FEW) Urine Hyaline Casts None/lpf (NONE) Urine Granular Casts None seen (NONE SEEN) Urine Waxy Casts None seen (NONE SEEN) Urine Red Blood Cell Casts None seen (NONE SEEN) Urine White Blood Cell Casts None seen (NONE SEEN) Urine Mucus None seen (None Seen) Urine Trichomonas None seen (NONE SEEN) Urine Yeast Moderate (NONE SEEN) Urine Culture Reflexed Not indicated Procalcitonin 0.18ng/mL (0.00-0.08) White Blood Count 8.8th/mm3 (3.8-10.1) Red Blood Count 3.61mil/mm3 (4.40-5.80) Hemoglobin 10.5g/dL (13.8-17.2) Hematocrit 32.3% (41.0-50.0) Mean Corpuscular Volume 89.5fL (81-100) Mean Corpuscular Hemoglobin 29.1pg (27.0-35.0) Mean Corpuscular Hemoglobin Concent 32.5% (32.0-37.0) Red Cell Distribution Width 14.8% (12.3-15.4) Platelet Count 238bil/L (150-400) Neutrophils (%) (Auto) 75.1% (40-74) Lymphocytes (%) (Auto) 15.5% (14-46) Monocytes (%) (Auto) 6.7% (4-12) Eosinophils (%) (Auto) 1.5% (0-5) Basophils (%) (Auto) 0.3% (0-3) Prothrombin Time 11.9sec (8.1-12.5) Prothromb Time International Ratio 1.11ratio Sodium Level 134mEq/L (134-144) Potassium Level 3.9mEq/L (3.5-5.2) Chloride Level 95mEq/L (97-108) Carbon Dioxide Level 28mmol/L (18-29) Blood Urea Nitrogen 18mg/dL (8-27) Creatinine 1.35mg/dL (0.76-1.27) Estimat Glomerular Filtration Rate 54mL/min (>59) Glucose Level 73mg/dL (60-99) Calcium Level 8.5mg/dL (8.5-10.1) Total Bilirubin 0.3mg/dL (0.0-1.2) Aspartate Amino Transf (AST/SGOT) 17U/L (0-50) Alanine Aminotransferase (ALT/SGPT) 15U/L (0-44) Alkaline Phosphatase 64U/L (25-160) Total Protein 5.7g/dL (6.4-8.4) Albumin 2.9g/dL (3.4-5.0) Discharge Medications Discharge Medications Albiglutide (Tanzeum) 30 Mg/0.5 Ml Pen.injctr 30 MG SQ every Friday (Reported ) Amlodipine (Amlodipine) 5 Mg Tablet 5 MG PO QAM (Reported) Apixaban (Eliquis) 5 Mg Tablet 2.5 MG PO BID Prescribed by: JASBIR NASH DO Aspirin (Aspirin) 81 Mg Tablet 81 MG PO QAM (Reported) Atorvastatin Calcium (Atorvastatin Calcium) 10 Mg Tablet 10 MG PO HS Prescribed by: SCOT JORDAN MD Citalopram (Citalopram) 40 Mg Tablet 40 MG PO QAM (Reported) Daptomycin (Daptomycin) 500 Mg Vial 650 MG IV DAILY Prescribed by: JASBIR NASH DO Fluticasone Propionate (Flovent Diskus) 100 Mcg Disk.w.dev 1 PUFF INHALATION BID Prescribed by: SCOT JORDAN MD Furosemide (Furosemide) 40 Mg Tablet 80 MG PO QAM (Reported) Glimepiride (Glimepiride) 4 Mg Tablet 4 MG PO DAILYAC (Reported) Insulin Glargine (Lantus U100 Insulin Vial) 100 Unit/Ml Vial 20 UNIT SUBQ QPM ( Reported) Metolazone (Metolazone) 10 Mg Tablet 10 MG PO QAM (Reported) Metoprolol Tartrate (Metoprolol Tartrate) 25 Mg Tablet 12.5 MG PO BID Prescribed by: JASBIR NASH DO Multivitamin (Multivitamins) 1 Each Capsule 1 EACH PO DAILY (Reported) Omeprazole (Omeprazole) 20 Mg Capsule.dr 20 MG PO QAM (Reported) Potassium Chloride ER (Klor-Con 10) 10 Meq Tablet 10 MEQ PO QAM (Reported) Tamsulosin (Flomax) 0.4 Mg Capsule 0.4 MG PO DAILYWD (Reported) Verapamil ER (Verapamil ER) 180 Mg Cap24h.pel 180 MG PO DAILY Prescribed by: SCOT JORDAN MD As needed Albuterol HFA (Proair HFA) 8.5 Gm Hfa.aer.ad 2 PUFFS INHALATION q4-6h PRN PRN For Wheezing (Reported) Cyclobenzaprine (Cyclobenzaprine) 5 Mg Tablet 5 MG PO TID PRN PRN For Spasm ( Reported) Furosemide (Furosemide) 40 Mg Tablet 40 MG PO QPM PRN PRN EDEMA (Reported) Hydrocodone-Acetaminophen 5-325 mg (Hydrocodone-Acetaminophen 5-325 mg) 1 Each Tablet 1 TABLET PO Q6H PRN PRN For Pain (Reported) Lidocaine Cream (Lidocaine Cream) 5 Gm Cream..g. 1 APPLIC TOPICAL DAILY PRN PRN For Pain (Reported) Nitroglycerin SL (Nitroglycerin SL) 0.4 Mg Tab.subl 0.4 MG SL PRN chest pain ( Reported) Additional med instructions You will need to continue to receive Daptomycin for the next 7 days. This will be done at the Medical Observation Care Unit (MOC) here at the hospital. You will be given directions for this prior to discharge. Followup Plan Discharge Diet: Heart Healthy, Diabetic Discharge Activity: No restrictions Patient Instructions You were admitted due to severe sepsis. This was due to bacteria in your blood. Due to your history of valve replacement it was recommended to have a special imaging test done to ensure that your valves did not have this infection. Your results were reassuring and your will be discharged. You will need to receive another 7 days of antibiotics through an IV. We are setting this up for you. You will also need to follow-up with your primary doctor within [address] Hamilton within 2 weeks. You will resume home health nursing as before you came to the hospital, as well as physical therapy with weekly visits determined by their assessment Follow-up Provider: Milan Fishman MD Follow-up with PCP in: 1 week Provider: David Hamilton MD Follow-up in: 1 week Time spent Greater than 35 minutes Attending Statement The patient was seen and examined together with Dr. Nash on 09/08/16 and I have added additional information to the note above. copies to: Milan Fishman MD; David Hamilton MD, Michael R DO Sep 09, 2016 12:54 Mariley Wilson DO Sep 09, 2016 15:17 Cyclobenzaprine (Cyclobenzaprine) 5 Mg Tablet 5 MG PO TID PRN PRN For Spasm ( Reported) Furosemide (Furosemide) 40 Mg Tablet 40 MG PO QPM PRN PRN EDEMA (Reported) Hydrocodone-Acetaminophen 5-325 mg (Hydrocodone-Acetaminophen 5-325 mg) 1 Each Tablet 1 TABLET PO Q6H PRN PRN For Pain (Reported) Lidocaine Cream (Lidocaine Cream) 5 Gm Cream..g. 1 APPLIC TOPICAL DAILY PRN PRN For Pain (Reported) Nitroglycerin SL (Nitroglycerin SL) 0.4 Mg Tab.subl 0.4 MG SL PRN chest pain ( Reported) Additional med instructions You will need to continue to receive Daptomycin for the next 7 days. This will be done at the Medical Observation Care Unit (MOC) here at the hospital. You will be given directions for this prior to discharge. Followup Plan Discharge Diet: Heart Healthy, Diabetic Discharge Activity: No restrictions Patient Instructions You were admitted due to severe sepsis. This was due to bacteria in your blood. Due to your history of valve replacement it was recommended to have a special imaging test done to ensure that your valves did not have this infection. Your results were reassuring and your will be discharged. You will need to receive another 7 days of antibiotics through an IV. We are setting this up for you. You will also need to follow-up with your primary doctor within [address] Hamilton within 2 weeks. You will resume home health nursing as before you came to the hospital, as well as physical therapy with weekly visits determined by their assessment Follow-up Provider: Milan Fishman MD Follow-up with PCP in: 1 week Provider: David Hamilton MD Follow-up in: 1 week Jasbir Nash DO Sep 09, 2016 12:54
[2016-09-09] MEDS ORDERED: METO25TA6 PO (12:58)
== END 2016-09-08 15:58 | disposition home health service (06) | DRG 872 ==
LOC: SED 23:25 → PCC 09-01 03:22
PROVIDERS: ADMIT Internal Medicine; ATTEND Internal Medicine
PROC: B24BZZ4 Ultrasonography of Heart with Aorta, Transesophageal (ICD-10-PCS; principal; 2016-09-08)
DX: A41.81 Sepsis due to Enterococcus (principal); E87.1 Hypo-osmolality and hyponatremia; E87.2 Acidosis; I50.32 Chronic diastolic (congestive) heart failure; J96.11 Chronic respiratory failure with hypoxia; N17.9 Acute kidney failure, unspecified; R65.20 Severe sepsis without septic shock; J44.9 Chronic obstructive pulmonary disease, unspecified; E11.9 Type 2 diabetes mellitus without complications; I12.9 Hypertensive chronic kidney disease with stage 1 through stage 4 chronic kidney disease, or unspecified chronic kidney disease; N18.3 Chronic kidney disease, stage 3 (moderate); Z87.891 Personal history of nicotine dependence; I48.91 Unspecified atrial fibrillation; Z79.4 Long term (current) use of insulin; W18.39XA Other fall on same level, initial encounter; Y92.013 Bedroom of single-family (private) house as the place of occurrence of the external cause; Z95.1 Presence of aortocoronary bypass graft; J45.909 Unspecified asthma, uncomplicated; Z79.01 Long term (current) use of anticoagulants; K21.9 Gastro-esophageal reflux disease without esophagitis; I25.10 Atherosclerotic heart disease of native coronary artery without angina pectoris; M19.90 Unspecified osteoarthritis, unspecified site; Z95.2 Presence of prosthetic heart valve

== ENCOUNTER 2016-11-14 22:56 | Inpatient (IN) | payer MEDICARE, OTHER ==
[~2016-11-14] VITALS: Ht 167.6 cm; Wt 83.9 kg
[~2016-11-14 22:56] MED LIST changes: +APIX5TAB PO; -CITA20TA11 PO; +CITA40TA13 PO; +DAPT500V2 IV; +FURO40TA4 PO; +METO10TA7 PO; +METO25TA6 PO; -NORT10CA PO; +POTA10TA7 PO; -PRE20 PO; -RIVA10TA PO; -UBID300C PO
[2016-11-14 23:01] VITALS: BP 109/62; PULSE 69; RESP 20; O2SAT 91
--- NOTE | 2016-11-14 23:04 | ED.REPORT ---
HPI-Trauma Minor / Fall Date of Service Nov 14, 2016 ED Provider: Dr. Young Pt is an 81 year old male with a hx of COPD, CAD, DM, CHF, hyperlipidemia and stage III CKD on Eliquis presenting to the ED via EMS post mechanical ground level fall just prior to arrival. He complains of elbow, knee, neck and rib pain. He denies hitting his head. Denies abdominal or collar bone pain. Nursing Notes Stated Complaint: GLF Chief Complaint: Multiple Trauma/Fall Nursing Notes Reviewed: Yes Allergies: Coded Allergies: No Known Allergies (Unverified , 08/31/16) Scheduled Albiglutide (Tanzeum) 30 Mg/0.5 Ml Pen.injctr 30 MG SQ every Friday Amlodipine (Amlodipine) 5 Mg Tablet 5 MG PO QAM Apixaban (Eliquis) 5 Mg Tablet 2.5 MG PO BID Aspirin (Aspirin) 81 Mg Tablet 81 MG PO QAM Atorvastatin Calcium (Atorvastatin Calcium) 10 Mg Tablet 10 MG PO HS Citalopram (Citalopram) 40 Mg Tablet 40 MG PO QAM Daptomycin (Daptomycin) 500 Mg Vial 650 MG IV DAILY Fluticasone Propionate (Flovent Diskus) 100 Mcg Disk.w.dev 1 PUFF INHALATION BID Furosemide (Furosemide) 40 Mg Tablet 80 MG PO QAM Glimepiride (Glimepiride) 4 Mg Tablet 4 MG PO DAILYAC Insulin Glargine (Lantus U100 Insulin Vial) 100 Unit/Ml Vial 20 UNIT SUBQ QPM Metolazone (Metolazone) 10 Mg Tablet 10 MG PO QAM Metoprolol Tartrate (Metoprolol Tartrate) 25 Mg Tablet 12.5 MG PO BID Multivitamin (Multivitamins) 1 Each Capsule 1 EACH PO DAILY Omeprazole (Omeprazole) 20 Mg Capsule.dr 20 MG PO QAM Potassium Chloride ER (Klor-Con 10) 10 Meq Tablet 10 MEQ PO QAM Tamsulosin (Flomax) 0.4 Mg Capsule 0.4 MG PO DAILYWD Verapamil ER (Verapamil ER) 180 Mg Cap24h.pel 180 MG PO DAILY Scheduled PRN Albuterol HFA (Proair HFA) 8.5 Gm Hfa.aer.ad 2 PUFFS INHALATION q4-6h PRN PRN For Wheezing Cyclobenzaprine (Cyclobenzaprine) 5 Mg Tablet 5 MG PO TID PRN PRN For Spasm Furosemide (Furosemide) 40 Mg Tablet 40 MG PO QPM PRN PRN EDEMA Hydrocodone-Acetaminophen 5-325 mg (Hydrocodone-Acetaminophen 5-325 mg) 1 Each Tablet 1 TABLET PO Q6H PRN PRN For Pain Lidocaine Cream (Lidocaine Cream) 5 Gm Cream..g. 1 APPLIC TOPICAL DAILY PRN PRN For Pain Nitroglycerin SL (Nitroglycerin SL) 0.4 Mg Tab.subl 0.4 MG SL PRN chest pain General Time Seen by MD: 23:03 Chief Complaint Fall Hx Obtained From: Patient, EMS Arrived By: Ambulance Onset Occurred: Just prior to arrival Symptom Duration: Since onset Caused by: Accidental Location: Abdomen (Ribs) Elbow left Elbow right Knee left Knee right Neck Quality: Painful Severity: Current: Moderate Severity: Maximum: Moderate Recent Healthcare: No recent doctor visit, No recent hospitalization Similar Sx Previous: No Past Medical History Past Medical History Notes: Echocardiogram 06/20/2016, mild LVH, EF 55-60%, mild right ventricular dilation, mild mitral regurgitation, bioprosthetic aortic valve, mild to moderate tricuspid regurg Visited Dr. 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 GI: Denies: Abdominal pain Physical Exam Initial Vital Signs Vital Signs (First) Date Time Temp Pulse Resp B/P Pulse Ox O2 Delivery O2 Flow Rate FiO2 11/14/16 23:01 36.5 69 20 109/62 91 Room Air 11/14/16 23:56 2 Initial VS: Reviewed, Vital signs normal Head / Eyes: Atraumatic, Normocephalic, PERRL ENT: Mucous membranes moist, Conjunctiva normal, No scleral icterus Respiratory: Breath sounds normal, Clear to auscultation, No respiratory distress Cardiovascular: Regular rate & rhythm, Heart sounds normal, Intact distal pulses Abdomen / GI: Soft, Non-tender, No guarding, No rebound, No distention Skin: Warm, Dry, No cyanosis Neurologic: Alert, Oriented, Nonfocal Psychiatric: Mood/affect normal, Behavior normal, Normal thought content Upper Extremity / MS: No deformity, Neurologic intact, Vascular intact Both elbows abrated. No pain with ROM or bony tenderness. Lower Extremity / Pelvis / MS: Neurologic intact, Vascular intact Trace bilateral edema. Abrasion and swelling over both kneecaps. Hips fine. Interpretation & Diagnostics Lab Results Interpretation Result Diagram: 11/15/16 0418 11/14/16 2321 Test 11/14/16 23:21 11/15/16 00:18 Sodium Level 135mEq/L (134-144) Potassium Level 3.2mEq/L (3.5-5.2) Chloride Level 88mEq/L (97-108) Carbon Dioxide Level 29mmol/L (18-29) Blood Urea Nitrogen 52mg/dL (8-27) Creatinine 1.91mg/dL (0.76-1.27) Estimat Glomerular Filtration Rate 36mL/min (>59) Glucose Level 220mg/dL (60-99) Calcium Level 9.0mg/dL (8.5-10.1) Magnesium Level 2.1mg/dL (1.6-2.6) Total Bilirubin 0.7mg/dL (0.0-1.2) Aspartate Amino Transf (AST/SGOT) 24U/L (0-50) Alanine Aminotransferase (ALT/SGPT) 14U/L (0-44) Alkaline Phosphatase 67U/L (25-160) Troponin T 0.294ug/L (0.0-0.011) Total Protein 7.3g/dL (6.4-8.4) Albumin 3.4g/dL (3.4-5.0) Urine Color Yellow (YELLOW) Urine Appearance Clear (CLEAR,HAZY) Urine pH 5.5 (5.0-8.0) Urine Specific [place] 1.012 (1.003-1.035) Urine Protein Negativemg/dL (NEG,TRACE) Urine Glucose (UA) 250mg/dL (NEGATIVE) Urine Ketones Negativemg/dL (NEGATIVE) Urine Occult Blood Negative (NEGATIVE) Urine Nitrite Negative (NEGATIVE) Urine Bilirubin Negative (NEGATIVE) Urine Urobilinogen 1.0mg/dL (NORMAL) Urine Leukocyte Esterase Negative (NEGATIVE) Urine RBC 0-2/hpf (0-2) Urine WBC 0-5/hpf (0-5) Urine Epithelial Cells Occasional/hpf (NONE-MOD) Urine Crystals None seen (NONE SEEN) Urine Bacteria None/hpf (NONE-FEW) Urine Hyaline Casts 5/20/lpf (NONE) Urine Granular Casts None seen (NONE SEEN) Urine Waxy Casts None seen (NONE SEEN) Urine Red Blood Cell Casts None seen (NONE SEEN) Urine White Blood Cell Casts None seen (NONE SEEN) Urine Mucus None seen (None Seen) Urine Trichomonas None seen (NONE SEEN) Urine Yeast None (NONE SEEN) Urinalysis Comment None Urine Culture Reflexed Not indicated Hold Urine Received (Received) Lab Results Interpretation: Mild anemia, mild hypokalemia, elevated nonfasting blood glucose, elevated troponin ECG Interpretation ECG Interpretation: New RBBB and diffuse repolarization abnormalities when compared with 09/13/2016. Time: 23:50 Interpreted by: ED physician Normal ECG Interpretation: Normal rate (69) ECG Interpretation: RBBB. Repolarization abnrm not a STEMI. Confirmed with Dr. Cordero. Time: 12:40 Interpreted by: ED physician Normal ECG Interpretation: Normal rate (69) CT Head Interpretation CONCLUSION: Moderate involutional changes. Moderate patchy low density bilaterally in the deep white matter likely due to chronic ischemic small vessel disease. No acute intracranial abnormality. This report was transmitted to the emergency room at 11/15/2016 - 12:01:28 AM PDT. Study: Head CT no contrast Interpretation / Wet Read by: Interpret - Radiologist CT C-Spine Interpretation CONCLUSION: Degenerative changes. No acute fractures or subluxations. This report was transmitted to the emergency room at 11/15/2016 - 12:02:58 AM PDT. Study type: CT no contrast Interpretation / Wet Read by: Interpret - Radiologist Re-Eval/Medical Decision Med Decision/Clinical Course 81-year-old male Alek presents with a ground-level fall. He had trauma to his nasal bridge and complained of neck soreness. CT scan of head and neck both normal. He also has abrasions of elbows and knees without indication for x -ray. He was found to have changes on his EKG consisting of a new right bundle- branch block and nonspecific ST changes. Per Dr. Cordero these do not meet STEMI criteria. He will be admitted for further evaluation per the hospitalist service with Dr. Cordero consulting. Re-Evaluation/Progress : Time of Eval: 01:14 Patient Status: Condition improved Re-Evaluation/Progress Note: Discussed plan for admission. Pt understands and agrees with plan. Consultation #1: Referral / Consult Name: Gianni Cordero MD Consulted With: Cardiology Call Returned at: 01:04 Note: Discussed EKGs. Admit the pt and maybe take him to the cath lab technologist in the morning. Consultation #2: Referral / Consult Name: Piyush Harmon MD Consulted With: Hospitalist Call Returned at: 01:11 Content Architect: Will see patient, Agrees with plan, Accepts admit Counseled Regarding: Diagnosis, Lab results, Need for admission Discharge & Departure Impression: Primary Impression: Fall Encounter type: initial encounter Qualified Code: W19.XXXA - Unspecified fall, initial encounter Additional Impressions: Anticoagulated Acute coronary syndrome Disposition: ADMITTED TO HOSPITAL Discharge Condition All VS Reviewed: Yes Condition: Improved Referrals: Milan Fishman MD (PCP) Kang Attestation Portions of this note were transcribed by Bernadette Juarez. I, Dr. Young personally performed the history, physical exam and medical decision-making; I reviewed and confirmed the accuracy of the information in the transcribed note. Signed by: Kang Bryant, 11/14/2016. copies to: Milan Fishman MD, Howard L MD Nov 14, 2016 23:04 BERNADETTE JUAREZ Nov 14, 2016 23:11
[2016-11-14 23:26] LABS: BASOPHILS % (AUTO) 0.3 % (0-3); EOSINOPHILS % (AUTO) 1.1 % (0-5); MONOCYTES % (AUTO) 10.6 % (4-12); Mean Corpuscular Hemoglobin 24.4 pg (27.0-35.0); Mean Corpuscular Volume 78.6 fL (81-100); NEUTROPHILS % (AUTO) 76.3 % (40-74); Platelet Count 247 bil/L (150-400)
[2016-11-14 23:47] LABS: Magnesium 2.1 mg/dL (1.6-2.6)
[2016-11-14 23:56] VITALS: BP 117/68; PULSE 70; RESP 18; O2SAT 92
[2016-11-15] VITALS (13 sets, daily range): BP systolic 90–114; BP diastolic 51–69; PULSE 60–89; RESP 16–18; O2SAT 92–100
[2016-11-15] MEDS ORDERED: Alum-Mag Hydrox-Simeth 30 mL Suspension PO PRN (01:20)
[2016-11-15] MEDS ORDERED: Polyethylene Glycol (PEG) 17 Gm Powder PO PRN (01:20)
[2016-11-15] MEDS ORDERED: Ondansetron 2 mg/mL 2 mL Inj IVPUSH PRN (01:20)
[2016-11-15] MEDS ORDERED: Albuterol 2.5 mg/3 mL Inhalation Solution NEB PRN (02:20)
[2016-11-15] MEDS ORDERED: Glucose 40% Oral Gel 15 Gm Tube PO PRN (02:20)
[2016-11-15] MEDS ORDERED: Albuterol-Ipratropium 3 mL Inhalation Solution NEB PRN (02:20)
[2016-11-15] MEDS: 0.9% Sodium Chloride 1,000 ML IV SCH ×4 (02:20→23:57)
[2016-11-15 02:28] LABS: APPEARANCE,URINE CLEAR (CLEAR,HAZY); COLOR,URINE YELLOW (YELLOW)
[2016-11-15 02:29] LABS: OCCULT BLOOD,URINE NEGATIVE (NEGATIVE); PH,URINE 5.5 (5.0-8.0)
[2016-11-15] MEDS ORDERED: Dextrose 10% 250 ML IV PRN (02:30)
--- NOTE | 2016-11-15 02:33 | PCM.HPMED ---
Subjective Date of Service Nov 15, 2016 Primary Provider: Admitting Physician: Primary Care Physician: Milan Fishman MD Attending Physician: Admit Status: From the Emergency Department, Remote Telemetry Chief Complaint: ground level fall without associated syncope, without near syncope History of Present Illness: Mr. Delvalle is an extremely pleasant 81-year-old gentleman with a complicated history including atrial fibrillation on Eliquis, insulin using diabetes mellitus type II, hypertension, bioprosthetic aortic valve replacement, myocardial infarction status post 3 vessel CABG, history of recurrent GLFs, and recurrent syncopal episodes, that presented to [facility] 11/14/2016 with another episode of a ground-level fall secondary to foot misplacement without evidence of head trauma or loss of consciousness, without any association of dizziness, lightheadedness, or weakness, and without any chest pain, palpitations, acute vision changes, shortness of breath, or acute pain. Initial studies revealed troponin elevation at 0.294, and CT brain and cervical without acute intracranial or structural abnormalities. Patient was admitted for evaluation for GLF on anticoagulation, and elevated troponin. - Hospital day one Mr. Delvalle states that he was at his home letting his dog outside. He was at his porch, when his walker seemed to have 'caught' the door baseboard, and he fell forward. He denied any preceding chest pain, SOB, palpitations, vision changes, weakness, dizziness, headache, or unsteady gait above baseline. He endorses some mild discomfort of his left extremities, notably his upper, of which, has multiple small abrasions. After he fell, he states he crawled into his home and called for EMS. He denies any loss of consciousness, head trauma, or extremity trauma. He states he had to crawl into his home, as he did not have maico strength or stability to pick himself off of the ground. He also denies any other symptoms of fever, chills, nausea, vomiting. Denies any dysphagia. States that he has been eating and drinking well at his home. Of note, patient was recently seen 11/08/[address] Hamilton. During that visit, no changes to medications were noted. In the ED: T36.5, P69, R20, BP 109/62, 100% RA; initial labs showed WBC 12.2 with 76.3% neut, Hb 11.5, Hct 37.0, plt 247; Na 135, K 3..2, Cr 1.91, glc 220; troponin T 0.294; per [facility] report in ED documentation, CT brain w/o contrast did not reveal any acute intracranial abnormalities, and CT cervical spine was also unremarkable aside from degenerative changes. Cardiology was consulted, recommendations included admission, cardiac monitoring, and holding of anticoagulation therapies. Patient was transferred to medical floor in stable condition. Review of Systems: Complete review of systems obtained, pertinent positives and negatives as noted in history of present illness Allergies Coded Allergies: No Known Allergies (Unverified , 08/31/16) Home Medications Obtained from ED documentation: Albiglutide (Tanzeum) 30 Mg/0.5 Ml Pen.injctr 30 MG SQ every Friday Amlodipine (Amlodipine) 5 Mg Tablet 5 MG PO QAM Apixaban (Eliquis) 5 Mg Tablet 2.5 MG PO BID Aspirin (Aspirin) 81 Mg Tablet 81 MG PO QAM Atorvastatin Calcium (Atorvastatin Calcium) 10 Mg Tablet 10 MG PO HS Citalopram (Citalopram) 40 Mg Tablet 40 MG PO QAM Daptomycin (Daptomycin) 500 Mg Vial 650 MG IV DAILY Fluticasone Propionate (Flovent Diskus) 100 Mcg Disk.w.dev 1 PUFF INHALATION BID Furosemide (Furosemide) 40 Mg Tablet 80 MG PO QAM Glimepiride (Glimepiride) 4 Mg Tablet 4 MG PO DAILYAC Insulin Glargine (Lantus U100 Insulin Vial) 100 Unit/Ml Vial 20 UNIT SUBQ QPM Metolazone (Metolazone) 10 Mg Tablet 10 MG PO QAM Metoprolol Tartrate (Metoprolol Tartrate) 25 Mg Tablet 12.5 MG PO BID Multivitamin (Multivitamins) 1 Each Capsule 1 EACH PO DAILY Omeprazole (Omeprazole) 20 Mg Capsule.dr 20 MG PO QAM Potassium Chloride ER (Klor-Con 10) 10 Meq Tablet 10 MEQ PO QAM Tamsulosin (Flomax) 0.4 Mg Capsule 0.4 MG PO DAILYWD Verapamil ER (Verapamil ER) 180 Mg Cap24h.pel 180 MG PO DAILY Scheduled PRN Albuterol HFA (Proair HFA) 8.5 Gm Hfa.aer.ad 2 PUFFS INHALATION q4-6h PRN PRN For Wheezing Cyclobenzaprine (Cyclobenzaprine) 5 Mg Tablet 5 MG PO TID PRN PRN For Spasm Furosemide (Furosemide) 40 Mg Tablet 40 MG PO QPM PRN PRN EDEMA Hydrocodone-Acetaminophen 5-325 mg (Hydrocodone-Acetaminophen 5-325 mg) 1 Each Tablet 1 TABLET PO Q6H PRN PRN For Pain Lidocaine Cream (Lidocaine Cream) 5 Gm Cream..g. 1 APPLIC TOPICAL DAILY PRN PRN For Pain Nitroglycerin SL (Nitroglycerin SL) 0.4 Mg Tab.subl 0.4 MG SL PRN chest pain MED REC NOT YET COMPLETED AT TIME OF ADMISSION PMH Enterococcus bacteremia History of pulmonary hypertension COPD Asthma Stage III chronic kidney disease Diabetes Primary osteoarthritis the right hip History of congestive heart failure Hyperlipidemia GERD History of major depression History of chronic low back pain History of syncopal/near syncopal episodes Surgical History CABG Bioprosthetic aortic valve Cardiac catheterization February 2015 Hip surgery Family History Heart disease and hypertension Social History Hx Alcohol Use: Yes (rarely) Hx Substance Use: No Hx Tobacco Use: Yes (The patient quit 20 years ago. Reported 2 packs a day for 18 years) Smoking Status: Former Smoker Exam Vital Signs Vital Sign - Last Date Time Temp Pulse Resp B/P Pulse Ox O2 Delivery O2 Flow Rate FiO2 11/15/16 01:06 70 18 114/65 100 Room Air 11/14/16 23:56 2 11/14/16 23:01 36.5 Intake and Output 11/14/16 11/14/16 11/15/16 Cumulative From/Thru 15:00 23:00 07:00 11/14/16 23:01 - 11/14/16 23:17 Intake Total 300 ml 300 ml Balance 300 ml 300 ml Intake IV Total 300 ml 300 ml Exam General: Elderly male, alert resting in bed in no acute distress HEENT: Normocephalic, atraumatic, sclera anicteric; mucous membranes moist Neck: Supple, non-tender, no lymphadenopathy or thyromegaly appreciated. No pain with movement Cardiovascular: regular rate and rhythm at time of examination, murmur indicative of bioprosthetic valve Chest/lungs: Symmetric chest rise, lung sounds somewhat diminished but grossly clear to auscultation; no wheezes appreciated; linear vertical scar noted over sternum, healed Abdomen: Soft, obese, nontender, nondistended, bowel tones present. Extremities: Warm, well perfused, mild pitting edema noted bilateral lower extremities on dorsum of feet with extension to ankle Skin: Scattered ecchymosis of bilateral upper extremities; superficial abrasions noted right elbow without profuse bleeding MSK: 5/5 strength 4/4 extremities at shoulder, elbow, hip, knee, ankle Neurologic: Cranial nerves grossly intact, no focal deficits, facial expressions equal and symmetric, speech without slur Psychiatric: Appropriate mood, affect, and responses to questioning; good insight and judgment; was alert and oriented x3; appears to have some delay in response time, but appropriately answers all questions Lab and Diagnostics Result Diagram: 11/14/16 2321 11/14/16 2321 Assessment & Plan Mr. Delvalle is an extremely pleasant 81-year-old gentleman with a complicated history including atrial fibrillation on Eliquis, insulin using diabetes mellitus type II, hypertension, bioprosthetic aortic valve replacement, myocardial infarction status post 3 vessel CABG, history of recurrent GLFs, and recurrent syncopal episodes, that presented to [facility] 11/14/2016 with another episode of a ground-level fall secondary to foot misplacement without evidence of head trauma or loss of consciousness, without any association of dizziness, lightheadedness, or weakness, and without any chest pain, palpitations, acute vision changes, shortness of breath, or acute pain. Initial studies revealed troponin elevation at 0.294, and CT brain and cervical without acute intracranial or structural abnormalities. Patient was admitted for evaluation for GLF on anticoagulation, and elevated troponin. - Hospital day one MED REC NOT YET COMPLETED AT TIME OF ADMISSION Ground level fall secondary to body mechanics, acute, present on admission, monitor - Pt denies any assoc LOC, syncope/near syncope - Initial reports CT brain w/o con: no acute intracranial abnl, awaiting final report - Phys therapy eval - Holding Eliquis at this time - Repeat CT brain w/o con in am Elevated troponin, possible acute on chronic elevation, present on admission, monitor - On admit: 0.294; prev values 08/2016: 0.196, 0.2001, 0.170 - Pt denies any recent h/o CP, palpitations, chest pressure, dyspnea, diaphoresis - Likely exacerbated by CKD - ED EKG: RBBB + diffuse changes differing compared to previous 08/2016 studies - Continue to trend/monitor - Tele - EKG in am - ED contacted cardiology, whom graciously agreed to consult - Cards consult order placed: Dr. Cordero Chronic renal insufficiency, presumed stable - On admit: Cr 1.91; prev values 08/2016 2.00, 1.35, 1.61; values seem to fluctuate 1.5-2.0 - Avoid nephrotoxic medications - Gentle hydration overnight, as patient has not been maintaining po intake in ED secondary to nature of environment - NS 60 Hypokalemia, acute, present on admission, under evaluation - On admit: K 3.2 - K/Mg protocol + monitor Microcytic hypochromic anemia, likely chronic, presumed stable - On admit: Hb 11.5, Hct 37.0, MCV 78.6, MCH 24.4 - Defer to outpatient work up; likely iron deficiency Leukocytosis, likely chronic, presumed stable - On admit: WBC 12.2; prev 08/2016: 11.1, 11.6 - Monitor; currently no s/sx of infection - Monitor with WBC trending, obtain UA HFpEF, chronic. 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 Presumed stable - Has been on home oxygen therapy since 2016; continuous 1.5 L - Outpt pulmonary: Dr. Cheryl Oconnor and neo prn - Continue continuous 1.5L; titrate as needed Atrial fibrillation on Eliquis, chronic. Presumed stable - Patient reported h/o unsuccessful cardioversion - Tele - HOLDING NOAC Diabetes mellitus, insulin using type 2, chronic. Presumed stable - A1c July 2016: 8.6 - Low-dose correctional scale in place at this time - Resume home dose glargine when verified Hypertension, chronic. Presumed stable - Resume home medications when reconciliation completed GERD, chronic. Presumed stable - PPI continued Hyperlipidemia, chronic. Presumed stable - Resume home medications when reconciliation completed; statin Coronary artery disease, status post myocardial infarction, chronic. Presumed stable - Resume home medications when reconciliation completed and consideration of appropriate meds - anticoag held at this time History of aortic valve replacement with porcine valve. Presumed stable - Continue cardiac meds as noted Osteoarthritis, chronic. Presumed stable - Pain rx prn - PRN bowel/fever/nausea/pain - GI: PPI - DVT: HELD at this time secondary to GLF - Diet: Heart/CC - IVF: NS 60 - Code: FULL CODE Pt status: Due to severity of presenting symptoms, risk of adverse events, and likely course of care, anticipated length of stay exceeds 2 nights; admitted as inpatient status Pain Evaluation: Adequate Pain Control GI Prophylaxis: Proton Pump Inhibitor VTE Prophylaxis: SCDs Resuscitation Status: CPR: Attempt Resuscitation Attending Statement The patient was seen and examined together with Dr. Reyes on 11/15 and I agree with the history, exam and plan as outlined in the note above. Mikala Reyes DO Nov 15, 2016 01:40 Piyush Harmon MD Nov 15, 2016 06:58
[2016-11-15] MEDS ORDERED: KCl 40 mEq/500 mL D5W(K 3 - 3.7 & Creat < 2) IV ONE (03:30)
[2016-11-15 04:41] LABS: BASOPHILS % (AUTO) 0.2 % (0-3); EOSINOPHILS % (AUTO) 1.4 % (0-5); MONOCYTES % (AUTO) 13.5 % (4-12); NEUTROPHILS % (AUTO) 70.5 % (40-74); Platelet Count 208 bil/L (150-400)
--- NOTE | 2016-11-15 05:15 | NUR ---
Pt rec'd from ED at 0300 in [facility], slide board transfer to bed. A/Ox3, very pleasant. VSS, BG 245. K/mag protocol initiated, K infusing now, repeat draw at 0745. BR this shift, uses urinal independently. SR 60-70's, 1st degree block, IVCD and occ PVCs. Pitting edema in LE's per baseline according to pt. 92% on 1L NC. NPO for possible cath this AM. Plan for EKG and PT eval today.
--- NOTE | 2016-11-15 07:36 | DRSVH ---
PROCEDURE: CT BRAIN WITHOUT CONTRAST ([id number]) INDICATIONS: fall, blood thinner TECHNIQUE: Noncontrast 4.5 mm thick angled axial sections acquired from the foramen magnum to the vertex, with c oronal reformats. COMPARISON: [facility], CT, CT BRAIN WO CON, 08/05/2016, 22:13. [facility], CT, BRAIN W/O CONTRAST, 04/07/2013, 22:02. [facility], CT, BRAIN W/O CONTRAST, 03/04/2010 , 12:54. FINDINGS: Image quality: Excellent. CSF spaces: Basal cisterns are patent. No extra-axial fluid collections. Ventricles are normal in size and shape. Brain: No midline shift. No intracranial masses or hemorrhage. Damon-white matter interface is norm al. Skull and face: Calvarium and visualized facial bones are intact, without suspicious lesions. Sinuses: Minimal mucosal thickening otherwise visualized sinuses and mastoids are clear. IMPRESSION: No CT evidence of acute intracranial pathology. There are no discrepancies with the preliminary report. Dictated by: Leon Padilla M.D. on 11/15/2016 at 7:33 Approved by: Leon Padilla M.D. on 11/15/2016 at 7:35
--- NOTE | 2016-11-15 07:41 | DRSVH ---
PROCEDURE: CT CERVICAL SPINE WITHOUT CONTRAST ([id number]) INDICATIONS: fall, neck pain TECHNIQUE: Noncontrast 3 mm thick sections acquired from the skull base to the T4 level. Sagittal and coronal r eformats were then constructed. For radiation dose reduction, the following was used: automated exp osure control, adjustment of mA and/or kV according to patient size. COMPARISON: None. FINDINGS: Image quality: Excellent. Bones: No fractures or dislocations. Multilevel intravertebral body disc height loss and osteophyte formation consistent with degenerative change most prominent at C5-7. Benign area of gas in the C6 ve rtebral body is related to degenerative change. Visualized superior ribs are intact. Soft tissues: Prevertebral soft tissues are normal in thickness. No paravertebral hematomas. No ap ical pneumothoraces. Small partially visualized right apical pleural effusion or pleural thickening. IMPRESSION: 1. No CT evidence of acute cervical spine pathology. 2. Right apical small pleural effusion or pleural thickening partially visualized. 3. There are no discrepancies with the preliminary report. Dictated by: Leon Padilla M.D. on 11/15/2016 at 7:35 Approved by: Leon Padilla M.D. on 11/15/2016 at 7:39
[2016-11-15] MEDS ORDERED: IPRA30SP8 NS (07:53)
[2016-11-15] MEDS ORDERED: VERA120T84 PO (08:07)
[2016-11-15] MEDS ORDERED: DIGO125T73 PO (08:10)
[2016-11-15] MEDS ORDERED: SPIR25TA3 PO (08:15)
--- NOTE | 2016-11-15 09:15 | NUR ---
Awake/alert/blood sugar/walker Pt awake and alert this am, pt states he has not checked his blood sugar in a week, states his walker did not navigate thru the front door very well. Encouraged and educated pt regarding consistency with BG and working with PT and walker. Pt acknowledged and understood education. PT in room working with pt. Care continues.
[2016-11-15] MEDS: Pantoprazole 20 mg ER24 Tablet PO SCH (09:43)
[2016-11-15] MEDS: Insulin LISPRO 300 Unit/3 mL Inj SUBQ SCH ×4 (09:44→21:12)
--- NOTE | 2016-11-15 13:04 | DRSVH ---
PROCEDURE: CT BRAIN WITHOUT CONTRAST ([id number]) INDICATIONS: GLF on anticoag TECHNIQUE: Noncontrast 4.5 mm thick angled axial sections acquired from the foramen magnum to the vertex, with c oronal reformats. COMPARISON: CT brain 11/14/2016 FINDINGS: Image quality: Motion artifact, sequence partially repeated. CSF spaces: Basal cisterns are patent. No extra-axial fluid collections. The ventricles are symmet rama in size and shape. Brain: No intracranial bleeds or masses. There is cerebral volume loss for age, with resultant vent ricular and sulcal prominence. There are periventricular and deep white matter chronic small vessel ischemic changes. There is intracranial internal carotid artery atherosclerosis. Skull and face: Calvarium and visualized facial bones appear intact, without suspicious lesions. Sinuses: Visualized sinuses and mastoids are clear. IMPRESSION: 1. No acute intracranial abnormality or interval change 2. Age-related atrophy and chronic deep white matter ischemic changes. Note: Dr. Teri tinoco with results at 1300 hours on 11/15/2016 Dictated by: Jason Chaudhry M.D. on 11/15/2016 at 12:57 Approved by: Jason Chaudhry M.D. on 11/15/2016 at 13:02
--- NOTE | 2016-11-15 16:09 | NUR ---
Social Work Note: Initial Assessment Data: EMR reviewed. Pt is a 81 year old male admitted for NSTEMI, fall, anticoagulation. Pt discussed in multidisciplinary rounds, Cardiology is consulted. PT worked with pt and he was ortho static. PT will continue to work with pt to assess his functional mobility. Pt has Medicare and for Life Supplement. Pt sees Milan Fishman MD for primary care. SW met with pt at bedside regarding d/c planning, SW role explained. Pt alert and oriented x3. Pt's capacity for self-care assessed. Pt lives in [facility] with his spouse and is independent at baseline with a FWW. Pt does not have LT insurance or VA benefits. Pt has been to [facility] in the past and is currently open with Kimberly MILLER RN and PT. Pt has DPOA/AD paperwork completed and on file. Pt would like to resume his [facility] services if this is medically indicated at d/c. Pt is not sure that he would want to return to [facility] if indicated. Pt's walker was likely ruined during his fall, SW will follow up with pt's family regarding this. Pt's is in [facility] at this time but pt's daughter is available. SW asked pt to follow up regarding his walker with his daughter as well. D/C needs are unknown at this time, but likely return home with resumption of Kimberly MILLER services and family to transport via POV. SW provided d/c planning checklist and wrote phone number on whiteboard. SW will follow. Assessment: Pt who is independent with ADLs and self-care. Plan: Likely d/c home with resumption of Kimberly MILLER RN PT, pending PT evaluation. Pt's family will likely transport home at d/c. SW will continue to follow. PRABHAKAR Millan Addendum: 11/15/16 at 1612 by BARBRA HESS Amended: Links added.
--- NOTE | 2016-11-15 16:12 | PCM.PNMED ---
Subjective Date of Service Nov 15, 2016 Subjective Patient did have some orthostatic hypotension and hence we will go ahead and initiate IV normal saline 1 L. Exam Vital Signs Vital Sign - Last Date Time Temp Pulse Resp B/P Pulse Ox O2 Delivery O2 Flow Rate FiO2 11/15/16 12:00 36.9 65 16 103/64 97 Room Air 11/15/16 02:30 1.00 Intake and Output 11/14/16 11/14/16 11/15/16 Cumulative From/Thru 15:00 23:00 07:00 11/14/16 23:01 - 11/15/16 06:55 Intake Total 497 ml 497 ml Output Total 200 ml 200 ml Balance 297 ml 297 ml Intake Oral 0 ml 0 ml IV Total 497 ml 497 ml Output Urine Total 200 ml 200 ml Exam Constitutional: Elderly male who is currently resting in bed Chest: Decreased breath sounds at his bases Cor: Regular rate and rhythm S1-S2 Abdomen: Soft nontender bowel sounds present Extremities: No pedal edema Neuro: Alert and oriented 3, motor strength is intact bilaterally IVs and Medications Medications Reviewed: Medications were reviewed in detail Lab and Diagnostics Laboratory Tests 72 Hours Test 11/14/16 23:21 11/15/16 00:18 11/15/16 04:18 11/15/16 08:33 White Blood Count 12.2th/mm3 (3.8-10.1) 10.2th/mm3 (3.8-10.1) Red Blood Count 4.71mil/mm3 (4.40-5.80) 4.50mil/mm3 (4.40-5.80) Hemoglobin 11.5g/dL (13.8-17.2) 10.8g/dL (13.8-17.2) Hematocrit 37.0% (41.0-50.0) 35.1% (41.0-50.0) Mean Corpuscular Volume 78.6fL (81-100) 78.0fL (81-100) Mean Corpuscular Hemoglobin 24.4pg (27.0-35.0) 24.0pg (27.0-35.0) Mean Corpuscular Hemoglobin Concent 31.1% (32.0-37.0) 30.8% (32.0-37.0) Red Cell Distribution Width 17.4% (12.3-15.4) 17.3% (12.3-15.4) Platelet Count 247bil/L (150-400) 208bil/L (150-400) Neutrophils (%) (Auto) 76.3% (40-74) 70.5% (40-74) Lymphocytes (%) (Auto) 11.5% (14-46) 14.2% (14-46) Monocytes (%) (Auto) 10.6% (4-12) 13.5% (4-12) Eosinophils (%) (Auto) 1.1% (0-5) 1.4% (0-5) Basophils (%) (Auto) 0.3% (0-3) 0.2% (0-3) Sodium Level 135mEq/L (134-144) Potassium Level 3.2mEq/L (3.5-5.2) 3.8mEq/L (3.5-5.2) Chloride Level 88mEq/L (97-108) Carbon Dioxide Level 29mmol/L (18-29) Blood Urea Nitrogen 52mg/dL (8-27) Creatinine 1.91mg/dL (0.76-1.27) Estimat Glomerular Filtration Rate 36mL/min (>59) Glucose Level 220mg/dL (60-99) Calcium Level 9.0mg/dL (8.5-10.1) Magnesium Level 2.1mg/dL (1.6-2.6) Total Bilirubin 0.7mg/dL (0.0-1.2) Aspartate Amino Transf (AST/SGOT) 24U/L (0-50) Alanine Aminotransferase (ALT/SGPT) 14U/L (0-44) Alkaline Phosphatase 67U/L (25-160) Troponin T 0.294ug/L (0.0-0.011) 0.241ug/L (0.0-0.011) Total Protein 7.3g/dL (6.4-8.4) Albumin 3.4g/dL (3.4-5.0) Urine Color Yellow (YELLOW) Urine Appearance Clear (CLEAR,HAZY) Urine pH 5.5 (5.0-8.0) Urine Specific [place] 1.012 (1.003-1.035) Urine Protein Negativemg/dL (NEG,TRACE) Urine Glucose (UA) 250mg/dL (NEGATIVE) Urine Ketones Negativemg/dL (NEGATIVE) Urine Occult Blood Negative (NEGATIVE) Urine Nitrite Negative (NEGATIVE) Urine Bilirubin Negative (NEGATIVE) Urine Urobilinogen 1.0mg/dL (NORMAL) Urine Leukocyte Esterase Negative (NEGATIVE) Urine RBC 0-2/hpf (0-2) Urine WBC 0-5/hpf (0-5) Urine Epithelial Cells Occasional/hpf (NONE-MOD) Urine Crystals None seen (NONE SEEN) Urine Bacteria None/hpf (NONE-FEW) Urine Hyaline Casts 5/20/lpf (NONE) Urine Granular Casts None seen (NONE SEEN) Urine Waxy Casts None seen (NONE SEEN) Urine Red Blood Cell Casts None seen (NONE SEEN) Urine White Blood Cell Casts None seen (NONE SEEN) Urine Mucus None seen (None Seen) Urine Trichomonas None seen (NONE SEEN) Urine Yeast None (NONE SEEN) Urinalysis Comment None Urine Culture Reflexed Not indicated Hold Urine Received (Received) Test 11/15/16 14:46 Troponin T 0.252ug/L (0.0-0.011) Result Diagram: 11/15/16 0418 11/15/16 0833 X-Rays, CTs and MRIs PROCEDURE: CT BRAIN WITHOUT CONTRAST ([id number]) INDICATIONS: GLF on anticoag TECHNIQUE: Noncontrast 4.5 mm thick angled axial sections acquired from the foramen magnum to the vertex, with coronal reformats. COMPARISON: CT brain 11/14/2016 FINDINGS: Image quality: Motion artifact, sequence partially repeated. CSF spaces: Basal cisterns are patent. No extra-axial fluid collections. The ventricles are symmetric in size and shape. Brain: No intracranial bleeds or masses. There is cerebral volume loss for age , with resultant ventricular and sulcal prominence. There are periventricular and deep white matter chronic small vessel ischemic changes. There is intracranial internal carotid artery atherosclerosis. Skull and face: Calvarium and visualized facial bones appear intact, without suspicious lesions. Sinuses: Visualized sinuses and mastoids are clear. IMPRESSION: 1. No acute intracranial abnormality or interval change 2. Age-related atrophy and chronic deep white matter ischemic changes. Note: Dr. Teri tinoco with results at 1300 hours on 11/15/2016 Dictated by: Jason Chaudhry M.D. on 11/15/2016 at 12:57 Approved by: Jason Chaudhry M.D. on 11/15/2016 at 13:02 PROCEDURE: CT BRAIN WITHOUT CONTRAST ([id number]) INDICATIONS: fall, blood thinner TECHNIQUE: Noncontrast 4.5 mm thick angled axial sections acquired from the foramen magnum to the vertex, with coronal reformats. COMPARISON: [facility], CT, CT BRAIN WO CON, 08/05/2016, 22:13. [facility], CT, BRAIN W/O CONTRAST, 04/07/2013, 22:02. [facility], CT, BRAIN W/O CONTRAST, 03/04/2010, 12:54. FINDINGS: Image quality: Excellent. CSF spaces: Basal cisterns are patent. No extra-axial fluid collections. Ventricles are normal in size and shape. Brain: No midline shift. No intracranial masses or hemorrhage. Damon-white matter interface is normal. Skull and face: Calvarium and visualized facial bones are intact, without suspicious lesions. Sinuses: Minimal mucosal thickening otherwise visualized sinuses and mastoids are clear. IMPRESSION: No CT evidence of acute intracranial pathology. There are no discrepancies with the preliminary report. Dictated by: Leon Padilla M.D. on 11/15/2016 at 7:33 Approved by: Leon Padilla M.D. on 11/15/2016 at 7:35 PROCEDURE: CT CERVICAL SPINE WITHOUT CONTRAST ([id number]) INDICATIONS: fall, neck pain TECHNIQUE: Noncontrast 3 mm thick sections acquired from the skull base to the T4 level. Sagittal and coronal reformats were then constructed. For radiation dose reduction, the following was used: automated exposure control, adjustment of mA and/or kV according to patient size. COMPARISON: None. FINDINGS: Image quality: Excellent. Bones: No fractures or dislocations. Multilevel intravertebral body disc height loss and osteophyte formation consistent with degenerative change most prominent at C5-7. Benign area of gas in the C6 vertebral body is related to degenerative change. Visualized superior ribs are intact. Soft tissues: Prevertebral soft tissues are normal in thickness. No paravertebral hematomas. No apical pneumothoraces. Small partially visualized right apical pleural effusion or pleural thickening. IMPRESSION: 1. No CT evidence of acute cervical spine pathology. 2. Right apical small pleural effusion or pleural thickening partially visualized. 3. There are no discrepancies with the preliminary report. Dictated by: Leon Padilla M.D. on 11/15/2016 at 7:35 Approved by: Leon Padilla M.D. on 11/15/2016 at 7:39 Assessment & Plan Mr. 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 Initial studies revealed troponin elevation at 0.294, and CT brain and cervical without acute intracranial or structural abnormalities. Patient was admitted for evaluation for GLF on anticoagulation, and elevated troponin. - Hospital day one MED REC NOT YET COMPLETED AT TIME OF ADMISSION Ground level fall secondary to body mechanics, acute, present on admission, monitor - Pt denies any assoc LOC, syncope/near syncope - Initial reports CT brain w/o con: no acute intracranial abnl, awaiting final report - Phys therapy eval - Holding Eliquis at this time - Repeat CT brain w/o con in am which returned as negative Elevated troponin, possible acute on chronic elevation, present on admission, monitor - On admit: 0.294; prev values 08/2016: 0.196, 0.2001, 0.170 - Pt denies any recent h/o CP, palpitations, chest pressure, dyspnea, diaphoresis - Likely exacerbated by CKD - ED EKG: RBBB + diffuse changes differing compared to previous 08/2016 studies - Continue to trend/monitor - Tele - EKG in am - ED contacted cardiology, whom graciously agreed to consult - Cruciate cardiology consult today and await further recommendations. -Cardiology recommended checking SPEP and light chain assay and this has been ordered on November 15. Orthostatic hypotension, acute, present on admission -We will go ahead and give IV fluids 1 L at 100 mils per hour of normal saline and reevaluate in a.m. Chronic renal insufficiency, presumed stable - On admit: Cr 1.91; prev values 08/2016 2.00, 1.35, 1.61; values seem to fluctuate 1.5-2.0 - Avoid nephrotoxic medications - Gentle hydration overnight, as patient has not been maintaining po intake in ED secondary to nature of environment - NS 60 Hypokalemia, acute, present on admission, under evaluation - On admit: K 3.2 - K/Mg protocol + monitor Microcytic hypochromic anemia, likely chronic, presumed stable - On admit: Hb 11.5, Hct 37.0, MCV 78.6, MCH 24.4 - Defer to outpatient work up; likely iron deficiency Leukocytosis, likely chronic, presumed stable - On admit: WBC 12.2; prev 08/2016: 11.1, 11.6 - Monitor; currently no s/sx of infection - Monitor with WBC trending, obtain UA HFpEF, chronic. 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 Presumed stable - Has been on home oxygen therapy since 2016; continuous 1.5 L - Outpt pulmonary: Dr. Cheryl Oconnor and neo prn - Continue continuous 1.5L; titrate as needed Atrial fibrillation on Eliquis, chronic. Presumed stable - Patient reported h/o unsuccessful cardioversion - Tele - HOLDING NOAC Diabetes mellitus, insulin using type 2, chronic. Presumed stable - A1c July 2016: 8.6 - Low-dose correctional scale in place at this time - Resume home dose glargine when verified Hypertension, chronic. Presumed stable - Resume home medications when reconciliation completed GERD, chronic. Presumed stable - PPI continued Hyperlipidemia, chronic. Presumed stable - Resume home medications when reconciliation completed; statin Coronary artery disease, status post myocardial infarction, chronic. Presumed stable - Resume home medications when reconciliation completed and consideration of appropriate meds - anticoag held at this time History of aortic valve replacement with porcine valve. Presumed stable - Continue cardiac meds as noted Osteoarthritis, chronic. Presumed stable - Pain rx prn - PRN bowel/fever/nausea/pain - GI: PPI - DVT: HELD at this time secondary to GLF - Diet: Heart/CC - IVF: NS 60 - Code: FULL CODE Pt status: Due to severity of presenting symptoms, risk of adverse events, and likely course of care, anticipated length of stay exceeds 2 nights; admitted as inpatient status GI Prophylaxis: Proton Pump Inhibitor VTE Prophylaxis: SCDs Resuscitation Status: CPR: Attempt Resuscitation Time spent 25 minutes Yaneth Williamson MD Nov 15, 2016 16:12
--- NOTE | 2016-11-15 17:16 | DRSVH ---
[facility] [address] [place] [place] [address] Echocardiogram Report Name: KEVIN BOONE Study Date: 11/15/2016 Height: 66 in Hospital Exam Location: [facility] Weight: 184 lb Gender: Male BSA: 1.9 m2 : 1935 Age: 81 yrs BP: 114/69 mmHg Reason For Study: NSTEMI, Fall Ordering Physician: Ghislaine Pardo Performed By: Claudia Trujillo Referring Physician: ALE PARDO Interpretation Summary 1. Normal left ventricular size with moderate to severe hypertrophy with preserved systolic function and an estimated EF of 55 to 60% 2. The right ventricle appears mildly dilated with mild to moderately reduced systolic function. The estimated RVSP is estimated at 52 mm Hg 3. The bioprosthetic valve appears to be functioning well 4. Strain imaging is abnormal with best strain values in the apical distribution (this may be suggestive of amyloid). No appreciable change compared to the previous study Procedure: A two-dimensional transthoracic echocardiogram with color flow and Doppler was performed. The study quality was technically adequate. Comparison is made with the echocardiogram of 09/08/2016. The patient was in normal sinus rhythm during the exam. Left Ventricle: The left ventricle is normal in size. There is moderate- severe concentric left ventricular hypertrophy. The ejection fraction is estimated to be 55-60%. Left ventricular strain imaging global average= -8%. The strain imaging is abnormal with the best values near the apex. No obvious focal wall motion abnormalities - the basal inferior wall may be relatively hypokinetic (however this was appreciated on the previous echo). Right Ventricle: Appears mildly dilated. Right ventricular systolic function is mild to moderately reduced. Atria: The left atrium is moderately dilated. The right atrium is mild to moderately dilated. The interatrial septum is intact with no evidence for an atrial septal defect. Mitral Valve: The mitral valve leaflets are mildly calcified. There is moderate mitral annular calcification. No significant mitral valve stenosis. There is mild to moderate mitral regurgitation. Aortic Valve: There is a prosthetic aortic valve. The aortic valve mean gradient is 11 mmHg. No aortic regurgitation is present. Tricuspid Valve: The tricuspid valve leaflets are thin and pliable. There is moderate tricuspid regurgitation. The right ventricular systolic pressure is estimated at 52 mmHg assuming a right atrial pressure of 8 mm Hg. Pulmonic Valve: The pulmonic valve is normal in structure and function. There is mild pulmonic regurgitation. Great Vessels: The aortic root is normal size. The IVC is of normal diameter and collapses less than 50% with a sniff. This suggests a right atrial pressure of 8 mm Hg. Pericardium/ Pleura There is a trivial to small pericardial effusion noted. There is no pleural effusion. MMode/2D Measurements & Calculations LVIDd: 4.2 cm RA long axis LVOT diam LVIDs: 2.9 cm LA A2 area: 23.9 cm : 1.9 cm FS: 32.2 % LA A4 area: 21.7 cm RA area IVSd: 2.1 cm LA length (vol): 5.7 cm LVPWd: 1.6 cm LA vol: 77.5 ml : 15.2 cm RA vol: 43.7 ml LA vol index: 40.1 ml/m RA IVC diam: 1.8 cm : 22.6 mm2 LV hernandez. diameter/BSA LV sys. diameter/BSA (cm/m^2): 2.2 (cm/m^2): 1.5 Doppler Measurements & Calculations Ao V2 max: 222.6 cm/sec MV E max aaron MV E/A: 1.4 TR max aaron Ao max P.8 mmHg : 99.2 cm/sec : 330.0 cm/sec Ao mean P.4 mmHg MV A max aaron TR max PG LVOT Max Aaron : 70.2 cm/sec : 43.9 mmHg : 94.7 cm/sec PA V2 max ADAM(I,D): 1.3 cm : 72.6 cm/sec sev ratio: 0.44 PA mean PG : 0.81 mmHg MV feb time: 0.25 sec Ao V2 mean LV V1 max PG PA V2 mean : 159.4 cm/sec : 41.1 cm/sec Ao V2 VTI: 33.3 cm LV V1 VTI PA pr(Accel) ADAM(V,D): 1.2 cm2 : 14.7 cm : 39.2 mmHg ADAM indexed to BSA (cm^2/m^2): 0.65 Reading Physician:05:15 PM
--- NOTE | 2016-11-15 22:50 | NUR ---
Hypotension Dr. Reyes paged at 2250 re: hypotension. Addendum: 11/16/16 at 0542 by DAVID FALL RN SBP remains 90's-low 100's, MAP >65, continues on NS @ 100/hr . Pt slept most of shift. NPO for possible stress test in AM. Tele sinus 70-80's. Pt denies pain or discomfort.
[2016-11-16 03:51] VITALS: BP 105/68; PULSE 76; RESP 18; O2SAT 92
[2016-11-16 05:37] VITALS: PULSE 76
[2016-11-16] MEDS: Insulin LISPRO 300 Unit/3 mL Inj SUBQ SCH (08:00)
[2016-11-16 08:55] VITALS: BP 103/61; PULSE 73; RESP 18; O2SAT 99
[2016-11-16 08:59] VITALS: BP 98/64; PULSE 87
[2016-11-16 09:00] VITALS: PULSE 78
[2016-11-16 09:04] VITALS: BP 95/62
[2016-11-16] MEDS: Pantoprazole 20 mg ER24 Tablet PO SCH (10:24)
--- NOTE | 2016-11-16 11:12 | PCM.DIMED ---
Discharge Instructions Date of Service Nov 16, 2016 Dates of Hospitalization Nov 15, 2016 at 02:39 Discharge Diagnosis Discharge Diagnosis Ground-level fall with elevated troponin Medication Instructions Additional med instructions Please only take the medications that we recommend and not take any others that you are on previously. Diet Discharge Diet: Heart Healthy Activity Discharge Activity: Other (progress as tolerated) Call your provider Call your provider for: Fever or Chills, Shortness of breath, Bleeding, Chest pain, Vomitting, Excessive diarrhea, Weakness (unilateral) Patient Instructions Follow-up Provider: Milan Fishman MD Follow-up with PCP in: Other (3-4 days sooner if problems) Provider: David Hamilton MD Follow-up in: 1 week Additional Information Resume [facility] Yaneth Williamson MD Nov 16, 2016 11:11
--- NOTE | 2016-11-16 11:25 | PCM.DC.MED ---
Discharge Summary Date of Service Nov 16, 2016 Dates of Hospitalization Date of Hospital Admission Nov 15, 2016 at 02:39 Date of Discharge: Nov 16, 2016 Providers: Admitting Physician: Piyush Harmon MD Primary Care Physician: Milan Fishman MD Attending Physician: Yaneth Williamson MD Diagnosis at Time of Discharge Diagnosis at Time of Discharge Ground-level fall with elevated troponin Consultations Cardiology Procedures XRay, CTs & MRIs PROCEDURE: CT BRAIN WITHOUT CONTRAST ([id number]) INDICATIONS: GLF on anticoag TECHNIQUE: Noncontrast 4.5 mm thick angled axial sections acquired from the foramen magnum to the vertex, with coronal reformats. COMPARISON: CT brain 11/14/2016 FINDINGS: Image quality: Motion artifact, sequence partially repeated. CSF spaces: Basal cisterns are patent. No extra-axial fluid collections. The ventricles are symmetric in size and shape. Brain: No intracranial bleeds or masses. There is cerebral volume loss for age , with resultant ventricular and sulcal prominence. There are periventricular and deep white matter chronic small vessel ischemic changes. There is intracranial internal carotid artery atherosclerosis. Skull and face: Calvarium and visualized facial bones appear intact, without suspicious lesions. Sinuses: Visualized sinuses and mastoids are clear. IMPRESSION: 1. No acute intracranial abnormality or interval change 2. Age-related atrophy and chronic deep white matter ischemic changes. Note: Dr. Williamson paged with results at 1300 hours on 11/15/2016 Dictated by: Jason Chaudhry M.D. on 11/15/2016 at 12:57 Approved by: Jason Chaudhry M.D. on 11/15/2016 at 13:02 PROCEDURE: CT BRAIN WITHOUT CONTRAST ([id number]) INDICATIONS: fall, blood thinner TECHNIQUE: Noncontrast 4.5 mm thick angled axial sections acquired from the foramen magnum to the vertex, with coronal reformats. COMPARISON: [facility], CT, CT BRAIN WO CON, 08/05/2016, 22:13. [facility], CT, BRAIN W/O CONTRAST, 04/07/2013, 22:02. [facility], CT, BRAIN W/O CONTRAST, 03/04/2010, 12:54. FINDINGS: Image quality: Excellent. CSF spaces: Basal cisterns are patent. No extra-axial fluid collections. Ventricles are normal in size and shape. Brain: No midline shift. No intracranial masses or hemorrhage. Damon-white matter interface is normal. Skull and face: Calvarium and visualized facial bones are intact, without suspicious lesions. Sinuses: Minimal mucosal thickening otherwise visualized sinuses and mastoids are clear. IMPRESSION: No CT evidence of acute intracranial pathology. There are no discrepancies with the preliminary report. Dictated by: Leon Padilla M.D. on 11/15/2016 at 7:33 Approved by: Leon Padilla M.D. on 11/15/2016 at 7:35 PROCEDURE: CT CERVICAL SPINE WITHOUT CONTRAST ([id number]) INDICATIONS: fall, neck pain TECHNIQUE: Noncontrast 3 mm thick sections acquired from the skull base to the T4 level. Sagittal and coronal reformats were then constructed. For radiation dose reduction, the following was used: automated exposure control, adjustment of mA and/or kV according to patient size. COMPARISON: None. FINDINGS: Image quality: Excellent. Bones: No fractures or dislocations. Multilevel intravertebral body disc height loss and osteophyte formation consistent with degenerative change most prominent at C5-7. Benign area of gas in the C6 vertebral body is related to degenerative change. Visualized superior ribs are intact. Soft tissues: Prevertebral soft tissues are normal in thickness. No paravertebral hematomas. No apical pneumothoraces. Small partially visualized right apical pleural effusion or pleural thickening. IMPRESSION: 1. No CT evidence of acute cervical spine pathology. 2. Right apical small pleural effusion or pleural thickening partially visualized. 3. There are no discrepancies with the preliminary report. Dictated by: Leon Padilla M.D. on 11/15/2016 at 7:35 Approved by: Leon Padilla M.D. on 11/15/2016 at 7:39 Cardiac Echo Impression Echocardiogram Report Name: KEVIN BOONE Study Date: 11/15/2016 Height: 66 in Hospital Exam Location: [facility] Weight: 184 lb Gender: Male BSA: 1.9 m2 : 1935 Age: 81 yrs BP: 114/69 mmHg Reason For Study: NSTEMI, Fall Ordering Physician: Ghislaine Pardo Performed By: Claudia Trujillo Referring Physician: ALE PARDO Interpretation Summary 1. Normal left ventricular size with moderate to severe hypertrophy with preserved systolic function and an estimated EF of 55 to 60% 2. The right ventricle appears mildly dilated with mild to moderately reduced systolic function. The estimated RVSP is estimated at 52 mm Hg 3. The bioprosthetic valve appears to be functioning well 4. Strain imaging is abnormal with best strain values in the apical distribution (this may be suggestive of amyloid). No appreciable change compared to the previous study Brief History Mr. 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 Initial studies revealed troponin elevation at 0.294, and CT brain and cervical without acute intracranial or structural abnormalities. Patient was admitted for evaluation for GLF on anticoagulation, and elevated troponin. - Hospital day one Mr. Delvalle states that he was at his home letting his dog outside. He was at his porch, when his walker seemed to have 'caught' the door baseboard, and he fell forward. He denied any preceding chest pain, SOB, palpitations, vision changes, weakness, dizziness, headache, or unsteady gait above baseline. He endorses some mild discomfort of his left extremities, notably his upper, of which, has multiple small abrasions. After he fell, he states he crawled into his home and called for EMS. He denies any loss of consciousness, head trauma, or extremity trauma. He states he had to crawl into his home, as he did not have maico strength or stability to pick himself off of the ground. He also denies any other symptoms of fever, chills, nausea, vomiting. Denies any dysphagia. States that he has been eating and drinking well at his home. Of note, patient was recently seen 11/08/[address] Hamilton. During that visit, no changes to medications were noted. In the ED: T36.5, P69, R20, BP 109/62, 100% RA; initial labs showed WBC 12.2 with 76.3% neut, Hb 11.5, Hct 37.0, plt 247; Na 135, K 3..2, Cr 1.91, glc 220; troponin T 0.294; per [facility] report in ED documentation, CT brain w/o contrast did not reveal any acute intracranial abnormalities, and CT cervical spine was also unremarkable aside from degenerative changes. Cardiology was consulted, recommendations included admission, cardiac monitoring, and holding of anticoagulation therapies. Patient was transferred to medical floor in stable condition. Hospital Course Mr. 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 Initial studies revealed troponin elevation at 0.294, and CT brain and cervical without acute intracranial or structural abnormalities. Patient was admitted for evaluation for GLF on anticoagulation, and elevated troponin. Ground level fall secondary to body mechanics, acute, present on admission, monitor - Pt denies any assoc LOC, syncope/near syncope - Initial reports CT brain w/o con: no acute intracranial abnl, awaiting final report - Phys therapy eval - Holding Eliquis at this time - Repeat CT brain w/o con in am which returned as negative Elevated troponin, possible acute on chronic elevation, present on admission, monitor - On admit: 0.294; prev values 08/2016: 0.196, 0.2001, 0.170 - Pt denies any recent h/o CP, palpitations, chest pressure, dyspnea, diaphoresis - Likely exacerbated by CKD - ED EKG: RBBB + diffuse changes differing compared to previous 08/2016 studies - Continue to trend/monitor - Tele - EKG in am - ED contacted cardiology, whom graciously agreed to consult -Cardiology recommended checking SPEP and light chain assay and this has been ordered on November 15. -Case discussed with cardiology on day of discharge and recommend follow-up with Dr. Doe to further review issues and primary care provider in 3-5 days Orthostatic hypotension, acute, present on admission -We will go ahead and give IV fluids 1 L at 100 mils per hour of normal saline and reevaluate in a.m. -Patient was given IV normal saline hydration overnight and did have improvement in orthostatic changes by blood pressure and pulse. -Patient was on significant diuretic therapy and oral antihypertensive therapy at home so we did hold all of this except for his metoprolol and digoxin and we will can continue holding other agents except the metoprolol and digoxin at discharge Chronic renal insufficiency, presumed stable - On admit: Cr 1.91; prev values 08/2016 2.00, 1.35, 1.61; values seem to fluctuate 1.5-2.0 - Avoid nephrotoxic medications Hypokalemia, acute, present on admission, under evaluation - On admit: K 3.2 - K/Mg protocol + monitor Microcytic hypochromic anemia, likely chronic, presumed stable - On admit: Hb 11.5, Hct 37.0, MCV 78.6, MCH 24.4 - Defer to outpatient work up; likely iron deficiency Leukocytosis, likely chronic, presumed stable - On admit: WBC 12.2; prev 08/2016: 11.1, 11.6 - Monitor; currently no s/sx of infection - Monitor with WBC trending, obtain UA HFpEF, chronic. 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 Presumed stable - Has been on home oxygen therapy since 2016; continuous 1.5 L - Outpt pulmonary: Dr. Cheryl Oconnor and accwilfredo prn - Continue continuous 1.5L; titrate as needed Atrial fibrillation on Eliquis, chronic. Presumed stable - Patient reported h/o unsuccessful cardioversion - Tele - HOLDING NOAC after admission but upon discharge will go ahead and reinstitute Eliquis Diabetes mellitus, insulin using type 2, chronic. Presumed stable - A1c July 2016: 8.6 - Low-dose correctional scale in place at this time - Resume home dose glargine when verified Hypertension, chronic. Presumed stable - Resume home medications when reconciliation completed GERD, chronic. Presumed stable - PPI continued Hyperlipidemia, chronic. Presumed stable - Resume home medications when reconciliation completed; statin Coronary artery disease, status post myocardial infarction, chronic. Presumed stable - Resume home medications when reconciliation completed and consideration of appropriate meds - anticoag held at this time History of aortic valve replacement with porcine valve. Presumed stable - Continue cardiac meds as noted Osteoarthritis, chronic. Presumed stable - Pain rx prn - PRN bowel/fever/nausea/pain - GI: PPI - DVT: HELD at this time secondary to GLF - Diet: Heart/CC - IVF: NS 60 - Code: FULL CODE Exam Vital Signs (Last) Date Time Temp Pulse Resp B/P Pulse Ox O2 Delivery O2 Flow Rate FiO2 11/16/16 10:17 Nasal Cannula 2.00 11/16/16 09:04 95/62 11/16/16 09:00 78 11/16/16 08:55 18 99 11/16/16 03:51 36.7 Exam Constitutional: Elderly male in no acute distress Head: Normocephalic atraumatic Chest: Clear to auscultation Cor: Regular rate and rhythm S1-S2 with 2/6 systolic ejection murmur Abdomen: Soft nontender bowel sounds present Extremities: Trace bilateral pedal edema Neuro: Alert and oriented 3, motor strength is intact bilaterally Psych: Mood and affect are appropriate Skin: No rashes Test 11/14/16 23:21 11/15/16 00:18 11/15/16 04:18 11/15/16 14:46 Magnesium Level 2.1mg/dL (1.6-2.6) Total Bilirubin 0.7mg/dL (0.0-1.2) Aspartate Amino Transf (AST/SGOT) 24U/L (0-50) Alanine Aminotransferase (ALT/SGPT) 14U/L (0-44) Alkaline Phosphatase 67U/L (25-160) Total Protein 7.3g/dL (6.4-8.4) Urine Color Yellow (YELLOW) Urine Appearance Clear (CLEAR,HAZY) Urine pH 5.5 (5.0-8.0) Urine Specific [place] 1.012 (1.003-1.035) Urine Protein Negativemg/dL (NEG,TRACE) Urine Glucose (UA) 250mg/dL (NEGATIVE) Urine Ketones Negativemg/dL (NEGATIVE) Urine Occult Blood Negative (NEGATIVE) Urine Nitrite Negative (NEGATIVE) Urine Bilirubin Negative (NEGATIVE) Urine Urobilinogen 1.0mg/dL (NORMAL) Urine Leukocyte Esterase Negative (NEGATIVE) Urine RBC 0-2/hpf (0-2) Urine WBC 0-5/hpf (0-5) Urine Epithelial Cells Occasional/hpf (NONE-MOD) Urine Crystals None seen (NONE SEEN) Urine Bacteria None/hpf (NONE-FEW) Urine Hyaline Casts 5/20/lpf (NONE) Urine Granular Casts None seen (NONE SEEN) Urine Waxy Casts None seen (NONE SEEN) Urine Red Blood Cell Casts None seen (NONE SEEN) Urine White Blood Cell Casts None seen (NONE SEEN) Urine Mucus None seen (None Seen) Urine Trichomonas None seen (NONE SEEN) Urine Yeast None (NONE SEEN) Urinalysis Comment None Urine Culture Reflexed Not indicated Hold Urine Received (Received) White Blood Count 10.2th/mm3 (3.8-10.1) Red Blood Count 4.50mil/mm3 (4.40-5.80) Hemoglobin 10.8g/dL (13.8-17.2) Hematocrit 35.1% (41.0-50.0) Mean Corpuscular Volume 78.0fL (81-100) Mean Corpuscular Hemoglobin 24.0pg (27.0-35.0) Mean Corpuscular Hemoglobin Concent 30.8% (32.0-37.0) Red Cell Distribution Width 17.3% (12.3-15.4) Platelet Count 208bil/L (150-400) Neutrophils (%) (Auto) 70.5% (40-74) Lymphocytes (%) (Auto) 14.2% (14-46) Monocytes (%) (Auto) 13.5% (4-12) Eosinophils (%) (Auto) 1.4% (0-5) Basophils (%) (Auto) 0.2% (0-3) Hemoglobin A1c 7.5% (4.8-5.6) Troponin T 0.252ug/L (0.0-0.011) Test 11/16/16 03:36 Sodium Level 137mEq/L (134-144) Potassium Level 3.5mEq/L (3.5-5.2) Chloride Level 95mEq/L (97-108) Carbon Dioxide Level 30mmol/L (18-29) Blood Urea Nitrogen 43mg/dL (8-27) Creatinine 1.75mg/dL (0.76-1.27) Estimat Glomerular Filtration Rate 40mL/min (>59) Glucose Level 177mg/dL (60-99) Calcium Level 8.5mg/dL (8.5-10.1) Discharge Medications Discharge Medications Albiglutide (Tanzeum) 30 Mg/0.5 Ml Pen.injctr 30 MG SQ every Friday (Reported ) Apixaban (Eliquis) 5 Mg Tablet 2.5 MG PO BID Prescribed by: SERENE NASH DO Aspirin (Aspirin) 81 Mg Tablet 81 MG PO QAM (Reported) Atorvastatin Calcium (Atorvastatin Calcium) 10 Mg Tablet 10 MG PO HS Prescribed by: SCOT JORDAN MD Citalopram (Citalopram) 40 Mg Tablet 40 MG PO QAM (Reported) Digoxin (Digoxin) 125 Mcg Tablet 125 MCG PO DAILY (Reported) Fluticasone Propionate (Flovent Diskus) 100 Mcg Disk.w.dev 1 PUFF INHALATION BID Prescribed by: SCOT JORDAN MD Glimepiride (Glimepiride) 4 Mg Tablet 4 MG PO DAILYAC (Reported) Insulin Glargine (Lantus U100 Insulin Vial) 100 Unit/Ml Vial 20 UNIT SUBQ QPM ( Reported) Metoprolol Tartrate (Metoprolol Tartrate) 25 Mg Tablet 12.5 MG PO BID Prescribed by: SERENE NASH DO Multivitamin (Multivitamins) 1 Each Capsule 1 EACH PO DAILY (Reported) Omeprazole (Omeprazole) 20 Mg Capsule.dr 20 MG PO QAM (Reported) Tamsulosin (Flomax) 0.4 Mg Capsule 0.4 MG PO DAILYWD (Reported) As needed Albuterol HFA (Proair HFA) 8.5 Gm Hfa.aer.ad 2 PUFFS INHALATION q4-6h PRN PRN For Wheezing (Reported) Cyclobenzaprine (Cyclobenzaprine) 5 Mg Tablet 5 MG PO TID PRN PRN For Spasm ( Reported) Ipratropium [place] (Ipratropium [place] 0.03% Nasal) 30 Ml [place] 2 SPRAY NS TID PRN PRN For Congestion (Reported) Lidocaine Cream (Lidocaine Cream) 5 Gm Cream..g. 1 APPLIC TOPICAL DAILY PRN PRN For Pain (Reported) Nitroglycerin SL (Nitroglycerin SL) 0.4 Mg Tab.subl 0.4 MG SL PRN chest pain ( Reported) Additional med instructions Please only take the medications that we recommend and not take any others that you are on previously. Followup Plan Disposition: Home and with [facility] to resume. Discharge Diet: Heart Healthy Discharge Activity: Other (progress as tolerated) Follow-up Provider: Milan Fishman MD Follow-up with PCP in: Other (3-4 days sooner if problems) Provider: David Hamilton MD Follow-up in: 1 week Time spent 60 minutes copies to: Milan Fishman MD; David Hamilton MD, Cheryl A MD Nov 16, 2016 11:25 Yaneth Williamson MD Nov 16, 2016 11:25
--- NOTE | 2016-11-16 11:42 | CONS ---
[address] [address] CONSULTATION REPORT PATIENT: KEVIN BOONE : 1935 MR#: [id number] ADMIT: 11/15/2016 JOB ID: [id number] DATE OF SERVICE: 11/16/2016 CARDIOLOGY CONSULTATION: CHIEF COMPLAINT: The patient came in with a fall. HISTORY OF PRESENT ILLNESS: The patient is an 81-year-old man with a history of atrial fibrillation, on Eliquis and insulin, diabetes, hypertension, history of bioprosthetic aortic valve replacement, history of three-vessel CABG, as well as recurrent falls. With this current admission he says he was using his walker and tried to lift the walker to avoid his treadmill and unfortunately he was not able to negotiate this well and he fell down. He says he was on the ground for a couple of hours before he was able to crawl back in and call for help. He denies any palpitations prior to this. He denies chest pain, chest pressure, increased shortness of breath, sweatiness, or other concerning symptoms prior to the fall. He came in, and he has been assessed and fortunately there are no acute significant injuries. He has elevated troponins and I was asked to consult on this. As part of his workup he has now had an echocardiogram that shows very thickened baker without new wall motion abnormalities. The right ventricle shows some dilation with at least mildly reduced systolic function which appears stable compared to prior echoes. The aortic valve appears to be functioning well. The patient says he feels well. He has been getting up with physical therapy and is able to navigate without any significant problems. He does have some lightheadedness with position changes prior to getting up and moving and this has been documented to show orthostatic changes. He was given some fluid yesterday. While he is walking he denies increased shortness of breath, chest pain, chest pressure. It has been noted that his oxygen sats do drop, but he is not noticing that. He is currently using oxygen at night. He has not had any problems with orthopnea or PND. He has some chronic lower extremity edema. Of note, he was admitted in August of this year with a fall and also had elevated troponins in a similar range. With this current admission his EKG was interpreted as right bundle branch block with repolarization changes. PAST MEDICAL HISTORY/PROBLEM LIST: 1. History of coronary disease with bypass grafting. 2. History of atrial fibrillation. 3. History of recurrent falls. 4. COPD. 5. Stage 3 chronic kidney disease. 6. Osteoarthritis. 7. History of congestive heart failure. 8. Hyperlipidemia. MEDICATIONS AT HOME: Included amlodipine 5 mg q.a.m., Eliquis 2.5 mg b.i.d., aspirin 81 mg a day, Lipitor 10 mg q.h.s., Celexa, daptomycin, fluticasone, furosemide 40 mg tablets 80 mg q.a.m., glimepiride, and insulin. He is also on metoprolol 12.5 b.i.d., potassium 10, and tamsulosin, as well as verapamil. ALLERGIES: No known drug allergies. SOCIAL HISTORY: Rare alcohol use. Former tobacco but quit 20 years ago. FAMILY HISTORY: No early coronary disease. REVIEW OF SYSTEMS: Overall health: No fevers, chills, night sweats, or weight loss. GI: He denies ulcers or blood in his stool. : No dysuria, no hematuria. He has chronic renal insufficiency. Pulmonary: No increased shortness of breath. Cardiac: As per HPI. Heme: No easy bruising or bleeding. Neuro: Unsteady on his feet but this is nothing new. Endocrine: No heat or cold intolerance. Musculoskeletal: Some unsteadiness on his feet. Has some arthritis. Derm: No new rashes or skin breakdown. Psych: No acute issues. Ophtho: No acute vision changes. All other review of systems on a 12 point review of systems is negative. PHYSICAL EXAMINATION: Blood pressures are on the lower side with systolics in the range of 109, some lower than that. General: In no acute distress. Speaking in full sentences without apparent shortness of breath. Head and neck: Normocephalic, atraumatic. Neck: No obvious JV distention. Heart: Distant sounds. Regular. Lungs: Somewhat decreased effort but I do not hear any crackles or wheezes. Back: No CVA tenderness to palpation. Abdomen: Soft, nontender. Extremities: Warm, with mild what he says is chronic edema. Vascular: No carotid bruits appreciated. Psych: Appropriate mood and affect. Musculoskeletal: He uses a walker but gait not tested. Ophtho: Vision grossly intact. ENT: Hearing grossly intact. Mucous membranes are dry. Echo as noted. The strain imaging is very abnormal in this echo despite the fact that the LV function is normal. He has very thick baker and the findings on strain could be suggestive amyloid. To further evaluate that we sent an SPEP and light chain assay. IMPRESSION: The patient is a gentleman with a history of multiple falls. This recent one sounds like he did he did try to adjust his position to miss the treadmill and then went down. Unfortunately he was down for a couple of hours before he was actually able to get help. He is currently on Eliquis for atrial fibrillation and we need to decide if this is still safe. His blood pressures are certainly not on the high side and we have actually given him fluid to help with orthostatic changes. It might be prudent to hold his Lasix as an outpatient should he be discharged soon. Reviewing his medications it does not appear per review of the hospital record that he is not on any of his outpatient blood pressure medications. Therefore, think we should review these in decide what if any doses he needs to go out on at this juncture. Regarding the troponins, this appears to be a chronic problem. If he has amyloid, this could be due related to that issue itself. He has never had any chest pain, chest pressure. I will speak with the hospitalist regarding his blood pressure medications and try to review these and decide what we should send him out on eventually. TIME: I spent an hour reviewing the patient's old records, speaking with the patient, reviewing his current records, talking with physical therapy, and speaking with the hospitalist. TAMEKA
--- NOTE | 2016-11-16 12:12 | NUR ---
Social Work: Readiness for Discharge/Multidisciplinary Rounds D: EMR reviewed. Pt is on day 1 of hospitalization. Pt discussed in multidisciplinary rounds and is medically stable for discharge home today. No SW needs identified, no MD orders received. Pt's discharge discussed with MD - pt is open with HH - SW requested resumption orders for HH. MD agreeable - no other concerns identified. Pt confirmed his daughter will provide transport home at 1230 today. SW will continue to follow until time of discharge. A: Pt who is independent at baseline and who is open with [facility]. P: Pt to discharge home with daughter at 1230 today. Pt to resume [facility]. SW updated [facility] on pt's discharge and provided access. MD provided resumption orders in discharge instructions. No other needs identified at this time. SW will continue to follow until time of discharge. PRABHAKAR Sepulveda
--- NOTE | 2016-11-16 13:02 | NUR ---
Discharge Pt discharged at 1300. He was given instructions regarding medication changes and instructions for follow up care. He confirmed understanding of these instructions. He did not leave with any new prescriptions. He left with all of his belongings in his possession. His daughter was present at the bedside and she was notified that there were changes to his prescription medications and instructions for him to follow up with his primary care doctor and [facility] manager. He was brought to the exit by wheelchair by unit staff and his daughter picked him up to drive him home.
--- NOTE | 2016-11-16 14:20 | NUR ---
Social Work: Discharge D: EMR reviewed. Pt is on day 1 of hospitalization. Pt discussed in multidisciplinary rounds and is medically stable for discharge home today. No SW needs identified, no MD orders received. Pt's discharge discussed with MD - pt is open with HH - SW requested resumption orders for HH. MD agreeable - no other concerns identified. Pt confirmed his daughter will provide transport home at 1230 today. Pt's daughter arrived at 1300 and provided transport home. A: Pt who is independent at baseline and who is open with [facility] . P: Pt discharged home with daughter today at 1300. Pt to resume [facility]. SW updated [facility] on pt's discharge and provided access. MD provided resumption orders in discharge instructions. No other needs identified. No other MD orders received. PRABHAKAR Sepulveda
[2016-11-18 14:08] LABS: Free Lambda Lt Chains 65.2 mg/L (5.7-26.3)
== END 2016-11-16 12:45 | disposition home health service (06) | DRG 309 ==
LOC: SED 22:56 → PCC 11-15 02:39
PROVIDERS: ADMIT Hospitalist; ATTEND Hospitalist
DX: I45.10 Unspecified right bundle-branch block (principal); I50.32 Chronic diastolic (congestive) heart failure; J96.11 Chronic respiratory failure with hypoxia; N18.3 Chronic kidney disease, stage 3 (moderate); Z99.81 Dependence on supplemental oxygen; J44.9 Chronic obstructive pulmonary disease, unspecified; I25.10 Atherosclerotic heart disease of native coronary artery without angina pectoris; E11.9 Type 2 diabetes mellitus without complications; E78.5 Hyperlipidemia, unspecified; Z87.891 Personal history of nicotine dependence; I48.91 Unspecified atrial fibrillation; Z79.01 Long term (current) use of anticoagulants; Z95.1 Presence of aortocoronary bypass graft; W01.0XXA Fall on same level from slipping, tripping and stumbling without subsequent striking against object, initial encounter; Y93.89 Activity, other specified; Y92.009 Unspecified place in unspecified non-institutional (private) residence as the place of occurrence of the external cause; I12.9 Hypertensive chronic kidney disease with stage 1 through stage 4 chronic kidney disease, or unspecified chronic kidney disease; K21.9 Gastro-esophageal reflux disease without esophagitis; Z79.4 Long term (current) use of insulin; I95.1 Orthostatic hypotension; R79.89 Other specified abnormal findings of blood chemistry